=== PATIENT | male | born 1935 | race Caucasian/White ===

== ENCOUNTER 2016-11-30 11:47 | Inpatient (IN) | payer OTHER ==
[~2016-11-30] VITALS: Ht 170.2 cm; Wt 91.5 kg
[~2016-11-30 11:47] MED LIST: ALLO100T PO; CALC625T PO; CHOL100027 PO; CYAN500T PO; FLM4 PO; FURO20TA PO; INSDGI SC; LPT/40 PO; MULT-618 PO; NITR0.4S UT; PLV75 PO; PRLSR20 PO; PYRI100T4 PO; REPA2TAB13 PO; TPRSR50 PO
--- NOTE | 2016-11-30 12:45 | EMERGENCY ROOM VISIT NOTE ---
History Report prepared by Gilda: Yfn Whitten Under the Supervision of: Dr. Mike Melton D.O. First contact with patient: 12:28 Chief Complaint: BILATERAL LEG WEAKNESS Stated Complaint: DIFFICULTY WALKING, SORETHROAT, COUGH Nursing Triage Summary: Pt states they were going to [facility] for sorethroat, but when she went to get him to car pt couldn't walk. "whenever he gets really sick he can't walk" states this occured a couple years ago. Pt denies pain. Pt states Kishore as first and last name. Was able to give . History of Present Illness The patient is an 81 year old male who presents to the Emergency Room with complaints of acute generalized weakness this morning. The patient has been demonstrating a non-productive cough, sore throat, and subjective fever. The patient was going to [facility] this morning when he was having trouble ambulating to the car. The patient has not been eating well. The patient and his deny chest pain, nausea, vomiting, abdominal pain, urinary symptoms, or increased swelling of the legs. The patient has a coronary stent and cardiac defibrillator placed at [facility]. He is no longer on Plavix. He also has a history of diabetes and CHF, and is s/p appendectomy. The patient had his flu shot this past fall. Source of History: patient, family Onset: this morning Position: other (generalized) Quality: other (weakness) Timing: other (acute) Associated Symptoms: + cough, + fevers, + sorethroat, No abdominal pain, No chest pain, No nausea, No urinary symptoms, No vomiting Review of Systems See HPI for pertinent positives & negatives. A total of 10 systems reviewed and were otherwise negative. Past Medical & Surgical Medical Problems: (1) Anemia in chronic renal disease (2) Benign prostatic hyperplasia (3) CAD (coronary artery disease) (4) Calculus of kidney and ureter (5) Cardiomyopathy (6) Chronic ITP (idiopathic thrombocytopenic purpura) (7) CKD (chronic kidney disease), stage IV (8) Coronary artery disease (9) Diabetes mellitus type 2 (10) Diabetic renal disease (11) Diverticular disease of colon (12) Gastroesophageal reflux disease (13) Gout (14) Implantation of internal cardiac defibrillator (15) Malignant neoplasm of skin (16) MA (myocardial infarction) (17) Status post left heart catheterization (LHC) (18) Systolic heart failure Surgical Problems: (1) H/O cystoscopy (2) Hx of heart artery stent (3) S/P appendectomy (4) S/P ICD (internal cardiac defibrillator) procedure Family History Diabetes mellitus FHx: heart disease Social History Smoking Status: Never Smoker Alcohol Use: none Drug Use: none Marital Status: Occupation Status: retired Current/Historical Medications Scheduled Allopurinol (Zyloprim), 100 MG PO DAILY Aspirin (Aspirin Ec), 81 MG PO DAILY Atorvastatin (Lipitor), 40 MG PO QPM Calcium Polycarbophil (Fibercon), 1,250 MG PO DAILY Cholecalciferol (Vitamin D 1000 Unit), 1,000 INTER.UNIT PO DAILY Cyanocobalamin (Vitamin B-12), 500 MCG PO BID Furosemide (Lasix), 20 MG PO 3XWK Insulin Glargine (Lantus Solostar), 30 SC QAM Insulin Glargine (Lantus Solostar), 30 SC HS Metoprolol Succinate (Metoprolol Succinate ER), 50 MG PO QAM Multiple Vitamins W/ Minerals (Centrum Silver Ultra Mens), 1 TAB PO DAILY Nitroglycerin (Nitrostat), 0.4 MG UT UD Omeprazole (Prilosec), 20 MG PO DAILY Pyridoxine (Vitamin B6), 100 MG PO DAILY Repaglinide (Prandin), 4 MG PO TID Allergies Coded Allergies: Lisinopril (Verified Allergy, Mild, 11/30/16) Physical Exam Vital Signs Date Time Temp Pulse Resp B/P Pulse Ox O2 Delivery O2 Flow Rate FiO2 11/30/16 13:58 94 Room Air 11/30/16 13:56 37.1 96 18 136/74 94 Room Air 11/30/16 12:11 102 11/30/16 11:51 37.9 109 19 160/76 92 Room Air Physical Exam GENERAL: Patient is listless, slow to respond to questioning but follows commands when prompted. EYES: The conjunctivae are clear. The pupils are round and reactive. EARS, NOSE, MOUTH AND THROAT: The nose is without any evidence of any deformity. Mucous membranes are dry tongue is midline NECK: The neck is nontender and supple. RESPIRATORY: Sounds diminished at the right base, rales noted to the left base, tachypnea noted. CARDIOVASCULAR: Heart sounds are tachycardic but regular, no definite murmurs noted to auscultation. GASTROINTESTINAL: The abdomen is soft. Bowel sounds are present in all quadrants. Abdomen is nontender MUSCULOSKELETAL/EXTREMITIES: There is no evidence of gross deformity full range of motion is noted in the hips and shoulders SKIN: There is no obvious evidence of any rash. There are no petechiae, pallor or cyanosis noted. There is pedal edema bilaterally. NEUROLOGIC: Patient is oriented to person place and situation, strength is diminished but symmetric. Medical Decision & Procedures ER Provider Diagnostic Interpretation: X-ray results as stated below per interpretation by me and the radiologist. CHEST ONE VIEW PORTABLE HISTORY: Sepsis COMPARISON: Chest 04/22/2016. FINDINGS: Left-sided single lead pacemaker/defibrillator. The heart is stable in size. Old, healed right-sided rib fractures and old right clavicle fracture. No pleural effusions. No pneumothorax. No evidence for pulmonary edema. Hazy appearance the right lung base. Mild interstitial thickening is likely chronic. IMPRESSION: A new hazy opacity at the right lung base which may represent a developing pneumonia. Recommend follow-up to ensure resolution. Electronically signed by: Agusto Stone M.D. 11/30/2016 1:14 PM Dictated Date/Time: 11/30/2016 1:13 PM Laboratory Results 11/30/16 12:50 Red Blood Count 4.44, Mean Corpuscular Volume 90.1, Mean Corpuscular Hemoglobin 31.5, Mean Corpuscular Hemoglobin Concent 35.0, Mean Platelet Volume 11.9, Neutrophils (%) (Auto) 85.0, Lymphocytes (%) (Auto) 6.4, Monocytes (%) (Auto) 7.6, Eosinophils (%) (Auto) 0.3, Basophils (%) (Auto) 0.3, Neutrophils # (Auto) 12.05, Lymphocytes # (Auto) 0.91, Monocytes # (Auto) 1.08, Eosinophils # (Auto) 0.04, Basophils # (Auto) 0.04 11/30/16 12:50 Test 11/30/16 12:50 11/30/16 13:00 11/30/16 13:02 11/30/16 13:17 White Blood Count 14.17 K/uL (4.8-10.8) Red Blood Count 4.44 M/uL (4.7-6.1) Hemoglobin 14.0 g/dL (14.0-18.0) Hematocrit 40.0 % (42-52) Mean Corpuscular Volume 90.1 fL (80-100) Mean Corpuscular Hemoglobin 31.5 pg (25-34) Mean Corpuscular Hemoglobin Concent 35.0 g/dl (32-36) Platelet Count 92 K/uL (130-400) Mean Platelet Volume 11.9 fL (7.4-10.4) Neutrophils (%) (Auto) 85.0 % Lymphocytes (%) (Auto) 6.4 % Monocytes (%) (Auto) 7.6 % Eosinophils (%) (Auto) 0.3 % Basophils (%) (Auto) 0.3 % Neutrophils # (Auto) 12.05 K/uL (1.4-6.5) Lymphocytes # (Auto) 0.91 K/uL (1.2-3.4) Monocytes # (Auto) 1.08 K/uL (0.11-0.59) Eosinophils # (Auto) 0.04 K/uL (0-0.5) Basophils # (Auto) 0.04 K/uL (0-0.2) RDW Standard Deviation 47.5 fL (36.4-46.3) RDW Coefficient of Variation 14.5 % (11.5-14.5) Immature Granulocyte % (Auto) 0.4 % Immature Granulocyte # (Auto) 0.05 K/uL (0.00-0.02) Platelet Estimate DECREASED Erythrocyte Sedimentation Rate 41 mm/hr (0-14) Prothrombin Time 11.4 SECONDS (9.0-12.0) Prothromb Time International Ratio 1.1 (0.9-1.1) Activated Partial Thromboplast Time 28.6 SECONDS (21.0-31.0) Partial Thromboplastin Ratio 1.1 Anion Gap 11.0 mmol/L (3-11) Estimated GFR () 28.1 Estimated GFR (Non- 24.2 BUN/Creatinine Ratio 10.2 (10-20) Calcium Level 9.1 mg/dl (8.5-10.1) Phosphorus Level 1.6 mg/dl (2.5-4.9) Magnesium Level 1.8 mg/dl (1.8-2.4) Total Bilirubin 1.1 mg/dl (0.2-1) Aspartate Amino Transf (AST/SGOT) 28 U/L (15-37) Alanine Aminotransferase (ALT/SGPT) 34 U/L (12-78) Alkaline Phosphatase 73 U/L (45-117) C-Reactive Protein 18.70 mg/dl (0-0.29) Pro-B-Type Natriuretic Peptide 3141 pg/ml (0-1800) Total Protein 7.2 gm/dl (6.4-8.2) Albumin 3.2 gm/dl (3.4-5.0) Globulin 4.0 gm/dl (2.5-4.0) Albumin/Globulin Ratio 0.8 (0.9-2) Lipase 59 U/L (73-393) Procalcitonin 0.61 ng/mL (0-0.5) Venous Blood pH 7.41 (7.36-7.41) Venous Blood Partial Pressure CO2 42 mmHg (38.0-50.0) Venous Blood Partial Pressure O2 24 mmHg Venous Blood HCO3 26 mmol/L Venous Blood Oxygen Saturation < 60.0 % Venous Blood Base Excess 1.2 mmol/L Bedside Lactic Acid Venous 3.03 mmol/L (0.90-1.70) Influenza Type A (RT-PCR) Neg for Influ A (NEG) Influenza Type A Antigen Neg for Influ A (NEG) Influenza Type B Antigen Neg for Influ B (NEG) Influenza Type B (RT-PCR) Neg for Influ B (NEG) Laboratory results per my review. Medications Administered Medications (Trade) Dose Ordered Sig/Zully Route Start Time Stop Time Status Last Admin Dose Admin Levofloxacin 750 mg 750 mg NOW STAT IV 11/30/16 13:28 11/30/16 13:29 DC 11/30/16 13:37 750 MG Sodium Chloride (Nss 1000ml) 1,000 ml @ 999 mls/hr Q1H1M STAT IV 11/30/16 13:28 11/30/16 14:28 DC 11/30/16 13:28 999 MLS/HR ECG Indication: weakness Rate (beats per minute): 103 Rhythm: sinus tachycardia Findings: T-wave inversion, no acute ischemic change, no ectopy, other (PRWP) Comparison ECG Date: 23 April 2016 Change: no significant change ED Course 1231: The patient was evaluated in room B3b. A complete history and physical examination were performed. 1328: NSS 1000 ml @ 999 mls/hr, Levofloxacin 750 mg IV. 1356: Discussed the case with Sophia Mark [facility]-C, [facility] The patient will be evaluated. Medical Decision Prior records/ancillary studies reviewed and summarized above. Nursing notes reviewed. Additional history obtained from family. Differential diagnosis: Etiologies such as metabolic, infection, hypo/hyperglycemia, electrolyte abnormalities, cardiac sources, intracerebral event, toxicologic, neurologic, as well as others were entertained. The patient is an 81-year-old male who presented to the emergency department for 2 days of difficulty breathing. The patient's history and physical exam appeared to be consistent with pneumonia. Chest x-ray reveal signs of pulmonary infiltrate. The patient was treated with IV fluids and IV antibiotics. He doesn' t a history of pulmonary edema so he was only given an initial fluid bolus. I discussed patient's laboratory and radiographic studies with him. On subsequent reevaluation he was feeling somewhat better. He was placed on supplemental oxygen. [facility] have agreed to evaluate the patient in the emergency department for further management and disposition. Consults Time Called: 1350 Consulting Physician: Sophia Mark PA-C, [facility] Returned Call: [phone]: Discussed the case with Sophia Mark PA-C, [facility]. The patient will be evaluated. Impression Primary Impression: PNA (pneumonia) Additional Impressions: General weakness Elevated troponin JACKIE (acute kidney injury) Thrombocytopenia Critical Care I have personally spent greater than 45 minutes of critical care time in the direct management of this patient. This includes bedside care, interpretation of diagnostic studies, and testing, discussion with consultants, patient, and family members, and other required patient management activities. This 45 minutes is in excess of all separately billable procedures. Scribe Attestation The scribe's documentation has been prepared under my direction and personally reviewed by me in its entirety. I confirm that the note above accurately reflects all work, treatment, procedures, and medical decision making performed by me. Departure Information Dispostion Being Evaluated By Hospitalist Referrals Cruzito Liao M.D. (PCP) Patient Instructions My [facility] Problem Qualifiers
--- NOTE | 2016-11-30 13:16 | DIAGNOSTIC IMAGING REPORT ---
CHEST ONE VIEW PORTABLE HISTORY: Sepsis COMPARISON: Chest 04/22/2016. FINDINGS: Left-sided single lead pacemaker/defibrillator. The heart is stable in size. Old, healed right-sided rib fractures and old right clavicle fracture. No pleural effusions. No pneumothorax. No evidence for pulmonary edema. Hazy appearance the right lung base. Mild interstitial thickening is likely chronic. IMPRESSION: A new hazy opacity at the right lung base which may represent a developing pneumonia. Recommend follow-up to ensure resolution. Electronically signed by: Agusto Stone M.D. 11/30/2016 1:14 PM Dictated Date/Time: 11/30/2016 1:13 PM
[2016-11-30 13:21] LABS: MEAN CELL VOLUME 90.1 fL (80-100); MEAN CORPUSCULAR HEMOGLOBIN 31.5 pg (25-34); MEAN PLATELET VOLUME 11.9 fL (7.4-10.4); PLATELET COUNT 92 K/uL (130-400); RED BLOOD COUNT 4.44 M/uL (4.7-6.1); WHITE BLOOD COUNT 14.17 K/uL (4.8-10.8)
[2016-11-30 13:25] LABS: VEN BLD GAS O2 SATURATION < 60.0 %; VEN BLOOD GAS BASE EXCESS 1.2 mmol/L; VENOUS BLOOD GAS PCO2 42 mmHg (38.0-50.0); VENOUS BLOOD GAS PO2 24 mmHg
[2016-11-30] MEDS ORDERED: SODIUM CHLORIDE 0.9% 1000ML 1,000 ML IV STA (13:28)
[2016-11-30] MEDS ORDERED: LEVAQUIN 750MG / 150ML D5W IV STA (13:28)
[2016-11-30 13:30] LABS: INR 1.1 (0.9-1.1); PARTIAL THROMBOPLASTIN RATIO 1.1; PROTHROMBIN TIME (PATIENT) 11.4 SECONDS (9.0-12.0)
[2016-11-30 13:42] LABS: ALT/SGPT 34 U/L (12-78); AST/SGOT 28 U/L (15-37); BLOOD UREA NITROGEN 24 mg/dl (7-18); BUN/CREATININE RATIO 10.2 (10-20); CALCIUM 9.1 mg/dl (8.5-10.1); CARBON DIOXIDE 23 mmol/L (21-32); CHLORIDE 104 mmol/L (98-107); GLUCOSE 237 mg/dl (70-99); MAGNESIUM 1.8 mg/dl (1.8-2.4); POTASSIUM 3.8 mmol/L (3.5-5.1); SODIUM 138 mmol/L (136-145)
[2016-11-30 13:44] LABS: BASO % 0.3 %; BASO ABS # 0.04 K/uL (0-0.2); COMPLETE YES; EOS % 0.3 %; IG% 0.4 %; LYMPH % 6.4 %; LYMPH ABS # 0.91 K/uL (1.2-3.4); MONO % 7.6 %; PLT ESTIMATE DECREASED
[2016-11-30] MEDS ORDERED: INSDGIPEN SC ×2 (13:48)
[2016-11-30] MEDS ORDERED: ASPI81TA28 PO (13:53)
[2016-11-30 13:58] LABS: ALB/GLOB RATIO 0.8 (0.9-2); ALKALINE PHOSPHATASE 73 U/L (45-117); CKMB/CK RATIO 0.9 (0-3.0); PHOSPHORUS 1.6 mg/dl (2.5-4.9)
[2016-11-30] MEDS ORDERED: SODIUM PHOSPHATE 3 MMOL/1 ML INFUSION IV STA (14:30)
[2016-11-30] MEDS ORDERED: NITROGLYCERIN 0.4 MG SL PER TAB CHARGE SL PRN (14:30)
[2016-11-30] MEDS ORDERED: ONDANSETRON INJ 2 MG/ML 2 ML VIAL IV PRN (14:30)
[2016-11-30] MEDS ORDERED: ACETAMINOPHEN 325 MG TAB PO PRN (14:30)
[2016-11-30] MEDS ORDERED: DEXTROSE 50% 50 ML SYR IV PRN (14:45)
[2016-11-30] MEDS ORDERED: GLUCOSE 40% GEL 15 GM TUBE PO PRN (14:45)
[2016-11-30] MEDS ORDERED: GLUCOSE 10 TABS/TUBE PO PRN (14:45)
[2016-11-30] MEDS ORDERED: GLUCAGON FOR INJ 1 MG VIAL SQ PRN (14:45)
--- NOTE | 2016-11-30 15:05 | History and Physical ---
History & Physical Date & Time of Service: Nov 30, 2016 at 14:45 Chief Complaint: Difficulty Walking, Sorethroat, Cough Primary Care Physician: Cruzito Liao M.D. History of Present Illness Source: patient, family, clinic records, hospital records Patient seen and examined. 81 year old male with PMHx of Systolic CHF s/p ICD placement, CAD, IDDM, CKD stage 4, Chronic Idiopathic Thrombocytopenia presents to the ED complaining of sore throat x 1 day. Patient's family reports that he was feeling well until yesterday morning. The patient had been out of town and was staying at a hotel. He woke up that morning with a sore throat and a little congestion and they thought that was just from the hotel environment. Throughout the day he developed a nonproductive cough. This morning his was going to take him to urgent care for his symptoms but the patient was so generally weak and low energy that she had trouble getting him to the car so he went to the ED instead. He denies fevers, chills, chest pain, SOB, palpitations , nausea, vomiting, diarrhea, dysuria, calf pain and edema. Denies sick contact. Patient had flu shot this season. In the ED patient is mildly tachycardic, he has a low grade fever WBC count is 14K, POC lactate is 3, ESR and CRP are elevated. CXR shows possible pneumonia. Troponin is mildly elevated at 0.05. He received IVFs and Levaquin. He will be admitted for further workup and treatment. Past Medical/Surgical History Medical Problems: (1) Anemia in chronic renal disease Status: Chronic (2) Benign prostatic hyperplasia Status: Chronic (3) CAD (coronary artery disease) Status: Chronic (4) Calculus of kidney and ureter Status: Resolved (5) Cardiomyopathy Status: Chronic (6) Chronic ITP (idiopathic thrombocytopenic purpura) Status: Chronic (7) CKD (chronic kidney disease), stage IV Status: Chronic (8) Coronary artery disease Permanent Comment: s/p NE PCI LAD 99% stenosis PTCA + stent LVEF 35-40% 2007 Status: Chronic (9) Diabetes mellitus type 2 Status: Chronic (10) Diabetic renal disease Status: Chronic (11) Diverticular disease of colon Status: Chronic (12) Gastroesophageal reflux disease Status: Chronic (13) Gout Status: Chronic (14) Implantation of internal cardiac defibrillator Status: Chronic (15) Malignant neoplasm of skin Status: Chronic (16) NE (myocardial infarction) Status: Resolved (17) Status post left heart catheterization (LHC) Permanent Comment: stent Status: Chronic (18) Systolic heart failure Permanent Comment: ischemic cardiomyopathy LVEF 40-45% on echo 04/12/2016 Status: Chronic Surgical Problems: (1) H/O cystoscopy Status: Chronic (2) Hx of heart artery stent Permanent Comment: 08/16 stent LAD Status: Resolved (3) S/P appendectomy Status: Chronic (4) S/P ICD (internal cardiac defibrillator) procedure Permanent Comment: generator changed 02/10/2016 Status: Chronic Family History Diabetes mellitus BROTHER FHx: heart disease FATHER SISTER Social History Smoking Status: Never Smoker Alcohol Use: none Drug Use: none Marital Status: Housing status: lives with family Occupational Status: retired Immunizations History of Influenza Vaccine: Yes Influenza Vaccine Date: Jun 15, 2012 History of Tetanus Vaccine?: Yes History of Pneumococcal: Yes Pneumococcal Date: Jun 27, 2012 History of Hepatitis B Vaccine: Yes Multi-Drug Resistant Organisms History of MDRO: No Allergies Coded Allergies: Lisinopril (Verified Allergy, Mild, 11/30/16) Home Medications Scheduled Allopurinol (Zyloprim), 100 MG PO DAILY Aspirin (Aspirin Ec), 81 MG PO DAILY Atorvastatin (Lipitor), 40 MG PO QPM Calcium Polycarbophil (Fibercon), 1,250 MG PO DAILY Cholecalciferol (Vitamin D 1000 Unit), 1,000 INTER.UNIT PO DAILY Cyanocobalamin (Vitamin B-12), 500 MCG PO BID Furosemide (Lasix), 20 MG PO 3XWK Insulin Glargine (Lantus Solostar), 30 SC QAM Insulin Glargine (Lantus Solostar), 30 SC HS Metoprolol Succinate (Metoprolol Succinate ER), 50 MG PO QAM Multiple Vitamins W/ Minerals (Centrum Silver Ultra Mens), 1 TAB PO DAILY Nitroglycerin (Nitrostat), 0.4 MG UT UD Omeprazole (Prilosec), 20 MG PO DAILY Pyridoxine (Vitamin B6), 100 MG PO DAILY Repaglinide (Prandin), 4 MG PO TID Review of Systems See above for pertinent positives & negatives. A total of 10 systems reviewed and were otherwise negative. Physical Exam Vital Signs Date Time Temp Pulse Resp B/P Pulse Ox O2 Delivery O2 Flow Rate FiO2 11/30/16 13:58 94 Room Air 11/30/16 13:56 37.1 96 18 136/74 94 Room Air 11/30/16 12:11 102 11/30/16 11:51 37.9 109 19 160/76 92 Room Air General Appearance: + pertinent finding (Ill appearing WD/WN 81 year old male lying in bed in NAD with family at bedside ) Head: normocephalic, atraumatic Eyes: PERRL, EOMI, sclerae normal ENT: pharynx normal Neck: supple, no JVD Respiratory/Chest: chest non-tender, no respiratory distress, no accessory muscle use, + crackles (RLL ), + rhonchi (scattered ) Cardiovascular: regular rate, rhythm, no edema, no gallop, no JVD, no murmur, normal peripheral pulses Abdomen/GI: normal bowel sounds, non tender, soft Back: normal inspection, no muscle spasm Extremities/Musculoskelatal: no calf tenderness, normal capillary refill, no pedal edema Neurologic/Psych: alert, oriented x 3, + pertinent finding (decreased hearing, no focal deficits noted ) Skin: normal color, warm/dry, no rash Lymphatic: no adenopathy Diagnostics Laboratory Results Results Past 24 Hours Test 11/30/16 12:50 11/30/16 13:00 11/30/16 13:17 11/30/16 14:28 Range/Units White Blood Count 14.17 4.8-10.8 K/uL Red Blood Count 4.44 4.7-6.1 M/uL Hemoglobin 14.0 14.0-18.0 g/dL Hematocrit 40.0 42-52 % Mean Corpuscular Volume 90.1 80-100 fL Mean Corpuscular Hemoglobin 31.5 25-34 pg Mean Corpuscular Hemoglobin Concent 35.0 32-36 g/dl Platelet Count 92 130-400 K/uL Mean Platelet Volume 11.9 7.4-10.4 fL Neutrophils (%) (Auto) 85.0 % Lymphocytes (%) (Auto) 6.4 % Monocytes (%) (Auto) 7.6 % Eosinophils (%) (Auto) 0.3 % Basophils (%) (Auto) 0.3 % Neutrophils # (Auto) 12.05 1.4-6.5 K/uL Lymphocytes # (Auto) 0.91 1.2-3.4 K/uL Monocytes # (Auto) 1.08 0.11-0.59 K/uL Eosinophils # (Auto) 0.04 0-0.5 K/uL Basophils # (Auto) 0.04 0-0.2 K/uL RDW Standard Deviation 47.5 36.4-46.3 fL RDW Coefficient of Variation 14.5 11.5-14.5 % Immature Granulocyte % (Auto) 0.4 % Immature Granulocyte # (Auto) 0.05 0.00-0.02 K/uL Platelet Estimate DECREASED Erythrocyte Sedimentation Rate 41 0-14 mm/hr Prothrombin Time 11.4 9.0-12.0 SECONDS Prothromb Time International Ratio 1.1 0.9-1.1 Activated Partial Thromboplast Time 28.6 21.0-31.0 SECONDS Partial Thromboplastin Ratio 1.1 Sodium Level 138 136-145 mmol/L Potassium Level 3.8 3.5-5.1 mmol/L Chloride Level 104 98-107 mmol/L Carbon Dioxide Level 23 21-32 mmol/L Anion Gap 11.0 3-11 mmol/L Blood Urea Nitrogen 24 7-18 mg/dl Creatinine 2.40 0.60-1.40 mg/dl Estimated GFR () 28.1 Estimated GFR (Non- 24.2 BUN/Creatinine Ratio 10.2 10-20 Random Glucose 237 70-99 mg/dl Calcium Level 9.1 8.5-10.1 mg/dl Phosphorus Level 1.6 2.5-4.9 mg/dl Magnesium Level 1.8 1.8-2.4 mg/dl Total Bilirubin 1.1 0.2-1 mg/dl Aspartate Amino Transf (AST/SGOT) 28 15-37 U/L Alanine Aminotransferase (ALT/SGPT) 34 12-78 U/L Alkaline Phosphatase 73 45-117 U/L Total Creatine Kinase 156 39-308 U/L Creatine Kinase MB 1.4 0.5-3.6 ng/ml Creatine Kinase MB Ratio 0.9 0-3.0 Troponin I 0.051 0-0.045 ng/ml C-Reactive Protein 18.70 0-0.29 mg/dl Pro-B-Type Natriuretic Peptide 3141 0-1800 pg/ml Total Protein 7.2 6.4-8.2 gm/dl Albumin 3.2 3.4-5.0 gm/dl Globulin 4.0 2.5-4.0 gm/dl Albumin/Globulin Ratio 0.8 0.9-2 Lipase 59 73-393 U/L Venous Blood pH 7.41 7.36-7.41 Venous Blood Partial Pressure CO2 42 38.0-50.0 mmHg Venous Blood Partial Pressure O2 24 mmHg Venous Blood HCO3 26 mmol/L Venous Blood Oxygen Saturation < 60.0 % Venous Blood Base Excess 1.2 mmol/L Influenza Type A Antigen Neg for Influ A NEG Influenza Type B Antigen Neg for Influ B NEG Microbiology Results 11/30/16 Blood Culture, Received Pending 11/30/16 Blood Culture, Received Pending Diagnostic Radiology CXR Per radiologist read: IMPRESSION: A new hazy opacity at the right lung base which may represent a developing pneumonia. Recommend follow-up to ensure resolution. EKG 100 BPM, NSR LAD, QTc 428 Impression Assessment and Plan 81 year old male presents to the ED complaining of cough, sore throat, generalized weakness SEPSIS secondary to COMMUNITY ACQUIRED PNEUMONIA -Admit to tele -Presents with Fever, leukocytosis, elevated lactate, elevated inflammatory markers, JACKIE -CXR with likely right lower lobe pneumonia -CURB 65 score is 2 -POC lactate 3.03, formal serum lactate pending -IVFs at 100ml/hr - cautious IVF hydration secondary to systolic CHF -Blood cultures, sputum cultures pending -check MRSA swab -R/O Flu, PCR Flu pending -Empirically treat with Vancomycin, Zosyn, and Levaquin - pharmacy consulted for dosing -CBC, PRP, Mg daily -VSS monitor closely ELEVATED TROPONIN -h/o CAD s/p Stent -0.052 -Likely troponin leak in setting of sepsis, EKG stable, no chest pain -Serial Chapo, EKGs -monitor in tele -continue Aspirin, Statin, BB -nitro prn LOW PHOSPHORUS -replace -repeat in AM JACKIE ON CKD STAGE 4 -crea 2.4 baseline closer to 2 -Gentle IVF hydration -hold Lasix -follow PRP daily CHRONIC IDIOPATHIC THROMBOCYTOPENIA -92 today, stable -follow platelet count daily IDDM -with HYPERGLYCEMIA -.Check A1c -SSI coverage, basal Lantus -pharmacy consulted for glycemic control -consistent carb diet -BSG AC HS SYSTOLIC CHF -s/p ICD -last Echo with EF of 40-45% -appears slightly dry -hold diuretics -gentle IVF hydration GOUT -continue Allopurinol DVT PROPHYLAXIS: SCDs RE: thrombocytopenia CODE STATUS: FULL CODE per my discussion with the patient and his family DISPO:In my clinical judgment this beneficiary meets acute admission criteria, established by [facility], that includes being hospitalized through two midnights. Discharge planning Patient seen in collaboration with Dr. Jack Agree with above H and P. Briefly 81M presents with not feeling well and tired and found to have pneumonia. Patient was in [place] this weekend. He was fine on Wednesday but on Wednesday seems to be tired and sweaty. Today complained of sore throat and has dry cough. Tried to take him to urgent care but he was very weak and was decided to bring to ER.Having temp spike in Er. Blood pressure stable.Denies chest pain. No nausea or abdominal pain. p/e Ge not in distress Cvs s1 and s2 heard no murmurs Rs cta b/l mild bibasilar crackles Abd benign Heat And Frost Insulator non focal Ext no erythema. a/p Sepsis Right sided Pneumonia POC lactic acid 3 repeat lactic acid 2 Received 1lts of fluid i Er Started on Ns @100ml/hr and changed to 80ml/hr monitor for volume overload as patient has hx of chf follow cultures Started on triple iv abx taper down in 1-2 days ARF on fluids and abx f/u labs Chronic systolic chf ef 40-45% holding diuretics on fluids monitor for volume overload. VTE Prophylaxis VTE Risk Assessment Done? Y/N: Yes Risk Level: Moderate
[2016-11-30] MEDS ORDERED: PHARMACY GLYCEMIC MGMT CONSULT PRN (15:07)
[2016-11-30] MEDS ORDERED: LEVOFLOXACIN CONSULT ACTIVE PRN (15:15)
[2016-11-30] MEDS ORDERED: PIPERACILL/TAZOBAC CONSULT ACTIVE PRN (15:15)
[2016-11-30] MEDS ORDERED: VANCOMYCIN CONSULT ACTIVE PRN (15:15)
--- NOTE | 2016-11-30 15:35 | Pharmacy Progress Note ---
Glycemic Control Intl Consult Date of Service Nov 30, 2016. Scope Glycemic Pharmacist consulted by Sophia Mark PA-C on 11/30/16 for glycemic control and to write orders per [facility] inpatient glycemic control protocol Objective Weight (Kilograms): 103.000 Accuchecks BSG (last 24hrs): Test 11/30/16 12:50 Random Glucose 237 mg/dl (70-99) Laboratory Data (last 24hrs) Test 11/30/16 12:50 Anion Gap 11.0 mmol/L BUN/Creatinine Ratio 10.2 Blood Urea Nitrogen 24 mg/dl Creatinine 2.40 mg/dl Potassium Level 3.8 mmol/L Sodium Level 138 mmol/L White Blood Count 14.17 K/uL Red Blood Count 4.44 M/uL Hemoglobin 14.0 g/dL Hematocrit 40.0 % Mean Corpuscular Volume 90.1 fL Mean Corpuscular Hemoglobin 31.5 pg Mean Corpuscular Hemoglobin Concent 35.0 g/dl Platelet Count 92 K/uL Mean Platelet Volume 11.9 fL Neutrophils (%) (Auto) 85.0 % Lymphocytes (%) (Auto) 6.4 % Monocytes (%) (Auto) 7.6 % Eosinophils (%) (Auto) 0.3 % Basophils (%) (Auto) 0.3 % Neutrophils # (Auto) 12.05 K/uL Lymphocytes # (Auto) 0.91 K/uL Monocytes # (Auto) 1.08 K/uL Eosinophils # (Auto) 0.04 K/uL Basophils # (Auto) 0.04 K/uL Recent Pertinent Medications Outpatient Anti-diabetic Regimen: * Lantus 30 u SC BID * Prandin 4 mg PO TIDM * A1c = 8.4 % 04/2016 Risk Factors for Insulin Resistance: * Infection: Vancomycin/Levaquin/Zosyn IV * IVF: NS * Diet: T2DM Assessment & Plan ASSESSMENT: * 81 yo T2DM M admitted with sepsis secondary to pneumonia, initiated on broad spectrum IV antibiotics * BSG in the ED >200 mg/dL and pharmacy consulted to manage diabetes * Per , pt did receive full dose of Lantus 30 units F[employer] * My plan will be to initiate basal/bolus regimen based on total daily outpatient dose and a stress of 2 * Further adjustments to be made based on diet/stressors * ADA & AACE recommend a goal blood sugar range 140-180 mg/dl for the majority of critically ill & non-critically ill patients. However, more stringent targets may be selected in individual cases. Tighten goal range to 110-140 mg/ dL due to prior admission data. PLAN FOR INPATIENT GLYCEMIC CONTROL: * Holding outpatient oral diabetes medications * Basal insulin with LANTUS 20 units SQ BID * Correctional Insulin with NOVOLOG per scale ACHS or Q6hrs while NPO * Goal Range: Low 110 mg/dL - High 140 mg/dL * Correction Factor: 20 mg/dL/unit * Nutritional / Prandial insulin per carb ratio of 1 unit per 7 grams CHO consumed * A1c ordered with AM labs * Please note that the plan above was derived based on current level of insulin resistance and hospital stress. These recommendations are appropriate for inpatient admission only. Plan of care upon discharge will need to be reassessed to avoid potential outpatient hypo/hyperglycemia. Thank you.
[2016-11-30] MEDS ORDERED: PIPERACILLIN/TAZOBACTAM 4.5 GM/100ML D5W ONE (15:37)
[2016-11-30] MEDS ORDERED: VANCOMYCIN INJ 2,000 MG in SODIUM CHLORIDE 0.9% 500ML 500 ML IV SCH (16:00)
[2016-11-30] MEDS ORDERED: SODIUM PHOSPHATE INJ 21 MMOL in SODIUM CHLORIDE 0.9% 500ML 500 ML IV SCH (16:00)
[2016-11-30] MEDS: INSULIN ASPART 100 UNITS/ML 3 ML PEN SC SCH ×2 (16:00→23:09)
[2016-11-30 16:10] LABS: INFLUENZA A PCR Neg for Influ A (NEG); INFLUENZA B PCR Neg for Influ B (NEG)
[2016-11-30] MEDS: SODIUM CHLORIDE 0.9% 1000ML 1,000 ML IV SCH (16:28)
--- NOTE | 2016-11-30 16:30 | Pharmacy Progress Note ---
Pharmacy Antibiotic Consult Date of Service: Nov 30, 2016. Pharmacy Dosing Scope Pharmacy is consulted to initiate vancomycin, piperacillin/tazobactam, and levofloxacin IV dosing therapy, order appropriate labs and adjust drug dose/ frequency. Subjective The patient is a 81 year old male admitted on 11/30/16 with sepsis secondary to community acquired pneumonia. Objective Height (Feet): 5 Height (Inches): 7.00 Weight (Kilograms): 103.000 Lab Results (24hrs): Laboratory Tests Test 11/30/16 12:50 BUN/Creatinine Ratio 10.2 Blood Urea Nitrogen 24 mg/dl Creatinine 2.40 mg/dl White Blood Count 14.17 K/uL Red Blood Count 4.44 M/uL Hemoglobin 14.0 g/dL Hematocrit 40.0 % Mean Corpuscular Volume 90.1 fL Mean Corpuscular Hemoglobin 31.5 pg Mean Corpuscular Hemoglobin Concent 35.0 g/dl Platelet Count 92 K/uL Mean Platelet Volume 11.9 fL Neutrophils (%) (Auto) 85.0 % Lymphocytes (%) (Auto) 6.4 % Monocytes (%) (Auto) 7.6 % Eosinophils (%) (Auto) 0.3 % Basophils (%) (Auto) 0.3 % Neutrophils # (Auto) 12.05 K/uL Lymphocytes # (Auto) 0.91 K/uL Monocytes # (Auto) 1.08 K/uL Eosinophils # (Auto) 0.04 K/uL Basophils # (Auto) 0.04 K/uL Assessment & Plan Assessment: * dry cough and generally feeling unwell, admitted with sepsis 2/2 CAP * begin broad-spectrum ABX * Influenza negative * Lactate elevated, febrile on admission as well as leukocytosis with left shift - will be aggressive with ABX * CKD IV per H&P, SCr slightly elevated * review SCr tomorrow and adjust vancomycin as needed Plan: * Broad-spectrum ABX with vancomycin, piperacillin/tazobactam, and levofloxacin Vancomycin: * Loading dose: 2000 mg (~20mg/kg) IV X 1 dose * Maintenance dose: 1500 mg (~14.5mg/kg) IV q30 hours * Estimated kinetics: T1/2 ~24 hours, David: 0.028 hours-1, Vd: ~0.6L/kg 2/2 to body habitus? * Goal trough: 15-20mcg/mL for pulmonary source Piperacillin/tazobactam: * Loading dose of 4.5g IV x1 dose given in ED * Maintenance dose: 4.5 grams IV every 8 hours (infused over 4 hours per dose) * higher dose chose 2/2 to both sepsis as well as BMI >35kg/m2 Levofloxacin: * Target dose = 750mg IV/PO q24 hours for pulmonary infections * Dose adjust for CrCl 20-49mL/min to 750 mg IV/PO q48 hours Labs: * MRSA nasal swab and sputum are pending * may aide in de-escalation in vancomycin * May consider urine legionella antigen to help de-escalate fluoroquinolone in elderly patient. Pharmacy will continue to follow and will adjust dose/frequency as necessary. Thank you
[2016-11-30 18:40] VITALS: BP 127/75; PULSE 83; TEMP 37.8; O2SAT 95; BMI 35.6
[2016-11-30] MEDS: POT PHOSPHATE MONOBASIC W/ SOD TAB PO SCH ×2 (21:00→23:04)
[2016-11-30] MEDS: PIPERACILL/TAZOBAC IV 4.5 GM in DEXTROSE 5% 100ML 100 ML IV SCH (23:04)
[2016-11-30] MEDS: ATORVASTATIN 40 MG TAB PO SCH (23:04)
[2016-11-30] MEDS: CYANOCOBALAMIN 500 MCG TAB (VIT B-12) PO SCH (23:04)
[2016-11-30] MEDS: INSULIN GLARGINE SOLOSTAR 100 UNITS/ML 3 ML PEN SC SCH (23:09)
[2016-11-30 23:59] VITALS: BP 147/70; PULSE 109; TEMP 37.1; O2SAT 95
[2016-12-01 01:45] LABS: CKMB/CK RATIO 0.9 (0-3.0)
[2016-12-01 03:38] VITALS: BP 124/69; PULSE 74; TEMP 37; O2SAT 96
[2016-12-01] MEDS: PIPERACILL/TAZOBAC IV 4.5 GM in DEXTROSE 5% 100ML 100 ML IV SCH ×3 (05:59→21:15)
[2016-12-01] MEDS: SODIUM CHLORIDE 0.9% 1000ML 1,000 ML IV SCH ×2 (05:59→17:18)
[2016-12-01] MEDS: INSULIN ASPART 100 UNITS/ML 3 ML PEN SC SCH ×4 (07:00→21:00)
[2016-12-01 07:25] LABS: HEMATOCRIT 36.9 % (42-52); MEAN CELL VOLUME 92.5 fL (80-100); MEAN CORPUSCULAR HEMOGLOBIN 31.6 pg (25-34); MEAN CORPUSCULAR HGB CONC 34.1 g/dl (32-36); MEAN PLATELET VOLUME 12.1 fL (7.4-10.4); PLATELET COUNT 84 K/uL (130-400); RED BLOOD COUNT 3.99 M/uL (4.7-6.1); WHITE BLOOD COUNT 9.34 K/uL (4.8-10.8)
[2016-12-01 07:46] LABS: BUN/CREATININE RATIO 10.6 (10-20); CALCIUM 8.3 mg/dl (8.5-10.1); CREATININE 2.2 mg/dl (0.60-1.40); MAGNESIUM 1.7 mg/dl (1.8-2.4); POTASSIUM 3.5 mmol/L (3.5-5.1)
--- NOTE | 2016-12-01 07:53 | DIAGNOSTIC IMAGING REPORT ---
CHEST ONE VIEW PORTABLE CLINICAL HISTORY: Congestive failure COMPARISON STUDY: 11/30/2016 FINDINGS: The cardiac and mediastinal contours remain stable. There is a left subclavian pacer/defibrillator present. There are old right-sided rib fractures. There is no lobar consolidation. There is no overt failure. Bibasal opacities, are likely atelectatic.[ IMPRESSION: Bibasilar opacities, likely atelectatic. No evidence of lobar consolidation. No evidence of overt failure. Electronically signed by: Raheel Gauthier M.D. 12/01/2016 7:52 AM Dictated Date/Time: 12/01/2016 7:51 AM
[2016-12-01 07:58] LABS: CHOLESTEROL/HDL RATIO 4.1; PHOSPHORUS 2.7 mg/dl (2.5-4.9)
[2016-12-01] MEDS: CHOLECALCIFEROL 1000 INTER.UNIT TAB PO SCH (08:01)
[2016-12-01] MEDS: METOPROLOL SUCC 50MG EXT REL TAB PO SCH (08:01)
[2016-12-01] MEDS: PANTOprazole SOD 40 MG TAB PO SCH (08:01)
[2016-12-01] MEDS: ALLOPURINOL 100 MG TAB PO SCH (08:02)
[2016-12-01] MEDS: POT PHOSPHATE MONOBASIC W/ SOD TAB PO SCH ×4 (08:02→21:04)
[2016-12-01] MEDS: CALCIUM POLYCARBOPHIL 1 TAB PO SCH (08:02)
[2016-12-01] MEDS: ASPIRIN 81 MG ECTAB PO SCH (08:02)
[2016-12-01] MEDS: CEROVITE ADV FORMULA TAB PO SCH (08:03)
[2016-12-01] MEDS: PYRIDOXINE HCL 50 MG TAB PO SCH (08:03)
[2016-12-01] MEDS: CYANOCOBALAMIN 500 MCG TAB (VIT B-12) PO SCH ×2 (08:04→21:04)
[2016-12-01] MEDS: INSULIN GLARGINE SOLOSTAR 100 UNITS/ML 3 ML PEN SC SCH ×2 (08:06→21:06)
[2016-12-01 08:11] VITALS: BP 142/72; PULSE 79; TEMP 36.8; O2SAT 96
[2016-12-01 09:09] LABS: ESTIMATED AVERAGE GLUCOSE 189 mg/dl; HA1C FLAG Normal (Normal)
[2016-12-01 11:20] VITALS: BP 127/78; PULSE 74; TEMP 36.8; O2SAT 92
--- NOTE | 2016-12-01 13:06 | Progress Note ---
Internal Med Progress Note Date of Service: Dec 01, 2016. Provider Documentation: SUBJECTIVE: The patient was seen and examined Feels a little better today Still has cough and minimal SOB at rest OBJECTIVE: Vital Signs-as noted below Exam: General-NO distress at rest Eyes-normal ENT-normal Neck-supple Lungs-Decreased breath sound bilaterally Coarse crackles bilaterally Heart-Regular,no murmur Abdomen-Benign no masses,bowel sound present Extremities-Trace edema bilaterally Neuro-AAOx3 Lab data as noted below. ASSESSMENT & PLAN: SEPSIS COMMUNITY ACQUIRED PNEUMONIA -Presented with Fever, leukocytosis, elevated lactate, elevated inflammatory markers, JACKIE -CXR-Bibasilar opacities -atelectasis/infiltration -POC lactate 3.03.lab Lactate-2.0 -Blood cultures, sputum cultures pending -MRSA screen negative and Flu negative -Empirically treat with Vancomycin, Zosyn, and Levaquin - pharmacy consulted for dosing -clinically a little better -will deescalate Antibiotic ELEVATED TROPONIN -h/o CAD s/p Stent -Likely troponin leak in setting of sepsis, EKG stable, no chest pain -Serial Chapo are elevated to 0.26 , -no symptoms and EKG-no acute change -continue Aspirin, Statin, BB -will get ECHO LOW PHOSPHORUS -replace -repeat in AM -normalized JACKIE ON CKD STAGE 4 -crea 2.4 baseline closer to 2 -Gentle IVF hydration -Lasix on hold -Creatinine is improving CHRONIC IDIOPATHIC THROMBOCYTOPENIA -92 on Admission -follow platelet count daily ~80s IDDM -with HYPERGLYCEMIA -Hb A 1c-8.2 -SSI coverage, basal Lantus -pharmacy consulted for glycemic control -consistent carb diet -BSG AC HS SYSTOLIC CHF -s/p ICD -last Echo with EF of 40-45% -appears slightly dry -hold diuretics for now -gentle IVF hydration for ARF GOUT -continue Allopurinol DVT PROPHYLAXIS: SCDs RE: thrombocytopenia CODE STATUS: FULL CODE per my discussion with the patient and his family DISPO: Awaited Vital Signs: Date Time Temp Pulse Resp B/P Pulse Ox O2 Delivery O2 Flow Rate FiO2 12/01/16 11:20 36.8 74 18 127/78 92 12/01/16 08:11 36.8 79 18 142/72 96 12/01/16 08:00 Nasal Cannula 2.0 12/01/16 04:02 Nasal Cannula 2.0 12/01/16 03:38 37.0 74 19 124/69 96 Nasal Cannula 2.0 12/01/16 00:02 Nasal Cannula 2.0 11/30/16 23:59 37.1 109 24 147/70 95 Nasal Cannula 2.0 11/30/16 21:00 Nasal Cannula 2.0 11/30/16 20:33 37.8 83 20 127/75 95 11/30/16 18:40 37.8 83 20 127/75 95 Nasal Cannula 3.0 11/30/16 18:37 89 11/30/16 17:08 88 16 140/77 96 2.0 11/30/16 17:07 90 10 140/83 96 Nasal Cannula 2.0 11/30/16 16:08 91 11/30/16 13:58 94 Room Air 11/30/16 13:56 37.1 96 18 136/74 94 Room Air Lab Results: Results Past 24 Hours Test 11/30/16 13:00 11/30/16 13:02 11/30/16 13:17 11/30/16 15:22 Range/Units Venous Blood pH 7.41 7.36-7.41 Venous Blood Partial Pressure CO2 42 38.0-50.0 mmHg Venous Blood Partial Pressure O2 24 mmHg Venous Blood HCO3 26 mmol/L Venous Blood Oxygen Saturation < 60.0 % Venous Blood Base Excess 1.2 mmol/L Bedside Lactic Acid Venous 3.03 0.90-1.70 mmol/L Influenza Type A (RT-PCR) Neg for Influ A NEG Influenza Type A Antigen Neg for Influ A NEG Influenza Type B Antigen Neg for Influ B NEG Influenza Type B (RT-PCR) Neg for Influ B NEG Lactic Acid Level 2.0 0.4-2.0 mmol/L Test 11/30/16 19:38 11/30/16 21:10 12/01/16 01:00 12/01/16 06:43 Range/Units Total Creatine Kinase 242 39-308 U/L Creatine Kinase MB 1.5 2.2 0.5-3.6 ng/ml Creatine Kinase MB Ratio 0.9 0-3.0 Troponin I 0.250 0.261 0-0.045 ng/ml Bedside Glucose 150 70-99 mg/dl White Blood Count 9.34 4.8-10.8 K/uL Red Blood Count 3.99 4.7-6.1 M/uL Hemoglobin 12.6 14.0-18.0 g/dL Hematocrit 36.9 42-52 % Mean Corpuscular Volume 92.5 80-100 fL Mean Corpuscular Hemoglobin 31.6 25-34 pg Mean Corpuscular Hemoglobin Concent 34.1 32-36 g/dl RDW Standard Deviation 49.9 36.4-46.3 fL RDW Coefficient of Variation 14.8 11.5-14.5 % Platelet Count 84 130-400 K/uL Mean Platelet Volume 12.1 7.4-10.4 fL Sodium Level 142 136-145 mmol/L Potassium Level 3.5 3.5-5.1 mmol/L Chloride Level 110 98-107 mmol/L Carbon Dioxide Level 20 21-32 mmol/L Anion Gap 12.0 3-11 mmol/L Blood Urea Nitrogen 23 7-18 mg/dl Creatinine 2.20 0.60-1.40 mg/dl Est Creatinine Clear Calc Drug Dose 27.8 ml/min Estimated GFR () 31.2 Estimated GFR (Non- 26.9 BUN/Creatinine Ratio 10.6 07-30 Random Glucose 136 70-99 mg/dl Estimated Average Glucose 189 mg/dl Hemoglobin A1c 8.2 4.5-5.6 % Calcium Level 8.3 8.5-10.1 mg/dl Phosphorus Level 2.7 2.5-4.9 mg/dl Magnesium Level 1.7 1.8-2.4 mg/dl Triglycerides Level 223 0-150 mg/dl Cholesterol Level 140 0-200 mg/dl HDL Cholesterol 34 mg/dl LDL Cholesterol, Calculated 61 mg/dl VLDL Cholesterol, Calculated 45 mg/dl Cholesterol/HDL Ratio 4.1 Test 12/01/16 06:50 12/01/16 11:09 Range/Units Bedside Glucose 142 188 70-99 mg/dl Microbiology Results 11/30/16 Blood Culture, Received Pending 11/30/16 MRSA DNA Surveillance Screen - Final, Complete Specimen Negative for MRSA by DNA Probe 11/30/16 Gram Stain - Final, Resulted 11/30/16 Sputum Culture, Resulted Pending
--- NOTE | 2016-12-01 14:10 | Pharmacy Progress Note ---
Glycemic Control: Progress Nt Date of Service Dec 01, 2016. Scope Glycemic Pharmacist consulted by Ryder GARCIA on 11/30/16 for glycemic control and to write orders per [facility] inpatient glycemic control protocol. Objective Accuchecks BSG (last 24hrs): Test 11/30/16 21:10 12/01/16 06:43 12/01/16 06:50 12/01/16 11:09 Bedside Glucose 150 mg/dl (70-99) 142 mg/dl (70-99) 188 mg/dl (70-99) Random Glucose 136 mg/dl (70-99) Laboratory Data (last 24hrs) Test 12/01/16 06:43 Anion Gap 12.0 mmol/L BUN/Creatinine Ratio 10.6 Blood Urea Nitrogen 23 mg/dl Creatinine 2.20 mg/dl Hemoglobin A1c 8.2 % Potassium Level 3.5 mmol/L Sodium Level 142 mmol/L White Blood Count 9.34 K/uL HbA1c: Test 12/01/16 06:43 Hemoglobin A1c 8.2 % (4.5-5.6) H Recent Pertinent Medications Outpatient Anti-diabetic Regimen: * Lantus 30 units SQ BID * Prandin 4mg PO TID w/ meals * A1c = 8.2 % 12/01/16 The patient is currently receiving: * Basal insulin: Lantus 20 units every 12 hours * Correctional Insulin: Novolog Correction per scale ACHS Goal Range: Low 110 mg/dL - High 140 mg/dL Correction Factor: 20 mg/dL/unit * Prandial insulin: Per carb ratio of 1 unit per 7 grams CHO consumed * Oral Agents: None currently Risk Factors for Insulin Resistance: * Infection: receiving Vancomycin + Zosyn + Levofloxacin IV for sepsis/CAP * Diet: ordered T2DM / AHA diet Assessment & Plan ASSESSMENT: 11/30/16 * 81 yo T2DM M admitted with sepsis secondary to pneumonia, initiated on broad spectrum IV antibiotics * BSG in the ED >200 mg/dL and pharmacy consulted to manage diabetes * Per , pt did receive full dose of Lantus 30 units VENEER DRIER * My plan will be to initiate basal/bolus regimen based on total daily outpatient dose and a stress of 2 * Further adjustments to be made based on diet/stressors 12/01/16 * Glycemic control acceptable at this time with current orders; BSGs ranged 136- 188 over last 24 hrs * Fasting BSG 136-142 this AM with 50 units Lantus on board - ongoing order for 20 BID likely appropriate given weight and prior admission data * Post-prandial BSG rise less than 50mg/dL following breakfast, weight based CR appears to be a reasonable starting point PLAN FOR INPATIENT GLYCEMIC CONTROL: * Continuing Lantus 20 units SQ BID * Continuing correction factor of 20 mg/dl/unit * Continuing carb ratio of 1 unit per 7 grams CHO consumed * Continuing goal range of Low 110 mg/dL - High 140 mg/dL * Please note that the plan above was derived based on current level of insulin resistance and hospital stress. These recommendations are appropriate for inpatient admission only. Plan of care upon discharge will need to be reassessed to avoid potential outpatient hypo/hyperglycemia. Thank you.
[2016-12-01 14:29] VITALS: Ht 170.2 cm; Wt 91.5 kg
[2016-12-01 15:24] VITALS: BP 123/71; PULSE 74; TEMP 37; O2SAT 96
[2016-12-01] MEDS ORDERED: VANCOMYCIN INJ 1,500 MG in SODIUM CHLORIDE 0.9% 500ML 500 ML IV SCH (16:00)
[2016-12-01 19:48] VITALS: BP 123/73; PULSE 82; TEMP 37; O2SAT 97
[2016-12-01] MEDS: ATORVASTATIN 40 MG TAB PO SCH (21:04)
[2016-12-01 23:26] VITALS: BP 118/69; PULSE 78; TEMP 36.8; O2SAT 94
[2016-12-02 02:31] LABS: URINE APPEARANCE CLEAR (CLEAR); URINE BILIRUBIN NEG (NEG); URINE COLOR YELLOW; URINE EPITHELIAL CELL AUTO 20-30 /lpf (0-5); URINE NITRITE NEG (NEG); URINE SPECIFIC GRAVITY 1.015 (1.000-1.030); UROBILINOGEN NEG (NEG); ZZUR CULT IF INDIC CLEAN CATCH YES
[2016-12-02 02:34] LABS: MANUAL MICROSCOPIC REQUIRED? NO; REVIEW REQ? YES
[2016-12-02 03:38] VITALS: BP 126/75; PULSE 74; TEMP 36.8; O2SAT 95
[2016-12-02 04:00] VITALS: BP 152/90; PULSE 74; TEMP 36.5; O2SAT 99
[2016-12-02] MEDS: SODIUM CHLORIDE 0.9% 1000ML 1,000 ML IV SCH ×2 (04:55→16:42)
[2016-12-02] MEDS: PIPERACILL/TAZOBAC IV 4.5 GM in DEXTROSE 5% 100ML 100 ML IV SCH ×2 (04:55→12:27)
[2016-12-02 07:39] VITALS: BP 137/88; PULSE 74; TEMP 36.6; O2SAT 97
[2016-12-02] MEDS: POT PHOSPHATE MONOBASIC W/ SOD TAB PO SCH ×4 (07:41→20:16)
[2016-12-02] MEDS: CALCIUM POLYCARBOPHIL 1 TAB PO SCH (07:42)
[2016-12-02] MEDS: CHOLECALCIFEROL 1000 INTER.UNIT TAB PO SCH (07:43)
[2016-12-02] MEDS: PYRIDOXINE HCL 50 MG TAB PO SCH (07:43)
[2016-12-02] MEDS: PANTOprazole SOD 40 MG TAB PO SCH (07:44)
[2016-12-02] MEDS: CEROVITE ADV FORMULA TAB PO SCH (07:45)
[2016-12-02] MEDS: CYANOCOBALAMIN 500 MCG TAB (VIT B-12) PO SCH ×2 (07:45→20:16)
[2016-12-02] MEDS: METOPROLOL SUCC 50MG EXT REL TAB PO SCH (07:45)
[2016-12-02] MEDS: ALLOPURINOL 100 MG TAB PO SCH (07:46)
[2016-12-02] MEDS: ASPIRIN 81 MG ECTAB PO SCH (07:46)
[2016-12-02] MEDS: INSULIN GLARGINE SOLOSTAR 100 UNITS/ML 3 ML PEN SC SCH ×2 (07:51→21:11)
[2016-12-02] MEDS: INSULIN ASPART 100 UNITS/ML 3 ML PEN SC SCH ×4 (07:51→20:17)
--- NOTE | 2016-12-02 08:24 | Clinical Documentation Query ---
Dr. STEW[facility] : CLINICAL DOCUMENTATION QUERY Patient is an 81 year old male admitted with sepsis secondary to CAP. Has been empirically treated with Vancomycin, Zosyn, and Levaquin. Remains on Levaquin and Zosyn IV. As appropriate, please explicitly specify the possible type(s) of pneumonia you are treating based upon antibiotic choices. Thank you. In your clinical opinion is this patient being managed for: ( + ) (Possible/Suspected) Aspiration and/or gram-negative pneumonia ( ) Other explanation of clinical findings (Please Explain) ( ) Unable to determine (Please Define) ( ) Need to Discuss ( ) Not Agree The medical record reflects the following clinical findings, treatment, and risk factors. Clinical Indicators: As above Treatment: IV Levaquin, Zosyn, Speech evaluation, aspiration precautions Risk Factors: Age Please clarify and document your clinical opinion in the progress notes and discharge summary. Terms such as "probable", "suspected", "likely", "questionable", "possible", or "still to be ruled out" are acceptable. IF IN AGREEMENT, YOU MUST DOCUMENT ABOVE DIAGNOSTIC STATEMENT IN DAILY PROGRESS NOTES AND DISCHARGE SUMMARY. This document is not part of the patient's record. Thank You, Khanh Montero, RN [phone]
[2016-12-02 11:47] VITALS: BP 120/78; PULSE 80; TEMP 36.9; O2SAT 94
--- NOTE | 2016-12-02 12:23 | Progress Note ---
Internal Med Progress Note Date of Service: Dec 02, 2016. Provider Documentation: SUBJECTIVE: The patient was seen and examined Feels a lot better today Still has cough and minimal SOB at rest OBJECTIVE: Vital Signs-as noted below Exam: General-NO distress at rest Eyes-normal ENT-normal Neck-supple Lungs-Decreased breath sound bilaterally Coarse crackles bilaterally -improves a little Heart-Regular,no murmur Abdomen-Benign no masses,bowel sound present Extremities-Trace edema bilaterally Neuro-AAOx3 Lab data as noted below. ASSESSMENT & PLAN: SEPSIS secondary to COMMUNITY ACQUIRED PNEUMONIA (Possible/Suspected) Aspiration and/or gram-negative pneumonia -Presented with Fever, leukocytosis, elevated lactate, elevated inflammatory markers, JACKIE -CXR-Bibasilar opacities -atelectasis/infiltration -POC lactate 3.03.lab Lactate-2.0 -Blood cultures, sputum cultures pending -MRSA screen negative and Flu negative -Empirically treat with Vancomycin, Zosyn, and Levaquin - pharmacy consulted for dosing -clinically a little better -will deescalate Antibiotic to Zosyn and Levaquin -clinically lot better -increase ambulation ELEVATED TROPONIN -h/o CAD s/p Stent -Likely troponin leak in setting of sepsis, EKG stable, no chest pain -Serial Chapo are elevated to 0.26 , -no symptoms and EKG-no acute change -continue Aspirin, Statin, BB -will get ECHO LOW PHOSPHORUS -replace -repeat in AM -normalized JACKIE ON CKD STAGE 4 -crea 2.4 baseline closer to 2 -Gentle IVF hydration -Lasix on hold -Creatinine is improving -Recheck in AM CHRONIC IDIOPATHIC THROMBOCYTOPENIA -92 on Admission -follow platelet count daily ~80s IDDM -with HYPERGLYCEMIA -Hb A 1c-8.2 -SSI coverage, basal Lantus -pharmacy consulted for glycemic control -consistent carb diet -BSG AC HS SYSTOLIC CHF -s/p ICD -last Echo with EF of 40-45% -appears slightly dry -hold diuretics for now -gentle IVF hydration for ARF GOUT -continue Allopurinol DVT PROPHYLAXIS: SCDs RE: thrombocytopenia CODE STATUS: FULL CODE per my discussion with the patient and his family DISPO: Transfer to [place] Increase ambulation Likely home in AM Vital Signs: Date Time Temp Pulse Resp B/P Pulse Ox O2 Delivery O2 Flow Rate FiO2 12/02/16 12:00 Nasal Cannula 2.0 12/02/16 11:47 36.9 80 16 120/78 94 Nasal Cannula 2.0 12/02/16 08:00 Nasal Cannula 2.0 12/02/16 07:39 36.6 74 20 137/88 97 Nasal Cannula 2.0 12/02/16 04:02 Nasal Cannula 2.0 12/02/16 03:38 36.8 74 20 126/75 95 Nasal Cannula 2.0 12/02/16 00:02 Nasal Cannula 2.0 12/01/16 23:26 36.8 78 21 118/69 94 Nasal Cannula 2.0 12/01/16 20:04 Nasal Cannula 2.0 12/01/16 19:48 37.0 82 20 123/73 97 Nasal Cannula 2.0 12/01/16 16:00 Nasal Cannula 2.0 12/01/16 15:24 37.0 74 20 123/71 96 Nasal Cannula 2.0 Lab Results: Results Past 24 Hours Test 12/01/16 16:24 12/01/16 20:56 12/01/16 23:50 12/02/16 06:31 Range/Units Bedside Glucose 236 134 105 70-99 mg/dl Urine Color YELLOW Urine Appearance CLEAR CLEAR Urine pH 5.0 4.5-7.5 Urine Specific [place] 1.015 1.000-1.030 Urine Protein 3+ NEG Urine Glucose (UA) TRACE NEG Urine Ketones NEG NEG Urine Occult Blood 1+ NEG Urine Nitrite NEG NEG Urine Bilirubin NEG NEG Urine Urobilinogen NEG NEG Urine Leukocyte Esterase NEG NEG Urine WBC (Auto) 1-5 0-5 /hpf Urine RBC (Auto) 0-4 0-4 /hpf Urine Hyaline Casts (Auto) 1-5 0-5 /lpf Urine Epithelial Cells (Auto) 20-30 0-5 /lpf Urine Bacteria (Auto) NEG NEG Urine Yeast (Auto) NONE PRSENT Test 12/02/16 11:16 Range/Units Bedside Glucose 166 70-99 mg/dl Microbiology Results 12/01/16 Urine Culture, Received Pending
[2016-12-02] MEDS ORDERED: LEVOFLOXACIN / D5W 750 MG in PREMIXED IN D5W 150 ML IV SCH (14:00)
[2016-12-02] MEDS ORDERED: PERFLUTREN LIPID MICROSPHERE (DEFINITY) IV ONE (14:54)
--- NOTE | 2016-12-02 14:56 | Pharmacy Progress Note ---
Glycemic Control: Progress Nt Date of Service Dec 02, 2016. Scope Glycemic Pharmacist consulted for glycemic control and to write orders per [facility] inpatient glycemic control protocol. Objective Accuchecks BSG (last 24hrs): Test 12/01/16 16:24 12/01/16 20:56 12/02/16 06:31 12/02/16 11:16 Bedside Glucose 236 mg/dl (70-99) 134 mg/dl (70-99) 105 mg/dl (70-99) 166 mg/dl (70-99) HbA1c: Test 12/01/16 06:43 Hemoglobin A1c 8.2 % (4.5-5.6) H Recent Pertinent Medications The patient is currently receiving: * Basal insulin: Lantus 20 units every 12 hours * Correctional Insulin: Novolog Correction per scale ACHS Goal Range: Low 110 mg/dL - High 140 mg/dL Correction Factor: 20 mg/dL/unit * Prandial insulin: Per carb ratio of 1 unit per 7 grams CHO consumed Assessment & Plan ASSESSMENT: * Patient has received 60 units of insulin over the past 24hrs (40 units of basal + 20 units of prandial/correctional) * BSGs 142 [AM fasting], 188, 236, 134, 105 [AM fasting], 166 * AM fasting BSG trending downwards (142 --> 105) indicating too much basal insulin on board. Additionally, regimen is weighted towards basal insulin instead of 50%:50% basal:prandial. Will decrease basal insulin slightly to prevent hypo * Will also empirically decrease bolus insulin parameters since there may be too much basal insulin on board. * ADA & AACE recommend a goal blood sugar range 140-180 mg/dl for the majority of critically ill & non-critically ill patients. However, more stringent targets may be selected in individual cases. PLAN FOR INPATIENT GLYCEMIC CONTROL: * DECREASE Basal insulin with LANTUS 15 units SQ BID * Correctional Insulin with NOVOLOG per scale ACHS or Q6hrs while NPO * Goal Range: Low 120 mg/dL - High 160 mg/dL * Correction Factor: 25 mg/dL/unit * Nutritional / Prandial insulin per carb ratio of 1 unit per 8 grams CHO consumed * Please note that the plan above was derived based on current level of insulin resistance and hospital stress. These recommendations are appropriate for inpatient admission only. Plan of care upon discharge will need to be reassessed to avoid potential outpatient hypo/hyperglycemia. Thank you.
[2016-12-02 15:18] VITALS: BP 120/78; PULSE 80; TEMP 36.9; O2SAT 94
[2016-12-02] MEDS: ATORVASTATIN 40 MG TAB PO SCH (20:15)
[2016-12-02] MEDS: PIPERACILL/TAZOBAC IV 3.375 GM in DEXTROSE 5% 100ML IV SCH (20:16)
[2016-12-03 00:17] VITALS: BP 153/88; PULSE 88; TEMP 36.7; O2SAT 98
[2016-12-03] MEDS: SODIUM CHLORIDE 0.9% 1000ML 1,000 ML IV SCH ×2 (04:49→16:56)
[2016-12-03] MEDS: PIPERACILL/TAZOBAC IV 3.375 GM in DEXTROSE 5% 100ML IV SCH ×3 (04:49→20:56)
[2016-12-03 06:54] LABS: CREATININE 2.2 mg/dl (0.60-1.40)
[2016-12-03 07:27] VITALS: BP 135/76; PULSE 77; TEMP 36.7; O2SAT 96
[2016-12-03] MEDS: CYANOCOBALAMIN 500 MCG TAB (VIT B-12) PO SCH ×2 (08:36→19:26)
[2016-12-03] MEDS: ALLOPURINOL 100 MG TAB PO SCH (08:37)
[2016-12-03] MEDS: ASPIRIN 81 MG ECTAB PO SCH (08:37)
[2016-12-03] MEDS: POT PHOSPHATE MONOBASIC W/ SOD TAB PO SCH ×4 (08:37→19:26)
[2016-12-03] MEDS: METOPROLOL SUCC 50MG EXT REL TAB PO SCH (08:37)
[2016-12-03] MEDS: CALCIUM POLYCARBOPHIL 1 TAB PO SCH (08:37)
[2016-12-03] MEDS: CEROVITE ADV FORMULA TAB PO SCH (08:37)
[2016-12-03] MEDS: PANTOprazole SOD 40 MG TAB PO SCH (08:38)
[2016-12-03] MEDS: CHOLECALCIFEROL 1000 INTER.UNIT TAB PO SCH (08:38)
[2016-12-03] MEDS: PYRIDOXINE HCL 50 MG TAB PO SCH (08:38)
[2016-12-03] MEDS: INSULIN ASPART 100 UNITS/ML 3 ML PEN SC SCH ×4 (08:47→20:59)
[2016-12-03] MEDS: INSULIN GLARGINE SOLOSTAR 100 UNITS/ML 3 ML PEN SC SCH ×2 (08:48→21:06)
[2016-12-03 11:13] VITALS: PULSE 78; O2SAT 97
--- NOTE | 2016-12-03 11:19 | Pharmacy Progress Note ---
Glycemic: Assessment & Plan Date of Service Dec 03, 2016. Assessment & Plan ASSESSMENT: * The patient is currently receiving ~50 units of insulin per day. BSGs ranging 105 - 199 mg/dl over the past 24hrs. * Prandial vs basal insulin needs seem to be distributed well. No changes to current regimen warranted. CONTINUE INPATIENT GLYCEMIC REGIMEN: * Basal insulin with LANTUS 15 units SQ BID * Correctional Insulin with NOVOLOG per scale ACHS or Q6hrs while NPO * Goal Range: Low 120 mg/dL - High 160 mg/dL * Correction Factor: 25 mg/dL/unit * Nutritional / Prandial insulin per carb ratio of 1 unit per 8 grams CHO consumed BSGs continue to improve, no changes needed to inpatient regimen at this time. Pharmacy will continue to monitor patient daily and write orders per [facility] inpatient glycemic control protocol. Thanks. * Please note that the plan above was derived based on current level of insulin resistance and hospital stress. These recommendations are appropriate for inpatient admission only. Plan of care upon discharge will need to be reassessed to avoid potential outpatient hypo/hyperglycemia.
--- NOTE | 2016-12-03 11:45 | Progress Note ---
Internal Med Progress Note Date of Service: Dec 03, 2016. Provider Documentation: SUBJECTIVE: The patient was seen and examined Feels a lot better today Still has cough and minimal SOB at rest Much better today Wants to go home OBJECTIVE: Vital Signs-as noted below Exam: General-NO distress at rest Eyes-normal ENT-normal Neck-supple Lungs-Decreased breath sound bilaterally -improved Minimal cackles at the bases Heart-Regular,no murmur Abdomen-Benign no masses,bowel sound present Extremities-Trace edema bilaterally Neuro-AAOx3 Lab data as noted below. ASSESSMENT & PLAN: SEPSIS secondary to COMMUNITY ACQUIRED PNEUMONIA (Possible/Suspected) Aspiration and/or gram-negative pneumonia -Presented with Fever, leukocytosis, elevated lactate, elevated inflammatory markers, JACKIE -CXR-Bibasilar opacities -atelectasis/infiltration -POC lactate 3.03.lab Lactate-2.0 -Blood cultures, sputum cultures negative -MRSA screen negative and Flu negative -Empirically treat with Vancomycin, Zosyn, and Levaquin - pharmacy consulted for dosing -Vancomycin was stopped -Clinically much better -getting PT -likely home this afternoon -2 step before discharge ELEVATED TROPONIN -h/o CAD s/p Stent -Likely troponin leak in setting of sepsis, EKG stable, no chest pain -Serial Chapo are elevated to 0.26 , -no symptoms and EKG-no acute change -continue Aspirin, Statin, BB -will get ECHO-done but not reported yet LOW PHOSPHORUS -replace -repeat in AM -normalized JACKIE ON CKD STAGE 4 -crea 2.4 baseline closer to 2 -Gentle IVF hydration -Lasix on hold -Creatinine is improving CHRONIC IDIOPATHIC THROMBOCYTOPENIA -92 on Admission -follow platelet count daily ~80s IDDM -with HYPERGLYCEMIA -Hb A 1c-8.2 -SSI coverage, basal Lantus -pharmacy consulted for glycemic control -consistent carb diet -BSG AC HS SYSTOLIC CHF -s/p ICD -last Echo with EF of 40-45% -appears slightly dry -hold diuretics for now -gentle IVF hydration for ARF GOUT -continue Allopurinol DVT PROPHYLAXIS: SCDs RE: thrombocytopenia CODE STATUS: FULL CODE per my discussion with the patient and his family DISPO: Likely discharge today Vital Signs: Date Time Temp Pulse Resp B/P Pulse Ox O2 Delivery O2 Flow Rate FiO2 12/03/16 11:13 78 97 12/03/16 08:00 Nasal Cannula 2.0 12/03/16 07:27 36.7 77 20 135/76 96 Nasal Cannula 12/03/16 00:17 36.7 88 20 153/88 98 2.0 12/03/16 00:00 Nasal Cannula 2.0 12/02/16 16:00 Room Air 12/02/16 15:18 36.9 80 16 94 2.0 12/02/16 12:00 Nasal Cannula 2.0 12/02/16 11:47 36.9 80 16 120/78 94 Nasal Cannula 2.0 Lab Results: Results Past 24 Hours Test 12/02/16 16:39 12/02/16 19:58 12/03/16 05:34 12/03/16 07:46 Range/Units Bedside Glucose 153 199 134 70-99 mg/dl Creatinine 2.20 0.60-1.40 mg/dl Est Creatinine Clear Calc Drug Dose 27.9 ml/min Estimated GFR () 31.2 Estimated GFR (Non- 26.9 Test 12/03/16 11:18 Range/Units Bedside Glucose 136 70-99 mg/dl
[2016-12-03 12:43] LABS: HEMATOCRIT 39.6 % (42-52); MEAN CELL VOLUME 92.1 fL (80-100); MEAN CORPUSCULAR HEMOGLOBIN 31.9 pg (25-34); MEAN CORPUSCULAR HGB CONC 34.6 g/dl (32-36); MEAN PLATELET VOLUME 11.2 fL (7.4-10.4); PLATELET COUNT 122 K/uL (130-400); WHITE BLOOD COUNT 10.11 K/uL (4.8-10.8)
--- NOTE | 2016-12-03 13:06 | DIAGNOSTIC IMAGING REPORT ---
CHEST 2 VIEWS ROUTINE CLINICAL HISTORY: pneumonia COMPARISON STUDY: 12/01/2016 FINDINGS: Developing small bibasilar parenchymal infiltrates and/or small effusions. A component of cardiac decompensation is not excluded. Mid and upper lungs are considered clear. IMPRESSION: Developing bibasilar parenchymal infiltrates/effusions versus components of congestive failure Electronically signed by: Refugio Rodriguez M.D. 12/03/2016 1:04 PM Dictated Date/Time: 12/03/2016 12:51 PM
[2016-12-03 13:14] LABS: CREATININE 2.2 mg/dl (0.60-1.40)
[2016-12-03 13:15] LABS: CALCIUM 8.7 mg/dl (8.5-10.1); MAGNESIUM 1.8 mg/dl (1.8-2.4); PHOSPHORUS 3.1 mg/dl (2.5-4.9); POTASSIUM 3.7 mmol/L (3.5-5.1)
[2016-12-03 15:51] VITALS: BP 130/69; PULSE 70; TEMP 37; O2SAT 95
--- NOTE | 2016-12-03 18:06 | ECHOCARDIOGRAM REPORT ---
*NOTICE TO RECEIVING LIBERTARIAN AGENCY This information is strictly Confidential and protected under [place] law. [place] law prohibits you from making any further disclosure of this information unless further disclosure is expressly permitted by the written consent of the person to whom it pertains or is authorized by law. A general authorization for the release of medical or other information is not sufficient for this purpose. Hospital accepts no responsibility if the information is made available to any other person, INCLUDING THE PATIENT. Interpretation Summary * Name: KEISHA RODRIGUEZ Study Date: 12/02/2016 01:54 PM BP: 120/78 mmHg * Patient Location: C.2T\S\S239\S\2 HR: 80 * : 1935 (M/d/yyyy) Gender: Male Height: 67 in * Age: 81 yrs Ethnicity: [place] Weight: 201 lb * Ordering Physician: Conor Narayan * Performed By: Nelsy Contreras * * Reason For Study: CHEST PAIN * BSA: 2.0 m2 * -- Conclusions -- * There is a large sized apical, inferior, septal, and anteroseptal wall motion abnormality with hypokinesis to akinesis of the segments. * There is myocardial thinning of the anteroseptum at the mid and apical levels consist with scar. * Left ventricular systolic function is severely reduced. * The LV Ejection Fraction = 20-25%. * There is mild mitral regurgitation. * Diastolic dysfunction, Grade II (pseudonormalization pattern). * Compared to the images of the prior study dated 04/22/16, there is no significant interval change. Procedure Details * A complete two-dimensional transthoracic echocardiogram was performed (2D, M-mode, Doppler and color flow Doppler). * A contrast injection of Definity was performed to improve assessment of LV function. * Contrast was injected into an intravenous site in the right arm. * One vial of Definity ultrasound contrast was diluted in normal saline to a total volume of 10 ml. A total of '3' ml of solution was administered during imaging. * Expiration date 11/28. * Lot # [id number] of Definity utilized for procedure. * The attending nurse who injected the contrast agent was NONA CRUZ RN. Left Ventricle * The left ventricle is normal in size. * There is normal left ventricular wall thickness. * Left ventricular systolic function is severely reduced. * Ejection Fraction = 20-25%. * There is a large sized apical, inferior, septal, and anteroseptal wall motion abnormality with hypokinesis to akinesis of the segments. Right Ventricle * The right ventricle is normal in size and function. Atria * The left atrial size is normal. * Right atrial size is normal. * There is no evidence of atrial septal defect, but resolution does not allow assessment for a patent foramen ovale. Mitral Valve * The mitral valve is normal. * There is no mitral valve stenosis. * There is mild mitral regurgitation. Tricuspid Valve * The tricuspid valve is normal. * There is no tricuspid stenosis. * Significant tricuspid regurgitation is absent. Aortic Valve * The aortic valve is trileaflet. * Aortic valve sclerosis mild, without significant aortic valvular stenosis. * Aortic stenosis is absent. * There is no significant aortic regurgitation. Pulmonic Valve * The pulmonary valve is not well seen, but the Doppler examination is normal without significant regurgitation or stenosis. Great Vessels * The aortic root and proximal ascending aorta are normal sized. Pericardium/Pleural * There is no pericardial effusion. Right Ventricle * An intracardiac device lead is noted in the right ventricle. Great Vessels * Normal inferior vena cava diameter and respiratory variation suggests normal central venous pressure. * Normal inferior vena cava size and collapsability with sniff indicates a normal right atrial pressure of 3 mmHg Left Ventricular Diastolic Function * Diastolic dysfunction, Grade II (pseudonormalization pattern). MMode 2D Measurements and Calculations IVSd 0.82 cm IVSs 1.2 cm LVIDd 4.9 cm LVIDs 3.9 cm LVPWd 1.5 cm LVPWs 2.2 cm IVS/LVPW 0.55 FS 20.6 % EDV(Teich) 114.3 ml ESV(Teich) 66.4 ml EF(Teich) 41.9 % EDV(cubed) 119.7 ml ESV(cubed) 59.9 ml EF(cubed) 50.0 % % IVS thick 48.3 % % LVPW thick 45.6 % LV mass(C)d 217.6 grams LV mass(C)dI 107.4 grams/m\S\2 LV mass(C)s 275.7 grams LV mass(C)sI 136.1 grams/m\S\2 CO(Teich) 3.6 l/min CI(Teich) 1.8 l/min/m\S\2 SV(Teich) 48.0 ml SI(Teich) 23.7 ml/m\S\2 CO(cubed) 4.5 l/min CI(cubed) 2.2 l/min/m\S\2 SV(cubed) 59.9 ml SI(cubed) 29.5 ml/m\S\2 ACS 1.5 cm asc Aorta Diam 3.4 cm LVOT diam 2.1 cm LVOT area 3.3 cm\S\2 LVAd ap4 43.8 cm\S\2 LVLd ap4 9.9 cm EDV(MOD-sp4) 158.0 ml LVAs ap4 30.2 cm\S\2 LVLs ap4 8.0 cm ESV(MOD-sp4) 93.4 ml EF(MOD-sp4) 40.9 % LVAd ap2 33.1 cm\S\2 LVLd ap2 8.6 cm EDV(MOD-sp2) 105.0 ml LVAs ap2 24.8 cm\S\2 LVLs ap2 8.0 cm ESV(MOD-sp2) 62.9 ml EF(MOD-sp2) 40.1 % CO(MOD-sp4) 4.9 l/min CI(MOD-sp4) 2.4 l/min/m\S\2 SV(MOD-sp4) 64.6 ml SI(MOD-sp4) 31.9 ml/m\S\2 CO(MOD-sp2) 3.2 l/min CI(MOD-sp2) 1.6 l/min/m\S\2 SV(MOD-sp2) 42.1 ml SI(MOD-sp2) 20.8 ml/m\S\2 Doppler Measurements and Calculations MV E max rosalva 90.7 cm/sec MV A max rosalva 67.9 cm/sec MV E/A 1.3 MV dec time 0.22 sec Ao V2 max 87.5 cm/sec Ao max PG 3.1 mmHg Ao max PG (full) 0.09 mmHg EDITH(V,A) 3.3 cm\S\2 EDITH(V,D) 3.3 cm\S\2 LV V1 max PG 3.0 mmHg LV V1 mean PG 1.3 mmHg LV V1 max 86.2 cm/sec LV V1 mean 52.0 cm/sec LV V1 VTI 15.2 cm MR max rosalva 376.8 cm/sec MR max PG 56.8 mmHg SV(LVOT) 50.5 ml SI(LVOT) 24.9 ml/m\S\2 PA V2 max 75.2 cm/sec PA max PG 2.3 mmHg TR max rosalva 265.3 cm/sec
[2016-12-03] MEDS: ATORVASTATIN 40 MG TAB PO SCH (20:56)
[2016-12-03 23:41] VITALS: BP 130/81; PULSE 78; TEMP 36.8; O2SAT 95
[2016-12-04] MEDS: SODIUM CHLORIDE 0.9% 1000ML 1,000 ML IV SCH (05:42)
[2016-12-04] MEDS: PIPERACILL/TAZOBAC IV 3.375 GM in DEXTROSE 5% 100ML IV SCH (05:43)
[2016-12-04 07:00] LABS: CREATININE 2.1 mg/dl (0.60-1.40)
[2016-12-04 07:46] VITALS: BP 132/80; PULSE 77; TEMP 36.7; O2SAT 95
[2016-12-04] MEDS: PANTOprazole SOD 40 MG TAB PO SCH (08:36)
[2016-12-04] MEDS: CHOLECALCIFEROL 1000 INTER.UNIT TAB PO SCH (08:36)
[2016-12-04] MEDS: CEROVITE ADV FORMULA TAB PO SCH (08:37)
[2016-12-04] MEDS: CYANOCOBALAMIN 500 MCG TAB (VIT B-12) PO SCH ×2 (08:37→21:02)
[2016-12-04] MEDS: CALCIUM POLYCARBOPHIL 1 TAB PO SCH (08:37)
[2016-12-04] MEDS: ALLOPURINOL 100 MG TAB PO SCH (08:37)
[2016-12-04] MEDS: PYRIDOXINE HCL 50 MG TAB PO SCH (08:37)
[2016-12-04] MEDS: ASPIRIN 81 MG ECTAB PO SCH (08:37)
[2016-12-04] MEDS: METOPROLOL SUCC 50MG EXT REL TAB PO SCH (08:37)
[2016-12-04] MEDS: POT PHOSPHATE MONOBASIC W/ SOD TAB PO SCH ×4 (08:37→21:01)
[2016-12-04] MEDS ORDERED: FUROSEMIDE INJ 40 MG in SYRINGE 0 ML IV STA (08:42)
[2016-12-04] MEDS: INSULIN ASPART 100 UNITS/ML 3 ML PEN SC SCH ×4 (08:44→21:06)
--- NOTE | 2016-12-04 13:07 | Progress Note ---
Internal Med Progress Note Date of Service: Dec 04, 2016. Provider Documentation: SUBJECTIVE: The patient was seen and examined Feels a lot better today Much better today Ready to go home OBJECTIVE: Vital Signs-as noted below Exam: General-NO distress at rest Eyes-normal ENT-normal Neck-supple Lungs-Decreased breath sound bilaterally -improved Minimal cackles at the bases Heart-Regular,no murmur Abdomen-Benign no masses,bowel sound present Extremities-Trace edema bilaterally Neuro-AAOx3 Lab data as noted below. ASSESSMENT & PLAN: SEPSIS secondary to COMMUNITY ACQUIRED PNEUMONIA (Possible/Suspected) Aspiration and/or gram-negative pneumonia -Presented with Fever, leukocytosis, elevated lactate, elevated inflammatory markers, JACKIE -CXR-Bibasilar opacities -atelectasis/infiltration -POC lactate 3.03.lab Lactate-2.0 -Blood cultures, sputum cultures negative -MRSA screen negative and Flu negative -Empirically treat with Vancomycin, Zosyn, and Levaquin - pharmacy consulted for dosing -Vancomycin was stopped -Clinically much better -2 step before discharge ELEVATED TROPONIN -h/o CAD s/p Stent -Likely troponin leak in setting of sepsis, EKG stable, no chest pain -Serial Chapo are elevated to 0.26 , -no symptoms and EKG-no acute change -continue Aspirin, Statin, BB -ECHO- * There is a large sized apical, inferior, septal, and anteroseptal wall motion abnormality with hypokinesis to akinesis of the segments. * There is myocardial thinning of the anteroseptum at the mid and apical levels consist with scar. * Left ventricular systolic function is severely reduced. * The LV Ejection Fraction = 20-25%. * There is mild mitral regurgitation. * Diastolic dysfunction, Grade II (pseudonormalization pattern). * Compared to the images of the prior study dated 04/22/16, there is no significant interval change. Will need regular dose of Lasix as an OP LOW PHOSPHORUS -replace -repeat in AM -normalized JACKIE ON CKD STAGE 4 -crea 2.4 baseline closer to 2 -Gentle IVF hydration -Lasix on hold -Creatinine is improving CHRONIC IDIOPATHIC THROMBOCYTOPENIA -92 on Admission -follow platelet count daily ~80s IDDM -with HYPERGLYCEMIA -Hb A 1c-8.2 -SSI coverage, basal Lantus -pharmacy consulted for glycemic control -consistent carb diet -BSG AC HS SYSTOLIC CHF -s/p ICD -last Echo with EF of 40-45% -appears slightly dry -hold diuretics for now -gentle IVF hydration for ARF GOUT -continue Allopurinol DVT PROPHYLAXIS: SCDs RE: thrombocytopenia CODE STATUS: FULL CODE per my discussion with the patient and his family DISPO: Discharge today Vital Signs: Date Time Temp Pulse Resp B/P Pulse Ox O2 Delivery O2 Flow Rate FiO2 12/04/16 08:00 Nasal Cannula 2.0 12/04/16 07:46 36.7 77 20 132/80 95 2.0 12/03/16 23:41 36.8 78 20 130/81 95 Nasal Cannula 2.0 12/03/16 20:00 Nasal Cannula 2.5 12/03/16 16:40 Nasal Cannula 2.0 12/03/16 15:51 37.0 70 20 130/69 95 Nasal Cannula 2.0 Lab Results: Results Past 24 Hours Test 12/03/16 16:09 12/03/16 20:11 12/04/16 05:40 12/04/16 07:49 Range/Units Bedside Glucose 142 115 80 70-99 mg/dl Creatinine 2.10 0.60-1.40 mg/dl Est Creatinine Clear Calc Drug Dose 29.3 ml/min Estimated GFR () 33.0 Estimated GFR (Non- 28.5 Test 12/04/16 11:02 Range/Units Bedside Glucose 159 70-99 mg/dl
[2016-12-04] MEDS: LEVOFLOXACIN 750 MG TAB PO SCH (13:18)
--- NOTE | 2016-12-04 15:13 | DIAGNOSTIC IMAGING REPORT ---
CHEST 2 VIEWS ROUTINE CLINICAL HISTORY: Dr. Arias COMPARISON STUDY: 11/30/2016 FINDINGS: The chest has an emphysematous configuration. There is a left subclavian pacer/defibrillator present. There are progressive bibasal airspace opacities. The central vasculature appears unremarkable. Small bilateral pleural effusions are suspected.[ IMPRESSION: Small bilateral pleural effusions and progressive bibasal airspace opacities Electronically signed by: Raheel Gauthier M.D. 12/04/2016 3:11 PM Dictated Date/Time: 12/04/2016 3:11 PM
[2016-12-04] MEDS ORDERED: FUROSEMIDE INJ 40 MG in SYRINGE 0 ML IV ONE (15:30)
[2016-12-04 15:32] VITALS: BP 147/81; PULSE 81; TEMP 37.4; O2SAT 99
[2016-12-04 16:00] VITALS: O2SAT 99
[2016-12-04] MEDS ORDERED: LEVALBUTEROL 0.31MG/3 ML VIAL INH STA (18:22)
[2016-12-04 19:51] VITALS: PULSE 87; O2SAT 96
[2016-12-04] MEDS: LEVALBUTEROL 0.31MG/3 ML VIAL INH SCH (19:51)
[2016-12-04] MEDS: ATORVASTATIN 40 MG TAB PO SCH (21:02)
[2016-12-04] MEDS: INSULIN GLARGINE SOLOSTAR 100 UNITS/ML 3 ML PEN SC SCH (21:07)
[2016-12-04 23:53] VITALS: BP 139/69; PULSE 68; TEMP 36.6; O2SAT 94
[2016-12-05] VITALS (7 sets, daily range): BP systolic 129–148; BP diastolic 74–93; PULSE 71–86; TEMP 36.9; O2SAT 93–100
[2016-12-05] MEDS: LEVALBUTEROL 0.31MG/3 ML VIAL INH SCH ×4 (02:36→21:02)
[2016-12-05 06:36] LABS: CREATININE 2.2 mg/dl (0.60-1.40)
[2016-12-05] MEDS ORDERED: FUROSEMIDE INJ 40 MG in SYRINGE 0 ML IV ONE (08:30)
[2016-12-05] MEDS: PYRIDOXINE HCL 50 MG TAB PO SCH (08:37)
[2016-12-05] MEDS: POT PHOSPHATE MONOBASIC W/ SOD TAB PO SCH ×4 (08:37→21:12)
[2016-12-05] MEDS: CYANOCOBALAMIN 500 MCG TAB (VIT B-12) PO SCH ×2 (08:37→21:12)
[2016-12-05] MEDS: CALCIUM POLYCARBOPHIL 1 TAB PO SCH (08:37)
[2016-12-05] MEDS: CEROVITE ADV FORMULA TAB PO SCH (08:38)
[2016-12-05] MEDS: METOPROLOL SUCC 50MG EXT REL TAB PO SCH (08:38)
[2016-12-05] MEDS: ALLOPURINOL 100 MG TAB PO SCH (08:38)
[2016-12-05] MEDS: CHOLECALCIFEROL 1000 INTER.UNIT TAB PO SCH (08:38)
[2016-12-05] MEDS: PANTOprazole SOD 40 MG TAB PO SCH (08:38)
[2016-12-05] MEDS: ASPIRIN 81 MG ECTAB PO SCH (08:38)
[2016-12-05] MEDS: INSULIN ASPART 100 UNITS/ML 3 ML PEN SC SCH ×4 (08:47→21:00)
[2016-12-05] MEDS: INSULIN GLARGINE SOLOSTAR 100 UNITS/ML 3 ML PEN SC SCH ×2 (08:48→21:13)
--- NOTE | 2016-12-05 09:15 | DIAGNOSTIC IMAGING REPORT ---
CHEST 2 VIEWS ROUTINE CLINICAL HISTORY: Congestive failure COMPARISON STUDY: 12/04/2016 FINDINGS: There is underlying pulmonary emphysema. There is a left subclavian pacer/defibrillator present. There are small bilateral pleural effusions. There are basilar atelectatic changes. There is improving aeration left lung base.[ IMPRESSION: Emphysema. Small bilateral pleural effusions. Improving aeration of the lung bases. Electronically signed by: Raheel Gauthier M.D. 12/05/2016 9:14 AM Dictated Date/Time: 12/05/2016 9:13 AM
--- NOTE | 2016-12-05 13:17 | Progress Note ---
Internal Med Progress Note Date of Service: Dec 05, 2016. Provider Documentation: SUBJECTIVE: The patient was seen and examined Feels a lot better today Denies any SOB at rest OBJECTIVE: Vital Signs-as noted below Exam: General-No distress at rest Eyes-normal ENT-normal Neck-supple Lungs-Decreased breath sound bilaterally -improved Minimal cackles at the bases Heart-Regular,no murmur Abdomen-Benign no masses,bowel sound present Extremities-Trace edema bilaterally Neuro-AAOx3 Lab data as noted below. ASSESSMENT & PLAN: SEPSIS secondary to COMMUNITY ACQUIRED PNEUMONIA (Possible/Suspected) Aspiration and/or gram-negative pneumonia -Presented with Fever, leukocytosis, elevated lactate, elevated inflammatory markers, JACKIE -CXR-Bibasilar opacities -atelectasis/infiltration -POC lactate 3.03.lab Lactate-2.0 -Blood cultures, sputum cultures negative -MRSA screen negative and Flu negative -Empirically treat with Vancomycin, Zosyn, and Levaquin - pharmacy consulted for dosing -Vancomycin was stopped -Clinically much better -2 step done yesterday was positive -May need to do another tomorrow to see the change -Likely to go home tomorrow ELEVATED TROPONIN -h/o CAD s/p Stent -Likely troponin leak in setting of sepsis, EKG stable, no chest pain -Serial Chapo are elevated to 0.26 , -no symptoms and EKG-no acute change -continue Aspirin, Statin, BB -ECHO- * There is a large sized apical, inferior, septal, and anteroseptal wall motion abnormality with hypokinesis to akinesis of the segments. * There is myocardial thinning of the anteroseptum at the mid and apical levels consist with scar. * Left ventricular systolic function is severely reduced. * The LV Ejection Fraction = 20-25%. * There is mild mitral regurgitation. * Diastolic dysfunction, Grade II (pseudonormalization pattern). * Compared to the images of the prior study dated 04/22/16, there is no significant interval change. Will need regular dose of Lasix as an OP LOW PHOSPHORUS -replace -repeat in AM -normalized JACKIE ON CKD STAGE 4 -crea 2.4 baseline closer to 2 -Gentle IVF hydration -Lasix on hold -Creatinine is improving -2.2 today 12/05/16 CHRONIC IDIOPATHIC THROMBOCYTOPENIA -92 on Admission -follow platelet count daily ~80s IDDM -with HYPERGLYCEMIA -Hb A 1c-8.2 -SSI coverage, basal Lantus -pharmacy consulted for glycemic control -consistent carb diet -BSG AC HS SYSTOLIC CHF -s/p ICD -last Echo with EF of 40-45% -appears slightly dry -hold diuretics for now -gentle IVF hydration for ARF -getting Lasix for Mild Congestion GOUT -continue Allopurinol DVT PROPHYLAXIS: SCDs RE: thrombocytopenia CODE STATUS: FULL CODE per my discussion with the patient and his family DISPO: Discharge today/tomorrow Vital Signs: Date Time Temp Pulse Resp B/P Pulse Ox O2 Delivery O2 Flow Rate FiO2 12/05/16 08:08 36.9 86 20 148/93 93 3.0 12/05/16 07:50 81 18 94 Nasal Cannula 3.0 12/05/16 02:36 73 18 97 Nasal Cannula 3.0 12/05/16 00:00 Nasal Cannula 2.0 12/04/16 23:53 36.6 68 20 139/69 94 Room Air 12/04/16 19:51 87 18 96 Nasal Cannula 4.0 12/04/16 16:00 99 Nasal Cannula 2.0 12/04/16 15:32 37.4 81 24 147/81 99 Nasal Cannula 2.0 Lab Results: Results Past 24 Hours Test 12/04/16 16:21 12/04/16 20:24 12/05/16 05:20 12/05/16 08:02 Range/Units Bedside Glucose 191 183 139 70-99 mg/dl Creatinine 2.20 0.60-1.40 mg/dl Est Creatinine Clear Calc Drug Dose 27.9 ml/min Estimated GFR () 31.2 Estimated GFR (Non- 26.9 Test 12/05/16 11:39 Range/Units Bedside Glucose 245 70-99 mg/dl
--- NOTE | 2016-12-05 14:40 | Pharmacy Progress Note ---
Glycemic Control: Progress Nt Date of Service Dec 05, 2016. Scope Glycemic Pharmacist consulted by Sophia Mark PA-C on 11/30/16 for glycemic control and to write orders per [facility] inpatient glycemic control protocol. Objective Accuchecks BSG (last 24hrs): Test 12/04/16 16:21 12/04/16 20:24 12/05/16 08:02 12/05/16 11:39 Bedside Glucose 191 mg/dl (70-99) 183 mg/dl (70-99) 139 mg/dl (70-99) 245 mg/dl (70-99) Test 12/05/16 14:00 Laboratory Data (last 24hrs) Test 12/05/16 05:20 12/05/16 14:00 Creatinine 2.20 mg/dl HbA1c: Test 12/01/16 06:43 Hemoglobin A1c 8.2 % (4.5-5.6) H Recent Pertinent Medications The patient is currently receiving: * Basal insulin: Lantus 10 units every 12 hours * Correctional Insulin: Novolog Correction per scale ACHS Goal Range: Low 120 mg/dL - High 160 mg/dL Correction Factor: 25 mg/dL/unit * Prandial insulin: Per carb ratio of 1 unit per 8 grams CHO consumed Assessment & Plan ASSESSMENT: 12/05/16 * Patient has received a total of ~25 units of insulin in the past 24 hours * Insulin needs continue to decrease each day * Fasting BSG this AM 139 mg/dL * Basal insulin has been titrated down over the past 48 hours and currently Lantus 10 units BID seems to be appropriate * Lunch BSG slightly elevated today, re-tighten carb coverage and reassess in AM PLAN FOR INPATIENT GLYCEMIC CONTROL: * Holding outpatient oral diabetes medications * Continue Basal insulin with LANTUS 10 units SQ BID * Correctional Insulin with NOVOLOG per scale ACHS or Q6hrs while NPO * Goal Range: Low 120 mg/dL - High 160 mg/dL * Continue Correction Factor: 25 mg/dL/unit * Tighten Nutritional / Prandial insulin per carb ratio of 1 unit per 7 grams CHO consumed * Please note that the plan above was derived based on current level of insulin resistance and hospital stress. These recommendations are appropriate for inpatient admission only. Plan of care upon discharge will need to be reassessed to avoid potential outpatient hypo/hyperglycemia. Thank you.
[2016-12-05 15:06] LABS: BUN/CREATININE RATIO 9.7 (10-20); CALCIUM 8.4 mg/dl (8.5-10.1); CREATININE 2.3 mg/dl (0.60-1.40); MAGNESIUM 1.8 mg/dl (1.8-2.4); POTASSIUM 3.4 mmol/L (3.5-5.1)
[2016-12-05] MEDS: ATORVASTATIN 40 MG TAB PO SCH (21:12)
[2016-12-06] VITALS: BP 151/80; PULSE 71; TEMP 36.6; O2SAT 97
[2016-12-06 02:01] VITALS: PULSE 74; O2SAT 96
[2016-12-06] MEDS: LEVALBUTEROL 0.31MG/3 ML VIAL INH SCH ×3 (02:01→14:50)
[2016-12-06 07:19] LABS: CREATININE 2.2 mg/dl (0.60-1.40)
[2016-12-06 07:33] VITALS: PULSE 77; O2SAT 96
[2016-12-06] MEDS: PANTOprazole SOD 40 MG TAB PO SCH (07:52)
[2016-12-06] MEDS: ASPIRIN 81 MG ECTAB PO SCH (07:52)
[2016-12-06] MEDS: METOPROLOL SUCC 50MG EXT REL TAB PO SCH (07:52)
[2016-12-06] MEDS: ALLOPURINOL 100 MG TAB PO SCH (07:52)
[2016-12-06] MEDS: CYANOCOBALAMIN 500 MCG TAB (VIT B-12) PO SCH (07:52)
[2016-12-06 07:53] VITALS: BP 132/79; PULSE 75; TEMP 36.7; O2SAT 95
[2016-12-06] MEDS: PYRIDOXINE HCL 50 MG TAB PO SCH (07:53)
[2016-12-06] MEDS: CALCIUM POLYCARBOPHIL 1 TAB PO SCH (07:53)
[2016-12-06] MEDS: CHOLECALCIFEROL 1000 INTER.UNIT TAB PO SCH (07:53)
[2016-12-06] MEDS: CEROVITE ADV FORMULA TAB PO SCH (07:53)
[2016-12-06] MEDS: POT PHOSPHATE MONOBASIC W/ SOD TAB PO SCH ×2 (07:54→12:16)
[2016-12-06] MEDS: INSULIN GLARGINE SOLOSTAR 100 UNITS/ML 3 ML PEN SC SCH (08:27)
[2016-12-06] MEDS: INSULIN ASPART 100 UNITS/ML 3 ML PEN SC SCH ×2 (08:28→12:24)
--- NOTE | 2016-12-06 10:37 | Progress Note ---
Internal Med Progress Note Date of Service: Dec 06, 2016. Provider Documentation: SUBJECTIVE: The patient was seen and examined Wants to go home Denies any SOB at rest Ready to be discharged today OBJECTIVE: Vital Signs-as noted below Exam: General-Minimal distress at rest Eyes-normal ENT-normal Neck-supple Lungs-Decreased breath sound bilaterally Minimal cackles at the bases Heart-Regular,no murmur Abdomen-Benign no masses,bowel sound present Extremities-Trace edema bilaterally Neuro-AAOx3 Lab data as noted below. ASSESSMENT & PLAN: SEPSIS secondary to COMMUNITY ACQUIRED PNEUMONIA (Possible/Suspected) Aspiration and/or gram-negative pneumonia -Presented with Fever, leukocytosis, elevated lactate, elevated inflammatory markers, JACKIE -CXR-Bibasilar opacities -atelectasis/infiltration -POC lactate 3.03.lab Lactate-2.0 -Blood cultures, sputum cultures negative -MRSA screen negative and Flu negative -Empirically treat with Vancomycin, Zosyn, and Levaquin - pharmacy consulted for dosing -Vancomycin was stopped -Clinically much better -2 step done on 12/04/16 was positive -Wants to go home today on oral Levaquin to finish the course ELEVATED TROPONIN -h/o CAD s/p Stent -Likely troponin leak in setting of sepsis, EKG stable, no chest pain -Serial Chapo are elevated to 0.26 , -no symptoms and EKG-no acute change -continue Aspirin, Statin, BB -ECHO- * There is a large sized apical, inferior, septal, and anteroseptal wall motion abnormality with hypokinesis to akinesis of the segments. * There is myocardial thinning of the anteroseptum at the mid and apical levels consist with scar. * Left ventricular systolic function is severely reduced. * The LV Ejection Fraction = 20-25%. * There is mild mitral regurgitation. * Diastolic dysfunction, Grade II (pseudonormalization pattern). * Compared to the images of the prior study dated 04/22/16, there is no significant interval change. Will need regular dose of Lasix as an OP LOW PHOSPHORUS -will check today JACKIE ON CKD STAGE 4 -crea 2.4 baseline closer to 2 -Gentle IVF hydration -Lasix on hold -Creatinine is improving -2.2 today 12/05/16 CHRONIC IDIOPATHIC THROMBOCYTOPENIA -92 on Admission -follow platelet count daily ~80s IDDM -with HYPERGLYCEMIA -Hb A 1c-8.2 -SSI coverage, basal Lantus -pharmacy consulted for glycemic control -consistent carb diet -BSG AC HS SYSTOLIC CHF -s/p ICD -last Echo with EF of 40-45% -appears slightly dry -hold diuretics for now -received gentle IVF hydration for ARF -getting Lasix for Mild Congestion GOUT -continue Allopurinol DVT PROPHYLAXIS: SCDs RE: thrombocytopenia CODE STATUS: FULL CODE per my discussion with the patient and his family DISPO: Discharge today Vital Signs: Date Time Temp Pulse Resp B/P Pulse Ox O2 Delivery O2 Flow Rate FiO2 12/06/16 08:00 Nasal Cannula 2.0 12/06/16 07:53 36.7 75 18 132/79 95 Nasal Cannula 2.0 12/06/16 07:33 77 16 96 Nasal Cannula 3.0 12/06/16 02:01 74 16 96 Nasal Cannula 3.0 12/06/16 00:00 36.6 71 16 151/80 97 3.0 12/06/16 00:00 Nasal Cannula 2.0 12/05/16 19:45 71 18 96 Nasal Cannula 3.0 12/05/16 16:00 100 Nasal Cannula 3.0 12/05/16 14:31 36.9 74 16 129/74 100 12/05/16 14:18 73 18 96 Nasal Cannula 3.0 Lab Results: Results Past 24 Hours Test 12/05/16 11:39 12/05/16 14:22 12/05/16 16:29 12/05/16 20:25 Range/Units Bedside Glucose 245 176 128 70-99 mg/dl Sodium Level 138 136-145 mmol/L Potassium Level 3.4 3.5-5.1 mmol/L Chloride Level 100 98-107 mmol/L Carbon Dioxide Level 26 21-32 mmol/L Anion Gap 12.0 3-11 mmol/L Blood Urea Nitrogen 22 7-18 mg/dl Creatinine 2.30 0.60-1.40 mg/dl Est Creatinine Clear Calc Drug Dose 26.7 ml/min Estimated GFR () 29.5 Estimated GFR (Non- 25.5 BUN/Creatinine Ratio 9.7 10-20 Random Glucose 223 70-99 mg/dl Calcium Level 8.4 8.5-10.1 mg/dl Magnesium Level 1.8 1.8-2.4 mg/dl Test 12/06/16 05:23 12/06/16 07:49 Range/Units Creatinine 2.20 0.60-1.40 mg/dl Est Creatinine Clear Calc Drug Dose 27.9 ml/min Estimated GFR () 31.2 Estimated GFR (Non- 26.9 Bedside Glucose 144 70-99 mg/dl
[2016-12-06] MEDS ORDERED: ALBUTEROL HFA 8 GM INHALER INH PRN (10:45)
[2016-12-06 11:01] LABS: HEMATOCRIT 38.7 % (42-52); MEAN CELL VOLUME 91.9 fL (80-100); MEAN CORPUSCULAR HEMOGLOBIN 31.8 pg (25-34); MEAN CORPUSCULAR HGB CONC 34.6 g/dl (32-36); MEAN PLATELET VOLUME 11.1 fL (7.4-10.4); PLATELET COUNT 129 K/uL (130-400); RED BLOOD COUNT 4.21 M/uL (4.7-6.1); WHITE BLOOD COUNT 8.59 K/uL (4.8-10.8)
[2016-12-06 11:26] LABS: BUN/CREATININE RATIO 12.1 (10-20); CALCIUM 8.3 mg/dl (8.5-10.1); CREATININE 2.2 mg/dl (0.60-1.40); MAGNESIUM 1.7 mg/dl (1.8-2.4); PHOSPHORUS 3.6 mg/dl (2.5-4.9); POTASSIUM 3.4 mmol/L (3.5-5.1)
[2016-12-06] MEDS ORDERED: PRVHFAIN INH (11:50)
[2016-12-06] MEDS ORDERED: OXGN (11:50)
[2016-12-06] MEDS ORDERED: LVQ750 PO (11:50)
[2016-12-06] MEDS ORDERED: LCTX PO (11:50)
[2016-12-06] MEDS ORDERED: MCRK20 PO (11:50)
--- NOTE | 2016-12-06 11:53 | Discharge Instructions ---
Discharge Instructions Admission Reason for Admission: Elevated Troponin, Pna Discharge Discharge Diagnosis / Problem: Pneumonia,CHF,DM Discharge Goals Goal(s): Prevent Disease Progression Activity Recommendations Activity Limitations: resume your previous activity . Instructions / Follow-Up Instructions / Follow-Up Will call with appointments Current Hospital Diet Patient's current hospital diet: AHA Diet (Heart Healthy), Diabetes Type 2 Diet Discharge Diet Recommended Diet: AHA Diet (Heart Healthy), Diabetes Type 2 Diet Fluid Restriction: 1500 ml (6 cups) Pending Studies Studies pending at discharge: no Laboratory Results Hemoglobin A1c Test 12/01/16 06:43 Range/Units Estimated Average Glucose 189 mg/dl Hemoglobin A1c 8.2 H 4.5-5.6 % Lipid Panel Test 12/01/16 06:43 Range/Units Triglycerides Level 223 H 0-150 mg/dl Cholesterol Level 140 0-200 mg/dl HDL Cholesterol 34 mg/dl Cholesterol/HDL Ratio 4.1 LDL Cholesterol, Calculated 61 mg/dl Medical Emergencies . Who to Call and When: Medical Emergencies: If at any time you feel your situation is an emergency, please call 911 immediately. . Non-Emergent Contact Non-Emergency issues call your: Primary Care Provider . Past History Medical & Surgical History: (1) Diabetes mellitus type 2 (2) Gastroesophageal reflux disease (3) Gout (4) Systolic heart failure (5) Status post left heart catheterization (LHC) (6) CAD (coronary artery disease) (7) Cardiomyopathy (8) Diabetic renal disease (9) Implantation of internal cardiac defibrillator (10) Thrombocytopenia (11) Anemia in chronic renal disease (12) Hx of heart artery stent (13) S/P appendectomy (14) S/P ICD (internal cardiac defibrillator) procedure (15) H/O cystoscopy . "Provider Documentation" section prepared by Conor Narayan. VTE Core Measure Inpt VTE Proph given/why not?: SCD's (Low platelet)
[2016-12-06] MEDS ORDERED: POTASSIUM CHLORIDE 10 MEQ TABCR PO ONE (12:00)
[2016-12-06] MEDS: LEVOFLOXACIN 750 MG TAB PO SCH (12:17)
[2016-12-06 12:40] VITALS: BP 132/79; PULSE 75; TEMP 36.7; O2SAT 95
[2016-12-06] MEDS ORDERED: INSULIN GLARGINE SOLOSTAR 100 UNITS/ML 3 ML PEN SC SCH (21:00)
--- NOTE | 2016-12-07 13:58 | Discharge Summary ---
Discharge Summary Date of Service Dec 07, 2016. Discharge Summary Admission Date: Nov 30, 2016 at 14:28 Discharge Date: Dec 06, 2016 Discharge Disposition: Home Principal Diagnosis: Pneumonia,CHF,DM Secondary Diagnoses/Problems: Please See H&P Medication Reconciliation New Medications: Lactobacillus Acidophilus (Lactinex) Tab 2 TAB PO BID, #20 TAB Oxygen (Oxygen) Gas 2 LITERS NA UD, #1 2 liters/min at rest and 4 liters on ambulation Potassium Chloride (Klor-Con M20) 20 Meq Tabcr 20 MEQ PO DAILY, #30 Albuterol (Ventolin Hfa) 60 Puffs/5400 Mcg Aers 2 PUFFS INH Q6H PRN for Wheezing for 30 Days, #1 Levofloxacin (Levofloxacin) 750 Mg Tab 750 MG PO Q2D@1100 for 4 Days, #2 TAB Continued Medications: Allopurinol (Zyloprim) 100 Mg Tab 100 MG PO DAILY, TAB Aspirin (Aspirin Ec) 81 Mg Tab 81 MG PO DAILY Atorvastatin (Lipitor) 40 Mg Tab 40 MG PO QPM, TAB Takes around 5:00 PM. Calcium Polycarbophil (Fibercon) 625 Mg Tab 1250 MG PO DAILY, TAB Cholecalciferol (Vitamin D 1000 Unit) 1,000 Unit Cap 1000 INTER.UNIT PO DAILY, CAP Cyanocobalamin (Vitamin B-12) 500 Mcg Tab 500 MCG PO BID Furosemide (Lasix) 20 Mg Tab 20 MG PO DAILY, TAB TAKES 3-4X/WK "PRN" DIRECTED BY CARDIOLOGY Insulin Glargine (Lantus Solostar) 100 Unit/Ml Inj 30 SC QAM, PEN Insulin Glargine (Lantus Solostar) 100 Unit/Ml Inj 30 SC HS, PEN Metoprolol Succinate (Metoprolol Succinate ER) 50 Mg Tabcr 50 MG PO QAM, #30 1 Refill Multiple Vitamins W/ Minerals (Centrum Silver Ultra Mens) 1 Tab Tab 1 TAB PO DAILY Nitroglycerin (Nitrostat) 0.4 Mg Sub 0.4 MG UT UD, SUB ONE TAB UNDER TONGUE NEEDED FOR CHEST PAIN, MAXIMUM 3 DOSES. Omeprazole (Prilosec) 20 Mg Capcr 20 MG PO DAILY, CAP Pyridoxine (Vitamin B6) 100 Mg Tab 100 MG PO DAILY, TAB Repaglinide (Prandin) 2 Mg Tab 4 MG PO TID, TAB Admission Information HPI (per Admitting provider): Patient seen and examined. 81 year old male with PMHx of Systolic CHF s/p ICD placement, CAD, IDDM, CKD stage 4, Chronic Idiopathic Thrombocytopenia presents to the ED complaining of sore throat x 1 day. Patient's family reports that he was feeling well until yesterday morning. The patient had been out of town and was staying at a hotel. He woke up that morning with a sore throat and a little congestion and they thought that was just from the hotel environment. Throughout the day he developed a nonproductive cough. This morning his was going to take him to urgent care for his symptoms but the patient was so generally weak and low energy that she had trouble getting him to the car so he went to the ED instead. He denies fevers, chills, chest pain, SOB, palpitations , nausea, vomiting, diarrhea, dysuria, calf pain and edema. Denies sick contact. Patient had flu shot this season. In the ED patient is mildly tachycardic, he has a low grade fever WBC count is 14K, POC lactate is 3, ESR and CRP are elevated. CXR shows possible pneumonia. Troponin is mildly elevated at 0.05. He received IVFs and Levaquin. He will be admitted for further workup and treatment. Past Medical/Surgical History Medical Problems: (1) Anemia in chronic renal disease Status: Chronic (2) Benign prostatic hyperplasia Status: Chronic (3) CAD (coronary artery disease) Status: Chronic (4) Calculus of kidney and ureter Status: Resolved (5) Cardiomyopathy Status: Chronic (6) Chronic ITP (idiopathic thrombocytopenic purpura) Status: Chronic (7) CKD (chronic kidney disease), stage IV Status: Chronic (8) Coronary artery disease Permanent Comment: s/p WV PCI LAD 99% stenosis PTCA + stent LVEF 35-40% 2007 Status: Chronic (9) Diabetes mellitus type 2 Status: Chronic (10) Diabetic renal disease Status: Chronic (11) Diverticular disease of colon Status: Chronic (12) Gastroesophageal reflux disease Status: Chronic (13) Gout Status: Chronic (14) Implantation of internal cardiac defibrillator Status: Chronic (15) Malignant neoplasm of skin Status: Chronic (16) WV (myocardial infarction) Status: Resolved (17) Status post left heart catheterization (LHC) Permanent Comment: stent Status: Chronic (18) Systolic heart failure Permanent Comment: ischemic cardiomyopathy LVEF 40-45% on echo 04/12/2016 Status: Chronic Surgical Problems: (1) H/O cystoscopy Status: Chronic (2) Hx of heart artery stent Permanent Comment: 08/16 stent LAD Status: Resolved (3) S/P appendectomy Status: Chronic (4) S/P ICD (internal cardiac defibrillator) procedure Permanent Comment: generator changed 02/10/2016 Status: Chronic Family History Diabetes mellitus BROTHER FHx: heart disease FATHER SISTER Social History Smoking Status: Never Smoker Alcohol Use: none Drug Use: none Marital Status: Housing status: lives with family Occupational Status: retired Immunizations History of Influenza Vaccine: Yes Influenza Vaccine Date: Jun 15, 2012 History of Tetanus Vaccine?: Yes History of Pneumococcal: Yes Pneumococcal Date: Jun 27, 2012 History of Hepatitis B Vaccine: Yes Multi-Drug Resistant Organisms History of MDRO: No Allergies Coded Allergies: Lisinopril (Verified Allergy, Mild, 11/30/16) Home Medications Scheduled Allopurinol (Zyloprim), 100 MG PO DAILY Aspirin (Aspirin Ec), 81 MG PO DAILY Atorvastatin (Lipitor), 40 MG PO QPM Calcium Polycarbophil (Fibercon), 1,250 MG PO DAILY Cholecalciferol (Vitamin D 1000 Unit), 1,000 INTER.UNIT PO DAILY Cyanocobalamin (Vitamin B-12), 500 MCG PO BID Furosemide (Lasix), 20 MG PO 3XWK Insulin Glargine (Lantus Solostar), 30 SC QAM Insulin Glargine (Lantus Solostar), 30 SC HS Metoprolol Succinate (Metoprolol Succinate ER), 50 MG PO QAM Multiple Vitamins W/ Minerals (Centrum Silver Ultra Mens), 1 TAB PO DAILY Nitroglycerin (Nitrostat), 0.4 MG UT UD Omeprazole (Prilosec), 20 MG PO DAILY Pyridoxine (Vitamin B6), 100 MG PO DAILY Repaglinide (Prandin), 4 MG PO TID Review of Systems See above for pertinent positives & negatives. A total of 10 systems reviewed and were otherwise negative. Physical Exam Vital Signs Date Time Temp Pulse Resp B/P Pulse Ox O2 Delivery O2 Flow Rate FiO2 11/30/16 13:58 94 Room Air 11/30/16 13:56 37.1 96 18 136/74 94 Room Air 11/30/16 12:11 102 11/30/16 11:51 37.9 109 19 160/76 92 Room Air General Appearance: + pertinent finding (Ill appearing WD/WN 81 year old male lying in bed in NAD with family at bedside ) Head: normocephalic, atraumatic Eyes: PERRL, EOMI, sclerae normal ENT: pharynx normal Neck: supple, no JVD Respiratory/Chest: chest non-tender, no respiratory distress, no accessory muscle use, + crackles (RLL ), + rhonchi (scattered ) Cardiovascular: regular rate, rhythm, no edema, no gallop, no JVD, no murmur, normal peripheral pulses Abdomen/GI: normal bowel sounds, non tender, soft Back: normal inspection, no muscle spasm Extremities/Musculoskelatal: no calf tenderness, normal capillary refill, no pedal edema Neurologic/Psych: alert, oriented x 3, + pertinent finding (decreased hearing, no focal deficits noted ) Skin: normal color, warm/dry, no rash Lymphatic: no adenopathy Diagnostics Laboratory Results Results Past 24 Hours Test 11/30/16 12:50 11/30/16 13:00 11/30/16 13:17 11/30/16 14:28 Range/Units White Blood Count 14.17 4.8-10.8 K/uL Red Blood Count 4.44 4.7-6.1 M/uL Hemoglobin 14.0 14.0-18.0 g/dL Hematocrit 40.0 42-52 % Mean Corpuscular Volume 90.1 80-100 fL Mean Corpuscular Hemoglobin 31.5 25-34 pg Mean Corpuscular Hemoglobin Concent 35.0 32-36 g/dl Platelet Count 92 130-400 K/uL Mean Platelet Volume 11.9 7.4-10.4 fL Neutrophils (%) (Auto) 85.0 % Lymphocytes (%) (Auto) 6.4 % Monocytes (%) (Auto) 7.6 % Eosinophils (%) (Auto) 0.3 % Basophils (%) (Auto) 0.3 % Neutrophils # (Auto) 12.05 1.4-6.5 K/uL Lymphocytes # (Auto) 0.91 1.2-3.4 K/uL Monocytes # (Auto) 1.08 0.11-0.59 K/uL Eosinophils # (Auto) 0.04 0-0.5 K/uL Basophils # (Auto) 0.04 0-0.2 K/uL RDW Standard Deviation 47.5 36.4-46.3 fL RDW Coefficient of Variation 14.5 11.5-14.5 % Immature Granulocyte % (Auto) 0.4 % Immature Granulocyte # (Auto) 0.05 0.00-0.02 K/uL Platelet Estimate DECREASED Erythrocyte Sedimentation Rate 41 0-14 mm/hr Prothrombin Time 11.4 9.0-12.0 SECONDS Prothromb Time International Ratio 1.1 0.9-1.1 Activated Partial Thromboplast Time 28.6 21.0-31.0 SECONDS Partial Thromboplastin Ratio 1.1 Sodium Level 138 136-145 mmol/L Potassium Level 3.8 3.5-5.1 mmol/L Chloride Level 104 98-107 mmol/L Carbon Dioxide Level 23 21-32 mmol/L Anion Gap 11.0 3-11 mmol/L Blood Urea Nitrogen 24 7-18 mg/dl Creatinine 2.40 0.60-1.40 mg/dl Estimated GFR () 28.1 Estimated GFR (Non- 24.2 BUN/Creatinine Ratio 10.2 10-20 Random Glucose 237 70-99 mg/dl Calcium Level 9.1 8.5-10.1 mg/dl Phosphorus Level 1.6 2.5-4.9 mg/dl Magnesium Level 1.8 1.8-2.4 mg/dl Total Bilirubin 1.1 0.2-1 mg/dl Aspartate Amino Transf (AST/SGOT) 28 15-37 U/L Alanine Aminotransferase (ALT/SGPT) 34 12-78 U/L Alkaline Phosphatase 73 45-117 U/L Total Creatine Kinase 156 39-308 U/L Creatine Kinase MB 1.4 0.5-3.6 ng/ml Creatine Kinase MB Ratio 0.9 0-3.0 Troponin I 0.051 0-0.045 ng/ml C-Reactive Protein 18.70 0-0.29 mg/dl Pro-B-Type Natriuretic Peptide 3141 0-1800 pg/ml Total Protein 7.2 6.4-8.2 gm/dl Albumin 3.2 3.4-5.0 gm/dl Globulin 4.0 2.5-4.0 gm/dl Albumin/Globulin Ratio 0.8 0.9-2 Lipase 59 73-393 U/L Venous Blood pH 7.41 7.36-7.41 Venous Blood Partial Pressure CO2 42 38.0-50.0 mmHg Venous Blood Partial Pressure O2 24 mmHg Venous Blood HCO3 26 mmol/L Venous Blood Oxygen Saturation < 60.0 % Venous Blood Base Excess 1.2 mmol/L Influenza Type A Antigen Neg for Influ A NEG Influenza Type B Antigen Neg for Influ B NEG Microbiology Results 11/30/16 Blood Culture, Received Pending 11/30/16 Blood Culture, Received Pending Diagnostic Radiology CXR Per radiologist read: IMPRESSION: A new hazy opacity at the right lung base which may represent a developing pneumonia. Recommend follow-up to ensure resolution. EKG 100 BPM, NSR LAD, QTc 428 Impression Assessment and Plan 81 year old male presents to the ED complaining of cough, sore throat, generalized weakness SEPSIS secondary to COMMUNITY ACQUIRED PNEUMONIA -Admit to tele -Presents with Fever, leukocytosis, elevated lactate, elevated inflammatory markers, JACKIE -CXR with likely right lower lobe pneumonia -CURB 65 score is 2 -POC lactate 3.03, formal serum lactate pending -IVFs at 100ml/hr - cautious IVF hydration secondary to systolic CHF -Blood cultures, sputum cultures pending -check MRSA swab -R/O Flu, PCR Flu pending -Empirically treat with Vancomycin, Zosyn, and Levaquin - pharmacy consulted for dosing -CBC, PRP, Mg daily -VSS monitor closely ELEVATED TROPONIN -h/o CAD s/p Stent -0.052 -Likely troponin leak in setting of sepsis, EKG stable, no chest pain -Serial Chapo, EKGs -monitor in tele -continue Aspirin, Statin, BB -nitro prn LOW PHOSPHORUS -replace -repeat in AM JACKIE ON CKD STAGE 4 -crea 2.4 baseline closer to 2 -Gentle IVF hydration -hold Lasix -follow PRP daily CHRONIC IDIOPATHIC THROMBOCYTOPENIA -92 today, stable -follow platelet count daily IDDM -with HYPERGLYCEMIA -.Check A1c -SSI coverage, basal Lantus -pharmacy consulted for glycemic control -consistent carb diet -BSG AC HS SYSTOLIC CHF -s/p ICD -last Echo with EF of 40-45% -appears slightly dry -hold diuretics -gentle IVF hydration GOUT -continue Allopurinol DVT PROPHYLAXIS: SCDs RE: thrombocytopenia CODE STATUS: FULL CODE per my discussion with the patient and his family DISPO:In my clinical judgment this beneficiary meets acute admission criteria, established by [facility], that includes being hospitalized through two midnights. Discharge planning Patient seen in collaboration with Dr. Jack Agree with above H and P. Briefly 81M presents with not feeling well and tired and found to have pneumonia. Patient was in [place] this weekend. He was fine on Wednesday but on Wednesday seems to be tired and sweaty. Today complained of sore throat and has dry cough. Tried to take him to urgent care but he was very weak and was decided to bring to ER.Having temp spike in Er. Blood pressure stable.Denies chest pain. No nausea or abdominal pain. p/e Ge not in distress Cvs s1 and s2 heard no murmurs Rs cta b/l mild bibasilar crackles Abd benign [employer] non focal Ext no erythema. a/p Sepsis Right sided Pneumonia POC lactic acid 3 repeat lactic acid 2 Received 1lts of fluid i Er Started on Ns @100ml/hr and changed to 80ml/hr monitor for volume overload as patient has hx of chf follow cultures Started on triple iv abx taper down in 1-2 days ARF on fluids and abx f/u labs Chronic systolic chf ef 40-45% holding diuretics on fluids monitor for volume overload. VTE Prophylaxis VTE Risk Assessment Done? Y/N: Yes Risk Level: Moderate Physical Exam (per Admitting): General Appearance: + pertinent finding (Ill appearing WD/WN 81 year old male lying in bed in [facility] with family at bedside ) Head: normocephalic, atraumatic Eyes: PERRL, EOMI, sclerae normal ENT: pharynx normal Neck: supple, no JVD Respiratory/Chest: chest non-tender, no respiratory distress, no accessory muscle use, + crackles (RLL ), + rhonchi (scattered ) Cardiovascular: regular rate, rhythm, no edema, no gallop, no JVD, no murmur , normal peripheral pulses Abdomen/GI: normal bowel sounds, non tender, soft Back: normal inspection, no muscle spasm Extremities/Musculoskelatal: no calf tenderness, normal capillary refill, no pedal edema Neurologic/Psych: alert, oriented x 3, + pertinent finding (decreased hearing, no focal deficits noted ) Skin: normal color, warm/dry, no rash Lymphatic: no adenopathy Hospital Course SEPSIS secondary to COMMUNITY ACQUIRED PNEUMONIA (Possible/Suspected) Aspiration and/or gram-negative pneumonia -Presented with Fever, leukocytosis, elevated lactate, elevated inflammatory markers, JACKIE -CXR-Bibasilar opacities -atelectasis/infiltration -POC lactate 3.03.lab Lactate-2.0 -Blood cultures, sputum cultures negative -MRSA screen negative and Flu negative -Empirically treat with Vancomycin, Zosyn, and Levaquin - pharmacy consulted for dosing -Vancomycin was stopped -Clinically much better -2 step done on 12/04/16 was positive -Wants to go home today on oral Levaquin to finish the course ELEVATED TROPONIN -h/o CAD s/p Stent -Likely troponin leak in setting of sepsis, EKG stable, no chest pain -Serial Chapo are elevated to 0.26 , -no symptoms and EKG-no acute change -continue Aspirin, Statin, BB -ECHO- * There is a large sized apical, inferior, septal, and anteroseptal wall motion abnormality with hypokinesis to akinesis of the segments. * There is myocardial thinning of the anteroseptum at the mid and apical levels consist with scar. * Left ventricular systolic function is severely reduced. * The LV Ejection Fraction = 20-25%. * There is mild mitral regurgitation. * Diastolic dysfunction, Grade II (pseudonormalization pattern). * Compared to the images of the prior study dated 04/22/16, there is no significant interval change. Will need regular dose of Lasix as an OP LOW PHOSPHORUS -will check today JACKIE ON CKD STAGE 4 -crea 2.4 baseline closer to 2 -Gentle IVF hydration -Lasix on hold -Creatinine is improving -2.2 today 12/05/16 CHRONIC IDIOPATHIC THROMBOCYTOPENIA -92 on Admission -follow platelet count daily ~80s IDDM -with HYPERGLYCEMIA -Hb A 1c-8.2 -SSI coverage, basal Lantus -pharmacy consulted for glycemic control -consistent carb diet -BSG AC HS SYSTOLIC CHF -s/p ICD -last Echo with EF of 40-45% -appears slightly dry -hold diuretics for now -received gentle IVF hydration for ARF -getting Lasix for Mild Congestion GOUT -continue Allopurinol DVT PROPHYLAXIS: SCDs RE: thrombocytopenia CODE STATUS: FULL CODE per my discussion with the patient and his family DISPO: Discharge today Total time spent on discharge = 35 minutes This includes examination of the patient, discharge planning, medication reconciliation, and communication with other providers. Discharge Instructions Admission Reason for Admission: Elevated Troponin, Pna Discharge Discharge Diagnosis / Problem: Pneumonia,CHF,DM Discharge Goals Goal(s): Prevent Disease Progression Activity Recommendations Activity Limitations: resume your previous activity . Instructions / Follow-Up Instructions / Follow-Up Will call with appointments Current Hospital Diet Patient's current hospital diet: AHA Diet (Heart Healthy), Diabetes Type 2 Diet Discharge Diet Recommended Diet: AHA Diet (Heart Healthy), Diabetes Type 2 Diet Fluid Restriction: 1500 ml (6 cups) Pending Studies Studies pending at discharge: no Laboratory Results Hemoglobin A1c Test 12/01/16 06:43 Range/Units Estimated Average Glucose 189 mg/dl Hemoglobin A1c 8.2 H 4.5-5.6 % Lipid Panel Test 12/01/16 06:43 Range/Units Triglycerides Level 223 H 0-150 mg/dl Cholesterol Level 140 0-200 mg/dl HDL Cholesterol 34 mg/dl Cholesterol/HDL Ratio 4.1 LDL Cholesterol, Calculated 61 mg/dl Medical Emergencies . Who to Call and When: Medical Emergencies: If at any time you feel your situation is an emergency, please call 911 immediately. . Non-Emergent Contact Non-Emergency issues call your: Primary Care Provider . Past History Medical & Surgical History: (1) Diabetes mellitus type 2 (2) Gastroesophageal reflux disease (3) Gout (4) Systolic heart failure (5) Status post left heart catheterization (LHC) (6) CAD (coronary artery disease) (7) Cardiomyopathy (8) Diabetic renal disease (9) Implantation of internal cardiac defibrillator (10) Thrombocytopenia (11) Anemia in chronic renal disease (12) Hx of heart artery stent (13) S/P appendectomy (14) S/P ICD (internal cardiac defibrillator) procedure (15) H/O cystoscopy . "Provider Documentation" section prepared by Conor Narayan. VTE Core Measure Inpt VTE Proph given/why not?: SCD's (Low platelet) <Electronically signed by Conor Narayan M.D.> Additional Copies To Cruzito Liao M.D.
== END 2016-12-06 15:08 | disposition home health service (06) | DRG 871 ==
LOC: ENRESERVTM → ENRESERVDT → C.EDB 11:49 → C.EDINP 14:28 → C.2T 21:42 → C.4E 12-02 15:49
PROVIDERS: ADMIT Internal Medicine; ATTEND Internal Medicine
DX: A41.9 Sepsis, unspecified organism (principal); J18.9 Pneumonia, unspecified organism; D69.3 Immune thrombocytopenic purpura; N18.4 Chronic kidney disease, stage 4 (severe); I50.22 Chronic systolic (congestive) heart failure; N17.9 Acute kidney failure, unspecified; M62.81 Muscle weakness (generalized); N40.0 Benign prostatic hyperplasia without lower urinary tract symptoms; I25.10 Atherosclerotic heart disease of native coronary artery without angina pectoris; I25.5 Ischemic cardiomyopathy; I25.2 Old myocardial infarction; K21.9 Gastro-esophageal reflux disease without esophagitis; M10.9 Gout, unspecified; Z95.810 Presence of automatic (implantable) cardiac defibrillator

== ENCOUNTER 2019-04-12 22:48 | Inpatient (IN) ==
[2019-04-12] MEDS ORDERED: ALBUT/IPRATROP 3MG/0.5MG NEB 3 ML VIAL ONE (23:12)
[2019-04-12] MEDS ORDERED: ALBUT/IPRATROP 3MG/0.5MG NEB 3 ML VIAL INH STA (23:15)
[2019-04-12] MEDS ORDERED: methylPREDNISolone 125 MG/2 ML VIAL IV STA (23:19)
[2019-04-12] MEDS ORDERED: SODIUM BICARBONATE 8.4% INJ 50 MEQ/50 ML VIAL ONE (23:32)
[2019-04-12 23:39] LABS: INR 1.2 (0.9-1.1); Partial Thromboplastin Ratio 1.6; Partial Thromboplastin Time 43.9 Seconds (21.0-31.0); Prothrombin Time 11.9 Seconds (9.0-12.0)
[2019-04-13 00:06] LABS: HCO3 ABG 2 mmol/L (19-24); Oxygen Saturation ABG 98.4 % (90-95); PCO2 ABG 12 mmHg (35-46); PO2 ABG 192 mm/Hg (80-95)
[2019-04-13 00:07] LABS: Allen Test Pos (Pos)
[2019-04-13 00:12] LABS: pH ABG 6.94 (7.35-7.45)
[2019-04-13 00:15] LABS: Alanine Aminotransferase 59 U/L (12-78); Albumin Globulin Ratio 0.6 (0.9-2); Albumin Level 3.2 gm/dl (3.4-5.0); Alkaline Phosphatase 97 U/L (45-117); Aspartate Aminotransferase 34 U/L (15-37); BUN Creatinine Ratio 13.5 (10-20); Bilirubin,Total 0.3 mg/dl (0.2-1); Blood Urea Nitrogen 137 mg/dl (7-18); Calcium 8.1 mg/dl (8.5-10.1); Carbon Dioxide < 5 mmol/L (21-32); Chloride 114 mmol/L (98-107); Est GFR (African American) 4.8; Est GFR (Non-African American) 4.2; Globulin 5.1 gm/dl (2.5-4.0); Glucose 181 mg/dl (70-99); Potassium 5.4 mmol/L (3.5-5.1); Sodium 143 mmol/L (136-145); Total Protein 8.3 gm/dl (6.4-8.2)
[2019-04-13 00:23] LABS: Basophils # (auto) 0.04 K/uL (0-0.2); Basophils % (auto) 0.2 %; Echinocytes 1+; Eosinophils # (auto) 0.05 K/uL (0-0.5); Eosinophils % (auto) 0.2 %; Hematocrit (blood only) 29.5 % (42-52); Hemoglobin 9.9 g/dL (14.0-18.0); Immature Granulocytes # (auto) 0.99 K/uL (0.00-0.02); Immature Granulocytes % (auto) 4.8 %; Lymphocytes # (auto) 0.73 K/uL (1.2-3.4); Lymphocytes % (auto) 3.6 %; Mean Corpuscular Hgb Conc 33.6 g/dL (32-36); Mean Corpuscular Volume 89.9 fL (80-100); Mean Platelet Volume 11.3 fL (7.4-10.4); Monocytes % (auto) 0.5 %; Neutrophils # (auto) 18.65 K/uL (1.4-6.5); Neutrophils % (auto) 90.7 %; Platelet Count 137 K/uL (130-400); Platelet Estimate Decreased (Normal); RDW Coefficient of Variation 16.8 % (11.5-14.5); RDW Standard Deviation 54.8 fL (36.4-46.3); Red Blood Count 3.28 M/uL (4.7-6.1); White Blood Count 20.56 K/uL (4.8-10.8)
[2019-04-13] MEDS ORDERED: SODIUM BICARBONATE 8.4% INJ 50 MEQ/50 ML VIAL ONE ×2 (00:27→03:48)
[2019-04-13] MEDS ORDERED: SODIUM CHLORIDE 0.9% 500 ML IV ONE (00:37)
[2019-04-13] MEDS ORDERED: RAPID SEQUENCE INDUCTION BAG ONE (00:52)
[2019-04-13 00:59] LABS: Magnesium 1.8 mg/dl (1.8-2.4)
[2019-04-13] MEDS: SODIUM BICARBONATE 8.4% 150 MEQ in DEXTROSE 5% 1,000 ML IV SCH ×3 (01:25→15:44)
[2019-04-13 01:30] LABS: Appearance Urine Turbid (Clear); Bacteria Urine Automated Negative (Negative); Bilirubin Urine Negative (Negative); Blood Urine 3+ (Negative); Color Urine Yellow; Epithelial Cell Urine Auto >30 /lpf (0-5); Glucose Urine UA Trace (Negative); Ketones Urine Negative (Negative); Leukocyte Esterase Urine 2+ (Negative); Nitrite Urine Negative (Negative); Protein Urine 3+ (Negative); RBC Urine Automated >30 /hpf (0-4); Specific Gravity Urine 1.022 (1.000-1.030); Urobilinogen Urine Negative (Negative); WBC Urine Automated >30 /hpf (0-5)
[2019-04-13 02:06] LABS: Amphetamines+Metham, Urine Neg (Neg); Barbiturates, Urine Neg (Neg); Benzodiazepine, Urine Neg (Neg); Cocaine, Urine Neg (Neg); MDMA (Ecstacy), Urine Neg (Neg); Methadone, Urine Neg (Neg); Opiate, Urine Neg (Neg); Phencyclidine, Urine Neg (Neg)
[2019-04-13 02:59] LABS: Salicylate 2.9 mg/dl (2.8-20)
[2019-04-13 03:14] LABS: Calcium 7.8 mg/dl (8.5-10.1); Est GFR (Non-African American) 4.3; Potassium 5.2 mmol/L (3.5-5.1); T4 Free Thyroxine 0.58 ng/dl (0.8-1.6)
[2019-04-13] MEDS ORDERED: SODIUM BICARB 8.4% INJ 50 MEQ/50 ML SYR IV STA (03:47)
[2019-04-13 04:02] LABS: Cortisol Random 100.07 mcg/dl; T3 Total 0.2 ng/ml (0.60-1.81)
[2019-04-13] MEDS ORDERED: PIPERACILLIN/TAZOBACTAM 4.5 GM in DEXTROSE 5% 100 ML IV STA (04:03)
[2019-04-13] MEDS ORDERED: PIPERACILL/TAZOBAC CONSULT ACTIVE PRN (04:03)
--- NOTE | 2019-04-13 04:04 | History & Physical Report ---
Date of Service April 13, 2019 Assessment & Plan (1) Encephalopathy: Multifactorial : uremia, ARF on CRI, AGMA, likely prerenal Severe sepsis (SIRS plus lactic acid elevation plus kidney dysfunction plus encephalopathy) possible sources : Aspiration pneumonia, diverticulitis Hyperammonemia (? secondary to decreased urea clearance secondary to kidney dysfunction) chronic systolic heart failure secondary to ischemic cardiomyopathy (EF of 31%, TTE 2013) status post ICD, Patient clinically dry CAD status post stent hypertension, BP on the lower side interstitial lung disease as per records chronic anemia likely secondary to CKD DM 2 insulin requiring, well-controlled as of recent outpatient hemoglobin A1c of 6.4 last January 2019 Hypothyroidism, new diagnosis past tobacco abuse history ITP as per records ICU Vent management Continue bicarb drip for severe diabetic acidosis Cautious IV hydration given known systolic dysfunction Daily renal function, appropriate to hold home diuretics for now Cultures, IV Zosyn for aspiration pneumonia, diverticulitis Aspiration precautions Swallow eval once patient extubated Nephrology consult RE ARF on CKD Hold home antihypertensives for now given borderline BP Anemia work-up, transfuse PRBC if hemoglobin less than 8, hx CAD Lactulose 1 dose for hyperammonemia, follow ammonia levels Initiate Levothyroxine, recheck TSH next month Basal insulin, ISS BG goal 1 40-180 DVT prophylaxis. Heparin subcu GI prophylaxis. IV Famotidine dosed for renal function Conditional CODE STATUS as per : Okay with intubation, no CPR agreeable to dialysis if necessary. Total critical care time was 60 minutes. Patient's requesting updates from providers. Mrs. Kathe Marie, contact #[phone]. Case discussed with Dr. Mclaughlin, financial analyst accountant continuous improvement consultant. He agrees with bicarb drip initiated at the ER. History of Present Illness Chief Complaint: Abnormal blood work as per family Primary Care Provider: Cruzito Liao MD History obtained from patient family and records. Unable to obtain history from patient secondary to intubated state. Medical history significant for chronic systolic heart failure secondary to ischemic cardiomyopathy (EF of 31%, TTE 2013) status post ICD, CAD status post stent, hypertension, interstitial lung disease as per records, CRI (baseline creatinine 3 as of 12/2018), chronic anemia (baseline hemoglobin of 10 as of 12/2018), DM 2 insulin requiring, past tobacco abuse, BPH, history ITP as per records. Recent confinement April 2018 for right-sided ureteric stone sp spontaneous passage. Patient noted to have altered mental status the last few days as per . Unwitnessed mechanical fall after bending over last week as per records. Increase in usual junky cough, breathing a little more labored than usual. Coughing with meals/water intake is not careful as per . No chest pain as per patient . Respiratory distress noted by home nurse yesterday. Patient's preferred to have patient treated at home over ER evaluation as per outpatient note. NSS bolus, IM Solu-Medrol, IV Ceftriaxone given at home for possible respiratory infection. Outpatient chest x-ray, blood work ordered. Patient instructed to initiate doxycycline and prednisone course the following day. ER evaluation recommended with further worsening of symptoms as per note. Outpatient hemoglobin noted to be 9.1, creatinine noted 9.1. Patient family instructed to bring patient to the emergency room. At the ER, patient given Solu-Medrol, neb treatment. Subsequent intubation done for respiratory distress. Bicarbonate drip initiated at the ER for metabolic acidosis. 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 , [facility] at home patient since January 2019 Allergies Allergy/AdvReac Type Severity Reaction Status Date / Time lisinopril Allergy Mild Unknown Verified 04/13/19 01:31 Home Medications Home Medications Medication Instructions Recorded Confirmed Type acetaminophen 650 mg PO Q6H PRN 04/13/19 04/13/19 History albuterol sulfate 2 puff INHALATION Q6H PRN 04/13/19 04/13/19 History allopurinol 100 mg PO DAILY 04/13/19 04/13/19 History aspirin [Aspir-81] 81 mg PO DAILY 04/13/19 04/13/19 History atorvastatin 40 mg PO DAILY 04/13/19 04/13/19 History calcium polycarbophil [FiberCon] 1,250 mg PO QAM 04/13/19 04/13/19 History cholecalciferol (vitamin D3) 1,000 unit PO DAILY 04/13/19 04/13/19 History cyanocobalamin (vitamin B-12) 500 mcg PO BID 04/13/19 04/13/19 History [Vitamin B-12] furosemide 20 mg PO 3XWK 04/13/19 04/13/19 History insulin glargine [Lantus Solostar 20 unit SUBCUT QAM 04/13/19 04/13/19 History U-100 Insulin] metoprolol succinate 25 mg PO DAILY 04/13/19 04/13/19 History zqskchto-caf-ET-lycopen-lutein 1 tab PO DAILY 04/13/19 04/13/19 History [Centrum Silver Ultra Men's] nitroglycerin [Nitrostat] 0.4 mg SUBLINGUAL UD PRN MDD 3 04/13/19 04/13/19 History doses ondansetron HCl 4 mg PO Q8 PRN 04/13/19 04/13/19 History polyethylene glycol 3350 [Miralax] 17 g PO DAILY PRN 04/13/19 04/13/19 History pyridoxine (vitamin B6) [Vitamin 100 mg PO DAILY 04/13/19 04/13/19 History B-6] repaglinide 2 mg PO TIDM 04/13/19 04/13/19 History Past Med/Surg History Medical History Diabetes (Acute) CHF (congestive heart failure) (Chronic) Cholelithiasis Chronic ITP (idiopathic thrombocytopenia) Chronic kidney disease Heart attack Interstitial lung disease Surgical History Cardiac defibrillator in place (Chronic) Social History Preferred Language: [place] Negative Checker Required: No Beliefs That Will Affect Care: None Current Living Situation: Spouse Other Information That Helps Us Care for You: No Feels Safe at Home: Yes Safety Concerns: Feels Safe At This Time Smoking Status: Never smoker Do You Dip or Chew Tobacco: No Second Hand Exposure: No Tobacco Cessation Education Requested by Patient: No Hx Alcohol Use: No Hx Substance Use: No Review of Systems Review of Systems: Could not be reliably obtained Physical Exam Physical Exam: GENERAL: Intubated, no respiratory distress SKIN: Pallor , cool HEENT: Partial alopecia, pale palpebral conjunctivae, no ptosis, dry buccal mucosa NECK : Supple, no tenderness CHEST : Decreased breath sounds, no tenderness HEART : RRR, diminished S1-S2 ABDOMEN: Some distention, nontender EXTREMITIES : No LE swelling/tenderness, no other conspicuous deformities noted NEUROLOGIC : Some responsiveness to pain stimulus, no facial asymmetry, gait and stance not assessed Results & Data Vital Signs (Past 12 Hours) Vital Signs Temp Pulse Pulse Resp BP BP Pulse Ox 04/13/19 03:16 58 L 100 04/13/19 03:15 58 L 101/48 L 100 04/13/19 03:10 34 C L 04/13/19 03:01 58 L 100 04/13/19 03:00 58 L 108/50 L 100 04/13/19 02:50 58 L 118/51 L 100 04/13/19 02:46 18 04/13/19 02:45 58 L 100 04/13/19 02:43 100 04/13/19 02:15 93 H 141/67 H 100 04/13/19 02:10 94 H 151/74 H 100 04/13/19 02:06 94 H 100 04/13/19 02:05 94 H 151/75 H 100 04/13/19 02:01 94 H 100 04/13/19 02:00 95 H 152/83 H 100 04/13/19 01:56 94 H 100 04/13/19 01:55 95 H 154/75 H 100 04/13/19 01:51 95 H 100 04/13/19 01:50 96 H 154/77 H 100 04/13/19 01:46 95 H 100 04/13/19 01:45 96 H 154/78 H 100 04/13/19 01:41 95 H 100 04/13/19 01:40 96 H 154/77 H 100 04/13/19 01:36 95 H 100 04/13/19 01:35 96 H 153/77 H 100 04/13/19 01:33 95 H 152/75 H 04/13/19 01:30 95 H 04/13/19 01:25 95 H 100 04/13/19 01:20 95 H 100 04/13/19 01:15 94 H 100 04/13/19 01:10 100 04/13/19 01:06 96 H 18 100 04/13/19 01:05 96 H 17 100/54 L 100 04/13/19 01:00 201 H 25 H 100 04/13/19 00:57 100 04/13/19 00:45 103 H 17 100 04/13/19 00:40 86 28 H 99 04/13/19 00:37 89 27 H 111/52 L 100 04/13/19 00:35 87 28 H 100 04/13/19 00:31 94 H 30 H 125/62 100 04/13/19 00:30 95 H 28 H 96 04/13/19 00:25 87 27 H 100 04/13/19 00:20 90 27 H 100 04/13/19 00:15 88 26 H 100 04/13/19 00:10 90 27 H 100 04/13/19 00:05 88 27 H 100 04/13/19 00:02 88 27 H 119/66 100 04/13/19 00:00 90 28 H 90 04/12/19 23:55 82 26 H 98 04/12/19 23:51 91 H 40 H 110/65 100 04/12/19 23:50 98 H 28 H 99 04/12/19 23:45 86 25 H 100 04/12/19 23:42 98 H 25 H 110/65 100 04/12/19 23:40 99 H 22 100 04/12/19 23:35 87 27 H 100 04/12/19 23:31 87 25 H 127/78 100 04/12/19 23:30 89 26 H 100 04/12/19 23:25 87 26 H 100 04/12/19 23:20 87 26 H 100 04/12/19 23:15 90 26 H 100 04/12/19 23:10 88 26 H 98 04/12/19 23:05 91 H 27 H 100 04/12/19 23:03 91 H 25 H 100 04/12/19 23:00 90 25 H 140/86 100 04/12/19 22:54 34.4 C L 88 45 H 121/68 98 Laboratory Results Laboratory Results WBC 20.56 K/uL (4.8-10.8) H 04/12/19 23:11 RBC 3.28 M/uL (4.7-6.1) L 04/12/19 23:11 Hgb 9.9 g/dL (14.0-18.0) L 04/12/19 23:11 Hct 29.5 % (42-52) L 04/12/19 23:11 MCV 89.9 fL (80-100) 04/12/19 23:11 MCH 30.2 pg (25-34) 04/12/19 23:11 MCHC 33.6 g/dL (32-36) 04/12/19 23:11 RDW Std Deviation 54.8 fL (36.4-46.3) H 04/12/19 23:11 RDW Coeff of Julissa 16.8 % (11.5-14.5) H 04/12/19 23:11 Plt Count 137 K/uL (130-400) 04/12/19 23:11 MPV 11.3 fL (7.4-10.4) H 04/12/19 23:11 Immature Gran % (Auto) 4.8 % 04/12/19 23:11 Neut % (Auto) 90.7 % 04/12/19 23:11 Lymph % (Auto) 3.6 % 04/12/19 23:11 [place] % (Auto) 0.5 % 04/12/19 23:11 Eos % (Auto) 0.2 % 04/12/19 23:11 Baso % (Auto) 0.2 % 04/12/19 23:11 Immature Gran # (Auto) 0.99 K/uL (0.00-0.02) H 04/12/19 23:11 Neut # (Auto) 18.65 K/uL (1.4-6.5) H 04/12/19 23:11 Lymph # (Auto) 0.73 K/uL (1.2-3.4) L 04/12/19 23:11 [place] # (Auto) 0.10 K/uL (0.11-0.59) L 04/12/19 23:11 Eos # (Auto) 0.05 K/uL (0-0.5) 04/12/19 23:11 Baso # (Auto) 0.04 K/uL (0-0.2) 04/12/19 23:11 Platelet Estimate Decreased (Normal) L 04/12/19 23:11 Echinocytes 1+ 04/12/19 23:11 PT 11.9 Seconds (9.0-12.0) 04/12/19 23:11 INR 1.2 (0.9-1.1) H 04/12/19 23:11 APTT 43.9 Seconds (21.0-31.0) H 04/12/19 23:11 PTT Ratio 1.6 04/12/19 23:11 ABG pH 6.94 (7.35-7.45) L* 04/12/19 23:36 ABG pCO2 12 mmHg (35-46) L 04/12/19 23:36 ABG pO2 192 mm/Hg (80-95) H 04/12/19 23:36 ABG HCO3 2 mmol/L (19-24) L 04/12/19 23:36 ABG O2 Saturation 98.4 % (90-95) H 04/12/19 23:36 ABG Base Excess -28.0 mEq/L (-9-1.8) L 04/12/19 23:36 Landry Test Pos (Pos) 04/12/19 23:36 Barometric Pressure 731.6 mm/Hg 04/12/19 23:36 Oxygen Given RA 04/12/19 23:36 Sodium 144 mmol/L (136-145) 04/13/19 02:15 Potassium 5.2 mmol/L (3.5-5.1) H 04/13/19 02:15 Chloride 114 mmol/L (98-107) H 04/13/19 02:15 Carbon Dioxide 5 mmol/L (21-32) L* 04/13/19 02:15 Anion Gap 25.0 (3-11) H 04/13/19 02:15 BUN 138 mg/dl (7-18) H 04/13/19 02:15 Creatinine 9.88 mg/dl (0.6-1.4) H* 04/13/19 02:15 Est Cr Clr Drug Dosing 6.0 ml/min 04/13/19 02:15 Est GFR ( Amer) 5.0 04/13/19 02:15 Est GFR (Non-Af Amer) 4.3 04/13/19 02:15 BUN/Creatinine Ratio 14.0 (10-20) 04/13/19 02:15 Glucose 200 mg/dl (70-99) H 04/13/19 02:15 Lactate 5.7 mmol/L (0.4-2.0) H* 04/13/19 02:15 Calcium 7.8 mg/dl (8.5-10.1) L 04/13/19 02:15 Magnesium 1.8 mg/dl (1.8-2.4) 04/12/19 23:11 Total Bilirubin 0.3 mg/dl (0.2-1) 07/03/19 23:11 AST 34 U/L (15-37) 04/12/19 23:11 ALT 59 U/L (12-78) 04/12/19 23:11 Alkaline Phosphatase 97 U/L (45-117) 04/12/19 23:11 Ammonia 57.0 umol/L (11-32) H 04/13/19 02:15 Total Creatine Kinase 381 U/L (39-308) H 04/13/19 02:15 Total Protein 8.3 gm/dl (6.4-8.2) H 04/12/19 23:11 Albumin 3.2 gm/dl (3.4-5.0) L 04/12/19 23:11 Globulin 5.1 gm/dl (2.5-4.0) H 04/12/19 23:11 Albumin/Globulin Ratio 0.6 (0.9-2) L 04/12/19 23:11 Procalcitonin 0.50 ng/ml (0-0.5) 04/12/19 23:11 TSH 6.130 uIu/ml (0.300-4.500) H 04/12/19 23:11 Free T4 0.58 ng/dl (0.8-1.6) L 04/13/19 02:15 Total T3 0.20 ng/ml (0.60-1.81) L 04/13/19 02:15 Random Cortisol 100.07 mcg/dl 04/13/19 02:15 Urine Color Yellow 04/13/19 01:20 Urine Appearance Turbid (Clear) A 04/13/19 01:20 Urine pH 5.0 (4.5-7.5) 04/13/19 01:20 Ur Specific [place] 1.022 (1.000-1.030) 04/13/19 01:20 Urine Protein 3+ (Negative) H 04/13/19 01:20 Urine Glucose (UA) Trace (Negative) H 04/13/19 01:20 Urine Ketones Negative (Negative) 04/13/19 01:20 Urine Blood 3+ (Negative) H 04/13/19 01:20 Urine Nitrite Negative (Negative) 04/13/19 01:20 Urine Bilirubin Negative (Negative) 04/13/19 01:20 Urine Urobilinogen Negative (Negative) 04/13/19 01:20 Ur Leukocyte Esterase 2+ (Negative) H 04/13/19 01:20 Urine WBC (Auto) >30 /hpf (0-5) H 04/13/19 01:20 Urine RBC (Auto) >30 /hpf (0-4) H 04/13/19 01:20 U Hyaline Cast (Auto) 10-30 /lpf (0-5) H 04/13/19 01:20 U Epithel Cells (Auto) >30 /lpf (0-5) H 04/13/19 01:20 Urine Bacteria (Auto) Negative (Negative) 04/13/19 01:20 Ur Renal Epithelial Cell Not Reportable 04/13/19 01:20 Granular Casts 10-20 /lpf (0) H 04/13/19 01:20 Urine Yeast Not Reportable 04/13/19 01:20 Salicylates 2.9 mg/dl (2.8-20) 04/13/19 02:15 Urine Opiates Screen Neg (Neg) 04/13/19 01:20 Ur Methadone, Qual Neg (Neg) 04/13/19 01:20 Acetaminophen 7 ug/ml (10-30) L 04/13/19 02:15 Urine Barbiturates Neg (Neg) 04/13/19 01:20 Ur Phencyclidine (PCP) Neg (Neg) 04/13/19 01:20 U Amphetamin/Meth Scrn Neg (Neg) 04/13/19 01:20 MDMA (Ecstasy) Screen Neg (Neg) 04/13/19 01:20 U Benzodiazepines Scrn Neg (Neg) 04/13/19 01:20 Ur Cocaine Metabolite Neg (Neg) 04/13/19 01:20 U Marijuana (THC) Screen Neg (Neg) 04/13/19 01:20 Blood Type A Positive 04/13/19 02:15 Antibody Screen NEGATIVE 04/13/19 02:[address] head initial read: No acute intracranial hemorrhage, chronic small vessel ischemic changes, global cerebral volume loss CT chest initial read: ET and OG tubes noted. Severe coronary calcification. Pacemaker. Cardiomegaly. Bronchial wall thickening, mild bronchopneumonia not excluded, healed right clavicular/right rib fractures. CT abdomen pelvis initial read. Colonic diverticulosis. Possible mild diverticulitis. No abscess. Moderate compression fracture T12 vertebral body is new from prior, acuity indeterminant. Cholelithiasis without cholecystitis. Moderate nonspecific perinephric stranding bilaterally. No hydronephrosis. F oley catheter in collapsed urinary bladder. EKG as per my interpretation : Rate 90, NSR, LAD, LAFB, first-degree AV block, T wave inversion lateral leads, PRWP
[2019-04-13] MEDS ORDERED: PIPERACILLIN/TAZOBACTAM 4.5 GM/120 ML BAG IV STA (04:09)
[2019-04-13] MEDS ORDERED: GLUCOSE 10 TABS/TUBE PO PRN (04:43)
[2019-04-13] MEDS ORDERED: GLUCOSE 40% GEL 15 GM TUBE PO PRN (04:43)
[2019-04-13] MEDS ORDERED: CARBOHYDRATES FOR HYPOGLYCEMIA PO PRN (04:43)
[2019-04-13] MEDS ORDERED: PROMETHAZINE HCL 12.5 MG in SODIUM CHLORIDE 0.9% 50 ML IV PRN (04:43)
[2019-04-13] MEDS ORDERED: ALBUMIN 25% 50 ML IV ONE (04:43)
[2019-04-13] MEDS ORDERED: GLUCAGON FOR INJ 1 MG VIAL SQ PRN (04:43)
[2019-04-13] MEDS ORDERED: ICU PROTOCOL FOR HYPERGLYCEMIA PRN ×2 (04:43)
[2019-04-13] MEDS ORDERED: fentaNYL citrate 100 MCG/2 ML VIAL IV PRN (04:43)
[2019-04-13] MEDS ORDERED: DEXTROSE 50% 50 ML SYRINGE IV PRN (04:43)
[2019-04-13 04:54] LABS: Troponin I 0.576 ng/ml (0-0.045)
[2019-04-13] MEDS ORDERED: LACTULOSE SYRUP 30 GM/45 ML UDP OG ONE (05:00)
[2019-04-13] MEDS ORDERED: INSULIN ASPART 100 UNITS/ML 3 ML PEN SC SCH ×2 (05:00→12:00)
[2019-04-13] MEDS ORDERED: INSULIN GLARGINE SOLOSTAR 100 UNITS/ML 3 ML PEN SQ ONE (05:00)
--- NOTE | 2019-04-13 05:47 | Critical Care Consultation ---
Date of Consultation April 13, 2019 Assessment & Plan (1) Admitted to intensive care unit: Reason Critically Ill: 84-year-old male with severe metabolic acidosis in the setting of acute renal failure requiring emergent airway management secondary to increasing metabolic demand. NEURO - * CAM ICU: Unable to assess at this time. * Metabolic encephalopathy in the setting of acute renal failure. * CT of the head unremarkable. CARDIAC/VASCULAR - * History of coronary artery disease and reduced EF. * Bedside ultrasound reveals collapsible IVC with concern for hypovolemia. * Will continue with aggressive IV fluid resuscitation at this time. * Hold home antihypertensive medications. * Attempt to correct acidosis which may improve patient's pressures. * Monitor on telemetry. RESPIRATORY - * Acute respiratory failure in the setting of severe metabolic acidosis with attempted respiratory compensation. * Patient intubated in the emergency department. Agree with increasing respiratory rate for metabolic demands at this time. * Address settings as metabolic acidosis improves. * No history of lung disease. GI/NUTRITION - * N.p.o. currently. * Prophylaxis: Famotidine RENAL/LYTES - * Acute renal failure with severe metabolic acidosis: * Agree with CT of the abdomen pelvis for obstructive uropathy causes. * Initially treated with bicarb pushes in the emergency department. * Did add D5W with 3 A of bicarbonate at a rate of 150 mL's in the emergency department. We will continue. * Serial ABGs for evaluation of metabolic acidosis. * PRN bicarb pushes. * Will aggressively resuscitated with normal saline given patient's volume status per evaluation clinically the exam and with IVC monitoring. * Hospitalist did reach out to nephrology who does not recommend emergent hemodialysis at this time. * Patient is now becoming anuric with minimal improvement in serial labs. HD may be eminent at this time. - * Gutierrez in place - Strict I&Os. ENDO - * DM * BSGs per unit protocol. ISS --> gtt per unit policy. * No h/o thyroid dz. * concerns for hypothyroid state via labs. f/u w/ Free T4. HEME - * Anemia: * Worsen from baseline. * Trend as anticipated drop 2/2 hemodilution. * h/o ITP. * Monitor platelets. ID - * SIRS w/ ?? source. * Urine pending. * Agree with broad spectrum abx in the acutely ill patient. * Lactate >5. Do not anticipate this clearing soon 2/2 ARF. * ProCal not elevated. LINES/IV ACCESS - * PIVs x2 * Gutierrez * ET Tube * RIGHT Radial A-line DVT PROPHYLAXIS - * Heparin * SCDs CODE STATUS - * I had an extensive conversation with the patient's family at bedside. At this point, they are comfortable with proceeding with endotracheal intubation, but recognized the patient's current tenuous status. The did not wish to proceed with chest compressions or aggressive ACLS in the setting of cardiovascular collapse. Patient will be a conditional code with the caveat that he will un dergo intubation. I have personally spent 60 minutes of critical care time in the direct management of this patient. This is a life/limb threatening event. This includes time spent evaluating patient, direct bedside care, chart review, placing orders, interpretation of diagnostic studies, discussion with consultants, patient, and family members, as well as other required patient management activ ities. This time is exclusive of all separately billable procedures, and teaching time and separate from and in addition to any other critical care service time. Thank you for allowing us to participate in the care of this patient. Please refer to my attending physician's documentation for any further recommendations. (2) Acute renal failure: (3) Metabolic acidosis: (4) Respiratory failure: (5) Metabolic encephalopathy: (6) Hypovolemia: (7) SIRS (systemic inflammatory response syndrome): Supervising Physician Co-Signing Physician Notes discussed with PA. agree with above except as documented in my seperate note History of Present Illness Attending Physician: Dariana Mckinney MD I received a call from the emergency department in regard to this patient requesting that we evaluate the patient in the emergency department secondary to severe metabolic acidosis in the setting of acute renal failure with respiratory distress requiring eminent endotracheal intubation. Upon arrival, the patient is severely tachypneic. He has been maintaining his blood pressures well. Laboratory assessment was concerning for white count greater than 20,000. His blood gas represents a severe metabolic acidosis. Clinically, the patient is attempting to compensate with Kussmaul respirations. He was found to have a creatinine of greater than 10 with a baseline creatinine of 2. He is known to have chronic kidney disease. Potassium is 5.4. Anion gap 25. Serum carbon dioxide less than 5. Patient was pretreated with 3 A of bicarb. He was intubated emergently by ER attending physician. I did have conversation with family at bedside. Apparently, the patient has had decreased p.o. intake since Wednesday. Today, he was complaining of increasing work of breathing and shortness of breath. He was seen by his in-home care team and provided 1 L of fluids and an antibiotic for concerns for respiratory infection. His condition worsened prompting visit to the emergency department. In conversation with family, they are comfortable with emergent endotracheal intubation, but would not wish to proceed with further ACLS techniques, specifically chest compressions, cardioversion, or medications. Allergies Allergy/AdvReac Type Severity Reaction Status Date / Time lisinopril Allergy Mild Unknown Verified 04/13/19 01:31 Home Medications Home Medications Medication Instructions Recorded Confirmed Type acetaminophen 650 mg PO Q6H PRN 04/13/19 04/13/19 History albuterol sulfate 2 puff INHALATION Q6H PRN 04/13/19 04/13/19 History allopurinol 100 mg PO DAILY 04/13/19 04/13/19 History aspirin [Aspir-81] 81 mg PO DAILY 04/13/19 04/13/19 History atorvastatin 40 mg PO DAILY 04/13/19 04/13/19 History calcium polycarbophil [FiberCon] 1,250 mg PO QAM 04/13/19 04/13/19 History cholecalciferol (vitamin D3) 1,000 unit PO DAILY 04/13/19 04/13/19 History cyanocobalamin (vitamin B-12) 500 mcg PO BID 04/13/19 04/13/19 History [Vitamin B-12] furosemide 20 mg PO 3XWK 04/13/19 04/13/19 History insulin glargine [Lantus Solostar 20 unit SUBCUT QAM 04/13/19 04/13/19 History U-100 Insulin] metoprolol succinate 25 mg PO DAILY 04/13/19 04/13/19 History mnqotenw-cqx-FL-lycopen-lutein 1 tab PO DAILY 04/13/19 04/13/19 History [Centrum Silver Ultra Men's] nitroglycerin [Nitrostat] 0.4 mg SUBLINGUAL UD PRN MDD 3 04/13/19 04/13/19 History doses ondansetron HCl 4 mg PO Q8 PRN 04/13/19 04/13/19 History polyethylene glycol 3350 [Miralax] 17 g PO DAILY PRN 04/13/19 04/13/19 History pyridoxine (vitamin B6) [Vitamin 100 mg PO DAILY 04/13/19 04/13/19 History B-6] repaglinide 2 mg PO TIDM 04/13/19 04/13/19 History Patient History Medical History Diabetes (Acute) CHF (congestive heart failure) (Chronic) Cholelithiasis Chronic ITP (idiopathic thrombocytopenia) Chronic kidney disease Heart attack Interstitial lung disease Surgical History Cardiac defibrillator in place (Chronic) Social History Preferred Language: Serbian 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 GENERAL - 84-year-old male appearing his stated age who is in moderate respiratory distress. SKIN - Without rashes. HEAD - NC/AT. EYES - PERRL with EOMI bilaterally. EARS - No deformities of external structures noted on gross examination bilaterally. NOSE - Midline and without cyanosis. No epistaxis or purulent drainage noted. MOUTH/OROPHARYNX - Without perioral cyanosis. Buccal mucosa pink and dry. NECK - Neck with FROM. Supple to palpation. LUNGS -tachypneic with accessory muscle retractions appreciated. Normal vesicular breath sounds appreciated throughout. No wheezes, rales, rhonchi appreciated. CARDIAC - RRR with S1/S2. No murmur, rubs, or gallops appreciated. ABDOMEN - Abdominal contour flat without pulsations or visible masses. BS normoactive all four quadrants. No tenderness, palpable masses, hepatosplenomegaly, or ascites noted. EXTREMITIES - No clubbing or peripheral cyanosis. No pretibial edema present. +3/5 radial and dorsalis pedis pulses palpated throughout. NEUROLOGIC - Cranial nerves II through XII grossly intact. Unable to fully assess secondary to current state of extremis. Results & Data Vital Signs (Past 12 Hours) Vital Signs Temp Pulse Pulse Resp BP BP BP 04/13/19 05:15 34 C L 92 H 26 H 106/52 L 04/13/19 05:00 34 C L 79 26 H 102/47 L 136/69 04/13/19 04:51 92 H 04/13/19 04:46 92 H 26 H 04/13/19 04:15 94 H 100/47 L 04/13/19 04:07 100 H 26 H 04/13/19 04:01 96 H 04/13/19 04:00 88 122/55 L 04/13/19 03:46 89 04/13/19 03:45 89 110/55 L 04/13/19 03:32 88 04/13/19 03:30 89 118/49 L 04/13/19 03:16 58 L 04/13/19 03:15 58 L 101/48 L 04/13/19 03:10 34 C L 04/13/19 03:01 58 L 04/13/19 03:00 58 L 108/50 L 04/13/19 02:50 58 L 118/51 L 04/13/19 02:46 18 04/13/19 02:45 58 L 04/13/19 02:43 04/13/19 02:15 93 H 141/67 H 04/13/19 02:10 94 H 151/74 H 04/13/19 02:06 94 H 04/13/19 02:05 94 H 151/75 H 04/13/19 02:01 94 H 04/13/19 02:00 95 H 152/83 H 04/13/19 01:56 94 H 04/13/19 01:55 95 H 154/75 H 04/13/19 01:51 95 H 04/13/19 01:50 96 H 154/77 H 04/13/19 01:46 95 H 04/13/19 01:45 96 H 154/78 H 04/13/19 01:41 95 H 04/13/19 01:40 96 H 154/77 H 04/13/19 01:36 95 H 04/13/19 01:35 96 H 153/77 H 04/13/19 01:33 95 H 152/75 H 04/13/19 01:30 95 H 04/13/19 01:25 95 H 04/13/19 01:20 95 H 04/13/19 01:15 94 H 04/13/19 01:10 04/13/19 01:06 96 H 18 04/13/19 01:05 96 H 17 100/54 L 04/13/19 01:00 201 H 25 H 04/13/19 00:57 04/13/19 00:45 103 H 17 04/13/19 00:40 86 28 H 04/13/19 00:37 89 27 H 111/52 L 04/13/19 00:35 87 28 H 04/13/19 00:31 94 H 30 H 125/62 04/13/19 00:30 95 H 28 H 04/13/19 00:25 87 27 H 04/13/19 00:20 90 27 H 04/13/19 00:15 88 26 H 04/13/19 00:10 90 27 H 04/13/19 00:05 88 27 H 04/13/19 00:02 88 27 H 119/66 04/13/19 00:00 90 28 H 04/12/19 23:55 82 26 H 04/12/19 23:51 91 H 40 H 110/65 04/12/19 23:50 98 H 28 H 04/12/19 23:45 86 25 H 04/12/19 23:42 98 H 25 H 110/65 04/12/19 23:40 99 H 22 04/12/19 23:35 87 27 H 04/12/19 23:31 87 25 H 127/78 04/12/19 23:30 89 26 H 04/12/19 23:25 87 26 H 04/12/19 23:20 87 26 H 04/12/19 23:15 90 26 H 04/12/19 23:10 88 26 H 04/12/19 23:05 91 H 27 H 04/12/19 23:03 91 H 25 H 04/12/19 23:00 90 25 H 140/86 04/12/19 22:54 34.4 C L 88 45 H 121/68 Pulse Ox 04/13/19 05:15 100 04/13/19 05:00 100 04/13/19 04:51 04/13/19 04:46 100 04/13/19 04:15 100 04/13/19 04:07 100 04/13/19 04:01 100 04/13/19 04:00 100 04/13/19 03:46 100 04/13/19 03:45 100 04/13/19 03:32 100 04/13/19 03:30 100 04/13/19 03:16 100 04/13/19 03:15 100 04/13/19 03:10 04/13/19 03:01 100 04/13/19 03:00 100 04/13/19 02:50 100 04/13/19 02:46 04/13/19 02:45 100 04/13/19 02:43 100 04/13/19 02:15 100 04/13/19 02:10 100 04/13/19 02:06 100 04/13/19 02:05 100 04/13/19 02:01 100 04/13/19 02:00 100 04/13/19 01:56 100 04/13/19 01:55 100 04/13/19 01:51 100 04/13/19 01:50 100 04/13/19 01:46 100 04/13/19 01:45 100 04/13/19 01:41 100 04/13/19 01:40 100 04/13/19 01:36 100 04/13/19 01:35 100 04/13/19 01:33 04/13/19 01:30 04/13/19 01:25 100 04/13/19 01:20 100 04/13/19 01:15 100 04/13/19 01:10 100 04/13/19 01:06 100 04/13/19 01:05 100 04/13/19 01:00 100 04/13/19 00:57 100 04/13/19 00:45 100 04/13/19 00:40 99 04/13/19 00:37 100 04/13/19 00:35 100 04/13/19 00:31 100 04/13/19 00:30 96 04/13/19 00:25 100 04/13/19 00:20 100 04/13/19 00:15 100 04/13/19 00:10 100 04/13/19 00:05 100 04/13/19 00:02 100 04/13/19 00:00 90 04/12/19 23:55 98 04/12/19 23:51 100 04/12/19 23:50 99 04/12/19 23:45 100 04/12/19 23:42 100 04/12/19 23:40 100 04/12/19 23:35 100 04/12/19 23:31 100 04/12/19 23:30 100 04/12/19 23:25 100 04/12/19 23:20 100 04/12/19 23:15 100 04/12/19 23:10 98 04/12/19 23:05 100 04/12/19 23:03 100 04/12/19 23:00 100 04/12/19 22:54 98 PG Care Time/CCT Critical Care Time: Yes Total Critical Care Time: 60 (1) Acute renal failure Acute renal failure type: unspecified Qualified Code(s): N17.9 - Acute kidney failure, unspecified (2) Respiratory failure Chronicity: unspecified Respiratory failure complication: unspecified whether with hypoxia or hypercapnia Qualified Code(s): J96.90 - Respiratory failure, unspecified, unspecified whether with hypoxia or hypercapnia
[2019-04-13 05:58] LABS: Hematocrit (blood only) 26.4 % (42-52); Hemoglobin 8.9 g/dL (14.0-18.0); Mean Corpuscular Hgb Conc 33.7 g/dL (32-36); Mean Corpuscular Volume 91.7 fL (80-100); Mean Platelet Volume 11.1 fL (7.4-10.4); Platelet Count 135 K/uL (130-400); RDW Coefficient of Variation 16.7 % (11.5-14.5); RDW Standard Deviation 55.3 fL (36.4-46.3); Red Blood Count 2.88 M/uL (4.7-6.1); Reticulocyte % 2.1 % (0.5-2.0); Reticulocytes # 0.06 10^6/uL (0.02-0.10); White Blood Count 18.92 K/uL (4.8-10.8)
[2019-04-13] MEDS ORDERED: IPRATROPIUM BROMIDE HFA INHALER INH SCH (06:00)
[2019-04-13] MEDS: HEPARIN SOD 5,000 UNIT/0.5 ML VIAL SQ SCH ×3 (06:00→22:04)
[2019-04-13] MEDS ORDERED: LEVALBUTEROL TARTRATE 15 GM HFA.AER.AD INH SCH (06:00)
[2019-04-13] MEDS: MAGNESIUM SULFATE / D5W 1 GM/100 ML BAG IV ONE ×2 (06:01→06:28)
[2019-04-13 06:04] LABS: iSTAT Arterial Blood Gas HCO3 5 meg/L (19-24); iSTAT Arterial Blood Gas pCO2 22 mmHg (35-46); iSTAT Arterial Blood Gas pH 6.93 (7.35-7.45); iSTAT Carbon Dioxide < 5 mEq/l (24-31); iSTAT FiO2 30 %; iSTAT Site Art Line
[2019-04-13] MEDS ORDERED: Nursing to Pharmacy Communication ONE (06:29)
[2019-04-13 06:31] LABS: BUN Creatinine Ratio 14.4 (10-20); Calcium 7.3 mg/dl (8.5-10.1); Creatinine Clr Calc Pharmacy 6.1 ml/min; Est GFR (African American) 5.1; Est GFR (Non-African American) 4.4; Ferritin 569.5 ng/ml (8-388); Magnesium 1.8 mg/dl (1.8-2.4); Phosphorus 14.2 mg/dl (2.5-4.9); Potassium 4.5 mmol/L (3.5-5.1)
[2019-04-13 06:33] LABS: Basophils # (auto) 0.03 K/uL (0-0.2); Basophils % (auto) 0.2 %; Echinocytes 2+; Immature Granulocytes # (auto) 0.53 K/uL (0.00-0.02); Immature Granulocytes % (auto) 2.8 %; Lymphocytes % (auto) 2.6 %; Monocytes # (auto) 0.18 K/uL (0.11-0.59); Neutrophils # (auto) 17.68 K/uL (1.4-6.5); Neutrophils % (auto) 93.4 %; Polychromasia 1+
--- NOTE | 2019-04-13 06:36 | XRay Report ---
XR chest 1V portable HISTORY: 84 years-old Male post intubation acute respiratory failure COMPARISON: Chest radiograph 04/12/2019, chest CT 04/13/2019 TECHNIQUE: Portable supine AP view of the chest FINDINGS: Endotracheal tube overlies the midline, 6.5 cm superior to the jim. Enteric tube courses below the diaphragm outside the jfgrq-qj-rooy. Single lead left subclavian pacer/AICD. Cardiomediastinal and h ilar silhouettes are unchanged. No pneumothorax, large pleural effusion or overt pulmonary edema. Mil d interstitial coarsening with subsegmental bibasilar opacities. Healed remote fracture of the right clavicle. Degenerative changes are seen about the shoulders and spine. IMPRESSION: 1. Endotracheal tube terminates 6.5 cm superior to the jim. 2. Minimal subsegmental bibasilar opacities suggest atelectasis or pneumonitis. 3. No overt pulmonary edema or pleural effusion. The above report was generated using voice recognition software. It may contain grammatical, syntax o r spelling errors. Electronically signed by: Milton Beck M.D. 04/13/2019 6:34 AM
--- NOTE | 2019-04-13 06:37 | XRay Report ---
XR chest 1V portable HISTORY: 84 years-old Male shortness of breath acute shortness of breath with respiratory failure COMPARISON: Chest radiograph 04/13/2019, chest CT 04/13/2019, chest radiograph 12/05/2016 TECHNIQUE: Portable AP view of the chest FINDINGS: Cardiac silhouette is mildly enlarged, unchanged. Stable positioning of single lead left subclavian p acer/AICD. No pneumothorax, pleural effusion or overt pulmonary edema. Mild interstitial coarsening w ith subsegmental left greater than right bibasilar opacities. Healed remote fracture of the right cla vicle. IMPRESSION: 1. Mild cardiomegaly without overt pulmonary edema. 2. Mild subsegmental bibasilar opacities suggest atelectasis or pneumonitis. The above report was generated using voice recognition software. It may contain grammatical, syntax o r spelling errors. Electronically signed by: Milton Beck M.D. 04/13/2019 6:35 AM
--- NOTE | 2019-04-13 06:38 | Procedure Note ---
Procedure Note Date of Service April 13, 2019 Procedure: Arterial Line Placement Attending: Dr. Basilio APC: Mehdi Gardner PA-C Indication: Monitoring on Pressors Anesthesia: None Given the patient's current state of metabolic acidosis and need for frequent ABGs, I did have a discussion with the patient's family at bedside regarding ac cess, specifically arterial line for frequent blood draws and monitoring blood pressures closely. They are comfortable with proceeding with arterial cannulation. Verbal consent obtained in the setting of acute decompensation and in active extremis. A time-out was completed verifying correct patient, procedure, site, positioning, and implant(s) or special equipment if applicable. Allens test was performed to ensure adequate perfusion. Patients RIGHT wrist was prepped and draped in the usual sterile fashion. Ultrasound guidance was used to aid needle placement. A 20g Arrow arterial line was introduced into the RIGHT Radial artery. Catheter was threaded, and the needle was removed with appropriate blood return. Good waveform was observed. The patient tolerated the procedure well. Confirmation of placement with ultrasound. Blood Loss: Minimal Complications: None Procedural Ultrasound Guidance: Procedure Date: 04/13/2019 Indication: Frequent ABGs, Frequent Labs Attending: Dr. Basilio APC: Mehdi Gardner PA-C Artery Identified: YES Line confirmed in Artery with ultrasound: YES Complications: NONE Patient tolerated procedure: WELL Coding
[2019-04-13 06:44] LABS: Beta-Hydroxybutyrate 27.11 mg/dl (0.2-2.81)
--- NOTE | 2019-04-13 07:23 | CT Scan Report ---
CT head/brain wo con CLINICAL HISTORY: 84 years-old Male with ams. Acutely altered mental status with sepsis TECHNIQUE: Multiple axial CT images of the head were obtained without contrast. A dose lowering tech nique was utilized adhering to the principles of ALARA. COMPARISON: Head CT 04/24/2016 FINDINGS: No acute intracranial hemorrhage, midline shift, intracranial mass, hydrocephalus, territorial ischem ia or abnormal extra-axial collection. Limited exam secondary to positioning. Age-related involutiona l changes with ex vacuo tracheomegaly. Patchy white matter hypodensities suggest chronic microvascula r ischemic disease. Cerebral vascular calcifications are noted. The calvarium is intact. The paranasal sinuses, mastoid air cells, and middle ear cavities are clear . IMPRESSION: No acute intracranial abnormality. The above report was generated using voice recognition software. It may contain grammatical, syntax o r spelling errors. Electronically signed by: Milton Beck M.D. 04/13/2019 7:21 AM
--- NOTE | 2019-04-13 07:44 | Emergency Department Note ---
Entered by Rony Barnes acting as a scribe for Lakeisha Lindo DO History of Present Illness General Chief complaint: Referred by Doctor Stated complaint: DR SAID TO COME - ALL THEY KNOW Time Seen by Provider: 04/12/19 23:00 Source: patient History of Present Illness Provider complaint: SOB Onset (ago): day(s) 3 Location: chest Pain Consistency: + constant Relieved By: + none Exacerbated By: + none Associated symptoms: no chest pain The patient is an 84 y/o male who presents to the emergency department for evaluation of constant difficulty breathing beginning three days ago. The patients family stated that he has Fibersparisinger at home who did a check today and gave the patient antibiotics, saline, prescribed an inhaler and ran blood work. They note that at 10pm this evening they received a call that the patients kidney functions were off the charts and they were instructed to come to the emergency department. The notes that they patient has had heavy breathing since a pervious heart attack but on Wednesday the breathing became very labored. The family notes a history of CHF, diabetes and he has a defibrillator. The reports that the patients blood sugar has been averaging 105 since he was taken off insulin on March 31. They state that the patient is slightly more confused than normal currently but that his current confusion is normal for when he is sick. The states that the patient takes Furosemide daily. The patient denies chest pain. Home Medications Home Medications Medication Instructions Recorded Confirmed Type acetaminophen 650 mg PO Q6H PRN 04/13/19 04/13/19 History albuterol sulfate 2 puff INHALATION Q6H PRN 04/13/19 04/13/19 History allopurinol 100 mg PO DAILY 04/13/19 04/13/19 History aspirin [Aspir-81] 81 mg PO DAILY 04/13/19 04/13/19 History atorvastatin 40 mg PO DAILY 04/13/19 04/13/19 History calcium polycarbophil [FiberCon] 1,250 mg PO QAM 04/13/19 04/13/19 History cholecalciferol (vitamin D3) 1,000 unit PO DAILY 04/13/19 04/13/19 History cyanocobalamin (vitamin B-12) 500 mcg PO BID 04/13/19 04/13/19 History [Vitamin B-12] furosemide 20 mg PO 3XWK 04/13/19 04/13/19 History insulin glargine [Lantus Solostar 20 unit SUBCUT QAM 04/13/19 04/13/19 History U-100 Insulin] metoprolol succinate 25 mg PO DAILY 04/13/19 04/13/19 History oswmwjke-oih-DU-lycopen-lutein 1 tab PO DAILY 04/13/19 04/13/19 History [Centrum Silver Ultra Men's] nitroglycerin [Nitrostat] 0.4 mg SUBLINGUAL UD PRN MDD 3 04/13/19 04/13/19 History doses ondansetron HCl 4 mg PO Q8 PRN 04/13/19 04/13/19 History polyethylene glycol 3350 [Miralax] 17 g PO DAILY PRN 04/13/19 04/13/19 History pyridoxine (vitamin B6) [Vitamin 100 mg PO DAILY 04/13/19 04/13/19 History B-6] repaglinide 2 mg PO TIDM 04/13/19 04/13/19 History Allergies Allergy/AdvReac Type Severity Reaction Status Date / Time lisinopril Allergy Mild Unknown Verified 04/13/19 01:31 Past Med/Surg History Medical History Diabetes (Acute) CHF (congestive heart failure) (Chronic) Cholelithiasis Chronic ITP (idiopathic thrombocytopenia) Chronic kidney disease Heart attack Interstitial lung disease Surgical History Cardiac defibrillator in place (Chronic) Social History Preferred Language: Brazilian 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 and A total of 10 systems reviewed and were otherwise negative Physical Exam Vital Signs Vital Signs - 24 hr 04/12/19 22:54 04/12/19 23:00 04/12/19 23:03 Temperature 34.4 C L Temperature Source Axillary Sepsis Recent Fever Within 48 Hours Yes Sepsis New/Unexplained Change in Mental Status Yes Sepsis Action Taken by Nursing Physician Notified End-Tidal CO2 Pulse Rate 88 90 91 H Pulse Rate [Apical] Pulse Rate from SpO2 Sensor 87 91 H Pulse Rhythm [Apical] Pulse Strength [Apical] Respiratory Rate 45 H 25 H 25 H Respiratory Effort / Characteristics Labored Respiratory Depth Shallow Blood Pressure 121/68 140/86 Blood Pressure [Right Arm] Blood Pressure Mean 85 104 Blood Pressure Mean [Right Arm] Blood Pressure Position [Right Arm] Pulse Oximetry 98 100 100 Oxygen Delivery Method Room Air Oxygen Flow Rate Fraction of Inspired Oxygen 04/12/19 23:05 04/12/19 23:10 04/12/19 23:15 Temperature Temperature Source Sepsis Recent Fever Within 48 Hours Sepsis New/Unexplained Change in Mental Status Sepsis Action Taken by Nursing End-Tidal CO2 Pulse Rate 91 H 88 90 Pulse Rate [Apical] Pulse Rate from SpO2 Sensor 92 H 87 92 H Pulse Rhythm [Apical] Pulse Strength [Apical] Respiratory Rate 27 H 26 H 26 H Respiratory Effort / Characteristics Respiratory Depth Blood Pressure Blood Pressure [Right Arm] Blood Pressure Mean Blood Pressure Mean [Right Arm] Blood Pressure Position [Right Arm] Pulse Oximetry 100 98 100 Oxygen Delivery Method Oxygen Flow Rate Fraction of Inspired Oxygen 04/12/19 23:20 04/12/19 23:25 04/12/19 23:30 Temperature Temperature Source Sepsis Recent Fever Within 48 Hours Sepsis New/Unexplained Change in Mental Status Sepsis Action Taken by Nursing End-Tidal CO2 Pulse Rate 87 87 89 Pulse Rate [Apical] Pulse Rate from SpO2 Sensor 88 90 88 Pulse Rhythm [Apical] Pulse Strength [Apical] Respiratory Rate 26 H 26 H 26 H Respiratory Effort / Characteristics Respiratory Depth Blood Pressure Blood Pressure [Right Arm] Blood Pressure Mean Blood Pressure Mean [Right Arm] Blood Pressure Position [Right Arm] Pulse Oximetry 100 100 100 Oxygen Delivery Method Room Air Oxygen Flow Rate Fraction of Inspired Oxygen 04/12/19 23:31 04/12/19 23:35 04/12/19 23:40 Temperature Temperature Source Sepsis Recent Fever Within 48 Hours Sepsis New/Unexplained Change in Mental Status Sepsis Action Taken by Nursing End-Tidal CO2 Pulse Rate 87 87 99 H Pulse Rate [Apical] Pulse Rate from SpO2 Sensor 90 90 98 H Pulse Rhythm [Apical] Pulse Strength [Apical] Respiratory Rate 25 H 27 H 22 Respiratory Effort / Characteristics Respiratory Depth Blood Pressure 127/78 Blood Pressure [Right Arm] Blood Pressure Mean 94 Blood Pressure Mean [Right Arm] Blood Pressure Position [Right Arm] Pulse Oximetry 100 100 100 Oxygen Delivery Method Oxygen Flow Rate Fraction of Inspired Oxygen 04/12/19 23:42 04/12/19 23:45 04/12/19 23:50 Temperature Temperature Source Sepsis Recent Fever Within 48 Hours Sepsis New/Unexplained Change in Mental Status Sepsis Action Taken by Nursing End-Tidal CO2 Pulse Rate 98 H 86 98 H Pulse Rate [Apical] Pulse Rate from SpO2 Sensor 93 H 95 H 96 H Pulse Rhythm [Apical] Pulse Strength [Apical] Respiratory Rate 25 H 25 H 28 H Respiratory Effort / Characteristics Respiratory Depth Blood Pressure 110/65 Blood Pressure [Right Arm] Blood Pressure Mean 80 Blood Pressure Mean [Right Arm] Blood Pressure Position [Right Arm] Pulse Oximetry 100 100 99 Oxygen Delivery Method Oxygen Flow Rate Fraction of Inspired Oxygen 04/12/19 23:51 04/12/19 23:55 04/13/19 00:00 Temperature Temperature Source Sepsis Recent Fever Within 48 Hours Sepsis New/Unexplained Change in Mental Status Sepsis Action Taken by Nursing End-Tidal CO2 Pulse Rate 82 90 Pulse Rate [Apical] 91 H Pulse Rate from SpO2 Sensor 90 87 Pulse Rhythm [Apical] Irregular Pulse Strength [Apical] Normal Respiratory Rate 40 H 26 H 28 H Respiratory Effort / Characteristics Respiratory Depth Blood Pressure Blood Pressure [Right Arm] 110/65 Blood Pressure Mean Blood Pressure Mean [Right Arm] 80 Blood Pressure Position [Right Arm] Lying Pulse Oximetry 100 98 90 Oxygen Delivery Method Nasal Cannula Oxygen Flow Rate 2 Fraction of Inspired Oxygen 04/13/19 00:02 04/13/19 00:05 04/13/19 00:10 Temperature Temperature Source Sepsis Recent Fever Within 48 Hours Sepsis New/Unexplained Change in Mental Status Sepsis Action Taken by Nursing End-Tidal CO2 Pulse Rate 88 88 90 Pulse Rate [Apical] Pulse Rate from SpO2 Sensor 88 88 89 Pulse Rhythm [Apical] Pulse Strength [Apical] Respiratory Rate 27 H 27 H 27 H Respiratory Effort / Characteristics Respiratory Depth Blood Pressure 119/66 Blood Pressure [Right Arm] Blood Pressure Mean 83 Blood Pressure Mean [Right Arm] Blood Pressure Position [Right Arm] Pulse Oximetry 100 100 100 Oxygen Delivery Method Oxygen Flow Rate Fraction of Inspired Oxygen 04/13/19 00:15 04/13/19 00:20 04/13/19 00:25 Temperature Temperature Source Sepsis Recent Fever Within 48 Hours Sepsis New/Unexplained Change in Mental Status Sepsis Action Taken by Nursing End-Tidal CO2 Pulse Rate 88 90 87 Pulse Rate [Apical] Pulse Rate from SpO2 Sensor 90 89 90 Pulse Rhythm [Apical] Pulse Strength [Apical] Respiratory Rate 26 H 27 H 27 H Respiratory Effort / Characteristics Respiratory Depth Blood Pressure Blood Pressure [Right Arm] Blood Pressure Mean Blood Pressure Mean [Right Arm] Blood Pressure Position [Right Arm] Pulse Oximetry 100 100 100 Oxygen Delivery Method Oxygen Flow Rate Fraction of Inspired Oxygen 04/13/19 00:30 04/13/19 00:31 04/13/19 00:35 Temperature Temperature Source Sepsis Recent Fever Within 48 Hours Sepsis New/Unexplained Change in Mental Status Sepsis Action Taken by Nursing End-Tidal CO2 Pulse Rate 95 H 94 H 87 Pulse Rate [Apical] Pulse Rate from SpO2 Sensor 87 90 91 H Pulse Rhythm [Apical] Pulse Strength [Apical] Respiratory Rate 28 H 30 H 28 H Respiratory Effort / Characteristics Respiratory Depth Blood Pressure 125/62 Blood Pressure [Right Arm] Blood Pressure Mean 83 Blood Pressure Mean [Right Arm] Blood Pressure Position [Right Arm] Pulse Oximetry 96 100 100 Oxygen Delivery Method Oxygen Flow Rate Fraction of Inspired Oxygen 04/13/19 00:37 04/13/19 00:40 04/13/19 00:45 Temperature Temperature Source Sepsis Recent Fever Within 48 Hours Sepsis New/Unexplained Change in Mental Status Sepsis Action Taken by Nursing End-Tidal CO2 Pulse Rate 89 86 103 H Pulse Rate [Apical] Pulse Rate from SpO2 Sensor 89 88 103 H Pulse Rhythm [Apical] Pulse Strength [Apical] Respiratory Rate 27 H 28 H 17 Respiratory Effort / Characteristics Respiratory Depth Blood Pressure 111/52 L Blood Pressure [Right Arm] Blood Pressure Mean 71 Blood Pressure Mean [Right Arm] Blood Pressure Position [Right Arm] Pulse Oximetry 100 99 100 Oxygen Delivery Method Oxygen Flow Rate Fraction of Inspired Oxygen 04/13/19 00:57 04/13/19 01:00 04/13/19 01:05 Temperature Temperature Source Sepsis Recent Fever Within 48 Hours Sepsis New/Unexplained Change in Mental Status Sepsis Action Taken by Nursing End-Tidal CO2 14 Pulse Rate 201 H 96 H Pulse Rate [Apical] Pulse Rate from SpO2 Sensor 100 H 101 H 96 H Pulse Rhythm [Apical] Pulse Strength [Apical] Respiratory Rate 25 H 17 Respiratory Effort / Characteristics Respiratory Depth Blood Pressure 100/54 L Blood Pressure [Right Arm] Blood Pressure Mean 69 Blood Pressure Mean [Right Arm] Blood Pressure Position [Right Arm] Pulse Oximetry 100 100 100 Oxygen Delivery Method Oxygen Flow Rate Fraction of Inspired Oxygen 100 04/13/19 01:06 04/13/19 01:10 04/13/19 01:15 Temperature Temperature Source Sepsis Recent Fever Within 48 Hours Sepsis New/Unexplained Change in Mental Status Sepsis Action Taken by Nursing End-Tidal CO2 14 Pulse Rate 96 H 94 H Pulse Rate [Apical] Pulse Rate from SpO2 Sensor 95 H 93 H 94 H Pulse Rhythm [Apical] Pulse Strength [Apical] Respiratory Rate 18 Respiratory Effort / Characteristics Respiratory Depth Blood Pressure Blood Pressure [Right Arm] Blood Pressure Mean Blood Pressure Mean [Right Arm] Blood Pressure Position [Right Arm] Pulse Oximetry 100 100 100 Oxygen Delivery Method Oxygen Flow Rate Fraction of Inspired Oxygen 04/13/19 01:20 04/13/19 01:25 04/13/19 01:30 Temperature Temperature Source Sepsis Recent Fever Within 48 Hours Sepsis New/Unexplained Change in Mental Status Sepsis Action Taken by Nursing End-Tidal CO2 15 16 16 Pulse Rate 95 H 95 H 95 H Pulse Rate [Apical] Pulse Rate from SpO2 Sensor 95 H 96 H Pulse Rhythm [Apical] Pulse Strength [Apical] Respiratory Rate Respiratory Effort / Characteristics Respiratory Depth Blood Pressure Blood Pressure [Right Arm] Blood Pressure Mean Blood Pressure Mean [Right Arm] Blood Pressure Position [Right Arm] Pulse Oximetry 100 100 Oxygen Delivery Method Oxygen Flow Rate Fraction of Inspired Oxygen 04/13/19 01:33 04/13/19 01:35 04/13/19 01:36 Temperature Temperature Source Sepsis Recent Fever Within 48 Hours Sepsis New/Unexplained Change in Mental Status Sepsis Action Taken by Nursing End-Tidal CO2 17 16 17 Pulse Rate 95 H 96 H 95 H Pulse Rate [Apical] Pulse Rate from SpO2 Sensor 96 H 95 H Pulse Rhythm [Apical] Pulse Strength [Apical] Respiratory Rate Respiratory Effort / Characteristics Respiratory Depth Blood Pressure 152/75 H 153/77 H Blood Pressure [Right Arm] Blood Pressure Mean 100 102 Blood Pressure Mean [Right Arm] Blood Pressure Position [Right Arm] Pulse Oximetry 100 100 Oxygen Delivery Method Oxygen Flow Rate Fraction of Inspired Oxygen 04/13/19 01:40 04/13/19 01:41 04/13/19 01:45 Temperature Temperature Source Sepsis Recent Fever Within 48 Hours Sepsis New/Unexplained Change in Mental Status Sepsis Action Taken by Nursing End-Tidal CO2 17 17 18 Pulse Rate 96 H 95 H 96 H Pulse Rate [Apical] Pulse Rate from SpO2 Sensor 95 H 95 H 96 H Pulse Rhythm [Apical] Pulse Strength [Apical] Respiratory Rate Respiratory Effort / Characteristics Respiratory Depth Blood Pressure 154/77 H 154/78 H Blood Pressure [Right Arm] Blood Pressure Mean 102 103 Blood Pressure Mean [Right Arm] Blood Pressure Position [Right Arm] Pulse Oximetry 100 100 100 Oxygen Delivery Method Oxygen Flow Rate Fraction of Inspired Oxygen 04/13/19 01:46 04/13/19 01:50 04/13/19 01:51 Temperature Temperature Source Sepsis Recent Fever Within 48 Hours Sepsis New/Unexplained Change in Mental Status Sepsis Action Taken by Nursing End-Tidal CO2 17 18 18 Pulse Rate 95 H 96 H 95 H Pulse Rate [Apical] Pulse Rate from SpO2 Sensor 95 H 95 H 95 H Pulse Rhythm [Apical] Pulse Strength [Apical] Respiratory Rate Respiratory Effort / Characteristics Respiratory Depth Blood Pressure 154/77 H Blood Pressure [Right Arm] Blood Pressure Mean 102 Blood Pressure Mean [Right Arm] Blood Pressure Position [Right Arm] Pulse Oximetry 100 100 100 Oxygen Delivery Method Oxygen Flow Rate Fraction of Inspired Oxygen 04/13/19 01:55 04/13/19 01:56 04/13/19 02:00 Temperature Temperature Source Sepsis Recent Fever Within 48 Hours Sepsis New/Unexplained Change in Mental Status Sepsis Action Taken by Nursing End-Tidal CO2 18 18 18 Pulse Rate 95 H 94 H 95 H Pulse Rate [Apical] Pulse Rate from SpO2 Sensor 95 H 95 H 95 H Pulse Rhythm [Apical] Pulse Strength [Apical] Respiratory Rate Respiratory Effort / Characteristics Respiratory Depth Blood Pressure 154/75 H 152/83 H Blood Pressure [Right Arm] Blood Pressure Mean 101 106 Blood Pressure Mean [Right Arm] Blood Pressure Position [Right Arm] Pulse Oximetry 100 100 100 Oxygen Delivery Method Oxygen Flow Rate Fraction of Inspired Oxygen 04/13/19 02:01 04/13/19 02:05 04/13/19 02:06 Temperature Temperature Source Sepsis Recent Fever Within 48 Hours Sepsis New/Unexplained Change in Mental Status Sepsis Action Taken by Nursing End-Tidal CO2 18 18 18 Pulse Rate 94 H 94 H 94 H Pulse Rate [Apical] Pulse Rate from SpO2 Sensor 94 H 94 H 94 H Pulse Rhythm [Apical] Pulse Strength [Apical] Respiratory Rate Respiratory Effort / Characteristics Respiratory Depth Blood Pressure 151/75 H Blood Pressure [Right Arm] Blood Pressure Mean 100 Blood Pressure Mean [Right Arm] Blood Pressure Position [Right Arm] Pulse Oximetry 100 100 100 Oxygen Delivery Method Oxygen Flow Rate Fraction of Inspired Oxygen 04/13/19 02:10 04/13/19 02:15 04/13/19 02:43 Temperature Temperature Source Sepsis Recent Fever Within 48 Hours Sepsis New/Unexplained Change in Mental Status Sepsis Action Taken by Nursing End-Tidal CO2 18 Pulse Rate 94 H 93 H Pulse Rate [Apical] Pulse Rate from SpO2 Sensor 94 H 94 H 59 L Pulse Rhythm [Apical] Pulse Strength [Apical] Respiratory Rate Respiratory Effort / Characteristics Respiratory Depth Blood Pressure 151/74 H 141/67 H Blood Pressure [Right Arm] Blood Pressure Mean 99 91 Blood Pressure Mean [Right Arm] Blood Pressure Position [Right Arm] Pulse Oximetry 100 100 100 Oxygen Delivery Method Oxygen Flow Rate Fraction of Inspired Oxygen 04/13/19 02:45 04/13/19 02:46 04/13/19 02:50 Temperature Temperature Source Sepsis Recent Fever Within 48 Hours Sepsis New/Unexplained Change in Mental Status Sepsis Action Taken by Nursing End-Tidal CO2 20 19 Pulse Rate 58 L 58 L Pulse Rate [Apical] Pulse Rate from SpO2 Sensor 58 L 58 L Pulse Rhythm [Apical] Pulse Strength [Apical] Respiratory Rate 18 Respiratory Effort / Characteristics Respiratory Depth Blood Pressure 118/51 L Blood Pressure [Right Arm] Blood Pressure Mean 73 Blood Pressure Mean [Right Arm] Blood Pressure Position [Right Arm] Pulse Oximetry 100 100 Oxygen Delivery Method Oxygen Flow Rate Fraction of Inspired Oxygen 04/13/19 03:00 04/13/19 03:01 04/13/19 03:10 Temperature 34 C L Temperature Source Rectal Sepsis Recent Fever Within 48 Hours Sepsis New/Unexplained Change in Mental Status Sepsis Action Taken by Nursing End-Tidal CO2 19 19 Pulse Rate 58 L 58 L Pulse Rate [Apical] Pulse Rate from SpO2 Sensor 58 L 58 L Pulse Rhythm [Apical] Pulse Strength [Apical] Respiratory Rate Respiratory Effort / Characteristics Respiratory Depth Blood Pressure 108/50 L Blood Pressure [Right Arm] Blood Pressure Mean 69 Blood Pressure Mean [Right Arm] Blood Pressure Position [Right Arm] Pulse Oximetry 100 100 Oxygen Delivery Method Oxygen Flow Rate Fraction of Inspired Oxygen 04/13/19 03:15 04/13/19 03:16 04/13/19 03:30 Temperature Temperature Source Sepsis Recent Fever Within 48 Hours Sepsis New/Unexplained Change in Mental Status Sepsis Action Taken by Nursing End-Tidal CO2 19 19 20 Pulse Rate 58 L 58 L 89 Pulse Rate [Apical] Pulse Rate from SpO2 Sensor 58 L 58 L 89 Pulse Rhythm [Apical] Pulse Strength [Apical] Respiratory Rate Respiratory Effort / Characteristics Respiratory Depth Blood Pressure 101/48 L 118/49 L Blood Pressure [Right Arm] Blood Pressure Mean 65 72 Blood Pressure Mean [Right Arm] Blood Pressure Position [Right Arm] Pulse Oximetry 100 100 100 Oxygen Delivery Method Oxygen Flow Rate Fraction of Inspired Oxygen 04/13/19 03:32 04/13/19 03:45 04/13/19 03:46 Temperature Temperature Source Sepsis Recent Fever Within 48 Hours Sepsis New/Unexplained Change in Mental Status Sepsis Action Taken by Nursing End-Tidal CO2 21 20 20 Pulse Rate 88 89 89 Pulse Rate [Apical] Pulse Rate from SpO2 Sensor 89 89 89 Pulse Rhythm [Apical] Pulse Strength [Apical] Respiratory Rate Respiratory Effort / Characteristics Respiratory Depth Blood Pressure 110/55 L Blood Pressure [Right Arm] Blood Pressure Mean 73 Blood Pressure Mean [Right Arm] Blood Pressure Position [Right Arm] Pulse Oximetry 100 100 100 Oxygen Delivery Method Oxygen Flow Rate Fraction of Inspired Oxygen GENERAL: chronically ill appearing male who is tachypneic. HEENT: Head - normocephalic and atraumatic Pupils are equal, round, and reactive to light. Extraocular eye muscles are intact, and sclera are anicteric. Nose - moist nasal mucosa without discharge. Mouth -very dry buccal mucosa. Oropharynx is nonerythematous and there is no tonsillar exudate or edema noted. Neck: Supple; no JVD, nuchal rigidity, cervical lymphadenopathy. Heart: Regular rhythm, tachycardic rate. There is a normal S1 and S2 with no murmurs, clicks, or gallops appreciated. Lungs: Bilateral rales in the base of lungs. Slight inspiratory and exploratory wheezes. Abdomen: Soft, completely nontender, slightly distended, with good bowel sounds. There are no palpable pulsatile masses or hepatosplenomegaly. There is no guarding, rigidity, or rebound noted. Extremities: No evidence of cyanosis, clubbing, or edema. There are easily palpable peripheral pulses. Skin: warm with good turgor and no rashes. Pale and diaphoretic. Procedures Intubation Time out performed: Yes sedative: Etomidate Mg Given: 30 paralytic: Rocuronium Mg Given: 50 Laryngoscope: Yusef ET Tube Size: 7.5 ET Tube Uncuffed: No Tube Secured Depth (cm): 24 Tube Secured Location: lips Tube Placement Confirmation: visualized tube passing through cords, equal breath sounds bilaterally, no breath sounds over epigastrium and confirmation by capnometry Patient Tolerated Procedure: no complications Course 2300: Past medical records reviewed. The patient was evaluated in room B11B. A complete history and physical exam was performed. An IV lock was initiated and labs were drawn as above. A twelve-lead EKG was obtained as described above. The patient was observed on the groundwater monitoring technician and pulse oximeter. A stat portable chest x-ray was obtained. 2315 I obtained laboratory values from [facility]. I ordered Duoneb 3ml INH and Solumedrol 125 mg IV. 2332: I ordered sodium bicarbonate 8.4% 50 meq IV. 2352: I checked on the patient. Reviewed preliminary findings with the family. I discussed the patient's CODE STATUS with the family. They were in favor of endotracheal intubation if needed. I also explained that the patient will require emergent hemodialysis. They were in favor of this. 0019: I updated the patients family on his results. An ABG was obtained. A second large-bore IV lock was initiated and the patient was started on normal saline drip. 0027: I spoke with JuanR-Nurse practitioner in ICU, and they are paging Dr. Lynsey Pelayo Hospitalist. 0028: I ordered Sodium Bicarbonate 8.4% 100 meq IV 0028: I spoke with Dr. Menon and updated him on the patient. He will evaluate for further management in ICU. 0035: I reevaluated the patient. I felt that the patient's respiratory status was worsening and he would require emergent endotracheal intubation. The yenifer ent was moved to room A1. 0048: Intubation was performed see procedure note. 0052: Post intubation x-ray will be obtained. I updated the family. 0110: Post intubation x-ray was read and results relayed to the admitting ICU team. Consultations Consultation #1: I spoke with Juan R Nurse practitioner in ICU, and they are pag ing Dr. Lynsey Pelayo Hospitalist. Time: 00:27 Consultation #2: I spoke with Dr. Menon and updated him on the patient. He will evaluate for further management in ICU. Time: 00:28 Administered Medications Fentanyl Citrate (Fentanyl Citrate) 25 mcg IV Q1H PRN PRN Reason: Pain Stop: 04/27/19 04:42 Last Admin: 04/13/19 16:12 Dose: 25 mcg Documented by: [id number] Heparin Sodium (Porcine) (Heparin Sodium (Porcine)) 5,000 units SQ Q8 KEVIN Stop: 05/13/19 05:59 Last Admin: 04/13/19 22:04 Dose: 5,000 units Documented by: [id number] Cosigned by: [id number] Admin: 04/13/19 13:53 Dose: 5,000 units Documented by: [id number] Cosigned by: [id number] Admin: 04/13/19 06:00 Dose: 5,000 units Documented by: [id number] Cosigned by: [id number] Levothyroxine Sodium 12.5 mcg/ (Syringe) 0.625 mls @ 2 mls/min IV DAILY@0900 SC H Stop: 05/13/19 08:59 Last Admin: 04/13/19 08:43 Dose: 2 mls/min Documented by: [id number] Lorazepam (Ativan) 1 mg in 2 mls @ 2 mls/min IV Q1H PRN PRN Reason: Agitation/anxiety Stop: 05/13/19 04:42 Last Admin: 04/13/19 19:56 Dose: 2 mls/min Documented by: [id number] Famotidine 20 mg/ Syringe 5 mls @ 2.5 mls/min IV DAILY KEVIN Stop: 05/13/19 08:59 Last Admin: 04/13/19 08:44 Dose: 2.5 mls/min Documented by: [id number] Piperacillin Sod/Tazobactam (Sod 3.375 gm/ Dextrose) 115 mls @ 28.75 mls/hr IV Q12H KEVIN; Protocol Stop: 04/20/19 11:59 Last Infusion: 04/13/19 16:18 Dose: 0 mls/hr Documented by: [id number] Admin: 04/13/19 12:17 Dose: 28.8 mls/hr Documented by: [id number] Insulin Human Regular 250 (units/ Sodium Chloride) 250 mls @ 0 mls/hr IV .Q0M KEVIN; Protocol Stop: 05/13/19 08:29 Last Titration: 04/13/19 22:00 Dose: 0 units/hr, 0 mls/hr Documented by: [id number] Cosigned by: [id number] Titration: 04/13/19 21:00 Dose: 12.4 units/hr, 12.4 mls/hr Documented by: [id number] Cosigned by: [id number] Titration: 04/13/19 20:00 Dose: 12.4 units/hr, 12.4 mls/hr Documented by: [id number] Cosigned by: [id number] Titration: 04/13/19 19:25 Dose: 12.4 units/hr, 12.4 mls/hr Documented by: [id number] Cosigned by: [id number] Titration: 04/13/19 19:20 Dose: 12.4 units/hr, 12.4 mls/hr Documented by: [id number] Cosigned by: [id number] Titration: 04/13/19 18:08 Dose: 12.4 units/hr, 12.4 mls/hr Documented by: [id number] Cosigned by: [id number] Titration: 04/13/19 17:00 Dose: 10.3 units/hr, 10.3 mls/hr Documented by: [id number] Cosigned by: [id number] Titration: 04/13/19 16:00 Dose: 10.3 units/hr, 10.3 mls/hr Documented by: [id number] Cosigned by: [id number] Titration: 04/13/19 15:00 Dose: 10.3 units/hr, 10.3 mls/hr Documented by: [id number] Cosigned by: [id number] Titration: 04/13/19 13:45 Dose: 12.9 units/hr, 12.9 mls/hr Documented by: [id number] Cosigned by: [id number] Titration: 04/13/19 12:45 Dose: 9.2 units/hr, 9.2 mls/hr Documented by: [id number] Cosigned by: [id number] Titration: 04/13/19 11:45 Dose: 7.7 units/hr, 7.7 mls/hr Documented by: [id number] Cosigned by: [id number] Titration: 04/13/19 10:45 Dose: 5.5 units/hr, 5.5 mls/hr Documented by: [id number] Cosigned by: [id number] Titration: 04/13/19 09:45 Dose: 4.6 units/hr, 4.6 mls/hr Documented by: [id number] Cosigned by: [id number] Admin: 04/13/19 08:44 Dose: 3.3 units/hr, 3.3 mls/hr Documented by: [id number] Cosigned by: [id number] Norepinephrine Bitartrate 8 mg (/ Dextrose) 508 mls @ 0 mls/hr IV .Q0M KEVIN; Protocol Stop: 05/13/19 15:29 Last Titration: 04/13/19 17:50 Dose: 0 mcg/kg/min, 0 mls/hr Documented by: [id number] Titration: 04/13/19 17:34 Dose: 0.05 mcg/kg/min, 15.3 mls/hr Documented by: [id number] Titration: 04/13/19 16:30 Dose: 0.08 mcg/kg/min, 24.5 mls/hr Documented by: [id number] Admin: 04/13/19 15:44 Dose: 0.05 mcg/kg/min, 15.3 mls/hr Documented by: [id number] Cosigned by: [id number] Insulin Aspart (Novolog Flexpen) 0 units SC [facility]S [facility] Stop: 05/13/19 11:29 Last Admin: 04/13/19 21:08 Dose: Not Given Documented by: [id number] Cosigned by: [id number] Admin: 04/13/19 17:04 Dose: Not Given Documented by: [id number] Cosigned by: [id number] Admin: 04/13/19 11:07 Dose: Not Given Documented by: [id number] Cosigned by: [id number] Discontinued Medications Albuterol (Duoneb) Confirm Administered Dose 3 ml .ROUTE .STK-MED ONE Stop: 04/12/19 23:13 Last Admin: 04/12/19 23:15 Dose: 3 ml Documented by: [id number] Albuterol (Duoneb) 3 ml INH NOW STA Stop: 04/12/19 23:16 Last Admin: 04/12/19 23:49 Dose: Not Given Documented by: [id number] Heparin Sodium (Porcine) (Heparin Iv Bolus) 1,000 units IV ONE ONE Stop: 04/13/19 10:40 Last Admin: 04/13/19 14:15 Dose: Not Given Documented by: [id number] Sodium Chloride (Nss) 500 mls @ 250 mls/hr IV .Q2H ONE Stop: 04/13/19 02:36 Last Infusion: 04/13/19 03:01 Dose: 0 mls/hr Documented by: [id number] Admin: 04/13/19 01:19 Dose: 250 mls/hr Documented by: [id number] Sodium Bicarbonate 150 meq/ (Dextrose) 1,150 mls @ 150 mls/hr IV .Q7H40M [facility] Stop: 05/13/19 01:14 Last Infusion: 04/13/19 18:20 Dose: 0 mls/hr Documented by: [id number] Infusion: 04/13/19 17:08 Dose: 0 mls/hr Documented by: [id number] Admin: 04/13/19 15:44 Dose: 150 mls/hr Documented by: [id number] Infusion: 04/13/19 15:44 Dose: 150 mls/hr Documented by: [id number] Admin: 04/13/19 08:44 Dose: 150 mls/hr Documented by: [id number] Infusion: 04/13/19 08:44 Dose: 150 mls/hr Documented by: [id number] Admin: 04/13/19 01:25 Dose: 150 mls/hr Documented by: [id number] Piperacillin Sod/Tazobactam Sod (Zosyn) 4.5 gm in 120 mls @ 240 mls/hr IV ONE STA Stop: 04/13/19 04:38 Last Infusion: 04/13/19 04:44 Dose: 0 mls/hr Documented by: [id number] Admin: 04/13/19 04:14 Dose: 240 mls/hr Documented by: [id number] Albumin Human (Albumin 25%) 50 mls @ 50 mls/hr IV ONE ONE Stop: 04/13/19 05:42 Last Admin: 04/13/19 06:09 Dose: Not Given Documented by: [id number] Magnesium Sulfate/Dextrose (Magnesium Sulfate / D5w) 1 gm in 100 mls @ 100 mls/hr IV ONE ONE Stop: 04/13/19 05:47 Last Admin: 04/13/19 06:28 Dose: Not Given Documented by: [id number] Magnesium Sulfate/Dextrose (Magnesium Sulfate / D5w) 1 gm in 100 mls @ 100 mls/hr IV Q1H KEVIN Stop: 04/13/19 20:14 Last Infusion: 04/13/19 20:55 Dose: 0 mls/hr Documented by: [id number] Admin: 04/13/19 19:54 Dose: 100 mls/hr Documented by: [id number] Infusion: 04/13/19 19:40 Dose: 100 mls/hr Documented by: [id number] Admin: 04/13/19 18:40 Dose: 100 mls/hr Documented by: [id number] Insulin Aspart (Novolog Flexpen) 0 units SC Q6 KEVIN Stop: 05/13/19 04:59 Last Admin: 04/13/19 06:00 Dose: 5 units Documented by: [id number] Cosigned by: [id number] Insulin Glargine (Lantus Solostar Pen) 5 units SQ ONE ONE Stop: 04/13/19 05:01 Last Admin: 04/13/19 05:59 Dose: 5 units Documented by: [id number] Cosigned by: [id number] Insulin Human Regular (Novolin R Bolus From Bag) 3.5 units IV ONE ONE Stop: 04/13/19 08:46 Last Admin: 04/13/19 08:45 Dose: 3.5 units Documented by: [id number] Cosigned by: [id number] Lactulose (Chronulac) 30 gm OG ONE ONE Stop: 04/13/19 05:01 Last Admin: 04/13/19 05:59 Dose: 30 gm Documented by: [id number] Methylprednisolone (Solumedrol) 125 mg IV NOW STA Stop: 04/12/19 23:20 Last Admin: 04/12/19 23:37 Dose: 125 mg Documented by: [id number] Miscellaneous () Confirm Administered Dose 1 ea .ROUTE .STK-MED ONE Stop: 04/13/19 00:53 Last Admin: 04/13/19 01:19 Dose: 1 ea Documented by: [id number] Miscellaneous (Insulin Protocol Severe Stress) 1 ea N/A ONE ONE; Protocol Stop: 04/13/19 08:06 Last Admin: 04/13/19 09:48 Dose: Not Given Documented by: [id number] Gabbiecellaneous (Insulin Protocol Goal Range) 1 ea N/A ONE ONE Stop: 04/13/19 08:35 Last Admin: 04/13/19 09:48 Dose: Not Given Documented by: [id number] Potassium Chloride (Klor-Con Pwd) 40 meq PO NOW ONE Stop: 04/13/19 18:46 Last Admin: 04/13/19 19:54 Dose: 40 meq Documented by: [id number] Sodium Bicarbonate (Sodium Bicarbonate 8.4%) Confirm Administered Dose 50 meq .ROUTE .STK-MED ONE Stop: 04/12/19 23:33 Last Admin: 04/12/19 23:37 Dose: 50 meq Documented by: [id number] Sodium Bicarbonate (Sodium Bicarbonate 8.4%) Confirm Administered Dose 100 meq .ROUTE .STK-MED ONE Stop: 04/13/19 00:28 Last Admin: 04/13/19 01:19 Dose: 100 meq Documented by: [id number] Sodium Bicarbonate (Sodium Bicarbonate 8.4%) 100 meq IV NOW STA Stop: 04/13/19 03:48 Last Admin: 04/13/19 04:05 Dose: Not Given Documented by: [id number] Sodium Bicarbonate (Sodium Bicarbonate 8.4%) Confirm Administered Dose 100 meq .ROUTE .STK-MED ONE Stop: 04/13/19 03:49 Last Admin: 04/13/19 03:50 Dose: 100 meq Documented by: [id number] Medical Decision Making Differential Diagnosis Differential Diagnosis: CHF, acute renal failure, aspiration pneumonia, DKA, metabolic acidosis, Hyperkalemia, sepsis. Medical Records Attestation: I reviewed the patient's medical records. Home Medications Current Medication List: was personally reviewed by me Laboratory Data Attestation: I reviewed the patient's lab results. Result diagrams: 04/13/19 17:15 04/13/19 21:58 Lab Results 04/12/19 04/12/19 04/12/19 Range/Units 23:11 23:11 23:11 WBC 20.56 H (4.8-10.8) K/uL RBC 3.28 L (4.7-6.1) M/uL Hgb 9.9 L (14.0-18.0) g/dL Hct 29.5 L (42-52) % MCV 89.9 (80-100) fL MCH 30.2 (25-34) pg MCHC 33.6 (32-36) g/dL RDW Std Deviation 54.8 H (36.4-46.3) fL RDW Coeff of Julissa 16.8 H (11.5-14.5) % Plt Count 137 (130-400) K/uL MPV 11.3 H (7.4-10.4) fL Immature Gran % (Auto) 4.8 % Neut % (Auto) 90.7 % Lymph % (Auto) 3.6 % [place] % (Auto) 0.5 % Eos % (Auto) 0.2 % Baso % (Auto) 0.2 % Immature Gran # (Auto) 0.99 H (0.00-0.02) K/uL Neut # (Auto) 18.65 H (1.4-6.5) K/uL Lymph # (Auto) 0.73 L (1.2-3.4) K/uL [place] # (Auto) 0.10 L (0.11-0.59) K/uL Eos # (Auto) 0.05 (0-0.5) K/uL Baso # (Auto) 0.04 (0-0.2) K/uL Platelet Estimate Decreased L (Normal) Echinocytes 1+ PT 11.9 (9.0-12.0) Seconds INR 1.2 H (0.9-1.1) APTT 43.9 H (21.0-31.0) Seconds PTT Ratio 1.6 ABG pH (7.35-7.45) ABG pCO2 (35-46) mmHg ABG pO2 (80-95) mm/Hg ABG HCO3 (19-24) mmol/L ABG O2 Saturation (90-95) % ABG Base Excess (-9-1.8) mEq/L Landry Test (Pos) Barometric Pressure mm/Hg Oxygen Given Sodium 143 (136-145) mmol/L Potassium 5.4 H (3.5-5.1) mmol/L Chloride 114 H (98-107) mmol/L Carbon Dioxide < 5 L* (21-32) mmol/L Anion Gap 25.0 H (3-11) BUN 137 H (7-18) mg/dl Creatinine 10.10 H* (0.6-1.4) mg/dl Est Cr Clr Drug Dosing Not Reportable Est GFR ( Amer) 4.8 Est GFR (Non-Af Amer) 4.2 BUN/Creatinine Ratio 13.5 (10-20) Glucose 181 H (70-99) mg/dl Lactate (0.4-2.0) mmol/L Calcium 8.1 L (8.5-10.1) mg/dl Magnesium 1.8 (1.8-2.4) mg/dl Total Bilirubin 0.3 (0.2-1) mg/dl AST 34 (15-37) U/L ALT 59 (12-78) U/L Alkaline Phosphatase 97 (45-117) U/L Ammonia (11-32) umol/L Total Creatine Kinase (39-308) U/L Troponin I (0-0.045) ng/ml Total Protein 8.3 H (6.4-8.2) gm/dl Albumin 3.2 L (3.4-5.0) gm/dl Globulin 5.1 H (2.5-4.0) gm/dl Albumin/Globulin Ratio 0.6 L (0.9-2) Procalcitonin (0-0.5) ng/ml TSH 6.130 H (0.300-4.500) uIu/ml Free T4 (0.8-1.6) ng/dl Total T3 (0.60-1.81) ng/ml Random Cortisol mcg/dl Urine Color Urine Appearance (Clear) Urine pH (4.5-7.5) Ur Specific [place] (1.000-1.030) Urine Protein (Negative) Urine Glucose (UA) (Negative) Urine Ketones (Negative) Urine Blood (Negative) Urine Nitrite (Negative) Urine Bilirubin (Negative) Urine Urobilinogen (Negative) Ur Leukocyte Esterase (Negative) Urine WBC (Auto) (0-5) /hpf Urine RBC (Auto) (0-4) /hpf U Hyaline Cast (Auto) (0-5) /lpf U Epithel Cells (Auto) (0-5) /lpf Urine Bacteria (Auto) (Negative) Ur Renal Epithelial Cell Granular Casts (0) /lpf Urine Yeast Salicylates (2.8-20) mg/dl Urine Opiates Screen (Neg) Ur Methadone, Qual (Neg) Acetaminophen (10-30) ug/ml Urine Barbiturates (Neg) Ur Phencyclidine (PCP) (Neg) U Amphetamin/Meth Scrn (Neg) MDMA (Ecstasy) Screen (Neg) U Benzodiazepines Scrn (Neg) Ur Cocaine Metabolite (Neg) U Marijuana (THC) Screen (Neg) Blood Type Antibody Screen 04/12/19 04/12/19 04/13/19 Range/Units 23:11 23:36 01:20 WBC (4.8-10.8) K/uL RBC (4.7-6.1) M/uL Hgb (14.0-18.0) g/dL Hct (42-52) % MCV (80-100) fL MCH (25-34) pg MCHC (32-36) g/dL RDW Std Deviation (36.4-46.3) fL RDW Coeff of Julissa (11.5-14.5) % Plt Count (130-400) K/uL MPV (7.4-10.4) fL Immature Gran % (Auto) % Neut % (Auto) % Lymph % (Auto) % [place] % (Auto) % Eos % (Auto) % Baso % (Auto) % Immature Gran # (Auto) (0.00-0.02) K/uL Neut # (Auto) (1.4-6.5) K/uL Lymph # (Auto) (1.2-3.4) K/uL [place] # (Auto) (0.11-0.59) K/uL Eos # (Auto) (0-0.5) K/uL Baso # (Auto) (0-0.2) K/uL Platelet Estimate (Normal) Echinocytes PT (9.0-12.0) Seconds INR (0.9-1.1) APTT (21.0-31.0) Seconds PTT Ratio ABG pH 6.94 L* (7.35-7.45) ABG pCO2 12 L (35-46) mmHg ABG pO2 192 H (80-95) mm/Hg ABG HCO3 2 L (19-24) mmol/L ABG O2 Saturation 98.4 H (90-95) % ABG Base Excess -28.0 L (-9-1.8) mEq/L Landry Test Pos (Pos) Barometric Pressure 731.6 mm/Hg Oxygen Given RA Sodium (136-145) mmol/L Potassium (3.5-5.1) mmol/L Chloride (98-107) mmol/L Carbon Dioxide (21-32) mmol/L Anion Gap (3-11) BUN (7-18) mg/dl Creatinine (0.6-1.4) mg/dl Est Cr Clr Drug Dosing Est GFR ( Amer) Est GFR (Non-Af Amer) BUN/Creatinine Ratio (10-20) Glucose (70-99) mg/dl Lactate (0.4-2.0) mmol/L Calcium (8.5-10.1) mg/dl Magnesium (1.8-2.4) mg/dl Total Bilirubin (0.2-1) mg/dl AST (15-37) U/L ALT (12-78) U/L Alkaline Phosphatase (45-117) U/L Ammonia (11-32) umol/L Total Creatine Kinase (39-308) U/L Troponin I (0-0.045) ng/ml Total Protein (6.4-8.2) gm/dl Albumin (3.4-5.0) gm/dl Globulin (2.5-4.0) gm/dl Albumin/Globulin Ratio (0.9-2) Procalcitonin 0.50 (0-0.5) ng/ml TSH (0.300-4.500) uIu/ml Free T4 (0.8-1.6) ng/dl Total T3 (0.60-1.81) ng/ml Random Cortisol mcg/dl Urine Color Yellow Urine Appearance Turbid A (Clear) Urine pH 5.0 (4.5-7.5) Ur Specific [place] 1.022 (1.000-1.030) Urine Protein 3+ H (Negative) Urine Glucose (UA) Trace H (Negative) Urine Ketones Negative (Negative) Urine Blood 3+ H (Negative) Urine Nitrite Negative (Negative) Urine Bilirubin Negative (Negative) Urine Urobilinogen Negative (Negative) Ur Leukocyte Esterase 2+ H (Negative) Urine WBC (Auto) >30 H (0-5) /hpf Urine RBC (Auto) >30 H (0-4) /hpf U Hyaline Cast (Auto) 10-30 H (0-5) /lpf U Epithel Cells (Auto) >30 H (0-5) /lpf Urine Bacteria (Auto) Negative (Negative) Ur Renal Epithelial Cell Not Reportable Granular Casts 10-20 H (0) /lpf Urine Yeast Not Reportable Salicylates (2.8-20) mg/dl Urine Opiates Screen (Neg) Ur Methadone, Qual (Neg) Acetaminophen (10-30) ug/ml Urine Barbiturates (Neg) Ur Phencyclidine (PCP) (Neg) U Amphetamin/Meth Scrn (Neg) MDMA (Ecstasy) Screen (Neg) U Benzodiazepines Scrn (Neg) Ur Cocaine Metabolite (Neg) U Marijuana (THC) Screen (Neg) Blood Type Antibody Screen 04/13/19 04/13/19 04/13/19 Range/Units 01:20 02:15 02:15 WBC (4.8-10.8) K/uL RBC (4.7-6.1) M/uL Hgb (14.0-18.0) g/dL Hct (42-52) % MCV (80-100) fL MCH (25-34) pg MCHC (32-36) g/dL RDW Std Deviation (36.4-46.3) fL RDW Coeff of Julissa (11.5-14.5) % Plt Count (130-400) K/uL MPV (7.4-10.4) fL Immature Gran % (Auto) % Neut % (Auto) % Lymph % (Auto) % [place] % (Auto) % Eos % (Auto) % Baso % (Auto) % Immature Gran # (Auto) (0.00-0.02) K/uL Neut # (Auto) (1.4-6.5) K/uL Lymph # (Auto) (1.2-3.4) K/uL [place] # (Auto) (0.11-0.59) K/uL Eos # (Auto) (0-0.5) K/uL Baso # (Auto) (0-0.2) K/uL Platelet Estimate (Normal) Echinocytes PT (9.0-12.0) Seconds INR (0.9-1.1) APTT (21.0-31.0) Seconds PTT Ratio ABG pH (7.35-7.45) ABG pCO2 (35-46) mmHg ABG pO2 (80-95) mm/Hg ABG HCO3 (19-24) mmol/L ABG O2 Saturation (90-95) % ABG Base Excess (-9-1.8) mEq/L Landry Test (Pos) Barometric Pressure mm/Hg Oxygen Given Sodium (136-145) mmol/L Potassium (3.5-5.1) mmol/L Chloride (98-107) mmol/L Carbon Dioxide (21-32) mmol/L Anion Gap (3-11) BUN (7-18) mg/dl Creatinine (0.6-1.4) mg/dl Est Cr Clr Drug Dosing Est GFR ( Amer) Est GFR (Non-Af Amer) BUN/Creatinine Ratio (10-20) Glucose (70-99) mg/dl Lactate 5.7 H* (0.4-2.0) mmol/L Calcium (8.5-10.1) mg/dl Magnesium (1.8-2.4) mg/dl Total Bilirubin (0.2-1) mg/dl AST (15-37) U/L ALT (12-78) U/L Alkaline Phosphatase (45-117) U/L Ammonia (11-32) umol/L Total Creatine Kinase (39-308) U/L Troponin I (0-0.045) ng/ml Total Protein (6.4-8.2) gm/dl Albumin (3.4-5.0) gm/dl Globulin (2.5-4.0) gm/dl Albumin/Globulin Ratio (0.9-2) Procalcitonin (0-0.5) ng/ml TSH (0.300-4.500) uIu/ml Free T4 (0.8-1.6) ng/dl Total T3 (0.60-1.81) ng/ml Random Cortisol mcg/dl Urine Color Urine Appearance (Clear) Urine pH (4.5-7.5) Ur Specific [place] (1.000-1.030) Urine Protein (Negative) Urine Glucose (UA) (Negative) Urine Ketones (Negative) Urine Blood (Negative) Urine Nitrite (Negative) Urine Bilirubin (Negative) Urine Urobilinogen (Negative) Ur Leukocyte Esterase (Negative) Urine WBC (Auto) (0-5) /hpf Urine RBC (Auto) (0-4) /hpf U Hyaline Cast (Auto) (0-5) /lpf U Epithel Cells (Auto) (0-5) /lpf Urine Bacteria (Auto) (Negative) Ur Renal Epithelial Cell Granular Casts (0) /lpf Urine Yeast Salicylates (2.8-20) mg/dl Urine Opiates Screen Neg (Neg) Ur Methadone, Qual Neg (Neg) Acetaminophen (10-30) ug/ml Urine Barbiturates Neg (Neg) Ur Phencyclidine (PCP) Neg (Neg) U Amphetamin/Meth Scrn Neg (Neg) MDMA (Ecstasy) Screen Neg (Neg) U Benzodiazepines Scrn Neg (Neg) Ur Cocaine Metabolite Neg (Neg) U Marijuana (THC) Screen Neg (Neg) Blood Type A Positive Antibody Screen NEGATIVE 04/13/19 04/13/19 04/13/19 Range/Units 02:15 02:15 02:15 WBC (4.8-10.8) K/uL RBC (4.7-6.1) M/uL Hgb (14.0-18.0) g/dL Hct (42-52) % MCV (80-100) fL MCH (25-34) pg MCHC (32-36) g/dL RDW Std Deviation (36.4-46.3) fL RDW Coeff of Julissa (11.5-14.5) % Plt Count (130-400) K/uL MPV (7.4-10.4) fL Immature Gran % (Auto) % Neut % (Auto) % Lymph % (Auto) % [place] % (Auto) % Eos % (Auto) % Baso % (Auto) % Immature Gran # (Auto) (0.00-0.02) K/uL Neut # (Auto) (1.4-6.5) K/uL Lymph # (Auto) (1.2-3.4) K/uL [place] # (Auto) (0.11-0.59) K/uL Eos # (Auto) (0-0.5) K/uL Baso # (Auto) (0-0.2) K/uL Platelet Estimate (Normal) Echinocytes PT (9.0-12.0) Seconds INR (0.9-1.1) APTT (21.0-31.0) Seconds PTT Ratio ABG pH (7.35-7.45) ABG pCO2 (35-46) mmHg ABG pO2 (80-95) mm/Hg ABG HCO3 (19-24) mmol/L ABG O2 Saturation (90-95) % ABG Base Excess (-9-1.8) mEq/L Landry Test (Pos) Barometric Pressure mm/Hg Oxygen Given Sodium (136-145) mmol/L Potassium (3.5-5.1) mmol/L Chloride (98-107) mmol/L Carbon Dioxide (21-32) mmol/L Anion Gap (3-11) BUN (7-18) mg/dl Creatinine (0.6-1.4) mg/dl Est Cr Clr Drug Dosing Est GFR ( Amer) Est GFR (Non-Af Amer) BUN/Creatinine Ratio (10-20) Glucose (70-99) mg/dl Lactate (0.4-2.0) mmol/L Calcium (8.5-10.1) mg/dl Magnesium (1.8-2.4) mg/dl Total Bilirubin (0.2-1) mg/dl AST (15-37) U/L ALT (12-78) U/L Alkaline Phosphatase (45-117) U/L Ammonia 57.0 H (11-32) umol/L Total Creatine Kinase (39-308) U/L Troponin I (0-0.045) ng/ml Total Protein (6.4-8.2) gm/dl Albumin (3.4-5.0) gm/dl Globulin (2.5-4.0) gm/dl Albumin/Globulin Ratio (0.9-2) Procalcitonin (0-0.5) ng/ml TSH (0.300-4.500) uIu/ml Free T4 (0.8-1.6) ng/dl Total T3 0.20 L (0.60-1.81) ng/ml Random Cortisol 100.07 mcg/dl Urine Color Urine Appearance (Clear) Urine pH (4.5-7.5) Ur Specific [place] (1.000-1.030) Urine Protein (Negative) Urine Glucose (UA) (Negative) Urine Ketones (Negative) Urine Blood (Negative) Urine Nitrite (Negative) Urine Bilirubin (Negative) Urine Urobilinogen (Negative) Ur Leukocyte Esterase (Negative) Urine WBC (Auto) (0-5) /hpf Urine RBC (Auto) (0-4) /hpf U Hyaline Cast (Auto) (0-5) /lpf U Epithel Cells (Auto) (0-5) /lpf Urine Bacteria (Auto) (Negative) Ur Renal Epithelial Cell Granular Casts (0) /lpf Urine Yeast Salicylates 2.9 (2.8-20) mg/dl Urine Opiates Screen (Neg) Ur Methadone, Qual (Neg) Acetaminophen 7 L (10-30) ug/ml Urine Barbiturates (Neg) Ur Phencyclidine (PCP) (Neg) U Amphetamin/Meth Scrn (Neg) MDMA (Ecstasy) Screen (Neg) U Benzodiazepines Scrn (Neg) Ur Cocaine Metabolite (Neg) U Marijuana (THC) Screen (Neg) Blood Type Antibody Screen 04/13/19 Range/Units 02:15 WBC (4.8-10.8) K/uL RBC (4.7-6.1) M/uL Hgb (14.0-18.0) g/dL Hct (42-52) % MCV (80-100) fL MCH (25-34) pg MCHC (32-36) g/dL RDW Std Deviation (36.4-46.3) fL RDW Coeff of Julissa (11.5-14.5) % Plt Count (130-400) K/uL MPV (7.4-10.4) fL Immature Gran % (Auto) % Neut % (Auto) % Lymph % (Auto) % [place] % (Auto) % Eos % (Auto) % Baso % (Auto) % Immature Gran # (Auto) (0.00-0.02) K/uL Neut # (Auto) (1.4-6.5) K/uL Lymph # (Auto) (1.2-3.4) K/uL [place] # (Auto) (0.11-0.59) K/uL Eos # (Auto) (0-0.5) K/uL Baso # (Auto) (0-0.2) K/uL Platelet Estimate (Normal) Echinocytes PT (9.0-12.0) Seconds INR (0.9-1.1) APTT (21.0-31.0) Seconds PTT Ratio ABG pH (7.35-7.45) ABG pCO2 (35-46) mmHg ABG pO2 (80-95) mm/Hg ABG HCO3 (19-24) mmol/L ABG O2 Saturation (90-95) % ABG Base Excess (-9-1.8) mEq/L Landry Test (Pos) Barometric Pressure mm/Hg Oxygen Given Sodium 144 (136-145) mmol/L Potassium 5.2 H (3.5-5.1) mmol/L Chloride 114 H (98-107) mmol/L Carbon Dioxide 5 L* (21-32) mmol/L Anion Gap 25.0 H (3-11) BUN 138 H (7-18) mg/dl Creatinine 9.88 H* (0.6-1.4) mg/dl Est Cr Clr Drug Dosing 6.0 Est GFR ( Amer) 5.0 Est GFR (Non-Af Amer) 4.3 BUN/Creatinine Ratio 14.0 (10-20) Glucose 200 H (70-99) mg/dl Lactate (0.4-2.0) mmol/L Calcium 7.8 L (8.5-10.1) mg/dl Magnesium (1.8-2.4) mg/dl Total Bilirubin (0.2-1) mg/dl AST (15-37) U/L ALT (12-78) U/L Alkaline Phosphatase (45-117) U/L Ammonia (11-32) umol/L Total Creatine Kinase 381 H (39-308) U/L Troponin I 0.576 H* (0-0.045) ng/ml Total Protein (6.4-8.2) gm/dl Albumin (3.4-5.0) gm/dl Globulin (2.5-4.0) gm/dl Albumin/Globulin Ratio (0.9-2) Procalcitonin (0-0.5) ng/ml TSH (0.300-4.500) uIu/ml Free T4 0.58 L (0.8-1.6) ng/dl Total T3 (0.60-1.81) ng/ml Random Cortisol mcg/dl Urine Color Urine Appearance (Clear) Urine pH (4.5-7.5) Ur Specific [place] (1.000-1.030) Urine Protein (Negative) Urine Glucose (UA) (Negative) Urine Ketones (Negative) Urine Blood (Negative) Urine Nitrite (Negative) Urine Bilirubin (Negative) Urine Urobilinogen (Negative) Ur Leukocyte Esterase (Negative) Urine WBC (Auto) (0-5) /hpf Urine RBC (Auto) (0-4) /hpf U Hyaline Cast (Auto) (0-5) /lpf U Epithel Cells (Auto) (0-5) /lpf Urine Bacteria (Auto) (Negative) Ur Renal Epithelial Cell Granular Casts (0) /lpf Urine Yeast Salicylates (2.8-20) mg/dl Urine Opiates Screen (Neg) Ur Methadone, Qual (Neg) Acetaminophen (10-30) ug/ml Urine Barbiturates (Neg) Ur Phencyclidine (PCP) (Neg) U Amphetamin/Meth Scrn (Neg) MDMA (Ecstasy) Screen (Neg) U Benzodiazepines Scrn (Neg) Ur Cocaine Metabolite (Neg) U Marijuana (THC) Screen (Neg) Blood Type Antibody Screen Imaging Data Attestation: I personally reviewed and interpreted this imaging study as follows: My Impression: Chest x-ray showed no obvious pulmonary infiltrate and no pulmonary vascular congestion. Post intubation x-ray showed endotracheal tube is 3 cm above the jim. ECG Data Attestation: I personally reviewed and interpreted this ECG as follows: Indication: SOB/dyspnea Rate (beats per minute): 91 Rhythm: sinus rhythm Findings: + 1st degree AV block; no acute ischemic change and no ectopy Blood Pressure Blood Pressure Findings: Elevated blood pressure Blood Pressure Disposition: further management by hospitalist ROCIO Donovan The patient is an 84 y/o male who presents to the emergency department for e valuation of constant difficulty breathing beginning three days ago. The patient was evaluated earlier tonight at home by staff from [facility]. At that time, they prescribed an inhaler and gave the patient a dose of IV antibiotics along with a liter of normal saline solution laboratory results came back tonight revealing the patient had a creatinine greater than 9. The family was contacted and instructed to bring the patient to the emergency department. Upon presentation to the ER, the patient was extremely tachypneic in mild to moderate respiratory distress and confused. I reviewed the patient's laboratory values obtained earlier at home and the patient had severe metabolic acidosis with a significant anion gap. The patient had evidence of acute renal failure. The patient began to receive IV bicarbonate and IV saline solution. A second IV was established. I discussed the critical nature of the patient's situation with the family and explained that he would require endotracheal intubation and emergent hemodialysis. The patient was intubated so that his respiratory status could be controlled. I discussed the case with the ICU team as well as the [facility] Hospitalist. They agreed to contact nephrology. They will evaluate for further management. The patient is hemodynamically stable here in the emergency department. Impression & Plan Acute renal failure, Metabolic acidosis, Respiratory failure Critical Care Time Critical Care Time: Yes Total Critical Care Time: 90 I have personally spent 90 minutes of critical care time in the direct management of this patient. This includes bedside care, interpretation of diagno stic studies, and testing, discussion with consultants, patient, and family members, and other required patient management activities. This 90 minutes is in excess of all separately billable procedures. Discharge Plan Visit Data *Final* Discharge Date/Time: 04/13/19 04:10 Chief Complaint: Referred by Doctor Stated Complaint: DR SAID TO COME - ALL THEY KNOW ED Provider: Lakeisha Lindo Discharge Problem: Acute renal failure, Metabolic acidosis, Respiratory failure Patient Disposition: Admitted As Inpatient Discharge Instructions Interventions: ED Discharge Assessment Last Done: 04/13/19 04:10 Discharge Problem: Acute renal failure Qualifiers: Acute renal failure type: unspecified Qualified Code(s): N17.9 - Acute kidney failure, unspecified Respiratory failure Qualifiers: Chronicity: unspecified Respiratory failure complication: unspecified whether with hypoxia or hypercapnia Qualified Code(s): J96.90 - Respiratory failure, unspecified, unspecified whether with hypoxia or hypercapnia The scribe's documentation has been prepared under my direction and personally reviewed by me in its entirety. I confirm that the note above accurately reflects all work, treatment, procedures, and medical decision making performed by me.
--- NOTE | 2019-04-13 08:04 | Critical Care Progress Note ---
Date of Service April 13, 2019 Assessment & Plan (1) Acute renal failure: Neuro- altered mental status due to metabolic encephalopathy due to renal failure, severe acidosis CV- HD stable Pulmonary- acute respiratory failure due to severe acidosis. continue vent support high MV for help with acidosis. recheck ABG ID- possible sepsis with evidence of end organ dysfunction. possible urinary source. follow cultures. continue piperacillin-tazobactam Renal- acute on chronic renal failure unclear cause. ?prerenal vs ATN. t/c workup for GN. will likely need dialysis today for his acidosis that is not improving with bicarb. continue bicarb containing fluids GI- NPO for now. start tube feeds when acidosis improved. famotidine proph Heme- leukocytosis, anemia Endocrine- blood sugars high start insulin drip. levothyroxine for hypothyroidism Dispo- continue ICU care for hemodynamic and ventilatory support DNR I have personally spent 60 minutes of critical care time in the direct management of this patient. This is a life/limb threatening event. This includes time spent evaluating patient, direct bedside care, chart review, placing orders, interpretation of diagnostic studies, discussion with consultants, patient, and/or family members regarding treatment decisions, as well as other required patient management activities. This time is exclusive of all separately billable procedures, and teaching time and separate from and in addition to any other critical care service time. (2) Metabolic acidosis: (3) Metabolic encephalopathy: (4) SIRS (systemic inflammatory response syndrome): (5) Acute respiratory failure: Subjective remains on vent continues to have acidosis opens eyes to voice otherwise no response without sedation Physical Exam Physical Exam: Constitutional: Comfortable NAD on vent HEENT: normocephalic atraumatic. MMM. no cervical lymphadenopathy CV: RRR nl s1,s2 no murmurs rubs or gallops Lungs: clear to auscultation bilaterally. no accessory muscle use Abd: soft nontender nondistended. normal bowel sounds Ext: no edema. no cyanosis, no clubbing Skin: warm dry Neuro: opens eyes to voice. does not follow other commands does not move any ext to pain Psych: unresponsive Results & Data Vital Signs (Past 12 Hours) Vital Signs Temp Pulse Pulse Resp BP BP BP 04/13/19 06:03 26 H 04/13/19 06:00 34.3 C L 93 H 27 H 100/53 L 04/13/19 05:15 34 C L 92 H 26 H 106/52 L 04/13/19 05:00 34 C L 79 26 H 102/47 L 04/13/19 04:51 92 H 04/13/19 04:46 92 H 26 H 04/13/19 04:15 94 H 100/47 L 04/13/19 04:07 100 H 26 H 04/13/19 04:01 96 H 04/13/19 04:00 88 122/55 L 04/13/19 03:46 89 04/13/19 03:45 89 110/55 L 04/13/19 03:32 88 04/13/19 03:30 89 118/49 L 04/13/19 03:16 58 L 04/13/19 03:15 58 L 101/48 L 04/13/19 03:10 34 C L 04/13/19 03:01 58 L 04/13/19 03:00 58 L 108/50 L 04/13/19 02:50 58 L 118/51 L 04/13/19 02:46 18 04/13/19 02:45 58 L 04/13/19 02:43 04/13/19 02:15 93 H 141/67 H 04/13/19 02:10 94 H 151/74 H 04/13/19 02:06 94 H 04/13/19 02:05 94 H 151/75 H 04/13/19 02:01 94 H 04/13/19 02:00 95 H 152/83 H 04/13/19 01:56 94 H 04/13/19 01:55 95 H 154/75 H 04/13/19 01:51 95 H 04/13/19 01:50 96 H 154/77 H 04/13/19 01:46 95 H 04/13/19 01:45 96 H 154/78 H 04/13/19 01:41 95 H 04/13/19 01:40 96 H 154/77 H 04/13/19 01:36 95 H 04/13/19 01:35 96 H 153/77 H 04/13/19 01:33 95 H 152/75 H 04/13/19 01:30 95 H 04/13/19 01:25 95 H 04/13/19 01:20 95 H 04/13/19 01:15 94 H 04/13/19 01:10 04/13/19 01:06 96 H 18 04/13/19 01:05 96 H 17 100/54 L 04/13/19 01:00 201 H 25 H 04/13/19 00:57 04/13/19 00:45 103 H 17 04/13/19 00:40 86 28 H 04/13/19 00:37 89 27 H 111/52 L 04/13/19 00:35 87 28 H 04/13/19 00:31 94 H 30 H 125/62 04/13/19 00:30 95 H 28 H 04/13/19 00:25 87 27 H 04/13/19 00:20 90 27 H 04/13/19 00:15 88 26 H 04/13/19 00:10 90 27 H 04/13/19 00:05 88 27 H 04/13/19 00:02 88 27 H 119/66 04/13/19 00:00 90 28 H 04/12/19 23:55 82 26 H 04/12/19 23:51 91 H 40 H 110/65 04/12/19 23:50 98 H 28 H 04/12/19 23:45 86 25 H 04/12/19 23:42 98 H 25 H 110/65 04/12/19 23:40 99 H 22 04/12/19 23:35 87 27 H 04/12/19 23:31 87 25 H 127/78 04/12/19 23:30 89 26 H 04/12/19 23:25 87 26 H 04/12/19 23:20 87 26 H 04/12/19 23:15 90 26 H 04/12/19 23:10 88 26 H 04/12/19 23:05 91 H 27 H 04/12/19 23:03 91 H 25 H 04/12/19 23:00 90 25 H 140/86 04/12/19 22:54 34.4 C L 88 45 H 121/68 BP Pulse Ox 04/13/19 06:03 04/13/19 06:00 127/56 L 100 04/13/19 05:15 100 04/13/19 05:00 136/69 100 04/13/19 04:51 04/13/19 04:46 100 04/13/19 04:15 100 04/13/19 04:07 100 04/13/19 04:01 100 04/13/19 04:00 100 04/13/19 03:46 100 04/13/19 03:45 100 04/13/19 03:32 100 04/13/19 03:30 100 04/13/19 03:16 100 04/13/19 03:15 100 04/13/19 03:10 04/13/19 03:01 100 04/13/19 03:00 100 04/13/19 02:50 100 04/13/19 02:46 04/13/19 02:45 100 04/13/19 02:43 100 04/13/19 02:15 100 04/13/19 02:10 100 04/13/19 02:06 100 04/13/19 02:05 100 04/13/19 02:01 100 04/13/19 02:00 100 04/13/19 01:56 100 04/13/19 01:55 100 04/13/19 01:51 100 04/13/19 01:50 100 04/13/19 01:46 100 04/13/19 01:45 100 04/13/19 01:41 100 04/13/19 01:40 100 04/13/19 01:36 100 04/13/19 01:35 100 04/13/19 01:33 04/13/19 01:30 04/13/19 01:25 100 04/13/19 01:20 100 04/13/19 01:15 100 04/13/19 01:10 100 04/13/19 01:06 100 04/13/19 01:05 100 04/13/19 01:00 100 04/13/19 00:57 100 04/13/19 00:45 100 04/13/19 00:40 99 04/13/19 00:37 100 04/13/19 00:35 100 04/13/19 00:31 100 04/13/19 00:30 96 04/13/19 00:25 100 04/13/19 00:20 100 04/13/19 00:15 100 04/13/19 00:10 100 04/13/19 00:05 100 04/13/19 00:02 100 04/13/19 00:00 90 04/12/19 23:55 98 04/12/19 23:51 100 04/12/19 23:50 99 04/12/19 23:45 100 04/12/19 23:42 100 04/12/19 23:40 100 04/12/19 23:35 100 04/12/19 23:31 100 04/12/19 23:30 100 04/12/19 23:25 100 04/12/19 23:20 100 04/12/19 23:15 100 04/12/19 23:10 98 04/12/19 23:05 100 04/12/19 23:03 100 04/12/19 23:00 100 04/12/19 22:54 98 Laboratory Results Laboratory Results - last 24 hr 04/12/19 04/12/19 04/12/19 23:11 23:11 23:11 WBC 20.56 H RBC 3.28 L Hgb 9.9 L Hct 29.5 L MCV 89.9 MCH 30.2 MCHC 33.6 RDW Std Deviation 54.8 H RDW Coeff of Julissa 16.8 H Plt Count 137 MPV 11.3 H Immature Gran % (Auto) 4.8 Neut % (Auto) 90.7 Lymph % (Auto) 3.6 Foster % (Auto) 0.5 Eos % (Auto) 0.2 Baso % (Auto) 0.2 Reticulocyte % (Auto) Immature Gran # (Auto) 0.99 H Neut # (Auto) 18.65 H Lymph # (Auto) 0.73 L Foster # (Auto) 0.10 L Eos # (Auto) 0.05 Baso # (Auto) 0.04 Reticulocyte # Platelet Estimate Decreased L Polychromasia Echinocytes 1+ PT 11.9 INR 1.2 H APTT 43.9 H PTT Ratio 1.6 Sample Site POC pH POC pCO2 POC pO2 POC HCO3 POC Total CO2 POC Base Excess ABG pH ABG pCO2 ABG pO2 ABG HCO3 POC ABG O2 Sat ABG O2 Saturation ABG Base Excess Landry Test Barometric Pressure Oxygen Given O2 Delivery Device POC O2 Rate Minute Ventilation POC FiO2 Tidal Volume PEEP Sodium 143 Potassium 5.4 H Chloride 114 H Carbon Dioxide < 5 L* Anion Gap 25.0 H BUN 137 H Creatinine 10.10 H* Est Cr Clr Drug Dosing Not Reportable Est GFR ( Amer) 4.8 Est GFR (Non-Af Amer) 4.2 BUN/Creatinine Ratio 13.5 Glucose 181 H POC Glucose Estimat Average Glucose Hemoglobin A1c Lactate Calcium 8.1 L Phosphorus Magnesium 1.8 Iron TIBC Transferrin Ferritin Total Bilirubin 0.3 AST 34 ALT 59 Alkaline Phosphatase 97 Ammonia Total Creatine Kinase Troponin I Total Protein 8.3 H Albumin 3.2 L Globulin 5.1 H Albumin/Globulin Ratio 0.6 L Vitamin B12 Folate Beta-Hydroxybutyric Acd Procalcitonin TSH 6.130 H Free T4 Total T3 Random Cortisol Urine Color Urine Appearance Urine pH Ur Specific Cando Urine Protein Urine Glucose (UA) Urine Ketones Urine Blood Urine Nitrite Urine Bilirubin Urine Urobilinogen Ur Leukocyte Esterase Urine WBC (Auto) Urine RBC (Auto) U Hyaline Cast (Auto) U Epithel Cells (Auto) Urine Bacteria (Auto) Ur Renal Epithelial Cell Granular Casts Urine Yeast Nasal Screen MRSA (PCR) Salicylates Urine Opiates Screen Ur Methadone, Qual Acetaminophen Urine Barbiturates Ur Phencyclidine (PCP) U Amphetamin/Meth Scrn MDMA (Ecstasy) Screen U Benzodiazepines Scrn Ur Cocaine Metabolite U Marijuana (THC) Screen Blood Type Antibody Screen 04/12/19 04/12/19 04/12/19 23:11 23:11 23:36 WBC RBC Hgb Hct MCV MCH MCHC RDW Std Deviation RDW Coeff of Julissa Plt Count MPV Immature Gran % (Auto) Neut % (Auto) Lymph % (Auto) Foster % (Auto) Eos % (Auto) Baso % (Auto) Reticulocyte % (Auto) Immature Gran # (Auto) Neut # (Auto) Lymph # (Auto) Foster # (Auto) Eos # (Auto) Baso # (Auto) Reticulocyte # Platelet Estimate Polychromasia Echinocytes PT INR APTT PTT Ratio Sample Site POC pH POC pCO2 POC pO2 POC HCO3 POC Total CO2 POC Base Excess ABG pH 6.94 L* ABG pCO2 12 L ABG pO2 192 H ABG HCO3 2 L POC ABG O2 Sat ABG O2 Saturation 98.4 H ABG Base Excess -28.0 L Landry Test Pos Barometric Pressure 731.6 Oxygen Given RA O2 Delivery Device POC O2 Rate Minute Ventilation POC FiO2 Tidal Volume PEEP Sodium Potassium Chloride Carbon Dioxide Anion Gap BUN Creatinine Est Cr Clr Drug Dosing Est GFR ( Amer) Est GFR (Non-Af Amer) BUN/Creatinine Ratio Glucose POC Glucose Estimat Average Glucose Pending Hemoglobin A1c Pending Lactate Calcium Phosphorus Magnesium Iron TIBC Transferrin Ferritin Total Bilirubin AST ALT Alkaline Phosphatase Ammonia Total Creatine Kinase Troponin I Total Protein Albumin Globulin Albumin/Globulin Ratio Vitamin B12 Folate Beta-Hydroxybutyric Acd Procalcitonin 0.50 TSH Free T4 Total T3 Random Cortisol Urine Color Urine Appearance Urine pH Ur Specific Cando Urine Protein Urine Glucose (UA) Urine Ketones Urine Blood Urine Nitrite Urine Bilirubin Urine Urobilinogen Ur Leukocyte Esterase Urine WBC (Auto) Urine RBC (Auto) U Hyaline Cast (Auto) U Epithel Cells (Auto) Urine Bacteria (Auto) Ur Renal Epithelial Cell Granular Casts Urine Yeast Nasal Screen MRSA (PCR) Salicylates Urine Opiates Screen Ur Methadone, Qual Acetaminophen Urine Barbiturates Ur Phencyclidine (PCP) U Amphetamin/Meth Scrn MDMA (Ecstasy) Screen U Benzodiazepines Scrn Ur Cocaine Metabolite U Marijuana (THC) Screen Blood Type Antibody Screen 04/13/19 04/13/19 04/13/19 01:20 01:20 02:15 WBC RBC Hgb Hct MCV MCH MCHC RDW Std Deviation RDW Coeff of Julissa Plt Count MPV Immature Gran % (Auto) Neut % (Auto) Lymph % (Auto) Foster % (Auto) Eos % (Auto) Baso % (Auto) Reticulocyte % (Auto) Immature Gran # (Auto) Neut # (Auto) Lymph # (Auto) Foster # (Auto) Eos # (Auto) Baso # (Auto) Reticulocyte # Platelet Estimate Polychromasia Echinocytes PT INR APTT PTT Ratio Sample Site POC pH POC pCO2 POC pO2 POC HCO3 POC Total CO2 POC Base Excess ABG pH ABG pCO2 ABG pO2 ABG HCO3 POC ABG O2 Sat ABG O2 Saturation ABG Base Excess Landry Test Barometric Pressure Oxygen Given O2 Delivery Device POC O2 Rate Minute Ventilation POC FiO2 Tidal Volume PEEP Sodium Potassium Chloride Carbon Dioxide Anion Gap BUN Creatinine Est Cr Clr Drug Dosing Est GFR ( Amer) Est GFR (Non-Af Amer) BUN/Creatinine Ratio Glucose POC Glucose Estimat Average Glucose Hemoglobin A1c Lactate 5.7 H* Calcium Phosphorus Magnesium Iron TIBC Transferrin Ferritin Total Bilirubin AST ALT Alkaline Phosphatase Ammonia Total Creatine Kinase Troponin I Total Protein Albumin Globulin Albumin/Globulin Ratio Vitamin B12 Folate Beta-Hydroxybutyric Acd Procalcitonin TSH Free T4 Total T3 Random Cortisol Urine Color Yellow Urine Appearance Turbid A Urine pH 5.0 Ur Specific Cando 1.022 Urine Protein 3+ H Urine Glucose (UA) Trace H Urine Ketones Negative Urine Blood 3+ H Urine Nitrite Negative Urine Bilirubin Negative Urine Urobilinogen Negative Ur Leukocyte Esterase 2+ H Urine WBC (Auto) >30 H Urine RBC (Auto) >30 H U Hyaline Cast (Auto) 10-30 H U Epithel Cells (Auto) >30 H Urine Bacteria (Auto) Negative Ur Renal Epithelial Cell Not Reportable Granular Casts 10-20 H Urine Yeast Not Reportable Nasal Screen MRSA (PCR) Salicylates Urine Opiates Screen Neg Ur Methadone, Qual Neg Acetaminophen Urine Barbiturates Neg Ur Phencyclidine (PCP) Neg U Amphetamin/Meth Scrn Neg MDMA (Ecstasy) Screen Neg U Benzodiazepines Scrn Neg Ur Cocaine Metabolite Neg U Marijuana (THC) Screen Neg Blood Type Antibody Screen 04/13/19 04/13/19 04/13/19 02:15 02:15 02:15 WBC RBC Hgb Hct MCV MCH MCHC RDW Std Deviation RDW Coeff of Julissa Plt Count MPV Immature Gran % (Auto) Neut % (Auto) Lymph % (Auto) Foster % (Auto) Eos % (Auto) Baso % (Auto) Reticulocyte % (Auto) Immature Gran # (Auto) Neut # (Auto) Lymph # (Auto) Foster # (Auto) Eos # (Auto) Baso # (Auto) Reticulocyte # Platelet Estimate Polychromasia Echinocytes PT INR APTT PTT Ratio Sample Site POC pH POC pCO2 POC pO2 POC HCO3 POC Total CO2 POC Base Excess ABG pH ABG pCO2 ABG pO2 ABG HCO3 POC ABG O2 Sat ABG O2 Saturation ABG Base Excess Landry Test Barometric Pressure Oxygen Given O2 Delivery Device POC O2 Rate Minute Ventilation POC FiO2 Tidal Volume PEEP Sodium Potassium Chloride Carbon Dioxide Anion Gap BUN Creatinine Est Cr Clr Drug Dosing Est GFR ( Amer) Est GFR (Non-Af Amer) BUN/Creatinine Ratio Glucose POC Glucose Estimat Average Glucose Hemoglobin A1c Lactate Calcium Phosphorus Magnesium Iron TIBC Transferrin Ferritin Total Bilirubin AST ALT Alkaline Phosphatase Ammonia 57.0 H Total Creatine Kinase Troponin I Total Protein Albumin Globulin Albumin/Globulin Ratio Vitamin B12 Folate Beta-Hydroxybutyric Acd Procalcitonin TSH Free T4 Total T3 Random Cortisol Urine Color Urine Appearance Urine pH Ur Specific Cando Urine Protein Urine Glucose (UA) Urine Ketones Urine Blood Urine Nitrite Urine Bilirubin Urine Urobilinogen Ur Leukocyte Esterase Urine WBC (Auto) Urine RBC (Auto) U Hyaline Cast (Auto) U Epithel Cells (Auto) Urine Bacteria (Auto) Ur Renal Epithelial Cell Granular Casts Urine Yeast Nasal Screen MRSA (PCR) Salicylates 2.9 Urine Opiates Screen Ur Methadone, Qual Acetaminophen 7 L Urine Barbiturates Ur Phencyclidine (PCP) U Amphetamin/Meth Scrn MDMA (Ecstasy) Screen U Benzodiazepines Scrn Ur Cocaine Metabolite U Marijuana (THC) Screen Blood Type A Positive Antibody Screen NEGATIVE 04/13/19 04/13/19 04/13/19 02:15 02:15 05:30 WBC RBC Hgb Hct MCV MCH MCHC RDW Std Deviation RDW Coeff of Julissa Plt Count MPV Immature Gran % (Auto) Neut % (Auto) Lymph % (Auto) Foster % (Auto) Eos % (Auto) Baso % (Auto) Reticulocyte % (Auto) Immature Gran # (Auto) Neut # (Auto) Lymph # (Auto) Foster # (Auto) Eos # (Auto) Baso # (Auto) Reticulocyte # Platelet Estimate Polychromasia Echinocytes PT INR APTT PTT Ratio Sample Site POC pH POC pCO2 POC pO2 POC HCO3 POC Total CO2 POC Base Excess ABG pH ABG pCO2 ABG pO2 ABG HCO3 POC ABG O2 Sat ABG O2 Saturation ABG Base Excess Landry Test Barometric Pressure Oxygen Given O2 Delivery Device POC O2 Rate Minute Ventilation POC FiO2 Tidal Volume PEEP Sodium 144 Potassium 5.2 H Chloride 114 H Carbon Dioxide 5 L* Anion Gap 25.0 H BUN 138 H Creatinine 9.88 H* Est Cr Clr Drug Dosing 6.0 Est GFR ( Amer) 5.0 Est GFR (Non-Af Amer) 4.3 BUN/Creatinine Ratio 14.0 Glucose 200 H POC Glucose Estimat Average Glucose Hemoglobin A1c Lactate Calcium 7.8 L Phosphorus Magnesium Iron TIBC Transferrin Ferritin Total Bilirubin AST ALT Alkaline Phosphatase Ammonia Total Creatine Kinase 381 H Troponin I 0.576 H* Total Protein Albumin Globulin Albumin/Globulin Ratio Vitamin B12 Folate Beta-Hydroxybutyric Acd Procalcitonin TSH Free T4 0.58 L Total T3 0.20 L Random Cortisol 100.07 Urine Color Urine Appearance Urine pH Ur Specific Cando Urine Protein Urine Glucose (UA) Urine Ketones Urine Blood Urine Nitrite Urine Bilirubin Urine Urobilinogen Ur Leukocyte Esterase Urine WBC (Auto) Urine RBC (Auto) U Hyaline Cast (Auto) U Epithel Cells (Auto) Urine Bacteria (Auto) Ur Renal Epithelial Cell Granular Casts Urine Yeast Nasal Screen MRSA (PCR) Negative Salicylates Urine Opiates Screen Ur Methadone, Qual Acetaminophen Urine Barbiturates Ur Phencyclidine (PCP) U Amphetamin/Meth Scrn MDMA (Ecstasy) Screen U Benzodiazepines Scrn Ur Cocaine Metabolite U Marijuana (THC) Screen Blood Type Antibody Screen 04/13/19 04/13/19 04/13/19 05:42 05:42 05:42 WBC 18.92 H RBC 2.88 L Hgb 8.9 L Hct 26.4 L MCV 91.7 MCH 30.9 MCHC 33.7 RDW Std Deviation 55.3 H RDW Coeff of Julissa 16.7 H Plt Count 135 MPV 11.1 H Immature Gran % (Auto) 2.8 Neut % (Auto) 93.4 Lymph % (Auto) 2.6 Foster % (Auto) 1.0 Eos % (Auto) 0.0 Baso % (Auto) 0.2 Reticulocyte % (Auto) 2.1 H Immature Gran # (Auto) 0.53 H Neut # (Auto) 17.68 H Lymph # (Auto) 0.50 L Foster # (Auto) 0.18 Eos # (Auto) 0.00 Baso # (Auto) 0.03 Reticulocyte # 0.06 Platelet Estimate Polychromasia 1+ Echinocytes 2+ PT INR APTT PTT Ratio Sample Site POC pH POC pCO2 POC pO2 POC HCO3 POC Total CO2 POC Base Excess ABG pH ABG pCO2 ABG pO2 ABG HCO3 POC ABG O2 Sat ABG O2 Saturation ABG Base Excess Landry Test Barometric Pressure Oxygen Given O2 Delivery Device POC O2 Rate Minute Ventilation POC FiO2 Tidal Volume PEEP Sodium 146 H Potassium 4.5 Chloride 112 H Carbon Dioxide 5 L* Anion Gap 29.0 H BUN 139 H Creatinine 9.66 H* Est Cr Clr Drug Dosing 6.1 Est GFR ( Amer) 5.1 Est GFR (Non-Af Amer) 4.4 BUN/Creatinine Ratio 14.4 Glucose 304 H* POC Glucose Estimat Average Glucose Hemoglobin A1c Lactate Calcium 7.3 L Phosphorus 14.2 H Magnesium 1.8 Iron 137 TIBC 78 L Transferrin 108 L Ferritin 569.5 H Total Bilirubin AST ALT Alkaline Phosphatase Ammonia 100.0 H Total Creatine Kinase Troponin I Total Protein Albumin Globulin Albumin/Globulin Ratio Vitamin B12 Folate Beta-Hydroxybutyric Acd 27.11 H Procalcitonin TSH Free T4 Total T3 Random Cortisol Urine Color Urine Appearance Urine pH Ur Specific Cando Urine Protein Urine Glucose (UA) Urine Ketones Urine Blood Urine Nitrite Urine Bilirubin Urine Urobilinogen Ur Leukocyte Esterase Urine WBC (Auto) Urine RBC (Auto) U Hyaline Cast (Auto) U Epithel Cells (Auto) Urine Bacteria (Auto) Ur Renal Epithelial Cell Granular Casts Urine Yeast Nasal Screen MRSA (PCR) Salicylates Urine Opiates Screen Ur Methadone, Qual Acetaminophen Urine Barbiturates Ur Phencyclidine (PCP) U Amphetamin/Meth Scrn MDMA (Ecstasy) Screen U Benzodiazepines Scrn Ur Cocaine Metabolite U Marijuana (THC) Screen Blood Type Antibody Screen 04/13/19 04/13/19 04/13/19 05:42 05:42 05:48 WBC RBC Hgb Hct MCV MCH MCHC RDW Std Deviation RDW Coeff of Julissa Plt Count MPV Immature Gran % (Auto) Neut % (Auto) Lymph % (Auto) Foster % (Auto) Eos % (Auto) Baso % (Auto) Reticulocyte % (Auto) Immature Gran # (Auto) Neut # (Auto) Lymph # (Auto) Foster # (Auto) Eos # (Auto) Baso # (Auto) Reticulocyte # Platelet Estimate Polychromasia Echinocytes PT INR APTT PTT Ratio Sample Site Art Line POC pH 6.93 L* POC pCO2 22 L POC pO2 195 H POC HCO3 5 L POC Total CO2 < 5 L* POC Base Excess -28.0 L ABG pH ABG pCO2 ABG pO2 ABG HCO3 POC ABG O2 Sat 99.0 H ABG O2 Saturation ABG Base Excess Landry Test NA Barometric Pressure Oxygen Given O2 Delivery Device Ventilator POC O2 Rate 26 Minute Ventilation 15.4 POC FiO2 30 Tidal Volume 600 PEEP 5 Sodium Potassium Chloride Carbon Dioxide Anion Gap BUN Creatinine Est Cr Clr Drug Dosing Est GFR ( Amer) Est GFR (Non-Af Amer) BUN/Creatinine Ratio Glucose POC Glucose Estimat Average Glucose Hemoglobin A1c Lactate 8.5 H* Calcium Phosphorus Magnesium Iron TIBC Transferrin Ferritin Total Bilirubin AST ALT Alkaline Phosphatase Ammonia Total Creatine Kinase Troponin I Total Protein Albumin Globulin Albumin/Globulin Ratio Vitamin B12 Pending Folate Pending Beta-Hydroxybutyric Acd Procalcitonin TSH Free T4 Total T3 Random Cortisol Urine Color Urine Appearance Urine pH Ur Specific Cando Urine Protein Urine Glucose (UA) Urine Ketones Urine Blood Urine Nitrite Urine Bilirubin Urine Urobilinogen Ur Leukocyte Esterase Urine WBC (Auto) Urine RBC (Auto) U Hyaline Cast (Auto) U Epithel Cells (Auto) Urine Bacteria (Auto) Ur Renal Epithelial Cell Granular Casts Urine Yeast Nasal Screen MRSA (PCR) Salicylates Urine Opiates Screen Ur Methadone, Qual Acetaminophen Urine Barbiturates Ur Phencyclidine (PCP) U Amphetamin/Meth Scrn MDMA (Ecstasy) Screen U Benzodiazepines Scrn Ur Cocaine Metabolite U Marijuana (THC) Screen Blood Type Antibody Screen 04/13/19 05:55 WBC RBC Hgb Hct MCV MCH MCHC RDW Std Deviation RDW Coeff of Julissa Plt Count MPV Immature Gran % (Auto) Neut % (Auto) Lymph % (Auto) Foster % (Auto) Eos % (Auto) Baso % (Auto) Reticulocyte % (Auto) Immature Gran # (Auto) Neut # (Auto) Lymph # (Auto) Foster # (Auto) Eos # (Auto) Baso # (Auto) Reticulocyte # Platelet Estimate Polychromasia Echinocytes PT INR APTT PTT Ratio Sample Site POC pH POC pCO2 POC pO2 POC HCO3 POC Total CO2 POC Base Excess ABG pH ABG pCO2 ABG pO2 ABG HCO3 POC ABG O2 Sat ABG O2 Saturation ABG Base Excess Landry Test Barometric Pressure Oxygen Given O2 Delivery Device POC O2 Rate Minute Ventilation POC FiO2 Tidal Volume PEEP Sodium Potassium Chloride Carbon Dioxide Anion Gap BUN Creatinine Est Cr Clr Drug Dosing Est GFR ( Amer) Est GFR (Non-Af Amer) BUN/Creatinine Ratio Glucose POC Glucose 281 H Estimat Average Glucose Hemoglobin A1c Lactate Calcium Phosphorus Magnesium Iron TIBC Transferrin Ferritin Total Bilirubin AST ALT Alkaline Phosphatase Ammonia Total Creatine Kinase Troponin I Total Protein Albumin Globulin Albumin/Globulin Ratio Vitamin B12 Folate Beta-Hydroxybutyric Acd Procalcitonin TSH Free T4 Total T3 Random Cortisol Urine Color Urine Appearance Urine pH Ur Specific Cando Urine Protein Urine Glucose (UA) Urine Ketones Urine Blood Urine Nitrite Urine Bilirubin Urine Urobilinogen Ur Leukocyte Esterase Urine WBC (Auto) Urine RBC (Auto) U Hyaline Cast (Auto) U Epithel Cells (Auto) Urine Bacteria (Auto) Ur Renal Epithelial Cell Granular Casts Urine Yeast Nasal Screen MRSA (PCR) Salicylates Urine Opiates Screen Ur Methadone, Qual Acetaminophen Urine Barbiturates Ur Phencyclidine (PCP) U Amphetamin/Meth Scrn MDMA (Ecstasy) Screen U Benzodiazepines Scrn Ur Cocaine Metabolite U Marijuana (THC) Screen Blood Type Antibody Screen PG Care Time/CCT Critical Care Time: Yes Total Critical Care Time: 60 (1) Acute renal failure Acute renal failure type: unspecified Qualified Code(s): N17.9 - Acute kidney failure, unspecified
[2019-04-13 08:05] LABS: Folate (Folic Acid) > 24.00 ng/ml (>5.38); Vitamin B12 > 2000 pg/ml (211-911)
[2019-04-13] MEDS ORDERED: SEVERE STRESS LEVEL ONE (08:05)
[2019-04-13] MEDS ORDERED: INSULIN REGULAR 250 UNITS in SODIUM CHLORIDE 0.9% 247.5 ML IV SCH (08:30)
[2019-04-13] MEDS ORDERED: INSULIN PROTOCOL GOAL RANGE ONE (08:34)
[2019-04-13] MEDS ORDERED: PHARMACY GLYCEMIC MGMT CONSULT PRN (08:38)
[2019-04-13] MEDS: LEVOTHYROXINE SODIUM 12.5 MCG in SYRINGE 0 ML IV SCH (08:43)
[2019-04-13] MEDS: FAMOTIDINE 20 MG in SYRINGE 3 ML IV SCH (08:44)
[2019-04-13] MEDS ORDERED: NovoLIN-R BOLUS FROM BAG IV ONE (08:45)
[2019-04-13] MEDS ORDERED: FAMOTIDINE 20MG/5ML IV PUSH IV SCH (09:00)
--- NOTE | 2019-04-13 09:17 | Pharmacy Report ---
Glycemic Control Consultation - Date of Service April 13, 2019 - Scope Scope: Glycemic Pharmacist consulted by Dr Basilio and per ICU glycemic control protocol on 04/13/19 for glycemic control and to write orders per [facility] inpatient glycemic control protocol - Objective Weight: 87.8 kg Accuchecks BSG (last 24hrs): 04/12/19 04/13/19 04/13/19 23:11 02:15 05:42 Glucose 181 H 200 H 304 H* POC Glucose 04/13/19 04/13/19 04/13/19 05:55 08:02 08:03 Glucose POC Glucose 281 H 352 H* 370 H* Laboratory Data (last 24hrs): 04/12/19 04/13/19 04/13/19 23:11 02:15 05:42 Potassium 5.4 H 5.2 H 4.5 Carbon Dioxide < 5 L* 5 L* 5 L* Anion Gap 25.0 H 25.0 H 29.0 H Creatinine 10.10 H* 9.88 H* 9.66 H* Est Cr Clr Drug Dosing Not Reportable 6.0 6.1 Beta-Hydroxybutyric Acd 27.11 H - Recent Pertinent Medications Outpatient Anti-diabetic Regimen: * Repaglinide 2mg PO TID with meals Risk Factors for Insulin Resistance: * Steroids: Solu-medrol 125mg IV x1 * Infection: Sepsis, Zosyn * Pressors: Sedated (medications administered in ER). No current sedation infusion at this time. Patient unresponsive, moves extremities slightly to pain. * IVF: Sodium Bicarb 150meq/ 1 liter D5 * Diet: NPO * Mechanical Ventilation: YES - Assessment & Plan Assessment & Plan: ASSESSMENT: * 84-year-old male with severe metabolic acidosis in the setting of acute renal failure requiring emergent airway management secondary to increasing metabolic demand. Severe sepsis, possible UTI source. * Pt received IV Solu-medrol x1 dose late last night, BSGs in 200-300s - starting insulin drip per ICU hyperglycemia protocol. PLAN FOR INPATIENT GLYCEMIC CONTROL: * Starting IV insulin infusion per severe stress protocol * Goal Range 110 - 180 mg/dl * In the critical care setting, continuous IV insulin infusion has been shown to be the best method for achieving glycemic targets. * Holding outpatient oral diabetes medications * Please note that the plan above was derived based on current level of insulin resistance and hospital stress. These recommendations are appropriate for inpatient admission only. Plan of care upon discharge will need to be reassessed to avoid potential outpatient hypo/hyperglycemia. Thank you.
[2019-04-13 10:08] LABS: iSTAT Arterial Blood Gas HCO3 6 meg/L (19-24); iSTAT Arterial Blood Gas pCO2 21 mmHg (35-46); iSTAT Arterial Blood Gas pH 7.04 (7.35-7.45); iSTAT Carbon Dioxide 6 mEq/l (24-31); iSTAT FiO2 30 %; iSTAT Site Art Line
[2019-04-13] MEDS ORDERED: SODIUM CHLORIDE 0.9% 1000ML 1,000 ML IV PRN (10:39)
[2019-04-13] MEDS ORDERED: HEPARIN SOD (PORCINE) 1000 UNIT/ML 10 ML VIAL IV ONE (10:39)
--- NOTE | 2019-04-13 10:39 | Nephrology Consultation ---
Date of Consultation April 13, 2019 Assessment & Plan (1) Acute renal failure: Patient with acute renal failure likely due to ischemic ATN. 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 He is completely anuric now. CT abdomen does not show obstructive uropathy on my review but official report is pending. He has history of kidney stones in the past. He also has low EF. Will start emergent dialysis for acute renal failure and severe metabolic acidosis. We will dialyze him today for 2-1/2 hours, blood flow 250, dialysate flow 500 and target UF of 1 L. We will also dialyze him tomorrow to optimize electrolytes and volume status. Kathe has given consent to dialysis by telephone. (2) Acute respiratory failure: Multifactorial etiology including volume overload and possibly pneumonia. He is receiving broad-spectrum antibiotics per ICU team. He is on mechanical ventilation with assist control, PEEP of 5 and FiO2 of 30%. We will attempt ultrafiltration with dialysis. (3) Metabolic acidosis: Due to acute renal failure and high lactate. He is receiving isotonic bicarbonate infusion. We will can stop the bicarb drip once ready to start dialysis. (4) SIRS (systemic inflammatory response syndrome): Work-up for sepsis is ongoing. Follow-up on blood cultures. Continue broad-spectrum antibiotics renally dosed for GFR less than 15 mL/min. History of Present Illness Reason for Consultation: Acute renal failure Requesting Physician: Lynsey Mckeon MD Attending Physician: Dariana Mckinney MD History of Present Illness This is 84-year-old male who was admitted 04/13/2019 with acute respiratory failure quickly intubated in the emergency room and now in ICU. I have been asked to evaluate him for acute renal failure. He has past medical history significant for chronic systolic heart failure secondary to ischemic cardiomyopathy (EF of 31%, TTE 2013) status post ICD, CAD status post stent, hypertension, interstitial lung disease as per records, CRI (baseline creatinine 3 as of 12/2018), chronic anemia (baseline hemoglobin of 10 as of 12/2018), DM 2 insulin requiring, past tobacco abuse, history ITP as per records. Recent confinement April 2018 for right-sided ureteric stone sp spontaneous passage. Patient is unable to provide history due to intubation. History was obtained by reviewing medical records and speaking with the Kathe. reports increasing shortness of breath over several days. He was noted to have altered mental status which prompted emergency room visit. His creatinine on admission was 10 and this morning still 9.6. He also had a lactate of 8.5, white cell count of 18. He is completely anuric with the urine output of 25 mL since admission. He is now on mechanical ventilation with the assist control PEEP of 5 and FiO2 of 30%. His blood pressure is on the lower side but has not required pressors. Allergies Allergy/AdvReac Type Severity Reaction Status Date / Time lisinopril Allergy Mild Unknown Verified 04/13/19 01:31 Home Medications Home Medications Medication Instructions Recorded Confirmed Type acetaminophen 650 mg PO Q6H PRN 04/13/19 04/13/19 History albuterol sulfate 2 puff INHALATION Q6H PRN 04/13/19 04/13/19 History allopurinol 100 mg PO DAILY 04/13/19 04/13/19 History aspirin [Aspir-81] 81 mg PO DAILY 04/13/19 04/13/19 History atorvastatin 40 mg PO DAILY 04/13/19 04/13/19 History calcium polycarbophil [FiberCon] 1,250 mg PO QAM 04/13/19 04/13/19 History cholecalciferol (vitamin D3) 1,000 unit PO DAILY 04/13/19 04/13/19 History cyanocobalamin (vitamin B-12) 500 mcg PO BID 04/13/19 04/13/19 History [Vitamin B-12] furosemide 20 mg PO 3XWK 04/13/19 04/13/19 History insulin glargine [Lantus Solostar 20 unit SUBCUT QAM 04/13/19 04/13/19 History U-100 Insulin] metoprolol succinate 25 mg PO DAILY 04/13/19 04/13/19 History fnaqyqkg-qkr-WX-lycopen-lutein 1 tab PO DAILY 04/13/19 04/13/19 History [Centrum Silver Ultra Men's] nitroglycerin [Nitrostat] 0.4 mg SUBLINGUAL UD PRN MDD 3 04/13/19 04/13/19 History doses ondansetron HCl 4 mg PO Q8 PRN 04/13/19 04/13/19 History polyethylene glycol 3350 [Miralax] 17 g PO DAILY PRN 04/13/19 04/13/19 History pyridoxine (vitamin B6) [Vitamin 100 mg PO DAILY 04/13/19 04/13/19 History B-6] repaglinide 2 mg PO TIDM 04/13/19 04/13/19 History Patient History Medical History Diabetes (Acute) CHF (congestive heart failure) (Chronic) Cholelithiasis Chronic ITP (idiopathic thrombocytopenia) Chronic kidney disease Heart attack Interstitial lung disease Surgical History Cardiac defibrillator in place (Chronic) Social History Preferred Language: Tunisian Track Watchman Required: No Beliefs That Will Affect Care: None Current Living Situation: Spouse Other Information That Helps Us Care for You: No Feels Safe at Home: Yes Safety Concerns: Feels Safe At This Time Smoking Status: Never smoker Do You Dip or Chew Tobacco: No Second Hand Exposure: No Tobacco Cessation Education Requested by Patient: No Hx Alcohol Use: No Hx Substance Use: No Review of Systems Review of Systems: Unobtainable due to endotracheal tube Physical Exam Physical Exam: General exam: Intubated, opens eyes to pain appears comfor table, no acute distress HEENT: Pupils are equal and reactive to light Neck: No JVD, neck is supple trachea is midline Respiratory system: Crackles bilaterally. Gastrointestinal: Abdomen is soft, non distended, non tender, bowel sounds are present CVS: Regular rate and rhythm. No murmurs, rubs or gallops Musculoskeletal: No joint or muscle tenderness Extremities: Non tender, no edema, peripheral pulses are present Neuro: Intubated, no tremors Skin: No rashes Results & Data Vital Signs (Past 12 Hours) Vital Signs Temp Pulse Pulse Resp BP BP BP 04/13/19 10:00 101 H 04/13/19 09:30 105 H 04/13/19 09:00 102 H 104/51 L 04/13/19 08:30 98 H 04/13/19 08:25 26 H 04/13/19 08:00 97 H 105/51 L 04/13/19 07:30 96 H 04/13/19 07:00 94 H 111/54 L 04/13/19 06:03 26 H 04/13/19 06:00 34.3 C L 93 H 27 H 100/53 L 04/13/19 05:15 34 C L 92 H 26 H 106/52 L 04/13/19 05:00 34 C L 79 26 H 102/47 L 04/13/19 04:51 92 H 04/13/19 04:46 92 H 26 H 04/13/19 04:15 94 H 100/47 L 04/13/19 04:07 100 H 26 H 04/13/19 04:01 96 H 04/13/19 04:00 88 122/55 L 04/13/19 03:46 89 04/13/19 03:45 89 110/55 L 04/13/19 03:32 88 04/13/19 03:30 89 118/49 L 04/13/19 03:16 58 L 04/13/19 03:15 58 L 101/48 L 04/13/19 03:10 34 C L 04/13/19 03:01 58 L 04/13/19 03:00 58 L 108/50 L 04/13/19 02:50 58 L 118/51 L 04/13/19 02:46 18 04/13/19 02:45 58 L 04/13/19 02:43 04/13/19 02:15 93 H 141/67 H 04/13/19 02:10 94 H 151/74 H 04/13/19 02:06 94 H 04/13/19 02:05 94 H 151/75 H 04/13/19 02:01 94 H 04/13/19 02:00 95 H 152/83 H 04/13/19 01:56 94 H 04/13/19 01:55 95 H 154/75 H 04/13/19 01:51 95 H 04/13/19 01:50 96 H 154/77 H 04/13/19 01:46 95 H 04/13/19 01:45 96 H 154/78 H 04/13/19 01:41 95 H 04/13/19 01:40 96 H 154/77 H 04/13/19 01:36 95 H 04/13/19 01:35 96 H 153/77 H 04/13/19 01:33 95 H 152/75 H 04/13/19 01:30 95 H 04/13/19 01:25 95 H 04/13/19 01:20 95 H 04/13/19 01:15 94 H 04/13/19 01:10 04/13/19 01:06 96 H 18 04/13/19 01:05 96 H 17 100/54 L 04/13/19 01:00 201 H 25 H 04/13/19 00:57 04/13/19 00:45 103 H 17 04/13/19 00:40 86 28 H 04/13/19 00:37 89 27 H 111/52 L 04/13/19 00:35 87 28 H 04/13/19 00:31 94 H 30 H 125/62 04/13/19 00:30 95 H 28 H 04/13/19 00:25 87 27 H 04/13/19 00:20 90 27 H 04/13/19 00:15 88 26 H 04/13/19 00:10 90 27 H 04/13/19 00:05 88 27 H 04/13/19 00:02 88 27 H 119/66 04/13/19 00:00 90 28 H 04/12/19 23:55 82 26 H 04/12/19 23:51 91 H 40 H 110/65 04/12/19 23:50 98 H 28 H 04/12/19 23:45 86 25 H 04/12/19 23:42 98 H 25 H 110/65 04/12/19 23:40 99 H 22 04/12/19 23:35 87 27 H 04/12/19 23:31 87 25 H 127/78 04/12/19 23:30 89 26 H 04/12/19 23:25 87 26 H 04/12/19 23:20 87 26 H 04/12/19 23:15 90 26 H 04/12/19 23:10 88 26 H 04/12/19 23:05 91 H 27 H 04/12/19 23:03 91 H 25 H 04/12/19 23:00 90 25 H 140/86 04/12/19 22:54 34.4 C L 88 45 H 121/68 BP Pulse Ox 04/13/19 10:00 100 04/13/19 09:30 96 04/13/19 09:00 96 04/13/19 08:30 95 04/13/19 08:25 100 04/13/19 08:00 97 04/13/19 07:30 97 04/13/19 07:00 100 04/13/19 06:03 04/13/19 06:00 127/56 L 100 04/13/19 05:15 100 04/13/19 05:00 136/69 100 04/13/19 04:51 04/13/19 04:46 100 04/13/19 04:15 100 04/13/19 04:07 100 04/13/19 04:01 100 04/13/19 04:00 100 04/13/19 03:46 100 04/13/19 03:45 100 04/13/19 03:32 100 04/13/19 03:30 100 04/13/19 03:16 100 04/13/19 03:15 100 04/13/19 03:10 04/13/19 03:01 100 04/13/19 03:00 100 04/13/19 02:50 100 04/13/19 02:46 04/13/19 02:45 100 04/13/19 02:43 100 04/13/19 02:15 100 04/13/19 02:10 100 04/13/19 02:06 100 04/13/19 02:05 100 04/13/19 02:01 100 04/13/19 02:00 100 04/13/19 01:56 100 04/13/19 01:55 100 04/13/19 01:51 100 04/13/19 01:50 100 04/13/19 01:46 100 04/13/19 01:45 100 04/13/19 01:41 100 04/13/19 01:40 100 04/13/19 01:36 100 04/13/19 01:35 100 04/13/19 01:33 04/13/19 01:30 04/13/19 01:25 100 04/13/19 01:20 100 04/13/19 01:15 100 04/13/19 01:10 100 04/13/19 01:06 100 04/13/19 01:05 100 04/13/19 01:00 100 04/13/19 00:57 100 04/13/19 00:45 100 04/13/19 00:40 99 04/13/19 00:37 100 04/13/19 00:35 100 04/13/19 00:31 100 04/13/19 00:30 96 04/13/19 00:25 100 04/13/19 00:20 100 04/13/19 00:15 100 04/13/19 00:10 100 04/13/19 00:05 100 04/13/19 00:02 100 04/13/19 00:00 90 04/12/19 23:55 98 04/12/19 23:51 100 04/12/19 23:50 99 04/12/19 23:45 100 04/12/19 23:42 100 04/12/19 23:40 04/12/19 23:35 100 04/12/19 23:31 100 04/12/19 23:30 100 04/12/19 23:25 100 04/12/19 23:20 100 04/12/19 23:15 100 04/12/19 23:10 98 04/12/19 23:05 04/12/19 23:03 04/12/19 23:00 100 04/12/19 22:54 98 Laboratory Results Laboratory Results - last 24 hr 04/12/19 04/12/19 04/12/19 23:11 23:11 23:11 WBC 20.56 H RBC 3.28 L Hgb 9.9 L Hct 29.5 L MCV 89.9 MCH 30.2 MCHC 33.6 RDW Std Deviation 54.8 H RDW Coeff of Julissa 16.8 H Plt Count 137 MPV 11.3 H Immature Gran % (Auto) 4.8 Neut % (Auto) 90.7 Lymph % (Auto) 3.6 Knox % (Auto) 0.5 Eos % (Auto) 0.2 Baso % (Auto) 0.2 Reticulocyte % (Auto) Immature Gran # (Auto) 0.99 H Neut # (Auto) 18.65 H Lymph # (Auto) 0.73 L Knox # (Auto) 0.10 L Eos # (Auto) 0.05 Baso # (Auto) 0.04 Reticulocyte # Platelet Estimate Decreased L Polychromasia Echinocytes 1+ PT 11.9 INR 1.2 H APTT 43.9 H PTT Ratio 1.6 Sample Site POC pH POC pCO2 POC pO2 POC HCO3 POC Total CO2 POC Base Excess ABG pH ABG pCO2 ABG pO2 ABG HCO3 POC ABG O2 Sat ABG O2 Saturation ABG Base Excess Landry Test Barometric Pressure Oxygen Given O2 Delivery Device POC O2 Rate Minute Ventilation POC FiO2 Tidal Volume PEEP Sodium 143 Potassium 5.4 H Chloride 114 H Carbon Dioxide < 5 L* Anion Gap 25.0 H BUN 137 H Creatinine 10.10 H* Est Cr Clr Drug Dosing Not Reportable Est GFR ( Amer) 4.8 Est GFR (Non-Af Amer) 4.2 BUN/Creatinine Ratio 13.5 Glucose 181 H POC Glucose Estimat Average Glucose Hemoglobin A1c Lactate Calcium 8.1 L Phosphorus Magnesium 1.8 Iron TIBC Transferrin Ferritin Total Bilirubin 0.3 AST 34 ALT 59 Alkaline Phosphatase 97 Ammonia Total Creatine Kinase Troponin I Total Protein 8.3 H Albumin 3.2 L Globulin 5.1 H Albumin/Globulin Ratio 0.6 L Vitamin B12 Folate Beta-Hydroxybutyric Acd Procalcitonin TSH 6.130 H Free T4 Total T3 Random Cortisol Urine Color Urine Appearance Urine pH Ur Specific Daphne Urine Protein Urine Glucose (UA) Urine Ketones Urine Blood Urine Nitrite Urine Bilirubin Urine Urobilinogen Ur Leukocyte Esterase Urine WBC (Auto) Urine RBC (Auto) U Hyaline Cast (Auto) U Epithel Cells (Auto) Urine Bacteria (Auto) Ur Renal Epithelial Cell Granular Casts Urine Yeast Nasal Screen MRSA (PCR) Salicylates Urine Opiates Screen Ur Methadone, Qual Acetaminophen Urine Barbiturates Ur Phencyclidine (PCP) U Amphetamin/Meth Scrn MDMA (Ecstasy) Screen U Benzodiazepines Scrn Ur Cocaine Metabolite U Marijuana (THC) Screen Hep Bs Antigen Hep Bs Antibody Hep Bs Antibody, Quant Hep B Core IgM Ab Blood Type Antibody Screen 04/12/19 04/12/19 04/12/19 23:11 23:11 23:36 WBC RBC Hgb Hct MCV MCH MCHC RDW Std Deviation RDW Coeff of Julissa Plt Count MPV Immature Gran % (Auto) Neut % (Auto) Lymph % (Auto) Knox % (Auto) Eos % (Auto) Baso % (Auto) Reticulocyte % (Auto) Immature Gran # (Auto) Neut # (Auto) Lymph # (Auto) Knox # (Auto) Eos # (Auto) Baso # (Auto) Reticulocyte # Platelet Estimate Polychromasia Echinocytes PT INR APTT PTT Ratio Sample Site POC pH POC pCO2 POC pO2 POC HCO3 POC Total CO2 POC Base Excess ABG pH 6.94 L* ABG pCO2 12 L ABG pO2 192 H ABG HCO3 2 L POC ABG O2 Sat ABG O2 Saturation 98.4 H ABG Base Excess -28.0 L Landry Test Pos Barometric Pressure 731.6 Oxygen Given RA O2 Delivery Device POC O2 Rate Minute Ventilation POC FiO2 Tidal Volume PEEP Sodium Potassium Chloride Carbon Dioxide Anion Gap BUN Creatinine Est Cr Clr Drug Dosing Est GFR ( Amer) Est GFR (Non-Af Amer) BUN/Creatinine Ratio Glucose POC Glucose Estimat Average Glucose Pending Hemoglobin A1c Pending Lactate Calcium Phosphorus Magnesium Iron TIBC Transferrin Ferritin Total Bilirubin AST ALT Alkaline Phosphatase Ammonia Total Creatine Kinase Troponin I Total Protein Albumin Globulin Albumin/Globulin Ratio Vitamin B12 Folate Beta-Hydroxybutyric Acd Procalcitonin 0.50 TSH Free T4 Total T3 Random Cortisol Urine Color Urine Appearance Urine pH Ur Specific Daphne Urine Protein Urine Glucose (UA) Urine Ketones Urine Blood Urine Nitrite Urine Bilirubin Urine Urobilinogen Ur Leukocyte Esterase Urine WBC (Auto) Urine RBC (Auto) U Hyaline Cast (Auto) U Epithel Cells (Auto) Urine Bacteria (Auto) Ur Renal Epithelial Cell Granular Casts Urine Yeast Nasal Screen MRSA (PCR) Salicylates Urine Opiates Screen Ur Methadone, Qual Acetaminophen Urine Barbiturates Ur Phencyclidine (PCP) U Amphetamin/Meth Scrn MDMA (Ecstasy) Screen U Benzodiazepines Scrn Ur Cocaine Metabolite U Marijuana (THC) Screen Hep Bs Antigen Hep Bs Antibody Hep Bs Antibody, Quant Hep B Core IgM Ab Blood Type Antibody Screen 04/13/19 04/13/19 04/13/19 01:20 01:20 02:15 WBC RBC Hgb Hct MCV MCH MCHC RDW Std Deviation RDW Coeff of Julissa Plt Count MPV Immature Gran % (Auto) Neut % (Auto) Lymph % (Auto) Knox % (Auto) Eos % (Auto) Baso % (Auto) Reticulocyte % (Auto) Immature Gran # (Auto) Neut # (Auto) Lymph # (Auto) Knox # (Auto) Eos # (Auto) Baso # (Auto) Reticulocyte # Platelet Estimate Polychromasia Echinocytes PT INR APTT PTT Ratio Sample Site POC pH POC pCO2 POC pO2 POC HCO3 POC Total CO2 POC Base Excess ABG pH ABG pCO2 ABG pO2 ABG HCO3 POC ABG O2 Sat ABG O2 Saturation ABG Base Excess Landry Test Barometric Pressure Oxygen Given O2 Delivery Device POC O2 Rate Minute Ventilation POC FiO2 Tidal Volume PEEP Sodium Potassium Chloride Carbon Dioxide Anion Gap BUN Creatinine Est Cr Clr Drug Dosing Est GFR ( Amer) Est GFR (Non-Af Amer) BUN/Creatinine Ratio Glucose POC Glucose Estimat Average Glucose Hemoglobin A1c Lactate 5.7 H* Calcium Phosphorus Magnesium Iron TIBC Transferrin Ferritin Total Bilirubin AST ALT Alkaline Phosphatase Ammonia Total Creatine Kinase Troponin I Total Protein Albumin Globulin Albumin/Globulin Ratio Vitamin B12 Folate Beta-Hydroxybutyric Acd Procalcitonin TSH Free T4 Total T3 Random Cortisol Urine Color Yellow Urine Appearance Turbid A Urine pH 5.0 Ur Specific Daphne 1.022 Urine Protein 3+ H Urine Glucose (UA) Trace H Urine Ketones Negative Urine Blood 3+ H Urine Nitrite Negative Urine Bilirubin Negative Urine Urobilinogen Negative Ur Leukocyte Esterase 2+ H Urine WBC (Auto) >30 H Urine RBC (Auto) >30 H U Hyaline Cast (Auto) 10-30 H U Epithel Cells (Auto) >30 H Urine Bacteria (Auto) Negative Ur Renal Epithelial Cell Not Reportable Granular Casts 10-20 H Urine Yeast Not Reportable Nasal Screen MRSA (PCR) Salicylates Urine Opiates Screen Neg Ur Methadone, Qual Neg Acetaminophen Urine Barbiturates Neg Ur Phencyclidine (PCP) Neg U Amphetamin/Meth Scrn Neg MDMA (Ecstasy) Screen Neg U Benzodiazepines Scrn Neg Ur Cocaine Metabolite Neg U Marijuana (THC) Screen Neg Hep Bs Antigen Hep Bs Antibody Hep Bs Antibody, Quant Hep B Core IgM Ab Blood Type Antibody Screen 04/13/19 04/13/19 04/13/19 02:15 02:15 02:15 WBC RBC Hgb Hct MCV MCH MCHC RDW Std Deviation RDW Coeff of Julissa Plt Count MPV Immature Gran % (Auto) Neut % (Auto) Lymph % (Auto) Knox % (Auto) Eos % (Auto) Baso % (Auto) Reticulocyte % (Auto) Immature Gran # (Auto) Neut # (Auto) Lymph # (Auto) Knox # (Auto) Eos # (Auto) Baso # (Auto) Reticulocyte # Platelet Estimate Polychromasia Echinocytes PT INR APTT PTT Ratio Sample Site POC pH POC pCO2 POC pO2 POC HCO3 POC Total CO2 POC Base Excess ABG pH ABG pCO2 ABG pO2 ABG HCO3 POC ABG O2 Sat ABG O2 Saturation ABG Base Excess Landry Test Barometric Pressure Oxygen Given O2 Delivery Device POC O2 Rate Minute Ventilation POC FiO2 Tidal Volume PEEP Sodium Potassium Chloride Carbon Dioxide Anion Gap BUN Creatinine Est Cr Clr Drug Dosing Est GFR ( Amer) Est GFR (Non-Af Amer) BUN/Creatinine Ratio Glucose POC Glucose Estimat Average Glucose Hemoglobin A1c Lactate Calcium Phosphorus Magnesium Iron TIBC Transferrin Ferritin Total Bilirubin AST ALT Alkaline Phosphatase Ammonia 57.0 H Total Creatine Kinase Troponin I Total Protein Albumin Globulin Albumin/Globulin Ratio Vitamin B12 Folate Beta-Hydroxybutyric Acd Procalcitonin TSH Free T4 Total T3 Random Cortisol Urine Color Urine Appearance Urine pH Ur Specific Daphne Urine Protein Urine Glucose (UA) Urine Ketones Urine Blood Urine Nitrite Urine Bilirubin Urine Urobilinogen Ur Leukocyte Esterase Urine WBC (Auto) Urine RBC (Auto) U Hyaline Cast (Auto) U Epithel Cells (Auto) Urine Bacteria (Auto) Ur Renal Epithelial Cell Granular Casts Urine Yeast Nasal Screen MRSA (PCR) Salicylates 2.9 Urine Opiates Screen Ur Methadone, Qual Acetaminophen 7 L Urine Barbiturates Ur Phencyclidine (PCP) U Amphetamin/Meth Scrn MDMA (Ecstasy) Screen U Benzodiazepines Scrn Ur Cocaine Metabolite U Marijuana (THC) Screen Hep Bs Antigen Hep Bs Antibody Hep Bs Antibody, Quant Hep B Core IgM Ab Blood Type A Positive Antibody Screen NEGATIVE 04/13/19 04/13/19 04/13/19 02:15 02:15 05:30 WBC RBC Hgb Hct MCV MCH MCHC RDW Std Deviation RDW Coeff of Julissa Plt Count MPV Immature Gran % (Auto) Neut % (Auto) Lymph % (Auto) Knox % (Auto) Eos % (Auto) Baso % (Auto) Reticulocyte % (Auto) Immature Gran # (Auto) Neut # (Auto) Lymph # (Auto) Knox # (Auto) Eos # (Auto) Baso # (Auto) Reticulocyte # Platelet Estimate Polychromasia Echinocytes PT INR APTT PTT Ratio Sample Site POC pH POC pCO2 POC pO2 POC HCO3 POC Total CO2 POC Base Excess ABG pH ABG pCO2 ABG pO2 ABG HCO3 POC ABG O2 Sat ABG O2 Saturation ABG Base Excess Landry Test Barometric Pressure Oxygen Given O2 Delivery Device POC O2 Rate Minute Ventilation POC FiO2 Tidal Volume PEEP Sodium 144 Potassium 5.2 H Chloride 114 H Carbon Dioxide 5 L* Anion Gap 25.0 H BUN 138 H Creatinine 9.88 H* Est Cr Clr Drug Dosing 6.0 Est GFR ( Amer) 5.0 Est GFR (Non-Af Amer) 4.3 BUN/Creatinine Ratio 14.0 Glucose 200 H POC Glucose Estimat Average Glucose Hemoglobin A1c Lactate Calcium 7.8 L Phosphorus Magnesium Iron TIBC Transferrin Ferritin Total Bilirubin AST ALT Alkaline Phosphatase Ammonia Total Creatine Kinase 381 H Troponin I 0.576 H* Total Protein Albumin Globulin Albumin/Globulin Ratio Vitamin B12 Folate Beta-Hydroxybutyric Acd Procalcitonin TSH Free T4 0.58 L Total T3 0.20 L Random Cortisol 100.07 Urine Color Urine Appearance Urine pH Ur Specific Daphne Urine Protein Urine Glucose (UA) Urine Ketones Urine Blood Urine Nitrite Urine Bilirubin Urine Urobilinogen Ur Leukocyte Esterase Urine WBC (Auto) Urine RBC (Auto) U Hyaline Cast (Auto) U Epithel Cells (Auto) Urine Bacteria (Auto) Ur Renal Epithelial Cell Granular Casts Urine Yeast Nasal Screen MRSA (PCR) Negative Salicylates Urine Opiates Screen Ur Methadone, Qual Acetaminophen Urine Barbiturates Ur Phencyclidine (PCP) U Amphetamin/Meth Scrn MDMA (Ecstasy) Screen U Benzodiazepines Scrn Ur Cocaine Metabolite U Marijuana (THC) Screen Hep Bs Antigen Hep Bs Antibody Hep Bs Antibody, Quant Hep B Core IgM Ab Blood Type Antibody Screen 04/13/19 04/13/19 04/13/19 05:42 05:42 05:42 WBC 18.92 H RBC 2.88 L Hgb 8.9 L Hct 26.4 L MCV 91.7 MCH 30.9 MCHC 33.7 RDW Std Deviation 55.3 H RDW Coeff of Julissa 16.7 H Plt Count 135 MPV 11.1 H Immature Gran % (Auto) 2.8 Neut % (Auto) 93.4 Lymph % (Auto) 2.6 Knox % (Auto) 1.0 Eos % (Auto) 0.0 Baso % (Auto) 0.2 Reticulocyte % (Auto) 2.1 H Immature Gran # (Auto) 0.53 H Neut # (Auto) 17.68 H Lymph # (Auto) 0.50 L Knox # (Auto) 0.18 Eos # (Auto) 0.00 Baso # (Auto) 0.03 Reticulocyte # 0.06 Platelet Estimate Polychromasia 1+ Echinocytes 2+ PT INR APTT PTT Ratio Sample Site POC pH POC pCO2 POC pO2 POC HCO3 POC Total CO2 POC Base Excess ABG pH ABG pCO2 ABG pO2 ABG HCO3 POC ABG O2 Sat ABG O2 Saturation ABG Base Excess Landry Test Barometric Pressure Oxygen Given O2 Delivery Device POC O2 Rate Minute Ventilation POC FiO2 Tidal Volume PEEP Sodium 146 H Potassium 4.5 Chloride 112 H Carbon Dioxide 5 L* Anion Gap 29.0 H BUN 139 H Creatinine 9.66 H* Est Cr Clr Drug Dosing 6.1 Est GFR ( Amer) 5.1 Est GFR (Non-Af Amer) 4.4 BUN/Creatinine Ratio 14.4 Glucose 304 H* POC Glucose Estimat Average Glucose Hemoglobin A1c Lactate Calcium 7.3 L Phosphorus 14.2 H Magnesium 1.8 Iron 137 TIBC 78 L Transferrin 108 L Ferritin 569.5 H Total Bilirubin AST ALT Alkaline Phosphatase Ammonia 100.0 H Total Creatine Kinase Troponin I Total Protein Albumin Globulin Albumin/Globulin Ratio Vitamin B12 Folate Beta-Hydroxybutyric Acd 27.11 H Procalcitonin TSH Free T4 Total T3 Random Cortisol Urine Color Urine Appearance Urine pH Ur Specific Daphne Urine Protein Urine Glucose (UA) Urine Ketones Urine Blood Urine Nitrite Urine Bilirubin Urine Urobilinogen Ur Leukocyte Esterase Urine WBC (Auto) Urine RBC (Auto) U Hyaline Cast (Auto) U Epithel Cells (Auto) Urine Bacteria (Auto) Ur Renal Epithelial Cell Granular Casts Urine Yeast Nasal Screen MRSA (PCR) Salicylates Urine Opiates Screen Ur Methadone, Qual Acetaminophen Urine Barbiturates Ur Phencyclidine (PCP) U Amphetamin/Meth Scrn MDMA (Ecstasy) Screen U Benzodiazepines Scrn Ur Cocaine Metabolite U Marijuana (THC) Screen Hep Bs Antigen Hep Bs Antibody Hep Bs Antibody, Quant Hep B Core IgM Ab Blood Type Antibody Screen 04/13/19 04/13/19 04/13/19 05:42 05:42 05:48 WBC RBC Hgb Hct MCV MCH MCHC RDW Std Deviation RDW Coeff of Julissa Plt Count MPV Immature Gran % (Auto) Neut % (Auto) Lymph % (Auto) Knox % (Auto) Eos % (Auto) Baso % (Auto) Reticulocyte % (Auto) Immature Gran # (Auto) Neut # (Auto) Lymph # (Auto) Knox # (Auto) Eos # (Auto) Baso # (Auto) Reticulocyte # Platelet Estimate Polychromasia Echinocytes PT INR APTT PTT Ratio Sample Site Art Line POC pH 6.93 L* POC pCO2 22 L POC pO2 195 H POC HCO3 5 L POC Total CO2 < 5 L* POC Base Excess -28.0 L ABG pH ABG pCO2 ABG pO2 ABG HCO3 POC ABG O2 Sat 99.0 H ABG O2 Saturation ABG Base Excess Landry Test NA Barometric Pressure Oxygen Given O2 Delivery Device Ventilator POC O2 Rate 26 Minute Ventilation 15.4 POC FiO2 30 Tidal Volume 600 PEEP 5 Sodium Potassium Chloride Carbon Dioxide Anion Gap BUN Creatinine Est Cr Clr Drug Dosing Est GFR ( Amer) Est GFR (Non-Af Amer) BUN/Creatinine Ratio Glucose POC Glucose Estimat Average Glucose Hemoglobin A1c Lactate 8.5 H* Calcium Phosphorus Magnesium Iron TIBC Transferrin Ferritin Total Bilirubin AST ALT Alkaline Phosphatase Ammonia Total Creatine Kinase Troponin I Total Protein Albumin Globulin Albumin/Globulin Ratio Vitamin B12 > 2000 H Folate > 24.00 Beta-Hydroxybutyric Acd Procalcitonin TSH Free T4 Total T3 Random Cortisol Urine Color Urine Appearance Urine pH Ur Specific Daphne Urine Protein Urine Glucose (UA) Urine Ketones Urine Blood Urine Nitrite Urine Bilirubin Urine Urobilinogen Ur Leukocyte Esterase Urine WBC (Auto) Urine RBC (Auto) U Hyaline Cast (Auto) U Epithel Cells (Auto) Urine Bacteria (Auto) Ur Renal Epithelial Cell Granular Casts Urine Yeast Nasal Screen MRSA (PCR) Salicylates Urine Opiates Screen Ur Methadone, Qual Acetaminophen Urine Barbiturates Ur Phencyclidine (PCP) U Amphetamin/Meth Scrn MDMA (Ecstasy) Screen U Benzodiazepines Scrn Ur Cocaine Metabolite U Marijuana (THC) Screen Hep Bs Antigen Hep Bs Antibody Hep Bs Antibody, Quant Hep B Core IgM Ab Blood Type Antibody Screen 04/13/19 04/13/19 04/13/19 05:55 08:02 08:03 WBC RBC Hgb Hct MCV MCH MCHC RDW Std Deviation RDW Coeff of Julissa Plt Count MPV Immature Gran % (Auto) Neut % (Auto) Lymph % (Auto) Knox % (Auto) Eos % (Auto) Baso % (Auto) Reticulocyte % (Auto) Immature Gran # (Auto) Neut # (Auto) Lymph # (Auto) Knox # (Auto) Eos # (Auto) Baso # (Auto) Reticulocyte # Platelet Estimate Polychromasia Echinocytes PT INR APTT PTT Ratio Sample Site POC pH POC pCO2 POC pO2 POC HCO3 POC Total CO2 POC Base Excess ABG pH ABG pCO2 ABG pO2 ABG HCO3 POC ABG O2 Sat ABG O2 Saturation ABG Base Excess Landry Test Barometric Pressure Oxygen Given O2 Delivery Device POC O2 Rate Minute Ventilation POC FiO2 Tidal Volume PEEP Sodium Potassium Chloride Carbon Dioxide Anion Gap BUN Creatinine Est Cr Clr Drug Dosing Est GFR ( Amer) Est GFR (Non-Af Amer) BUN/Creatinine Ratio Glucose POC Glucose 281 H 352 H* 370 H* Estimat Average Glucose Hemoglobin A1c Lactate Calcium Phosphorus Magnesium Iron TIBC Transferrin Ferritin Total Bilirubin AST ALT Alkaline Phosphatase Ammonia Total Creatine Kinase Troponin I Total Protein Albumin Globulin Albumin/Globulin Ratio Vitamin B12 Folate Beta-Hydroxybutyric Acd Procalcitonin TSH Free T4 Total T3 Random Cortisol Urine Color Urine Appearance Urine pH Ur Specific Daphne Urine Protein Urine Glucose (UA) Urine Ketones Urine Blood Urine Nitrite Urine Bilirubin Urine Urobilinogen Ur Leukocyte Esterase Urine WBC (Auto) Urine RBC (Auto) U Hyaline Cast (Auto) U Epithel Cells (Auto) Urine Bacteria (Auto) Ur Renal Epithelial Cell Granular Casts Urine Yeast Nasal Screen MRSA (PCR) Salicylates Urine Opiates Screen Ur Methadone, Qual Acetaminophen Urine Barbiturates Ur Phencyclidine (PCP) U Amphetamin/Meth Scrn MDMA (Ecstasy) Screen U Benzodiazepines Scrn Ur Cocaine Metabolite U Marijuana (THC) Screen Hep Bs Antigen Hep Bs Antibody Hep Bs Antibody, Quant Hep B Core IgM Ab Blood Type Antibody Screen 04/13/19 04/13/19 04/13/19 09:50 09:52 09:55 WBC RBC Hgb Hct MCV MCH MCHC RDW Std Deviation RDW Coeff of Julissa Plt Count MPV Immature Gran % (Auto) Neut % (Auto) Lymph % (Auto) Knox % (Auto) Eos % (Auto) Baso % (Auto) Reticulocyte % (Auto) Immature Gran # (Auto) Neut # (Auto) Lymph # (Auto) Knox # (Auto) Eos # (Auto) Baso # (Auto) Reticulocyte # Platelet Estimate Polychromasia Echinocytes PT INR APTT PTT Ratio Sample Site Art Line POC pH 7.04 L* POC pCO2 21 L POC pO2 179 H POC HCO3 6 L POC Total CO2 6 L* POC Base Excess -25.0 L ABG pH ABG pCO2 ABG pO2 ABG HCO3 POC ABG O2 Sat 99.0 H ABG O2 Saturation ABG Base Excess Landry Test NA Barometric Pressure Oxygen Given O2 Delivery Device Ventilator POC O2 Rate 26 Minute Ventilation 17 POC FiO2 30 Tidal Volume 550 PEEP 5 Sodium Pending Potassium Pending Chloride Pending Carbon Dioxide Pending Anion Gap Pending BUN Pending Creatinine Pending Est Cr Clr Drug Dosing Pending Est GFR ( Amer) Pending Est GFR (Non-Af Amer) Pending BUN/Creatinine Ratio Pending Glucose Pending POC Glucose 409 H* Estimat Average Glucose Hemoglobin A1c Lactate Calcium Pending Phosphorus Pending Magnesium Pending Iron TIBC Transferrin Ferritin Total Bilirubin AST ALT Alkaline Phosphatase Ammonia Total Creatine Kinase Troponin I Total Protein Albumin Globulin Albumin/Globulin Ratio Vitamin B12 Folate Beta-Hydroxybutyric Acd Procalcitonin TSH Free T4 Total T3 Random Cortisol Urine Color Urine Appearance Urine pH Ur Specific Daphne Urine Protein Urine Glucose (UA) Urine Ketones Urine Blood Urine Nitrite Urine Bilirubin Urine Urobilinogen Ur Leukocyte Esterase Urine WBC (Auto) Urine RBC (Auto) U Hyaline Cast (Auto) U Epithel Cells (Auto) Urine Bacteria (Auto) Ur Renal Epithelial Cell Granular Casts Urine Yeast Nasal Screen MRSA (PCR) Salicylates Urine Opiates Screen Ur Methadone, Qual Acetaminophen Urine Barbiturates Ur Phencyclidine (PCP) U Amphetamin/Meth Scrn MDMA (Ecstasy) Screen U Benzodiazepines Scrn Ur Cocaine Metabolite U Marijuana (THC) Screen Hep Bs Antigen Hep Bs Antibody Hep Bs Antibody, Quant Hep B Core IgM Ab Blood Type Antibody Screen 04/13/19 04/13/19 04/13/19 09:55 09:55 09:55 WBC RBC Hgb Hct MCV MCH MCHC RDW Std Deviation RDW Coeff of Julissa Plt Count MPV Immature Gran % (Auto) Neut % (Auto) Lymph % (Auto) Knox % (Auto) Eos % (Auto) Baso % (Auto) Reticulocyte % (Auto) Immature Gran # (Auto) Neut # (Auto) Lymph # (Auto) Knox # (Auto) Eos # (Auto) Baso # (Auto) Reticulocyte # Platelet Estimate Polychromasia Echinocytes PT INR APTT PTT Ratio Sample Site POC pH POC pCO2 POC pO2 POC HCO3 POC Total CO2 POC Base Excess ABG pH ABG pCO2 ABG pO2 ABG HCO3 POC ABG O2 Sat ABG O2 Saturation ABG Base Excess Landry Test Barometric Pressure Oxygen Given O2 Delivery Device POC O2 Rate Minute Ventilation POC FiO2 Tidal Volume PEEP Sodium Potassium Chloride Carbon Dioxide Anion Gap BUN Creatinine Est Cr Clr Drug Dosing Est GFR ( Amer) Est GFR (Non-Af Amer) BUN/Creatinine Ratio Glucose POC Glucose Estimat Average Glucose Hemoglobin A1c Lactate Calcium Phosphorus Magnesium Iron TIBC Transferrin Ferritin Total Bilirubin AST ALT Alkaline Phosphatase Ammonia Total Creatine Kinase Troponin I Pending Total Protein Albumin Globulin Albumin/Globulin Ratio Vitamin B12 Folate Beta-Hydroxybutyric Acd Procalcitonin TSH Free T4 Total T3 Random Cortisol Urine Color Urine Appearance Urine pH Ur Specific Daphne Urine Protein Urine Glucose (UA) Urine Ketones Urine Blood Urine Nitrite Urine Bilirubin Urine Urobilinogen Ur Leukocyte Esterase Urine WBC (Auto) Urine RBC (Auto) U Hyaline Cast (Auto) U Epithel Cells (Auto) Urine Bacteria (Auto) Ur Renal Epithelial Cell Granular Casts Urine Yeast Nasal Screen MRSA (PCR) Salicylates Urine Opiates Screen Ur Methadone, Qual Acetaminophen Urine Barbiturates Ur Phencyclidine (PCP) U Amphetamin/Meth Scrn MDMA (Ecstasy) Screen U Benzodiazepines Scrn Ur Cocaine Metabolite U Marijuana (THC) Screen Hep Bs Antigen Pending Hep Bs Antibody Pending Hep Bs Antibody, Quant Pending Hep B Core IgM Ab Pending Blood Type Antibody Screen (1) Acute renal failure Acute renal failure type: unspecified Qualified Code(s): N17.9 - Acute kidney failure, unspecified
[2019-04-13 10:44] LABS: Hepatitis B Surface Antibody Non-Immune
[2019-04-13] MEDS ORDERED: ETOMIDATE 2 MG/ML 20 ML VIAL IV ONE (10:54)
[2019-04-13] MEDS ORDERED: ROCURONIUM BROMIDE 10 MG/ML 5 ML VIAL IV ONE (10:54)
[2019-04-13 10:55] LABS: Hepatitis B Surface Antigen Neg (Neg)
[2019-04-13] MEDS: INSULIN ASPART 100 UNITS/ML 3 ML PEN SC SCH ×3 (11:07→21:08)
--- NOTE | 2019-04-13 11:12 | Procedure Note ---
Procedure Note Date of Service April 13, 2019 Note after informed consent using full sterile precautions - cap, mask, gown and gloves. full drape site anesthetized with 1% lidocaine using ultrasound guidance the R IJ identified and using seldinger technique 13 cm triple lumen dialysis catheter was placed good flow in all ports sutured in place and tegaderm placed placement confirmed on CXR Coding CPT Codes Tubes, Drains, and Vasc Access - Tubes, Drains, and Vasc Access: Insertion Of Non-tunneled Catheter Age 4 Yrs> ([id number]) Tubes, Drains, and Vasc Access - Tubes, Drains, and Vasc Access: Ultrasound Guidance For Vascular ([id number])
--- NOTE | 2019-04-13 11:17 | XRay Report ---
XR chest 1V portable HISTORY: 84 years-old Male hemodialysis cathter placement status post placement of a right internal jugular hemodialysis catheter COMPARISON: Chest radiograph and CT chest 04/13/2019 TECHNIQUE: Portable AP view of the chest FINDINGS: Endotracheal tube overlies the midline, 6.5 cm superior to the jim. Enteric tube courses below the diaphragm outside the [id number]. Right internal jugular central venous catheter has been placed with distal tip terminating in the expected location of the proximal SVC. No postprocedural pneumotho rax identified. Left subclavian pacer/AICD is unchanged. Minimal subsegmental bibasilar opacities per sist, better seen on comparison chest CT. Remote fracture of the right clavicle. Degenerative changes of the shoulders and spine. IMPRESSION: 1. Status post placement of a dual lumen right internal jugular hemodialysis catheter, distal tip ter minating in the expected location of the proximal SVC. No postprocedural pneumothorax identified. 2. Persistent subsegmental bibasilar opacities, better seen on comparison chest CT. 3. Satisfactory positioning of endotracheal and enteric tubes. The above report was generated using voice recognition software. It may contain grammatical, syntax o r spelling errors. Electronically signed by: Milton Beck M.D. 04/13/2019 11:16 AM
[2019-04-13 11:20] LABS: BUN Creatinine Ratio 14.3 (10-20); Calcium 7.2 mg/dl (8.5-10.1); Est GFR (African American) 4.9; Est GFR (Non-African American) 4.3; Magnesium 1.7 mg/dl (1.8-2.4); Potassium 4.4 mmol/L (3.5-5.1)
[2019-04-13 11:23] LABS: Phosphorus 13.9 mg/dl (2.5-4.9)
[2019-04-13 11:31] LABS: Beta-Hydroxybutyrate 25.46 mg/dl (0.2-2.81)
--- NOTE | 2019-04-13 11:44 | CT Scan Report ---
CT chest wo con, CT abd pelvis wo con CT DOSE: 2727.07 mGy.cm CLINICAL HISTORY: 84 years-old Male with sepsis w/ ?? source. Acute sepsis. TECHNIQUE: Multiaxial CT images of the chest, abdomen and pelvis were performed without contrast. A dose lowering technique was utilized adhering to the principles of ALARA. COMPARISON: Chest radiograph of same day, CT abdomen and pelvis 04/24/2018 FINDINGS: CT CHEST: No dominant thyroid nodule. Evaluation for adenopathy is limited without the use of IV contrast. Prom inent nonspecific paratracheal and subcarinal lymph nodes are present. Cardiomegaly. Extensive swartz ry arterial calcifications. Left subclavian pacer is noted. No thoracic aortic aneurysm. Endotracheal tube is noted, distal tip terminating above the jim. Enteric tube is noted with distal tip termin ating about the proximal to mid gastric body. Trace left pleural effusion. No pneumothorax. Mild subpleural bleb formation about the lung apices. B ibasilar bronchial wall thickening with mucous plugging and scattered nodular opacities with intralob ular septal thickening. Additional scattered micronodules are seen within the upper lobes measuring u p to 3 mm. Tree-in-bud nodules are also present within the lung bases. These findings appear similar to comparison study from 04/24/2018. Thin-walled cyst of the lingula is unchanged. There is no overt p ulmonary edema. No lobar airspace consolidation compatible with atypical pneumonia. Soft tissues are unremarkable with mild generalized body wall edema. Degenerative changes of the shoulders and spine. Remote fracture about the right clavicle. CT ABDOMEN/PELVIS: There is no pneumatosis or pneumoperitoneum. Evaluation of the solid abdominal organs is limited with out the use of IV contrast. Indeterminate 6 mm hypodense lesion of the hepatic dome, unchanged and li luba benign. Spleen, and pancreas are unremarkable. Mild thickening of the adrenal glands suggests hy perplasia. Cholelithiasis without CT evidence of acute cholecystitis or biliary ductal dilation. Nons pecific bilateral perinephric stranding. Oval cyst of the superior pole right kidney, 12 mm. Slightly increased density about the collecting system of the inferior pole right kidney is noted with possib le 3 mm calculus. No ureteral calculi or obstructive uropathy. Wall thickening of the urinary bladder which is decompressed with Gutierrez catheter. Prostamegaly. Small fat filled bilateral inguinal hernias . Extensive calcification without aneurysm of the aorta. No adenopathy. Enteric tube terminates in the proximal mid gastric lumen. Moderate gaseous distention of the stomach . There is no small bowel obstruction. Mild to moderate volume of formed stool is noted about the rec jostin. Colonic diverticulosis. There is mild fascial thickening noted about the mid descending colon wi th trace pericolonic fluid and minimal stranding adjacent to a diverticulum. Appendix not definitivel y seen. Tiny fat filled periumbilical hernia. Mild generalized body wall edema. Remote lower right-si ded rib fractures. Multilevel facet arthrosis. 30% anterior endplate compression deformity without re tropulsion at T12 with sclerosis is new from 04/24/2018. IMPRESSION: 1. Limited studies without the use of contrast. 2. Bibasilar bronchial wall thickening with mucous plugging is noted in addition to bilateral reticul ar nodular opacities and tree-in-bud nodules suggestive of a nonspecific infectious or inflammatory p neumonitis/bronchiolitis. 3. Equivocal acute cholecystitis about the mid descending colon. Correlate clinically. 4. No bowel obstruction. 5. Suggested mild constipation. 6. Cholelithiasis without CT evidence of acute cholecystitis. 7. 30% anterior plate compression deformity at T12 without retropulsion is age-indeterminate however new from 04/24/2018. Correlate clinically. 8. Additional findings as above. Electronically signed by: Milton Beck M.D. 04/13/2019 11:42 AM
[2019-04-13] MEDS: PIPERACILLIN/TAZOBACTAM 3.375 GM in DEXTROSE 5% 100 ML IV SCH ×2 (12:17→23:10)
[2019-04-13] MEDS ORDERED: NOREPINEPHRINE BIT INJ 8 MG in DEXTROSE 5% 500 ML IV SCH (15:30)
[2019-04-13 17:29] LABS: iSTAT Arterial Blood Gas HCO3 20 meg/L (19-24); iSTAT Arterial Blood Gas pCO2 26 mmHg (35-46); iSTAT Arterial Blood Gas pH 7.51 (7.35-7.45); iSTAT Carbon Dioxide 21 mEq/l (24-31); iSTAT FiO2 30 %; iSTAT Site Art Line
--- NOTE | 2019-04-13 17:39 | Hospitalist Progress Note ---
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 creatinine on admission above 9 Anuric since admission Nephrology on board recommended urgent HD to correct the acidosis Continue monitor BMP (3) SIRS (systemic inflammatory response syndrome): Present on admission with elevated HR, RR, lactic acid and WBC Blood cx and urine cx pending Continue IV zosyn (4) Metabolic acidosis: ABG on admission with pH 6.9 PCO2 12 and HCO3 5 Repeat ABG after HD showed pH 7.5 PCO2 26 and HCO3 20 Adjustment RR setting on the vent Continue monitor (5) Hypovolemia: On Pressor with levophed BP stable (6) Metabolic encephalopathy: Due to severe acidosis and acute respiratory failure CT head showed no acute intracranial abnormality Continue monitor (7) Elevated lactic acid level: Mostly related to severe metabolic acidosis in the setting of acute respiratory failure Follow up blood cx and urine cx Continue IV zosyn for now (8) Elevated troponin: Demand ischemia due to elevated creatinine and acidosis Denies any chest pain EKG showed no acute ischemic changes Continue monitor DVT px on heparin subq Disposition Continue monitor in the ICU Subjective Pt was seen and examined Lying in bed on vent support Open his eyes when called his name Pt just finished emergent HD Physical Exam Physical Exam: General- respiratory distress Head- atraumatic Eyes- PERRL, EOMI, ENT- Intubated Neck- supple, no JVD Lungs- On Mechanical Ventilation Heart- +tachycardia, no murmur Abdomen- normal bowel sounds, soft, nontender Extremities- no calf tenderness Neuro- intubated, eyes open, move extremities Skin- warm & dry Results & Data Vital Signs (Past 12 Hours) Vital Signs Temp Pulse Pulse Resp BP BP BP 04/13/19 16:30 108 H 96/43 L 04/13/19 16:15 108 H 76/45 L 04/13/19 16:00 108 H 128/52 L 04/13/19 15:45 112 H 94/41 L 04/13/19 15:30 107 H 81/40 L 04/13/19 15:15 110 H 94/44 L 04/13/19 15:00 115 H 80/40 L 04/13/19 14:45 109 H 95/45 L 04/13/19 14:30 103 H 121/52 L 04/13/19 14:18 90 139/57 L 04/13/19 14:07 36.9 C 95 H 04/13/19 14:01 91 H 104/66 04/13/19 14:00 91 H 104/66 04/13/19 13:00 89 117/66 04/13/19 12:00 89 109/60 04/13/19 11:38 88 32 H 04/13/19 11:00 104 H 122/61 04/13/19 10:55 94 H 107/63 04/13/19 10:50 94 H 101/54 L 04/13/19 10:45 93 H 104/52 L 04/13/19 10:40 98 H 105/54 L 04/13/19 10:35 88 110/50 L 04/13/19 10:31 104 H 109/55 L 04/13/19 10:30 104 H 04/13/19 10:15 92 H 04/13/19 10:06 93 H 93/46 L 04/13/19 10:00 101 H 04/13/19 09:30 105 H 04/13/19 09:00 102 H 104/51 L 04/13/19 08:30 98 H 04/13/19 08:25 26 H 04/13/19 08:00 97 H 105/51 L 04/13/19 07:30 96 H 04/13/19 07:00 94 H 111/54 L 04/13/19 06:03 26 H 04/13/19 06:00 34.3 C L 93 H 27 H 100/53 L 127/56 L Pulse Ox 04/13/19 16:30 04/13/19 16:15 04/13/19 16:00 04/13/19 15:45 04/13/19 15:30 04/13/19 15:15 04/13/19 15:00 04/13/19 14:45 04/13/19 14:30 04/13/19 14:18 04/13/19 14:07 04/13/19 14:01 99 04/13/19 14:00 100 04/13/19 13:00 100 04/13/19 12:00 100 04/13/19 11:38 100 04/13/19 11:00 100 04/13/19 10:55 100 04/13/19 10:50 100 04/13/19 10:45 91 04/13/19 10:40 93 04/13/19 10:35 89 L 04/13/19 10:31 92 04/13/19 10:30 92 04/13/19 10:15 100 04/13/19 10:06 100 04/13/19 10:00 100 04/13/19 09:30 96 04/13/19 09:00 96 04/13/19 08:30 95 04/13/19 08:25 100 04/13/19 08:00 97 04/13/19 07:30 97 04/13/19 07:00 100 04/13/19 06:03 04/13/19 06:00 100 (1) Acute renal failure Acute renal failure type: unspecified Qualified Code(s): N17.9 - Acute kidney failure, unspecified
[2019-04-13 18:02] LABS: BUN Creatinine Ratio 14.7 (10-20); Calcium 7.2 mg/dl (8.5-10.1); Creatinine Clr Calc Pharmacy 10.2 ml/min; Est GFR (African American) 9.5; Est GFR (Non-African American) 8.2; Magnesium 1.5 mg/dl (1.8-2.4)
[2019-04-13 18:11] LABS: Hematocrit (blood only) 22.5 % (42-52); Hemoglobin 8.1 g/dL (14.0-18.0); Mean Corpuscular Volume 84.9 fL (80-100); Mean Platelet Volume 10.6 fL (7.4-10.4); Platelet Count 134 K/uL (130-400); Red Blood Count 2.65 M/uL (4.7-6.1); White Blood Count 24.24 K/uL (4.8-10.8)
[2019-04-13 18:13] LABS: Basophils # (auto) 0.01 K/uL (0-0.2); Immature Granulocytes # (auto) 0.23 K/uL (0.00-0.02); Immature Granulocytes % (auto) 0.9 %; Lymphocytes # (auto) 0.82 K/uL (1.2-3.4); Lymphocytes % (auto) 3.4 %; Monocytes # (auto) 2.13 K/uL (0.11-0.59); Monocytes % (auto) 8.8 %; Neutrophils # (auto) 21.05 K/uL (1.4-6.5); Neutrophils % (auto) 86.9 %
[2019-04-13 18:16] LABS: Phosphorus 5.6 mg/dl (2.5-4.9); Potassium 2.8 mmol/L (3.5-5.1)
[2019-04-13] MEDS ORDERED: POTASSIUM CHLORIDE 20 MEQ TABCR PO ONE (18:21)
[2019-04-13] MEDS: MAGNESIUM SULFATE / D5W 1 GM/100 ML BAG IV SCH ×2 (18:40→19:54)
[2019-04-13] MEDS ORDERED: POTASSIUM CHLORIDE PWD 20 MEQ PACK PO ONE (18:45)
[2019-04-13] MEDS: LORazepam 1 MG/2 ML VIAL IV PRN (19:56)
[2019-04-13 22:32] LABS: BUN Creatinine Ratio 14.3 (10-20); Est GFR (African American) 8.1; Magnesium 1.9 mg/dl (1.8-2.4); Phosphorus 6.2 mg/dl (2.5-4.9); Potassium 3.1 mmol/L (3.5-5.1)
[2019-04-13] MEDS ORDERED: POTASSIUM CHLORIDE 20 MEQ/15 ML UDC PO STA (22:54)
[2019-04-14] MEDS: LORazepam 1 MG/2 ML VIAL IV PRN (01:04)
[2019-04-14 02:35] LABS: BUN Creatinine Ratio 13.8 (10-20); Calcium 6.8 mg/dl (8.5-10.1); Est GFR (African American) 8.1; Magnesium 1.8 mg/dl (1.8-2.4)
[2019-04-14 02:56] LABS: Potassium 3.8 mmol/L (3.5-5.1)
[2019-04-14] MEDS: HEPARIN SOD 5,000 UNIT/0.5 ML VIAL SQ SCH ×3 (05:59→21:33)
[2019-04-14 07:05] LABS: BUN Creatinine Ratio 13.6 (10-20); Calcium 6.8 mg/dl (8.5-10.1); Creatinine Clr Calc Pharmacy 8.6 ml/min; Est GFR (African American) 7.6; Est GFR (Non-African American) 6.6; Magnesium 1.7 mg/dl (1.8-2.4); Potassium 3.5 mmol/L (3.5-5.1)
[2019-04-14 07:15] LABS: Estimated Average Glucose 140 mg/dl; Hemoglobin A1C 6.5 % (4.5-5.6)
[2019-04-14] MEDS: INSULIN ASPART 100 UNITS/ML 3 ML PEN SC SCH ×4 (07:56→21:15)
[2019-04-14] MEDS: LEVOTHYROXINE SODIUM 12.5 MCG in SYRINGE 0 ML IV SCH (08:31)
[2019-04-14] MEDS: FAMOTIDINE 20 MG in SYRINGE 3 ML IV SCH (08:31)
[2019-04-14] MEDS ORDERED: SODIUM CHLORIDE 0.9% 1000ML 1,000 ML IV PRN (08:56)
[2019-04-14] MEDS ORDERED: HEPARIN SOD (PORCINE) 1000 UNIT/ML 10 ML VIAL IV SCH (08:56)
[2019-04-14 08:58] LABS: iSTAT Arterial Blood Gas pCO2 29 mmHg (35-46); iSTAT Arterial Blood Gas pH 6.86 (7.35-7.45); iSTAT Carbon Dioxide 6 mEq/l (24-31)
[2019-04-14 08:59] LABS: iSTAT Arterial Blood Gas HCO3 5 meg/L (19-24); iSTAT Sample Type Arterial
[2019-04-14] MEDS ORDERED: INSULIN GLARGINE SOLOSTAR 100 UNITS/ML 3 ML PEN SQ SCH (09:00)
[2019-04-14] MEDS ORDERED: LORazepam 0.5 MG/1 ML VIAL IV PRN (09:16)
--- NOTE | 2019-04-14 09:17 | Critical Care Progress Note ---
Date of Service April 14, 2019 Assessment & Plan (1) Acute renal failure: Neuro- altered mental status due to metabolic encephalopathy due to renal failure, severe acidosis. will try to minimize sedation if able CV- HD stable now needed vasopressors during dialysis and briefly overnight Pulmonary- acute respiratory failure due to severe acidosis. continue vent support SBT when more awake ID- possible sepsis with evidence of end organ dysfunction. possible urinary source. follow cultures. continue piperacillin-tazobactam Renal- acute on chronic renal failure unclear cause. ?prerenal vs ATN. t/c workup for GN. dialysis again today GI- start tube feeds after dialysis. famotidine proph Heme- leukocytosis, anemia Endocrine- blood sugars controlled now off insulin drip. levothyroxine for hypothyroidism Dispo- continue ICU care for hemodynamic and ventilatory support DNR I have personally spent 60 minutes of critical care time in the direct management of this patient. This is a life/limb threatening event. This includes time spent evaluating patient, direct bedside care, chart review, placing orders, interpretation of diagnostic studies, discussion with consultants, patient, and/or family members regarding treatment decisions, as well as other required patient management activities. This time is exclusive of all separately billable procedures, and teaching time and separate from and in addition to any other critical care service time. (2) Metabolic acidosis: (3) Respiratory failure: (4) Metabolic encephalopathy: (5) Hypovolemia: (6) SIRS (systemic inflammatory response syndrome): Subjective tolerated dialysis yesteday. need lorazepam last night for biting tube Physical Exam Physical Exam: Constitutional: Comfortable NAD on vent HEENT: normocephalic atraumatic. MMM. CV: RRR nl s1,s2 no murmurs rubs or gallops Lungs: clear to auscultation bilaterally. no accessory muscle use Abd: soft nontender nondistended. normal bowel sounds Ext: no edema. no cyanosis, no clubbing Skin: warm dry Neuro: opens eyes to voice. does not follow other commands. moving all ext spont Psych: unresponsive Results & Data Vital Signs (Past 12 Hours) Vital Signs Temp Pulse Pulse Resp BP BP Pulse Ox 04/14/19 07:30 89 22 100 04/14/19 06:00 89 22 110/61 155/59 H 100 04/14/19 05:30 89 121/69 152/54 H 04/14/19 05:12 90 22 100 04/14/19 05:00 86 22 126/69 148/60 H 100 04/14/19 04:00 37.2 C 87 22 116/62 138/50 L 100 04/14/19 03:00 89 22 89/45 L 109/42 L 100 04/14/19 02:20 84 22 119/62 151/54 H 100 04/14/19 02:18 86 22 100 04/14/19 02:00 84 22 109/60 147/55 H 100 04/14/19 01:35 72/41 L 04/14/19 01:00 88 22 98/53 L 123/46 L 99 04/14/19 00:00 90 22 94/45 L 122/48 L 100 04/13/19 23:42 92 H 04/13/19 23:00 37.2 C 90 22 95/53 L 103/41 L 100 04/13/19 22:24 92 H 22 100 04/13/19 22:00 97 H 22 106/53 L 117/43 L 100 Laboratory Results Laboratory Results - last 24 hr 04/12/19 04/13/19 04/13/19 23:11 03:32 09:50 WBC RBC Hgb Hct MCV MCH MCHC RDW Std Deviation RDW Coeff of Julissa Plt Count MPV Immature Gran % (Auto) Neut % (Auto) Lymph % (Auto) [place] % (Auto) Eos % (Auto) Baso % (Auto) Immature Gran # (Auto) Neut # (Auto) Lymph # (Auto) [place] # (Auto) Eos # (Auto) Baso # (Auto) Specimen Type Arterial Sample Site POC pH 6.86 L* POC pCO2 29 L POC pO2 296 H POC HCO3 5 L POC Total CO2 6 L* POC Base Excess -28.0 L POC ABG O2 Sat Landry Test O2 Delivery Device POC O2 Rate Minute Ventilation POC FiO2 Tidal Volume PEEP Sodium Potassium Chloride Carbon Dioxide Anion Gap BUN Creatinine Est Cr Clr Drug Dosing Est GFR ( Amer) Est GFR (Non-Af Amer) BUN/Creatinine Ratio Glucose POC Glucose 409 H* POC Glucose (other) Estimat Average Glucose 140 Hemoglobin A1c 6.5 H Calcium Phosphorus Magnesium Troponin I Beta-Hydroxybutyric Acd Hep Bs Antigen Hep Bs Antibody Hep Bs Antibody, Quant Hep B Core IgM Ab 04/13/19 04/13/19 04/13/19 09:52 09:55 09:55 WBC RBC Hgb Hct MCV MCH MCHC RDW Std Deviation RDW Coeff of Julissa Plt Count MPV Immature Gran % (Auto) Neut % (Auto) Lymph % (Auto) [place] % (Auto) Eos % (Auto) Baso % (Auto) Immature Gran # (Auto) Neut # (Auto) Lymph # (Auto) [place] # (Auto) Eos # (Auto) Baso # (Auto) Specimen Type Sample Site Art Line POC pH 7.04 L* POC pCO2 21 L POC pO2 179 H POC HCO3 6 L POC Total CO2 6 L* POC Base Excess -25.0 L POC ABG O2 Sat 99.0 H Landry Test NA O2 Delivery Device Ventilator POC O2 Rate 26 Minute Ventilation 17 POC FiO2 30 Tidal Volume 550 PEEP 5 Sodium 145 Potassium 4.4 Chloride 109 H Carbon Dioxide 6 L* Anion Gap 30.0 H BUN 142 H Creatinine 9.91 H* Est Cr Clr Drug Dosing 6.0 Est GFR ( Amer) 4.9 Est GFR (Non-Af Amer) 4.3 BUN/Creatinine Ratio 14.3 Glucose 403 H* POC Glucose POC Glucose (other) Estimat Average Glucose Hemoglobin A1c Calcium 7.2 L Phosphorus 13.9 H Magnesium 1.7 L Troponin I 1.880 H* Beta-Hydroxybutyric Acd 25.46 H Hep Bs Antigen Hep Bs Antibody Hep Bs Antibody, Quant Hep B Core IgM Ab 04/13/19 04/13/19 04/13/19 09:55 09:55 10:45 WBC RBC Hgb Hct MCV MCH MCHC RDW Std Deviation RDW Coeff of Julissa Plt Count MPV Immature Gran % (Auto) Neut % (Auto) Lymph % (Auto) [place] % (Auto) Eos % (Auto) Baso % (Auto) Immature Gran # (Auto) Neut # (Auto) Lymph # (Auto) [place] # (Auto) Eos # (Auto) Baso # (Auto) Specimen Type Sample Site POC pH POC pCO2 POC pO2 POC HCO3 POC Total CO2 POC Base Excess POC ABG O2 Sat Landry Test O2 Delivery Device POC O2 Rate Minute Ventilation POC FiO2 Tidal Volume PEEP Sodium Potassium Chloride Carbon Dioxide Anion Gap BUN Creatinine Est Cr Clr Drug Dosing Est GFR ( Amer) Est GFR (Non-Af Amer) BUN/Creatinine Ratio Glucose POC Glucose 394 H* POC Glucose (other) Estimat Average Glucose Hemoglobin A1c Calcium Phosphorus Magnesium Troponin I Beta-Hydroxybutyric Acd Hep Bs Antigen Neg Hep Bs Antibody Non-Immune Hep Bs Antibody, Quant < 3.10 L Hep B Core IgM Ab Pending 04/13/19 04/13/19 04/13/19 11:59 12:05 12:48 WBC RBC Hgb Hct MCV MCH MCHC RDW Std Deviation RDW Coeff of Julissa Plt Count MPV Immature Gran % (Auto) Neut % (Auto) Lymph % (Auto) [place] % (Auto) Eos % (Auto) Baso % (Auto) Immature Gran # (Auto) Neut # (Auto) Lymph # (Auto) [place] # (Auto) Eos # (Auto) Baso # (Auto) Specimen Type Sample Site POC pH POC pCO2 POC pO2 POC HCO3 POC Total CO2 POC Base Excess POC ABG O2 Sat Landry Test O2 Delivery Device POC O2 Rate Minute Ventilation POC FiO2 Tidal Volume PEEP Sodium Potassium Chloride Carbon Dioxide Anion Gap BUN Creatinine Est Cr Clr Drug Dosing Est GFR ( Amer) Est GFR (Non-Af Amer) BUN/Creatinine Ratio Glucose POC Glucose 403 H* 388 H* POC Glucose (other) Estimat Average Glucose Hemoglobin A1c Calcium Phosphorus Magnesium Troponin I 4.720 H* Beta-Hydroxybutyric Acd Hep Bs Antigen Hep Bs Antibody Hep Bs Antibody, Quant Hep B Core IgM Ab 04/13/19 04/13/19 04/13/19 13:49 15:00 16:01 WBC RBC Hgb Hct MCV MCH MCHC RDW Std Deviation RDW Coeff of Julissa Plt Count MPV Immature Gran % (Auto) Neut % (Auto) Lymph % (Auto) [place] % (Auto) Eos % (Auto) Baso % (Auto) Immature Gran # (Auto) Neut # (Auto) Lymph # (Auto) [place] # (Auto) Eos # (Auto) Baso # (Auto) Specimen Type Sample Site POC pH POC pCO2 POC pO2 POC HCO3 POC Total CO2 POC Base Excess POC ABG O2 Sat Landry Test O2 Delivery Device POC O2 Rate Minute Ventilation POC FiO2 Tidal Volume PEEP Sodium Potassium Chloride Carbon Dioxide Anion Gap BUN Creatinine Est Cr Clr Drug Dosing Est GFR ( Amer) Est GFR (Non-Af Amer) BUN/Creatinine Ratio Glucose POC Glucose 389 H* 268 H POC Glucose (other) 246 H Estimat Average Glucose Hemoglobin A1c Calcium Phosphorus Magnesium Troponin I Beta-Hydroxybutyric Acd Hep Bs Antigen Hep Bs Antibody Hep Bs Antibody, Quant Hep B Core IgM Ab 04/13/19 04/13/19 04/13/19 17:01 17:14 17:15 WBC RBC Hgb Hct MCV MCH MCHC RDW Std Deviation RDW Coeff of Julissa Plt Count MPV Immature Gran % (Auto) Neut % (Auto) Lymph % (Auto) [place] % (Auto) Eos % (Auto) Baso % (Auto) Immature Gran # (Auto) Neut # (Auto) Lymph # (Auto) [place] # (Auto) Eos # (Auto) Baso # (Auto) Specimen Type Sample Site Art Line POC pH 7.51 H* POC pCO2 26 L POC pO2 154 H POC HCO3 20 POC Total CO2 21 L POC Base Excess -3.0 POC ABG O2 Sat 100.0 H Landry Test NA O2 Delivery Device Ventilator POC O2 Rate 30 Minute Ventilation 17.5 POC FiO2 30 Tidal Volume 550 PEEP 5 Sodium 143 Potassium 2.8 L D Chloride 105 Carbon Dioxide 21 Anion Gap 17.0 H BUN 85 H Creatinine 5.80 H* D Est Cr Clr Drug Dosing 10.2 Est GFR ( Amer) 9.5 Est GFR (Non-Af Amer) 8.2 BUN/Creatinine Ratio 14.7 Glucose 219 H POC Glucose POC Glucose (other) 207 H Estimat Average Glucose Hemoglobin A1c Calcium 7.2 L Phosphorus 5.6 H D Magnesium 1.5 L Troponin I Beta-Hydroxybutyric Acd Hep Bs Antigen Hep Bs Antibody Hep Bs Antibody, Quant Hep B Core IgM Ab 04/13/19 04/13/19 04/13/19 17:15 18:04 19:23 WBC 24.24 H RBC 2.65 L Hgb 8.1 L Hct 22.5 L MCV 84.9 D MCH 30.6 MCHC 36.0 RDW Std Deviation 50.0 H RDW Coeff of Julissa 16.0 H Plt Count 134 MPV 10.6 H Immature Gran % (Auto) 0.9 Neut % (Auto) 86.9 Lymph % (Auto) 3.4 [place] % (Auto) 8.8 Eos % (Auto) 0.0 Baso % (Auto) 0.0 Immature Gran # (Auto) 0.23 H Neut # (Auto) 21.05 H Lymph # (Auto) 0.82 L [place] # (Auto) 2.13 H Eos # (Auto) 0.00 Baso # (Auto) 0.01 Specimen Type Sample Site POC pH POC pCO2 POC pO2 POC HCO3 POC Total CO2 POC Base Excess POC ABG O2 Sat Landry Test O2 Delivery Device POC O2 Rate Minute Ventilation POC FiO2 Tidal Volume PEEP Sodium Potassium Chloride Carbon Dioxide Anion Gap BUN Creatinine Est Cr Clr Drug Dosing Est GFR ( Amer) Est GFR (Non-Af Amer) BUN/Creatinine Ratio Glucose POC Glucose 214 H 184 H POC Glucose (other) Estimat Average Glucose Hemoglobin A1c Calcium Phosphorus Magnesium Troponin I Beta-Hydroxybutyric Acd Hep Bs Antigen Hep Bs Antibody Hep Bs Antibody, Quant Hep B Core IgM Ab 04/13/19 04/13/19 04/13/19 20:08 21:07 21:58 WBC RBC Hgb Hct MCV MCH MCHC RDW Std Deviation RDW Coeff of Julissa Plt Count MPV Immature Gran % (Auto) Neut % (Auto) Lymph % (Auto) [place] % (Auto) Eos % (Auto) Baso % (Auto) Immature Gran # (Auto) Neut # (Auto) Lymph # (Auto) [place] # (Auto) Eos # (Auto) Baso # (Auto) Specimen Type Sample Site POC pH POC pCO2 POC pO2 POC HCO3 POC Total CO2 POC Base Excess POC ABG O2 Sat Landry Test O2 Delivery Device POC O2 Rate Minute Ventilation POC FiO2 Tidal Volume PEEP Sodium 143 Potassium 3.1 L Chloride 107 Carbon Dioxide 20 L Anion Gap 16.0 H BUN 94 H Creatinine 6.59 H* D Est Cr Clr Drug Dosing 9.0 Est GFR ( Amer) 8.1 Est GFR (Non-Af Amer) 7.0 BUN/Creatinine Ratio 14.3 Glucose 102 H POC Glucose 182 H 157 H POC Glucose (other) Estimat Average Glucose Hemoglobin A1c Calcium 7.0 L Phosphorus 6.2 H Magnesium 1.9 Troponin I Beta-Hydroxybutyric Acd Hep Bs Antigen Hep Bs Antibody Hep Bs Antibody, Quant Hep B Core IgM Ab 04/13/19 04/13/19 04/13/19 22:01 23:01 23:16 WBC RBC Hgb Hct MCV MCH MCHC RDW Std Deviation RDW Coeff of Julissa Plt Count MPV Immature Gran % (Auto) Neut % (Auto) Lymph % (Auto) [place] % (Auto) Eos % (Auto) Baso % (Auto) Immature Gran # (Auto) Neut # (Auto) Lymph # (Auto) [place] # (Auto) Eos # (Auto) Baso # (Auto) Specimen Type Sample Site POC pH POC pCO2 POC pO2 POC HCO3 POC Total CO2 POC Base Excess POC ABG O2 Sat Landry Test O2 Delivery Device POC O2 Rate Minute Ventilation POC FiO2 Tidal Volume PEEP Sodium Potassium Chloride Carbon Dioxide Anion Gap BUN Creatinine Est Cr Clr Drug Dosing Est GFR ( Amer) Est GFR (Non-Af Amer) BUN/Creatinine Ratio Glucose POC Glucose 112 H 89 94 POC Glucose (other) Estimat Average Glucose Hemoglobin A1c Calcium Phosphorus Magnesium Troponin I Beta-Hydroxybutyric Acd Hep Bs Antigen Hep Bs Antibody Hep Bs Antibody, Quant Hep B Core IgM Ab 04/13/19 04/13/19 04/14/19 23:30 23:46 00:00 WBC RBC Hgb Hct MCV MCH MCHC RDW Std Deviation RDW Coeff of Julissa Plt Count MPV Immature Gran % (Auto) Neut % (Auto) Lymph % (Auto) [place] % (Auto) Eos % (Auto) Baso % (Auto) Immature Gran # (Auto) Neut # (Auto) Lymph # (Auto) [place] # (Auto) Eos # (Auto) Baso # (Auto) Specimen Type Sample Site POC pH POC pCO2 POC pO2 POC HCO3 POC Total CO2 POC Base Excess POC ABG O2 Sat Landry Test O2 Delivery Device POC O2 Rate Minute Ventilation POC FiO2 Tidal Volume PEEP Sodium Potassium Chloride Carbon Dioxide Anion Gap BUN Creatinine Est Cr Clr Drug Dosing Est GFR ( Amer) Est GFR (Non-Af Amer) BUN/Creatinine Ratio Glucose POC Glucose 90 89 87 POC Glucose (other) Estimat Average Glucose Hemoglobin A1c Calcium Phosphorus Magnesium Troponin I Beta-Hydroxybutyric Acd Hep Bs Antigen Hep Bs Antibody Hep Bs Antibody, Quant Hep B Core IgM Ab 04/14/19 04/14/19 04/14/19 00:16 00:35 00:46 WBC RBC Hgb Hct MCV MCH MCHC RDW Std Deviation RDW Coeff of Julissa Plt Count MPV Immature Gran % (Auto) Neut % (Auto) Lymph % (Auto) [place] % (Auto) Eos % (Auto) Baso % (Auto) Immature Gran # (Auto) Neut # (Auto) Lymph # (Auto) [place] # (Auto) Eos # (Auto) Baso # (Auto) Specimen Type Sample Site POC pH POC pCO2 POC pO2 POC HCO3 POC Total CO2 POC Base Excess POC ABG O2 Sat Landry Test O2 Delivery Device POC O2 Rate Minute Ventilation POC FiO2 Tidal Volume PEEP Sodium Potassium Chloride Carbon Dioxide Anion Gap BUN Creatinine Est Cr Clr Drug Dosing Est GFR ( Amer) Est GFR (Non-Af Amer) BUN/Creatinine Ratio Glucose POC Glucose 92 90 98 POC Glucose (other) Estimat Average Glucose Hemoglobin A1c Calcium Phosphorus Magnesium Troponin I Beta-Hydroxybutyric Acd Hep Bs Antigen Hep Bs Antibody Hep Bs Antibody, Quant Hep B Core IgM Ab 04/14/19 04/14/19 04/14/19 01:02 01:52 02:00 WBC RBC Hgb Hct MCV MCH MCHC RDW Std Deviation RDW Coeff of Julissa Plt Count MPV Immature Gran % (Auto) Neut % (Auto) Lymph % (Auto) [place] % (Auto) Eos % (Auto) Baso % (Auto) Immature Gran # (Auto) Neut # (Auto) Lymph # (Auto) [place] # (Auto) Eos # (Auto) Baso # (Auto) Specimen Type Sample Site POC pH POC pCO2 POC pO2 POC HCO3 POC Total CO2 POC Base Excess POC ABG O2 Sat Landry Test O2 Delivery Device POC O2 Rate Minute Ventilation POC FiO2 Tidal Volume PEEP Sodium 142 Potassium 3.8 D Chloride 108 H Carbon Dioxide 21 Anion Gap 13.0 H BUN 91 H Creatinine 6.59 H* Est Cr Clr Drug Dosing 9.0 Est GFR ( Amer) 8.1 Est GFR (Non-Af Amer) 7.0 BUN/Creatinine Ratio 13.8 Glucose 106 H POC Glucose 107 H POC Glucose (other) 110 H Estimat Average Glucose Hemoglobin A1c Calcium 6.8 L Phosphorus Magnesium 1.8 Troponin I Beta-Hydroxybutyric Acd Hep Bs Antigen Hep Bs Antibody Hep Bs Antibody, Quant Hep B Core IgM Ab 04/14/19 04/14/19 04/14/19 04:16 05:05 06:01 WBC RBC Hgb Hct MCV MCH MCHC RDW Std Deviation RDW Coeff of Julissa Plt Count MPV Immature Gran % (Auto) Neut % (Auto) Lymph % (Auto) [place] % (Auto) Eos % (Auto) Baso % (Auto) Immature Gran # (Auto) Neut # (Auto) Lymph # (Auto) [place] # (Auto) Eos # (Auto) Baso # (Auto) Specimen Type Sample Site POC pH POC pCO2 POC pO2 POC HCO3 POC Total CO2 POC Base Excess POC ABG O2 Sat Landry Test O2 Delivery Device POC O2 Rate Minute Ventilation POC FiO2 Tidal Volume PEEP Sodium 141 Potassium 3.5 Chloride 108 H Carbon Dioxide 18 L Anion Gap 15.0 H BUN 94 H Creatinine 6.93 H* D Est Cr Clr Drug Dosing 8.6 Est GFR ( Amer) 7.6 Est GFR (Non-Af Amer) 6.6 BUN/Creatinine Ratio 13.6 Glucose 122 H POC Glucose POC Glucose (other) 124 H 125 H Estimat Average Glucose Hemoglobin A1c Calcium 6.8 L Phosphorus Magnesium 1.7 L Troponin I Beta-Hydroxybutyric Acd Hep Bs Antigen Hep Bs Antibody Hep Bs Antibody, Quant Hep B Core IgM Ab 04/14/19 04/14/19 06:38 07:42 WBC RBC Hgb Hct MCV MCH MCHC RDW Std Deviation RDW Coeff of Julissa Plt Count MPV Immature Gran % (Auto) Neut % (Auto) Lymph % (Auto) [place] % (Auto) Eos % (Auto) Baso % (Auto) Immature Gran # (Auto) Neut # (Auto) Lymph # (Auto) [place] # (Auto) Eos # (Auto) Baso # (Auto) Specimen Type Sample Site POC pH POC pCO2 POC pO2 POC HCO3 POC Total CO2 POC Base Excess POC ABG O2 Sat Landry Test O2 Delivery Device POC O2 Rate Minute Ventilation POC FiO2 Tidal Volume PEEP Sodium Potassium Chloride Carbon Dioxide Anion Gap BUN Creatinine Est Cr Clr Drug Dosing Est GFR ( Amer) Est GFR (Non-Af Amer) BUN/Creatinine Ratio Glucose POC Glucose POC Glucose (other) 126 H 125 H Estimat Average Glucose Hemoglobin A1c Calcium Phosphorus Magnesium Troponin I Beta-Hydroxybutyric Acd Hep Bs Antigen Hep Bs Antibody Hep Bs Antibody, Quant Hep B Core IgM Ab PG Care Time/CCT Critical Care Time: Yes Total Critical Care Time: 60 (1) Acute renal failure Acute renal failure type: unspecified Qualified Code(s): N17.9 - Acute kidney failure, unspecified (2) Respiratory failure Chronicity: unspecified Respiratory failure complication: unspecified whether with hypoxia or hypercapnia Qualified Code(s): J96.90 - Respiratory failure, unspecified, unspecified whether with hypoxia or hypercapnia
[2019-04-14] MEDS ORDERED: NOVASOURCE RENAL 2.0 CAL 1000ML BAG OG SCH (09:30)
[2019-04-14] MEDS: HEPARIN SOD (PORCINE) 1000 UNIT/ML 10 ML VIAL IV SCH ×3 (10:30→11:34)
--- NOTE | 2019-04-14 10:50 | Pharmacy Report ---
Pharmacy Glycemic Short Note 2 - Date of Service April 14, 2019 - Glycemic Short BSG Results (Last 24 hours): 04/13/19 04/13/19 04/13/19 09:55 10:45 11:59 Glucose 403 H* POC Glucose 394 H* 403 H* POC Glucose (other) 04/13/19 04/13/19 04/13/19 12:48 13:49 15:00 Glucose POC Glucose 388 H* 389 H* 268 H POC Glucose (other) 04/13/19 04/13/19 04/13/19 16:01 17:01 17:15 Glucose 219 H POC Glucose POC Glucose (other) 246 H 207 H 04/13/19 04/13/19 04/13/19 18:04 19:23 20:08 Glucose POC Glucose 214 H 184 H 182 H POC Glucose (other) 04/13/19 04/13/19 04/13/19 21:07 21:58 22:01 Glucose 102 H POC Glucose 157 H 112 H POC Glucose (other) 04/13/19 04/13/19 04/13/19 23:01 23:16 23:30 Glucose POC Glucose 89 94 90 POC Glucose (other) 04/13/19 04/14/19 04/14/19 23:46 00:00 00:16 Glucose POC Glucose 89 87 92 POC Glucose (other) 04/14/19 04/14/19 04/14/19 00:35 00:46 01:02 Glucose POC Glucose 90 98 107 H POC Glucose (other) 04/14/19 04/14/19 04/14/19 01:52 02:00 04:16 Glucose 106 H POC Glucose POC Glucose (other) 110 H 124 H 04/14/19 04/14/19 04/14/19 05:05 06:01 06:38 Glucose 122 H POC Glucose POC Glucose (other) 125 H 126 H 04/14/19 04/14/19 07:42 10:06 Glucose POC Glucose 123 H POC Glucose (other) 125 H OUTPATIENT ANTIDIABETIC REGIMEN: * Repaglinide 2mg TID w/ meals * Lantus 20 units SQ daily * A1c = 6.5% 04/12/19 ASSESSMENT: * Type 2 diabetic admitted for JACKIE severe metabolic acidosis, encephalopathy and possible sepsis * Patient did require HD to correct acidosis yesterday * Insulin drip was initiated for hyperglycemia, however the drip was titrated off last evening following HD and remains off this AM. BSGs have remained in the 120's despite no insulin administration * Patient remains intubated this AM however may be extubated following HD today and there are plans to initiate continuous tube feeds as well. * Will change BSG frequency to Q 2 hrs as tube feeds likely to begin this afternoon and at that time insulin therapy will likely be required to maintain glycemic targets. Will restart the IV insulin at 1.5 units/hr when BSG > 150. * Could consider transitioning to SQ basal/bolus regimen when insulin needs better known and when feedings near goal and pt off vent. Insulin needs may now be much different in the setting of JACKIE vs outpt requirements PLAN FOR INPATIENT GLYCEMIC CONTROL: * Hold outpatient oral diabetes medications * Basal insulin * None at this time, rather use insulin drip for basal and prandial needs * Restart IV insulin drip when BSG > 150, restart at 1.5 units/hr and adjust per rate adjustment calculator PLAN FOR DISCHARGE: * to be determined
[2019-04-14] MEDS: PIPERACILLIN/TAZOBACTAM 3.375 GM in DEXTROSE 5% 100 ML IV SCH (12:07)
[2019-04-14 13:34] LABS: iSTAT Arterial Blood Gas HCO3 23 meg/L (19-24); iSTAT Arterial Blood Gas pCO2 27 mmHg (35-46); iSTAT Arterial Blood Gas pH 7.54 (7.35-7.45); iSTAT Carbon Dioxide 24 mEq/l (24-31); iSTAT FiO2 25 %; iSTAT Site L Radial
[2019-04-14] MEDS: fentaNYL citrate 100 MCG/2 ML VIAL IV PRN ×2 (16:02→18:47)
--- NOTE | 2019-04-14 18:18 | Hospitalist Progress Note ---
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 creatinine on admission above 9, dropped to 6 today Anuric since admission Nephrology on board recommended urgent HD to correct the acidosis HD done yesterday and tomday Continue monitor BMP (3) SIRS (systemic inflammatory response syndrome): UTI Present on admission with elevated HR, RR, lactic acid and WBC Blood cx no growth so far Urine cx positive for gram negative bacilli Continue IV zosyn (4) Metabolic acidosis: ABG on admission with pH 6.9 PCO2 12 and HCO3 5 Repeat ABG after HD showed pH 7.5 PCO2 26 and HCO3 20 Adjustment RR setting on the vent Continue monitor (5) Hypovolemia: Off Levophed BP stable (6) Metabolic encephalopathy: Due to severe acidosis and acute respiratory failure CT head showed no acute intracranial abnormality Continue monitor (7) Elevated lactic acid level: Mostly related to severe metabolic acidosis in the setting of acute respiratory failure Follow up blood cx urine cx positive for gram negative bacilli Continue IV zosyn for now (8) Elevated troponin: Demand ischemia due to elevated creatinine and acidosis Denies any chest pain EKG showed no acute ischemic changes Continue monitor DVT px on heparin subq Disposition Continue monitor in the ICU Subjective Pt was seen and examined Lying in bed on vent support with family at bedside Physical Exam Physical Exam: General- respiratory distress Head- atraumatic Eyes- PERRL, EOMI, ENT- Intubated Neck- supple, no JVD Lungs- On Mechanical Ventilation Heart- +tachycardia, no murmur Abdomen- normal bowel sounds, soft, nontender Extremities- no calf tenderness Neuro- intubated, move extremities Skin- warm & dry Results & Data Vital Signs (Past 12 Hours) Vital Signs Temp Pulse Pulse Resp BP BP Pulse Ox 04/14/19 17:35 91 H 22 100 04/14/19 17:00 93 H 117/62 100 04/14/19 16:00 95 H 116/64 98 04/14/19 15:30 96 H 132/66 100 04/14/19 15:00 97 H 126/67 100 04/14/19 14:30 96 H 127/70 100 04/14/19 14:15 96 H 22 100 04/14/19 14:00 93 H 125/70 100 04/14/19 13:00 36.8 C 97 H 96 H 122/76 132/52 L 100 04/14/19 12:17 95 H 98/46 L 04/14/19 12:00 101 H 112/64 100 04/14/19 11:45 93 H 138/58 L 04/14/19 11:30 100 H 100/48 L 04/14/19 11:15 101 H 115/55 L 04/14/19 11:05 99 H 22 100 04/14/19 11:00 115 H 79/51 L 100 04/14/19 10:45 94 H 115/52 L 04/14/19 10:30 98 H 117/58 L 04/14/19 10:15 96 H 126/55 L 04/14/19 10:00 98 H 114/65 100 04/14/19 09:49 94 H 136/86 04/14/19 09:39 94 H 129/59 L 04/14/19 09:30 90 103/57 L 100 04/14/19 09:28 92 H 117/68 100 04/14/19 09:27 37 C 93 H 04/14/19 09:00 93 H 117/68 100 04/14/19 08:30 94 H 107/62 100 04/14/19 08:00 94 H 115/65 99 04/14/19 07:30 86 22 116/64 100 04/14/19 07:00 89 103/57 L 100 (1) Acute renal failure Acute renal failure type: unspecified Qualified Code(s): N17.9 - Acute kidney failure, unspecified
[2019-04-14] MEDS ORDERED: PROPOFOL 1,000 MG/100 ML VIAL IV STA (18:57)
--- NOTE | 2019-04-14 21:37 | Nephrology Progress Note ---
Date of Service April 14, 2019 Assessment & Plan (1) Acute renal failure: Patient with acute renal failure likely due to ischemic ATN. 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 He is completely anuric now. CT abdomen does not show obstructive uropathy on my review but official report is pending. He has history of kidney stones in the past. He also has low EF. started emergent dialysis for acute renal failure and severe metabolic acidosis on 04/13. He tolerated HD well today for a net loss of 1 litre. (2) Acute respiratory failure: Multifactorial etiology including volume overload and possibly pneumonia. He is receiving broad-spectrum antibiotics per ICU team. He is on mechanical ventilation with assist control, PEEP of 5 and FiO2 of 25%. We will continue ultrafiltration with dialysis. (3) Metabolic acidosis: Due to acute renal failure and high lactate. Improving with HD (4) SIRS (systemic inflammatory response syndrome): Work-up for sepsis is ongoing. Follow-up on blood cultures. Continue broad-spectrum antibiotics renally dosed for GFR less than 25 mL/min. Subjective Patient seen and examined while on dialysis in the morning. he tolerated HD well without needing pressors. He is awake but unable to talk due to intubation Review of Systems Review of Systems: Unobtainable due to endotracheal tube Physical Exam Physical Exam: General exam: Intubated, Appears comfortable, no acute distress HEENT: Pupils are equal and reactive to light Neck: No JVD, neck is supple trachea is midline Respiratory system: Clear breath sounds bilaterally. Gastrointestinal: Abdomen is soft, non distended, non tender, bowel sounds are present CVS: Regular rate and rhythm. No murmurs, rubs or gallops Musculoskeletal: No joint or muscle tenderness Extremities: Non tender, no edema, peripheral pulses are present Neuro: awake, no tremors, no focal neurological deficits Skin: No rashes Results & Data Vital Signs (Past 12 Hours) Vital Signs Temp Pulse Pulse Resp BP BP Pulse Ox 04/14/19 20:22 14 04/14/19 18:00 92 H 124/74 100 04/14/19 17:35 91 H 22 100 04/14/19 17:00 93 H 117/62 100 04/14/19 16:00 95 H 116/64 98 04/14/19 15:30 96 H 132/66 100 04/14/19 15:00 97 H 126/67 100 04/14/19 14:30 96 H 127/70 100 04/14/19 14:15 96 H 22 100 04/14/19 14:00 93 H 125/70 100 04/14/19 13:00 36.8 C 97 H 96 H 122/76 132/52 L 100 04/14/19 12:17 95 H 98/46 L 04/14/19 12:00 101 H 112/64 100 04/14/19 11:45 93 H 138/58 L 04/14/19 11:30 100 H 100/48 L 04/14/19 11:15 101 H 115/55 L 04/14/19 11:05 99 H 22 100 04/14/19 11:00 115 H 79/51 L 100 04/14/19 10:45 94 H 115/52 L 04/14/19 10:30 98 H 117/58 L 04/14/19 10:15 96 H 126/55 L 04/14/19 10:00 98 H 114/65 100 04/14/19 09:49 94 H 136/86 04/14/19 09:39 94 H 129/59 L Laboratory Results Laboratory Results - last 24 hr 04/12/19 04/13/19 04/13/19 23:11 03:32 21:58 Specimen Type Arterial Sample Site POC pH 6.86 L* POC pCO2 29 L POC pO2 296 H POC HCO3 5 L POC Total CO2 6 L* POC Base Excess -28.0 L POC ABG O2 Sat Landry Test O2 Delivery Device POC O2 Rate Minute Ventilation POC FiO2 Tidal Volume PEEP Sodium 143 Potassium 3.1 L Chloride 107 Carbon Dioxide 20 L Anion Gap 16.0 H BUN 94 H Creatinine 6.59 H* D Est Cr Clr Drug Dosing 9.0 Est GFR ( Amer) 8.1 Est GFR (Non-Af Amer) 7.0 BUN/Creatinine Ratio 14.3 Glucose 102 H POC Glucose POC Glucose (other) Estimat Average Glucose 140 Hemoglobin A1c 6.5 H Calcium 7.0 L Phosphorus 6.2 H Magnesium 1.9 04/13/19 04/13/19 04/13/19 22:01 23:01 23:16 Specimen Type Sample Site POC pH POC pCO2 POC pO2 POC HCO3 POC Total CO2 POC Base Excess POC ABG O2 Sat Landry Test O2 Delivery Device POC O2 Rate Minute Ventilation POC FiO2 Tidal Volume PEEP Sodium Potassium Chloride Carbon Dioxide Anion Gap BUN Creatinine Est Cr Clr Drug Dosing Est GFR ( Amer) Est GFR (Non-Af Amer) BUN/Creatinine Ratio Glucose POC Glucose 112 H 89 94 POC Glucose (other) Estimat Average Glucose Hemoglobin A1c Calcium Phosphorus Magnesium 04/13/19 04/13/19 04/14/19 23:30 23:46 00:00 Specimen Type Sample Site POC pH POC pCO2 POC pO2 POC HCO3 POC Total CO2 POC Base Excess POC ABG O2 Sat Landry Test O2 Delivery Device POC O2 Rate Minute Ventilation POC FiO2 Tidal Volume PEEP Sodium Potassium Chloride Carbon Dioxide Anion Gap BUN Creatinine Est Cr Clr Drug Dosing Est GFR ( Amer) Est GFR (Non-Af Amer) BUN/Creatinine Ratio Glucose POC Glucose 90 89 87 POC Glucose (other) Estimat Average Glucose Hemoglobin A1c Calcium Phosphorus Magnesium 04/14/19 04/14/19 04/14/19 00:16 00:35 00:46 Specimen Type Sample Site POC pH POC pCO2 POC pO2 POC HCO3 POC Total CO2 POC Base Excess POC ABG O2 Sat Landry Test O2 Delivery Device POC O2 Rate Minute Ventilation POC FiO2 Tidal Volume PEEP Sodium Potassium Chloride Carbon Dioxide Anion Gap BUN Creatinine Est Cr Clr Drug Dosing Est GFR ( Amer) Est GFR (Non-Af Amer) BUN/Creatinine Ratio Glucose POC Glucose 92 90 98 POC Glucose (other) Estimat Average Glucose Hemoglobin A1c Calcium Phosphorus Magnesium 04/14/19 04/14/19 04/14/19 01:02 01:52 02:00 Specimen Type Sample Site POC pH POC pCO2 POC pO2 POC HCO3 POC Total CO2 POC Base Excess POC ABG O2 Sat Landry Test O2 Delivery Device POC O2 Rate Minute Ventilation POC FiO2 Tidal Volume PEEP Sodium 142 Potassium 3.8 D Chloride 108 H Carbon Dioxide 21 Anion Gap 13.0 H BUN 91 H Creatinine 6.59 H* Est Cr Clr Drug Dosing 9.0 Est GFR ( Amer) 8.1 Est GFR (Non-Af Amer) 7.0 BUN/Creatinine Ratio 13.8 Glucose 106 H POC Glucose 107 H POC Glucose (other) 110 H Estimat Average Glucose Hemoglobin A1c Calcium 6.8 L Phosphorus Magnesium 1.8 04/14/19 04/14/19 04/14/19 04:16 05:05 06:01 Specimen Type Sample Site POC pH POC pCO2 POC pO2 POC HCO3 POC Total CO2 POC Base Excess POC ABG O2 Sat Landry Test O2 Delivery Device POC O2 Rate Minute Ventilation POC FiO2 Tidal Volume PEEP Sodium 141 Potassium 3.5 Chloride 108 H Carbon Dioxide 18 L Anion Gap 15.0 H BUN 94 H Creatinine 6.93 H* D Est Cr Clr Drug Dosing 8.6 Est GFR ( Amer) 7.6 Est GFR (Non-Af Amer) 6.6 BUN/Creatinine Ratio 13.6 Glucose 122 H POC Glucose POC Glucose (other) 124 H 125 H Estimat Average Glucose Hemoglobin A1c Calcium 6.8 L Phosphorus Magnesium 1.7 L 04/14/19 04/14/19 04/14/19 06:38 07:42 10:06 Specimen Type Sample Site POC pH POC pCO2 POC pO2 POC HCO3 POC Total CO2 POC Base Excess POC ABG O2 Sat Landry Test O2 Delivery Device POC O2 Rate Minute Ventilation POC FiO2 Tidal Volume PEEP Sodium Potassium Chloride Carbon Dioxide Anion Gap BUN Creatinine Est Cr Clr Drug Dosing Est GFR ( Amer) Est GFR (Non-Af Amer) BUN/Creatinine Ratio Glucose POC Glucose 123 H POC Glucose (other) 126 H 125 H Estimat Average Glucose Hemoglobin A1c Calcium Phosphorus Magnesium 04/14/19 04/14/19 04/14/19 12:13 13:18 14:29 Specimen Type Sample Site L Radial POC pH 7.54 H* POC pCO2 27 L POC pO2 134 H POC HCO3 23 POC Total CO2 24 POC Base Excess 0.0 POC ABG O2 Sat 99.0 H Landry Test NA O2 Delivery Device Ventilator POC O2 Rate 22 Minute Ventilation 1.2 POC FiO2 25 Tidal Volume 550 PEEP 5 Sodium Potassium Chloride Carbon Dioxide Anion Gap BUN Creatinine Est Cr Clr Drug Dosing Est GFR ( Amer) Est GFR (Non-Af Amer) BUN/Creatinine Ratio Glucose POC Glucose 103 H 123 H POC Glucose (other) Estimat Average Glucose Hemoglobin A1c Calcium Phosphorus Magnesium 04/14/19 04/14/19 04/14/19 16:06 19:06 20:38 Specimen Type Sample Site POC pH POC pCO2 POC pO2 POC HCO3 POC Total CO2 POC Base Excess POC ABG O2 Sat Landry Test O2 Delivery Device POC O2 Rate Minute Ventilation POC FiO2 Tidal Volume PEEP Sodium Potassium Chloride Carbon Dioxide Anion Gap BUN Creatinine Est Cr Clr Drug Dosing Est GFR ( Amer) Est GFR (Non-Af Amer) BUN/Creatinine Ratio Glucose POC Glucose 139 H 135 H 134 H POC Glucose (other) Estimat Average Glucose Hemoglobin A1c Calcium Phosphorus Magnesium (1) Acute renal failure Acute renal failure type: unspecified Qualified Code(s): N17.9 - Acute kidney failure, unspecified
[2019-04-14] MEDS ORDERED: PROPOFOL 1,000 MG/100 ML VIAL IV PRN (22:52)
[2019-04-14] MEDS: PROPOFOL 1,000 MG/100 ML VIAL IV SCH (22:54)
[2019-04-15] MEDS: PIPERACILLIN/TAZOBACTAM 3.375 GM in DEXTROSE 5% 100 ML IV SCH ×2 (02:45→14:19)
[2019-04-15] MEDS: PROPOFOL 1,000 MG/100 ML VIAL IV SCH (04:59)
[2019-04-15] MEDS: HEPARIN SOD 5,000 UNIT/0.5 ML VIAL SQ SCH ×3 (06:28→15:49)
[2019-04-15] MEDS ORDERED: SURGICEL FIBRILLAR HEMOSTAT 1 X 2IN TOP ONE (08:22)
--- NOTE | 2019-04-15 08:27 | Critical Care Progress Note ---
Date of Service April 15, 2019 Assessment & Plan (1) Acute renal failure: Neuro- altered mental status due to metabolic encephalopathy due to renal failure, severe acidosis. more awake last night. sedation vacation CV- HD stable now off vasopressors Pulmonary- acute respiratory failure due to severe acidosis. continue vent support. on minimal settings SBT today. doing well so far ID- sepsis with evidence of end organ dysfunction. due to pseudomonas UTI. continue piperacillin-tazobactam Renal- acute on chronic renal failure unclear cause. ?prerenal vs ATN. dialysis per renal GI- start tube feeds if cannot extubate famotidine proph Heme- leukocytosis -improved, anemia. hgb decreasing no signs bleeding Endocrine- blood sugars controlled. levothyroxine for hypothyroidism Dispo- continue ICU care for hemodynamic and ventilatory support DNR I have personally spent 50 minutes of critical care time in the direct management of this patient. This is a life/limb threatening event. This includes time spent evaluating patient, direct bedside care, chart review, pl acing orders, interpretation of diagnostic studies, discussion with consultants, patient, and/or family members regarding treatment decisions, as well as other required patient management activities. This time is exclusive of all separately billable procedures, and teaching time and separate from and in addition to any other critical care service time. (2) Metabolic acidosis: (3) Respiratory failure: (4) Metabolic encephalopathy: (5) Hypovolemia: (6) SIRS (systemic inflammatory response syndrome): Subjective agitated last evening requiring propofol Physical Exam Physical Exam: Constitutional: Comfortable NAD on vent HEENT: normocephalic atraumatic. MMM. CV: RRR nl s1,s2 no murmurs rubs or gallops Lungs: clear to auscultation bilaterally. no accessory muscle use Abd: soft nontender nondistended. normal bowel sounds Ext: no edema. no cyanosis, no clubbing Skin: warm dry Neuro: sedated moving all ext spont Psych: sedated Results & Data Vital Signs (Past 12 Hours) Vital Signs Pulse Resp BP Pulse Ox 04/15/19 07:30 88 14 98 04/15/19 05:20 87 20 99 04/15/19 05:00 89 109/61 98 04/15/19 04:30 108 H 111/59 L 99 04/15/19 04:00 86 112/60 99 04/15/19 03:30 88 108/65 99 04/15/19 03:00 87 103/61 98 04/15/19 02:30 88 105/58 L 98 04/15/19 02:10 88 15 99 04/15/19 02:00 86 106/59 L 99 04/15/19 01:30 90 108/59 L 99 04/15/19 01:00 93 H 106/58 L 98 04/15/19 00:30 98 H 110/65 100 04/15/19 00:00 90 111/60 98 04/14/19 23:30 108 H 102/64 98 04/14/19 23:09 95 H 24 100 04/14/19 23:01 105 H 92/41 L 90 04/14/19 22:30 91 H 110/60 100 04/14/19 22:00 90 119/65 100 04/14/19 21:30 90 106/62 99 04/14/19 21:00 90 104/59 L 97 04/14/19 20:30 89 117/69 99 PG Care Time/CCT Critical Care Time: Yes Total Critical Care Time: 45 (1) Acute renal failure Acute renal failure type: unspecified Qualified Code(s): N17.9 - Acute kidney failure, unspecified (2) Respiratory failure Chronicity: unspecified Respiratory failure complication: unspecified whether with hypoxia or hypercapnia Qualified Code(s): J96.90 - Respiratory failure, un specified, unspecified whether with hypoxia or hypercapnia
[2019-04-15 08:33] LABS: Hematocrit (blood only) 20.5 % (42-52); Mean Corpuscular Hgb Conc 34.1 g/dL (32-36); Mean Corpuscular Volume 89.1 fL (80-100); Mean Platelet Volume 10.9 fL (7.4-10.4); Platelet Count 96 K/uL (130-400); RDW Coefficient of Variation 16.3 % (11.5-14.5); RDW Standard Deviation 52.6 fL (36.4-46.3); White Blood Count 14.16 K/uL (4.8-10.8)
[2019-04-15 08:34] LABS: Eosinophils # (auto) 0.05 K/uL (0-0.5); Eosinophils % (auto) 0.4 %; Immature Granulocytes # (auto) 0.06 K/uL (0.00-0.02); Immature Granulocytes % (auto) 0.4 %; Lymphocytes # (auto) 1.15 K/uL (1.2-3.4); Lymphocytes % (auto) 8.1 %; Monocytes % (auto) 6.4 %; Neutrophils % (auto) 84.7 %; Ovalocytes 1+; Platelet Estimate Decreased (Normal)
[2019-04-15 08:36] LABS: Magnesium 1.9 mg/dl (1.8-2.4); Phosphorus 6.3 mg/dl (2.5-4.9)
[2019-04-15] MEDS ORDERED: SODIUM CHLORIDE 0.9% 1000ML 1,000 ML IV PRN (08:51)
[2019-04-15] MEDS ORDERED: HEPARIN SOD (PORCINE) 1000 UNIT/ML 10 ML VIAL IV SCH (09:00)
[2019-04-15] MEDS ORDERED: EPOETIN ALFA 10,000 UNITS/ML VIAL IV SCH (09:00)
[2019-04-15 09:02] LABS: BUN Creatinine Ratio 11.4 (10-20); Calcium 6.9 mg/dl (8.5-10.1); Creatinine Clr Calc Pharmacy 11.1 ml/min; Est GFR (African American) 10.5; Est GFR (Non-African American) 9.1; Potassium 3.4 mmol/L (3.5-5.1)
[2019-04-15] MEDS: INSULIN ASPART 100 UNITS/ML 3 ML PEN SC SCH ×4 (09:44→23:15)
[2019-04-15] MEDS: FAMOTIDINE 20 MG in SYRINGE 3 ML IV SCH (09:57)
[2019-04-15] MEDS: LEVOTHYROXINE SODIUM 12.5 MCG in SYRINGE 0 ML IV SCH (09:58)
--- NOTE | 2019-04-15 10:10 | Nephrology Progress Note ---
Date of Service April 15, 2019 Assessment & Plan (1) Acute renal failure: Patient with acute renal failure likely due to ischemic ATN. 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 He is completely anuric now. CT abdomen does not show obstructive uropathy. He also has low EF. started emergent dialysis for acute renal failure and severe metabolic acidosis on 04/13. He tolerated HD well yesterday for a net loss of 1 litre. will dialyse him today for 3.5hrs on a 4k bath target UF 1 litre (2) Acute respiratory failure: Multifactorial etiology including volume overload and possibly pneumonia. He is receiving broad-spectrum antibiotics per ICU team. Extubated this morning. Will optimize volume status with HD (3) Metabolic acidosis: Due to acute renal failure and high lactate. Improving with HD (4) SIRS (systemic inflammatory response syndrome): Work-up for sepsis is ongoing. Follow-up on blood cultures. Continue broad-spectrum antibiotics renally dosed for GFR less than 25 mL/min. Subjective Patient with JACKIE on HD. He was extubated this morning. he is awake but unable to give history due to throat pain. Still anuric. Labs better. I initially saw patient in morning rounds. I later returned to examine patient while on HD. Patient seen and examined while on dialysis. Daughter Cheryle at the bedside Review of Systems Review of Systems: Unable to obtain due to throat pain and unable to answer questions Physical Exam Physical Exam: General exam: Appears comfortable, no acute distress HEENT: Pupils are equal and reactive to light Neck: No JVD, neck is supple trachea is midline Respiratory system: Clear breath sounds bilaterally. Gastrointestinal: Abdomen is soft, non distended, non tender, bowel sounds are present CVS: Regular rate and rhythm. No murmurs, rubs or gallops Musculoskeletal: No joint or muscle tenderness Extremities: Non tender, no edema, peripheral pulses are present Neuro: Oriented, no tremors, no focal neurological deficits Skin: No rashes Access: right Ij cvc with a local hematoma Results & Data Vital Signs (Past 12 Hours) Vital Signs Pulse Resp BP Pulse Ox 04/15/19 09:00 98 H 126/68 97 04/15/19 08:00 93 H 112/66 99 04/15/19 07:40 90 20 98 04/15/19 07:30 88 14 98 04/15/19 07:00 85 101/58 L 98 04/15/19 05:20 87 20 99 04/15/19 05:00 89 109/61 98 04/15/19 04:30 108 H 111/59 L 99 04/15/19 04:00 86 112/60 99 04/15/19 03:30 88 108/65 99 04/15/19 03:00 87 103/61 98 04/15/19 02:30 88 105/58 L 98 04/15/19 02:10 88 15 99 04/15/19 02:00 86 106/59 L 99 04/15/19 01:30 90 108/59 L 99 04/15/19 01:00 93 H 106/58 L 98 04/15/19 00:30 98 H 110/65 100 04/15/19 00:00 90 111/60 98 04/14/19 23:30 108 H 102/64 98 04/14/19 23:09 95 H 24 100 04/14/19 23:01 105 H 92/41 L 90 04/14/19 22:30 91 H 110/60 100 Laboratory Results Laboratory Results - last 24 hr 04/13/19 04/14/19 04/14/19 09:55 10:06 12:13 WBC RBC Hgb Hct MCV MCH MCHC RDW Std Deviation RDW Coeff of Julissa Plt Count MPV Immature Gran % (Auto) Neut % (Auto) Lymph % (Auto) [place] % (Auto) Eos % (Auto) Baso % (Auto) Immature Gran # (Auto) Neut # (Auto) Lymph # (Auto) [place] # (Auto) Eos # (Auto) Baso # (Auto) Platelet Estimate Ovalocytes Sample Site POC pH POC pCO2 POC pO2 POC HCO3 POC Total CO2 POC Base Excess POC ABG O2 Sat Landry Test O2 Delivery Device POC O2 Rate Minute Ventilation POC FiO2 Tidal Volume PEEP Sodium Potassium Chloride Carbon Dioxide Anion Gap BUN Creatinine Est Cr Clr Drug Dosing Est GFR ( Amer) Est GFR (Non-Af Amer) BUN/Creatinine Ratio Glucose POC Glucose 123 H 103 H Calcium Phosphorus Magnesium Hep B Core IgM Ab NON-REACTIVE 04/14/19 04/14/19 04/14/19 13:18 14:29 16:06 WBC RBC Hgb Hct MCV MCH MCHC RDW Std Deviation RDW Coeff of Julissa Plt Count MPV Immature Gran % (Auto) Neut % (Auto) Lymph % (Auto) [place] % (Auto) Eos % (Auto) Baso % (Auto) Immature Gran # (Auto) Neut # (Auto) Lymph # (Auto) [place] # (Auto) Eos # (Auto) Baso # (Auto) Platelet Estimate Ovalocytes Sample Site L Radial POC pH 7.54 H* POC pCO2 27 L POC pO2 134 H POC HCO3 23 POC Total CO2 24 POC Base Excess 0.0 POC ABG O2 Sat 99.0 H Landry Test NA O2 Delivery Device Ventilator POC O2 Rate 22 Minute Ventilation 1.2 POC FiO2 25 Tidal Volume 550 PEEP 5 Sodium Potassium Chloride Carbon Dioxide Anion Gap BUN Creatinine Est Cr Clr Drug Dosing Est GFR ( Amer) Est GFR (Non-Af Amer) BUN/Creatinine Ratio Glucose POC Glucose 123 H 139 H Calcium Phosphorus Magnesium Hep B Core IgM Ab 04/14/19 04/14/19 04/14/19 19:06 20:38 22:30 WBC RBC Hgb Hct MCV MCH MCHC RDW Std Deviation RDW Coeff of Julissa Plt Count MPV Immature Gran % (Auto) Neut % (Auto) Lymph % (Auto) [place] % (Auto) Eos % (Auto) Baso % (Auto) Immature Gran # (Auto) Neut # (Auto) Lymph # (Auto) [place] # (Auto) Eos # (Auto) Baso # (Auto) Platelet Estimate Ovalocytes Sample Site POC pH POC pCO2 POC pO2 POC HCO3 POC Total CO2 POC Base Excess POC ABG O2 Sat Landry Test O2 Delivery Device POC O2 Rate Minute Ventilation POC FiO2 Tidal Volume PEEP Sodium Potassium Chloride Carbon Dioxide Anion Gap BUN Creatinine Est Cr Clr Drug Dosing Est GFR ( Amer) Est GFR (Non-Af Amer) BUN/Creatinine Ratio Glucose POC Glucose 135 H 134 H 136 H Calcium Phosphorus Magnesium Hep B Core IgM Ab 04/15/19 04/15/19 04/15/19 00:48 02:50 04:46 WBC RBC Hgb Hct MCV MCH MCHC RDW Std Deviation RDW Coeff of Julissa Plt Count MPV Immature Gran % (Auto) Neut % (Auto) Lymph % (Auto) [place] % (Auto) Eos % (Auto) Baso % (Auto) Immature Gran # (Auto) Neut # (Auto) Lymph # (Auto) [place] # (Auto) Eos # (Auto) Baso # (Auto) Platelet Estimate Ovalocytes Sample Site POC pH POC pCO2 POC pO2 POC HCO3 POC Total CO2 POC Base Excess POC ABG O2 Sat Landry Test O2 Delivery Device POC O2 Rate Minute Ventilation POC FiO2 Tidal Volume PEEP Sodium Potassium Chloride Carbon Dioxide Anion Gap BUN Creatinine Est Cr Clr Drug Dosing Est GFR ( Amer) Est GFR (Non-Af Amer) BUN/Creatinine Ratio Glucose POC Glucose 125 H 120 H 118 H Calcium Phosphorus Magnesium Hep B Core IgM Ab 04/15/19 04/15/19 04/15/19 06:18 07:55 07:55 WBC 14.16 H RBC 2.30 L Hgb 7.0 L Hct 20.5 L* MCV 89.1 MCH 30.4 MCHC 34.1 RDW Std Deviation 52.6 H RDW Coeff of Julissa 16.3 H Plt Count 96 L MPV 10.9 H Immature Gran % (Auto) 0.4 Neut % (Auto) 84.7 Lymph % (Auto) 8.1 [place] % (Auto) 6.4 Eos % (Auto) 0.4 Baso % (Auto) 0.0 Immature Gran # (Auto) 0.06 H Neut # (Auto) 12.00 H Lymph # (Auto) 1.15 L [place] # (Auto) 0.90 H Eos # (Auto) 0.05 Baso # (Auto) 0.00 Platelet Estimate Decreased L Ovalocytes 1+ Sample Site POC pH POC pCO2 POC pO2 POC HCO3 POC Total CO2 POC Base Excess POC ABG O2 Sat Landry Test O2 Delivery Device POC O2 Rate Minute Ventilation POC FiO2 Tidal Volume PEEP Sodium 140 Potassium 3.4 L Chloride 103 Carbon Dioxide 24 Anion Gap 13.0 H BUN 60 H Creatinine 5.32 H* D Est Cr Clr Drug Dosing 11.1 Est GFR ( Amer) 10.5 Est GFR (Non-Af Amer) 9.1 BUN/Creatinine Ratio 11.4 Glucose 108 H POC Glucose 111 H Calcium 6.9 L Phosphorus Magnesium Hep B Core IgM Ab 04/15/19 04/15/19 07:55 07:55 WBC RBC Hgb Hct MCV MCH MCHC RDW Std Deviation RDW Coeff of Julissa Plt Count MPV Immature Gran % (Auto) Neut % (Auto) Lymph % (Auto) [place] % (Auto) Eos % (Auto) Baso % (Auto) Immature Gran # (Auto) Neut # (Auto) Lymph # (Auto) [place] # (Auto) Eos # (Auto) Baso # (Auto) Platelet Estimate Ovalocytes Sample Site POC pH POC pCO2 POC pO2 POC HCO3 POC Total CO2 POC Base Excess POC ABG O2 Sat Landry Test O2 Delivery Device POC O2 Rate Minute Ventilation POC FiO2 Tidal Volume PEEP Sodium Potassium Chloride Carbon Dioxide Anion Gap BUN Creatinine Est Cr Clr Drug Dosing Est GFR ( Amer) Est GFR (Non-Af Amer) BUN/Creatinine Ratio Glucose POC Glucose Calcium Phosphorus 6.3 H Cancelled Magnesium 1.9 Hep B Core IgM Ab (1) Acute renal failure Acute renal failure type: unspecified Qualified Code(s): N17.9 - Acute kidney failure, unspecified
--- NOTE | 2019-04-15 10:39 | Hospitalist Progress Note ---
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 Anuric since admission Nephrology on board recommended urgent HD to correct the acidosis Has had more dialysis yesterday and going to have second session today (3) SIRS (systemic inflammatory response syndrome): UTI Urine culture grew Pseudomonas and sensitive to current antibiotic Blood cx no growth so far Continue IV zosyn (4) Metabolic acidosis: ABG on admission with pH 6.9 PCO2 12 and HCO3 5 Repeat ABG after HD showed pH 7.5 PCO2 26 and HCO3 20 Adjustment RR setting on the vent Continue monitor (5) Hypovolemia: Off Levophed BP stable (6) Metabolic encephalopathy: Due to severe acidosis and acute respiratory failure CT head showed no acute intracranial abnormality Continue monitor (7) Elevated lactic acid level: Mostly related to severe metabolic acidosis in the setting of acute respiratory failure Follow up blood cx urine cx positive for gram negative bacilli-Pseudomonas and sensitive to current antibiotic Continue IV zosyn for now (8) Elevated troponin: Demand ischemia due to elevated creatinine and acidosis Denies any chest pain EKG showed no acute ischemic changes Continue monitor DVT px on heparin subq Disposition Continue monitor in the ICU Subjective 04/15 The patient was seen and examined in ICU in presence of the daughter He is still intubated but seems to be restless Denies any other significant symptoms Review of Systems Review of Systems: Remains intubated with distress due to the endotracheal tube Respiratory: + dyspnea Physical Exam 2 Physical Exam: Intubated with moderate distress at rest Constitutional: + acute distress (Secondary to shortness of breath) Eyes: PERRL, conjunctivae normal, anicteric sclerae ENMT: external ear and nose normal, oropharynx normal Neck: trachea midline, no thyromegaly Respiratory: + respiratory distress Auscultation: + diminished lung sounds Cardiovascular: Rate/Rhythm: regular rate and regular rhythm Gastrointestinal (Abdomen): Inspection/Auscultation: abdomen normal to inspection and normal bowel sounds Percussion/Palpation: abdomen soft Musculoskeletal: No acute arthritis in any joint Neurologic: Remains intubated Lymphatic: no cervical or axillary lymphadenopathy Results & Data Vital Signs (Past 12 Hours) Vital Signs Pulse Resp BP Pulse Ox 04/15/19 09:00 98 H 126/68 97 04/15/19 08:00 93 H 112/66 99 04/15/19 07:40 90 20 98 04/15/19 07:30 88 14 98 04/15/19 07:00 85 101/58 L 98 04/15/19 05:20 87 20 99 04/15/19 05:00 89 109/61 98 04/15/19 04:30 108 H 111/59 L 99 04/15/19 04:00 86 112/60 99 04/15/19 03:30 88 108/65 99 04/15/19 03:00 87 103/61 98 04/15/19 02:30 88 105/58 L 98 04/15/19 02:10 88 15 99 04/15/19 02:00 86 106/59 L 99 04/15/19 01:30 90 108/59 L 99 04/15/19 01:00 93 H 106/58 L 98 04/15/19 00:30 98 H 110/65 100 04/15/19 00:00 90 111/60 98 04/14/19 23:30 108 H 102/64 98 04/14/19 23:09 95 H 24 100 04/14/19 23:01 105 H 92/41 L 90 Laboratory Results Short CBC 04/15/19 Range/Units 07:55 WBC 14.16 H (4.8-10.8) K/uL Hgb 7.0 L (14.0-18.0) g/dL Hct 20.5 L* (42-52) % Plt Count 96 L (130-400) K/uL BMP 04/15/19 07:55 Sodium 140 Potassium 3.4 L Chloride 103 Carbon Dioxide 24 BUN 60 H Creatinine 5.32 H* D Glucose 108 H Calcium 6.9 L Medications Administered Current Inpatient Medications Dextrose (Dextrose 50%) 25 - 50 ml IV UD PRN; Protocol PRN Reason: Hypoglycemia Protocol Stop: 05/13/19 04:42 Enteral Nutritional Formula (Novasource Renal 2.0 Mykel) 1,000 ml OG UD KEVIN; Protocol Stop: 05/14/19 09:29 Last Admin: 04/14/19 15:25 Dose: 1,000 ml Documented by: Epoetin Heron (Procrit) 10,000 units IV TODAY@0900 [facility] Stop: 04/15/19 23:59 Fentanyl Citrate (Fentanyl Citrate) 25 mcg IV Q1H PRN PRN Reason: Pain Stop: 04/27/19 04:42 Last Admin: 04/13/19 16:12 Dose: 25 mcg Documented by: Fentanyl Citrate (Fentanyl Citrate) 50 mcg IV Q2H PRN PRN Reason: discomfort on vent Stop: 04/28/19 09:14 Last Admin: 04/14/19 18:47 Dose: 50 mcg Documented by: Glucagon (Glucagen) 1 mg SQ UD PRN; Protocol PRN Reason: Hypoglycemia Protocol Stop: 05/13/19 04:42 Glucose (Dex4 Glucose) 4 - 8 tabs PO UD PRN; Protocol PRN Reason: Hypoglycemia Protocol Stop: 05/13/19 04:42 Glucose (Glucose 40%) 15 - 30 gm PO UD PRN; Protocol PRN Reason: Hypoglycemia Protocol Stop: 05/13/19 04:42 Heparin Sodium (Porcine) (Heparin Sodium (Porcine)) 5,000 units SQ Q8 KEVIN Stop: 05/13/19 05:59 Last Admin: 04/15/19 06:28 Dose: 5,000 units Documented by: Heparin Sodium (Porcine) (Heparin Iv Bolus) 1,000 units IV TODAY@0900 [facility] Stop: 04/15/19 23:59 Heparin Sodium (Porcine) (Heparin Iv Bolus) 400 units IV TODAY@0900,1000,1100 [facility] Stop: 04/15/19 23:59 Levothyroxine Sodium 12.5 mcg/ (Syringe) 0.625 mls @ 2 mls/min IV DAILY@0900 [facility] Stop: 05/13/19 08:59 Last Admin: 04/15/19 09:58 Dose: 2 mls/min Documented by: Acetaminophen (Ofirmev) 65 mls @ 200 mls/hr IV Q6H PRN PRN Reason: Fever Stop: 05/13/19 04:42 Promethazine HCl 12.5 mg/ (Sodium Chloride) 50.5 mls @ 202 mls/hr IV Q6H PRN PRN Reason: Nausea And Vomiting Stop: 05/13/19 04:42 Famotidine 20 mg/ Syringe 5 mls @ 2.5 mls/min IV DAILY KEVIN Stop: 05/13/19 08:59 Last Admin: 04/15/19 09:57 Dose: 2.5 mls/min Documented by: Piperacillin Sod/Tazobactam (Sod 3.375 gm/ Dextrose) 115 mls @ 28.75 mls/hr IV Q12H KEVIN; Protocol Stop: 04/20/19 11:59 Last Infusion: 04/15/19 07:34 Dose: Infused Documented by: Norepinephrine Bitartrate 8 mg (/ Dextrose) 508 mls @ 0 mls/hr IV .Q0M KEVIN; Protocol Stop: 05/13/19 15:29 Last Titration: 04/14/19 07:54 Dose: 0 mcg/kg/min, 0 mls/hr Documented by: Lorazepam (Ativan) 0.5 mg in 1 mls @ 2 mls/min IV Q1H PRN PRN Reason: Agitation/anxiety Stop: 05/13/19 04:42 Propofol (Diprivan) 1,000 mg in 100 mls @ 7.803 mls/hr IV .[id number] KEVIN; Protocol Stop: 04/17/19 18:56 Last Admin: 04/15/19 04:59 Dose: 15 mcg/kg/min, 7.8 mls/hr Documented by: Sodium Chloride (Nss 1000ml) 1,000 mls @ 0 mls/hr IV .Q0M PRN PRN Reason: For Hemodialysis Use ONLY Stop: 04/15/19 14:50 Insulin Aspart (Novolog Flexpen) 0 units SC Q4 KEVIN Stop: 05/15/19 11:59 Miscellaneous (Carbohydrates For Hypoglycemia) 15 - 30 gm PO UD PRN PRN Reason: Hypoglycemia Treatment Stop: 05/13/19 04:42 Miscellaneous Information (Consult) 1 ea N/A UD PRN PRN Reason: Consult Stop: 05/13/19 04:02 Miscellaneous Information (Consult Glycemic Management Pharmacy) 1 ea N/A UD PRN PRN Reason: Consult Stop: 05/13/19 08:37 (1) Acute renal failure Acute renal failure type: unspecified Qualified Code(s): N17.9 - Acute kidney failure, unspecified
--- NOTE | 2019-04-15 10:53 | Pharmacy Report ---
Glycemic Control Progress Note - Date of Service April 15, 2019 - Scope Glycemic Pharmacist consulted for glycemic control to write orders per [facility] inpatient glycemic control protocol. - Objective Accuchecks BSG(last 24 hours):: 04/14/19 04/14/19 04/14/19 12:13 14:29 16:06 Glucose POC Glucose 103 H 123 H 139 H 04/14/19 04/14/19 04/14/19 19:06 20:38 22:30 Glucose POC Glucose 135 H 134 H 136 H 04/15/19 04/15/19 04/15/19 00:48 02:50 04:46 Glucose POC Glucose 125 H 120 H 118 H 04/15/19 04/15/19 06:18 07:55 Glucose 108 H POC Glucose 111 H HbA1c:: Hemoglobin A1c 6.5 % (4.5-5.6) H 04/12/19 23:11 - Recent Pertinent Medications The patient is currently receiving: * Basal insulin: Lantus -- units every -- hours * Correctional Insulin: Novolog Correction per scale ACHS Goal Range: Low 110 mg/dL - High 180 mg/dL Correction Factor: -- mg/dL/unit * Prandial insulin: Per carb ratio of 1 unit per -- grams CHO consumed - Outpatient Anti-Diabetic Meds repaglinide 2 mg TIDM Lantus 20 units daily - Assessment & Plan ASSESSMENT: * See progress note from 04/13/19 for more background info, in short: * Pt receiving SQ basal bolus insulin regimen for hyperglycemia secondary to baseline DM (outpatient regimen on hold),stress/infection (on Zosyn). Patient was just extubated this morning. He is receiving urgent dialysis this morning again. Tube feeds were never started - he may eat later today if encephalopathy resolves * Patient is currently receiving an average of 0 units of insulin per day * 0 units of basal insulin * 0 units of prandial/correctional insulin * BSGs ranging 107 - 139 mg/dl over the past 24hrs * Changes needed to insulin regimen: * AM Fasting BSG = 111 mg/dl. This is in goal range for patient based on inpatient targets and co-morbidities. Will hold off on starting basal insulin at this time. Patient has significant changes going on including new start dialysis and encephalopathy. The safest route in ICU patients is an insulin infusion. Since patient has been okay yesterday, extend out accuchecks to q4 hours today. Pending insulin infusion for blood sugar over 180 mg/dL x 1. * Post-prandial BSGs are in range. Since patient extubated - start Novolog ACHS weight-based stress of 2 parameters * Total daily dose = ? units. More to be seen once patient eats. * Additional notes / comments: PLAN FOR INPATIENT GLYCEMIC CONTROL: * Starting IV insulin infusion per moderate stress protocol when blood sugar over 180 mg/dL * Goal Range 110 - 180 mg/dl * In the critical care setting, continuous IV insulin infusion has been shown to be the best method for achieving glycemic targets. * Oral Agents * Continue to hold outpatient oral diabetes medications. * Basal insulin * Lantus --- units SQ BID - to be started once patient stabilizes and has good oral intake. * Bolus insulin * NovoLog per scale ACHS or Q6hrs while NPO * Goal Range: Low 120 mg/dL - High 160 mg/dL * Correction Factor: 25 mg/dL/unit * Nutritional / Prandial insulin per carb ratio of 1 unit per 9 grams CHO consumed * Please note that the plan above was derived based on current level of insulin resistance and hospital stress. These recommendations are appropriate for inpatient admission only. Plan of care upon discharge will need to be reassessed to avoid potential outpatient hypo/hyperglycemia. Thank you.
[2019-04-15] MEDS: HEPARIN SOD (PORCINE) 1000 UNIT/ML 10 ML VIAL IV SCH (12:56)
[2019-04-15 16:14] LABS: Basophils # (auto) 0.01 K/uL (0-0.2); Basophils % (auto) 0.1 %; Eosinophils # (auto) 0.02 K/uL (0-0.5); Eosinophils % (auto) 0.1 %; Hematocrit (blood only) 22.7 % (42-52); Hemoglobin 7.8 g/dL (14.0-18.0); Immature Granulocytes # (auto) 0.08 K/uL (0.00-0.02); Immature Granulocytes % (auto) 0.4 %; Lymphocytes # (auto) 1.17 K/uL (1.2-3.4); Mean Corpuscular Hgb Conc 34.4 g/dL (32-36); Mean Corpuscular Volume 89.4 fL (80-100); Monocytes # (auto) 1.23 K/uL (0.11-0.59); Monocytes % (auto) 6.3 %; Neutrophils # (auto) 17.09 K/uL (1.4-6.5); Neutrophils % (auto) 87.1 %; Platelet Count 115 K/uL (130-400); RDW Coefficient of Variation 16.1 % (11.5-14.5); RDW Standard Deviation 51.5 fL (36.4-46.3); Red Blood Count 2.54 M/uL (4.7-6.1)
[2019-04-15 16:38] LABS: Ovalocytes 1+
[2019-04-15 16:41] LABS: Albumin Level 2.4 gm/dl (3.4-5.0); Bilirubin Direct 0.2 mg/dl (0-0.2); Bilirubin,Total 0.5 mg/dl (0.2-1); Calcium 7.4 mg/dl (8.5-10.1); Creatinine Clr Calc Pharmacy 19.2 ml/min; Est GFR (African American) 20.3; Est GFR (Non-African American) 17.5; Magnesium 1.9 mg/dl (1.8-2.4); Potassium 3.8 mmol/L (3.5-5.1); Total Protein 6.3 gm/dl (6.4-8.2)
[2019-04-15] MEDS ORDERED: SODIUM CHLORIDE 0.9% 250 ML IV PRN (18:15)
[2019-04-15 18:25] LABS: Fibrinogen 587 mg/dl (184-400); INR 1.2 (0.9-1.1); Prothrombin Time 11.7 Seconds (9.0-12.0)
[2019-04-15 18:27] LABS: Partial Thromboplastin Ratio > 5.1
[2019-04-15 18:31] LABS: Partial Thromboplastin Time > 139.0 Seconds (21.0-31.0)
[2019-04-16] MEDS: INSULIN ASPART 100 UNITS/ML 3 ML PEN SC SCH ×6 (00:57→21:10)
[2019-04-16] MEDS: PIPERACILLIN/TAZOBACTAM 3.375 GM in DEXTROSE 5% 100 ML IV SCH ×2 (01:46→14:36)
[2019-04-16 04:35] LABS: BUN Creatinine Ratio 8.6 (10-20); Calcium 7.1 mg/dl (8.5-10.1); Creatinine Clr Calc Pharmacy 14.5 ml/min; Est GFR (African American) 14.4; Est GFR (Non-African American) 12.4; Potassium 3.7 mmol/L (3.5-5.1)
[2019-04-16 04:36] LABS: Phosphorus 5.1 mg/dl (2.5-4.9)
[2019-04-16 04:38] LABS: Hematocrit (blood only) 20.1 % (42-52); Hemoglobin 6.8 g/dL (14.0-18.0); Mean Corpuscular Hgb Conc 33.8 g/dL (32-36); Mean Corpuscular Volume 91.4 fL (80-100); Mean Platelet Volume 10.8 fL (7.4-10.4); Platelet Count 107 K/uL (130-400); RDW Coefficient of Variation 16.1 % (11.5-14.5); RDW Standard Deviation 53.6 fL (36.4-46.3); White Blood Count 15.72 K/uL (4.8-10.8)
[2019-04-16 04:39] LABS: Basophils # (auto) 0.01 K/uL (0-0.2); Basophils % (auto) 0.1 %; Immature Granulocytes # (auto) 0.05 K/uL (0.00-0.02); Immature Granulocytes % (auto) 0.3 %; Lymphocytes # (auto) 1.03 K/uL (1.2-3.4); Lymphocytes % (auto) 6.6 %; Monocytes # (auto) 0.75 K/uL (0.11-0.59); Monocytes % (auto) 4.8 %; Neutrophils # (auto) 13.88 K/uL (1.4-6.5); Neutrophils % (auto) 88.2 %; RBC Morphology Unremarkable
[2019-04-16] MEDS ORDERED: SODIUM CHLORIDE 0.9% 250 ML IV PRN ×2 (04:52→07:13)
[2019-04-16 07:44] LABS: INR 1.1 (0.9-1.1); Partial Thromboplastin Ratio 1.4; Partial Thromboplastin Time 37.2 Seconds (21.0-31.0); Prothrombin Time 11.2 Seconds (9.0-12.0)
--- NOTE | 2019-04-16 07:44 | Critical Care Progress Note ---
Date of Service April 16, 2019 Assessment & Plan (1) Acute renal failure: Neuro- altered mental status due to metabolic encephalopathy due to renal failure, severe acidosis. improving CV- HD stable now off vasopressors Pulmonary- acute respiratory failure due to severe acidosis. extubated yesterday doing well so far on NC except for a lot of secretions which he is handling ID- sepsis with evidence of end organ dysfunction. due to pseudomonas UTI. continue piperacillin-tazobactam Renal- acute on chronic renal failure unclear cause. ?prerenal vs ATN. dialysis per renal GI- swallow eval Heme- leukocytosis -improved, anemia. hgb decreasing no signs bleeding. isolated increased PTT with bleeding from IV sites and pink tinged sputum. got FFP last evening. now PTT down to 37.2. transfuse to keep hgb >7. hold heparin Endocrine- blood sugars controlled. levothyroxine for hypothyroidism Dispo- continue ICU care for ventilatory support DNR I have personally spent 30 minutes of critical care time in the direct management of this patient. This is a life/limb threatening event. This includes time spent evaluating patient, direct bedside care, chart review, placing orders, interpretation of diagnostic studies, discussion with consultants, patient, and/or family members regarding treatment decisions, as well as other required patient management activities. This time is exclusive of all separately billable procedures, and teaching time and separate from and in addition to any other critical care service time. (2) Metabolic acidosis: (3) Respiratory failure: (4) Metabolic encephalopathy: (5) Hypovolemia: (6) SIRS (systemic inflammatory response syndrome): Subjective extubated yesteday doing well on NC. has a lot of secretions but is coughing them up. bleeding from IV sites and central line site with elevated PTT. got FFP last night Physical Exam Physical Exam: Constitutional: Comfortable NAD HEENT: normocephalic atraumatic. MMM. blood at site of RIJ dialysis catheter CV: RRR nl s1,s2 no murmurs rubs or gallops Lungs: clear to auscultation bilaterally. no accessory muscle use Abd: soft nontender nondistended. normal bowel sounds Ext: no edema. no cyanosis, no clubbing Skin: warm dry Neuro: awake but confused moving all ext Psych: Results & Data Vital Signs (Past 12 Hours) Vital Signs Temp Pulse Resp BP Pulse Ox 04/16/19 07:35 37.0 C 98 H 25 H 122/74 96 04/16/19 06:00 95 H 24 138/67 96 04/16/19 05:00 100 H 31 H 97 04/16/19 04:00 37.5 C 100 H 28 H 122/62 93 04/16/19 03:00 104 H 28 H 124/69 94 04/16/19 02:00 107 H 31 H 117/72 93 04/16/19 01:00 106 H 30 H 131/81 92 04/16/19 00:00 37.4 C 114 H 33 H 146/83 H 93 04/15/19 23:00 37.8 C H 108 H 32 H 127/75 95 04/15/19 22:00 120 H 32 H 121/82 95 04/15/19 21:50 117 H 30 H 129/74 95 04/15/19 21:40 117 H 30 H 127/82 96 04/15/19 21:30 108 H 31 H 124/87 96 04/15/19 21:20 109 H 30 H 125/70 95 04/15/19 21:10 114 H 27 H 116/77 97 04/15/19 21:00 37.4 C 114 H 28 H 123/82 95 04/15/19 20:50 116 H 31 H 116/70 95 04/15/19 20:40 121 H 37 H 139/82 93 04/15/19 20:30 116 H 31 H 122/83 95 04/15/19 20:21 37.1 C 120 H 32 H 128/87 96 04/15/19 20:10 37.3 C 111 H 32 H 141/80 H 90 04/15/19 20:00 37.1 C 117 H 29 H 126/88 94 04/15/19 19:56 108 H 25 H 136/80 95 04/15/19 19:53 36.9 C 112 H 25 H 130/82 94 04/15/19 19:50 105 H 27 H 130/82 94 04/15/19 19:44 37 C 108 H 28 H 136/80 93 04/15/19 19:40 36.9 C 117 H 29 H 135/82 95 Laboratory Results Laboratory Results - last 24 hr 04/13/19 04/15/19 04/15/19 02:15 07:55 07:55 WBC 14.16 H RBC 2.30 L Hgb 7.0 L Hct 20.5 L* MCV 89.1 MCH 30.4 MCHC 34.1 RDW Std Deviation 52.6 H RDW Coeff of Julissa 16.3 H Plt Count 96 L MPV 10.9 H Immature Gran % (Auto) 0.4 Neut % (Auto) 84.7 Lymph % (Auto) 8.1 Sibley % (Auto) 6.4 Eos % (Auto) 0.4 Baso % (Auto) 0.0 Immature Gran # (Auto) 0.06 H Neut # (Auto) 12.00 H Lymph # (Auto) 1.15 L Sibley # (Auto) 0.90 H Eos # (Auto) 0.05 Baso # (Auto) 0.00 Platelet Estimate Decreased L RBC Morphology Ovalocytes 1+ PT INR APTT PTT Ratio Fibrinogen Sodium 140 Potassium 3.4 L Chloride 103 Carbon Dioxide 24 Anion Gap 13.0 H BUN 60 H Creatinine 5.32 H* D Est Cr Clr Drug Dosing 11.1 Est GFR ( Amer) 10.5 Est GFR (Non-Af Amer) 9.1 BUN/Creatinine Ratio 11.4 Glucose 108 H POC Glucose Calcium 6.9 L Phosphorus Magnesium Total Bilirubin Direct Bilirubin AST ALT Alkaline Phosphatase Total Protein Albumin Blood Type A Positive Blood Type Recheck Antibody Screen NEGATIVE Crossmatch 04/15/19 04/15/19 04/15/19 07:55 07:55 12:05 WBC RBC Hgb Hct MCV MCH MCHC RDW Std Deviation RDW Coeff of Julissa Plt Count MPV Immature Gran % (Auto) Neut % (Auto) Lymph % (Auto) Sibley % (Auto) Eos % (Auto) Baso % (Auto) Immature Gran # (Auto) Neut # (Auto) Lymph # (Auto) Sibley # (Auto) Eos # (Auto) Baso # (Auto) Platelet Estimate RBC Morphology Ovalocytes PT INR APTT PTT Ratio Fibrinogen Sodium Potassium Chloride Carbon Dioxide Anion Gap BUN Creatinine Est Cr Clr Drug Dosing Est GFR ( Amer) Est GFR (Non-Af Amer) BUN/Creatinine Ratio Glucose POC Glucose 100 H Calcium Phosphorus 6.3 H Cancelled Magnesium 1.9 Total Bilirubin Direct Bilirubin AST ALT Alkaline Phosphatase Total Protein Albumin Blood Type Blood Type Recheck Antibody Screen Crossmatch 07/06/19 07/06/19 07/06/19 15:44 16:03 16:03 WBC 19.60 H RBC 2.54 L Hgb 7.8 L Hct 22.7 L MCV 89.4 MCH 30.7 MCHC 34.4 RDW Std Deviation 51.5 H RDW Coeff of Julissa 16.1 H Plt Count 115 L MPV 11.0 H Immature Gran % (Auto) 0.4 Neut % (Auto) 87.1 Lymph % (Auto) 6.0 Sibley % (Auto) 6.3 Eos % (Auto) 0.1 Baso % (Auto) 0.1 Immature Gran # (Auto) 0.08 H Neut # (Auto) 17.09 H Lymph # (Auto) 1.17 L Sibley # (Auto) 1.23 H Eos # (Auto) 0.02 Baso # (Auto) 0.01 Platelet Estimate RBC Morphology Ovalocytes 1+ PT Cancelled INR Cancelled APTT Cancelled PTT Ratio Cancelled Fibrinogen Cancelled Sodium Potassium Chloride Carbon Dioxide Anion Gap BUN Creatinine Est Cr Clr Drug Dosing Est GFR ( Amer) Est GFR (Non-Af Amer) BUN/Creatinine Ratio Glucose POC Glucose 105 H Calcium Phosphorus Magnesium Total Bilirubin Direct Bilirubin AST ALT Alkaline Phosphatase Total Protein Albumin Blood Type Blood Type Recheck Antibody Screen Crossmatch 04/15/19 04/15/19 04/15/19 16:03 16:03 17:47 WBC RBC Hgb Hct MCV MCH MCHC RDW Std Deviation RDW Coeff of Julissa Plt Count MPV Immature Gran % (Auto) Neut % (Auto) Lymph % (Auto) Sibley % (Auto) Eos % (Auto) Baso % (Auto) Immature Gran # (Auto) Neut # (Auto) Lymph # (Auto) Sibley # (Auto) Eos # (Auto) Baso # (Auto) Platelet Estimate RBC Morphology Ovalocytes PT 11.7 INR 1.2 H APTT > 139.0 H* PTT Ratio > 5.1 Fibrinogen 587 H Sodium 139 Potassium 3.8 Chloride 104 Carbon Dioxide 23 Anion Gap 12.0 H BUN 28 H D Creatinine 3.08 H D Est Cr Clr Drug Dosing 19.2 Est GFR ( Amer) 20.3 Est GFR (Non-Af Amer) 17.5 BUN/Creatinine Ratio 9.0 L Glucose 109 H POC Glucose Calcium 7.4 L Phosphorus Magnesium 1.9 Total Bilirubin 0.5 Direct Bilirubin 0.2 AST 32 ALT 40 Alkaline Phosphatase 72 Total Protein 6.3 L Albumin 2.4 L Blood Type Blood Type Recheck A Positive Antibody Screen Crossmatch 04/15/19 04/15/19 04/15/19 18:26 18:26 20:21 WBC RBC Hgb Hct MCV MCH MCHC RDW Std Deviation RDW Coeff of Julissa Plt Count MPV Immature Gran % (Auto) Neut % (Auto) Lymph % (Auto) Sibley % (Auto) Eos % (Auto) Baso % (Auto) Immature Gran # (Auto) Neut # (Auto) Lymph # (Auto) Sibley # (Auto) Eos # (Auto) Baso # (Auto) Platelet Estimate RBC Morphology Ovalocytes PT INR APTT PTT Ratio Fibrinogen Sodium Potassium Chloride Carbon Dioxide Anion Gap BUN Creatinine Est Cr Clr Drug Dosing Est GFR ( Amer) Est GFR (Non-Af Amer) BUN/Creatinine Ratio Glucose POC Glucose 112 H Calcium Phosphorus Magnesium Total Bilirubin Direct Bilirubin AST ALT Alkaline Phosphatase Total Protein Albumin Blood Type Cancelled A Positive Blood Type Recheck Antibody Screen Cancelled NEGATIVE Crossmatch See Detail 04/16/19 04/16/19 04/16/19 00:24 04:01 04:01 WBC 15.72 H RBC 2.20 L Hgb 6.8 L* Hct 20.1 L* MCV 91.4 MCH 30.9 MCHC 33.8 RDW Std Deviation 53.6 H RDW Coeff of Julissa 16.1 H Plt Count 107 L MPV 10.8 H Immature Gran % (Auto) 0.3 Neut % (Auto) 88.2 Lymph % (Auto) 6.6 Sibley % (Auto) 4.8 Eos % (Auto) 0.0 Baso % (Auto) 0.1 Immature Gran # (Auto) 0.05 H Neut # (Auto) 13.88 H Lymph # (Auto) 1.03 L Sibley # (Auto) 0.75 H Eos # (Auto) 0.00 Baso # (Auto) 0.01 Platelet Estimate RBC Morphology Unremarkable Ovalocytes PT INR APTT PTT Ratio Fibrinogen Sodium 139 Potassium 3.7 Chloride 103 Carbon Dioxide 24 Anion Gap 12.0 H BUN 35 H Creatinine 4.10 H D Est Cr Clr Drug Dosing 14.5 Est GFR ( Amer) 14.4 Est GFR (Non-Af Amer) 12.4 BUN/Creatinine Ratio 8.6 L Glucose 112 H POC Glucose 105 H Calcium 7.1 L Phosphorus 5.1 H Magnesium 2.0 Total Bilirubin Direct Bilirubin AST ALT Alkaline Phosphatase Total Protein Albumin Blood Type Blood Type Recheck Antibody Screen Crossmatch 04/16/19 04:02 WBC RBC Hgb Hct MCV MCH MCHC RDW Std Deviation RDW Coeff of Julissa Plt Count MPV Immature Gran % (Auto) Neut % (Auto) Lymph % (Auto) Sibley % (Auto) Eos % (Auto) Baso % (Auto) Immature Gran # (Auto) Neut # (Auto) Lymph # (Auto) Sibley # (Auto) Eos # (Auto) Baso # (Auto) Platelet Estimate RBC Morphology Ovalocytes PT Pending INR Pending APTT Pending PTT Ratio Pending Fibrinogen Sodium Potassium Chloride Carbon Dioxide Anion Gap BUN Creatinine Est Cr Clr Drug Dosing Est GFR ( Amer) Est GFR (Non-Af Amer) BUN/Creatinine Ratio Glucose POC Glucose Calcium Phosphorus Magnesium Total Bilirubin Direct Bilirubin AST ALT Alkaline Phosphatase Total Protein Albumin Blood Type Blood Type Recheck Antibody Screen Crossmatch (1) Acute renal failure Acute renal failure type: unspecified Qualified Code(s): N17.9 - Acute kidney failure, unspecified (2) Respiratory failure Chronicity: unspecified Respiratory failure complication: unspecified whether with hypoxia or hypercapnia Qualified Code(s): J96.90 - Respiratory failure, unspecified, unspecified whether with hypoxia or hypercapnia
--- NOTE | 2019-04-16 08:45 | XRay Report ---
XR chest 1V portable HISTORY: 84 years-old Male productive cough acute cough COMPARISON: Chest radiograph 04/13/[address] 04/13/2019 TECHNIQUE: Portable AP view of the chest FINDINGS: Status post extubation with removal of enteric tube. Stable positioning of dual lumen right IJ hemodi alysis catheter. Unchanged left subclavian pacer/AICD. Cardiac silhouette is enlarged. Interval devel opment of pulmonary vascular congestion with interstitial coarsening. Suggested trace pleural effusio ns with subsegmental bibasilar opacities. Calcification of the thoracic aortic arch. Degenerative anupam nges of the shoulders and spine. IMPRESSION: 1. Cardiomegaly with interval development of pulmonary vascular congestion and interstitial coarsenin g suggestive of pulmonary edema. 2. Trace pleural effusions with bibasilar opacities suggestive of atelectasis or pneumonitis. 3. Interval extubation with removal of enteric tube. The above report was generated using voice recognition software. It may contain grammatical, syntax o r spelling errors. Electronically signed by: Milton Beck M.D. 04/16/2019 8:44 AM
[2019-04-16] MEDS: FAMOTIDINE 20 MG in SYRINGE 3 ML IV SCH (08:50)
[2019-04-16] MEDS: LEVOTHYROXINE SODIUM 12.5 MCG in SYRINGE 0 ML IV SCH (08:50)
--- NOTE | 2019-04-16 10:48 | Nephrology Progress Note ---
Date of Service April 16, 2019 Assessment & Plan (1) Acute renal failure: Patient with acute renal failure likely due to ischemic ATN. 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 He is completely anuric now. CT abdomen does not show obstructive uropathy. He also has low EF. started emergent dialysis for acute renal failure and severe metabolic acidosis on 04/13. He tolerated HD well yesterday for a net loss of 1 litre. Electrolytes are stable. Chest x-ray today showing pulmonary vascular congestion. He also has significant amount of secretions. Oxygenation is stable. We will hold off on dialysis today. Monitor closely if signs of respiratory decompensation, or for isolated ultrafiltration to optimize volume status (2) Acute respiratory failure: Multifactorial etiology including volume overload and possibly pneumonia. He is receiving broad-spectrum antibiotics per ICU team. Low threshold for ultrafiltration if worsening respiratory status. I discussed the plan with the ICU attending (3) Metabolic acidosis: Due to acute renal failure and high lactate. Improving with HD (4) SIRS (systemic inflammatory response syndrome): Sepsis due to Pseudomonas UTI. Blood pressure currently stable. Continue broad-spectrum antibiotics renally dosed for GFR less than 25 mL/min. Subjective Patient seen in follow-up for acute kidney injury on CKD. He remains anuric. He denies shortness of breath. He was extubated yesterday but has a lot of secretions today. Chest x-ray reported as pulmonary vascular congestion. He is using oxygen by nasal cannula. He had dialysis yesterday. Review of Systems Review of Systems: All systems reviewed & are unremarkable except as noted in HPI & below Physical Exam Physical Exam: General exam: Appears comfortable, no acute distress HEENT: Pupils are equal and reactive to light Neck: No JVD, neck is supple trachea is midline Respiratory system: Crackles bilaterally. Gastrointestinal: Abdomen is soft, non distended, non tender, bowel sounds are present CVS: Regular rate and rhythm. No murmurs, rubs or gallops Musculoskeletal: No joint or muscle tenderness Extremities: Non tender, no edema, peripheral pulses are present Neuro: Oriented, no tremors, no focal neurological deficits Skin: No rashes Results & Data Vital Signs (Past 12 Hours) Vital Signs Temp Pulse Resp BP Pulse Ox 04/16/19 08:10 37.3 C 99 H 24 115/71 96 04/16/19 08:00 98 H 04/16/19 07:55 37.3 C 99 H 28 H 90/51 L 95 04/16/19 07:35 37.0 C 98 H 25 H 122/74 96 04/16/19 07:00 37.0 C 97 H 26 H 124/63 96 04/16/19 06:00 95 H 24 138/67 96 04/16/19 05:00 100 H 31 H 97 04/16/19 04:00 37.5 C 100 H 28 H 122/62 93 04/16/19 03:00 104 H 28 H 124/69 94 04/16/19 02:00 107 H 31 H 117/72 93 04/16/19 01:00 106 H 30 H 131/81 92 04/16/19 00:00 37.4 C 114 H 33 H 146/83 H 93 04/15/19 23:00 37.8 C H 108 H 32 H 127/75 95 Laboratory Results Laboratory Results - last 24 hr 04/13/19 04/15/19 04/15/19 02:15 12:05 15:44 WBC RBC Hgb Hct MCV MCH MCHC RDW Std Deviation RDW Coeff of Julissa Plt Count MPV Immature Gran % (Auto) Neut % (Auto) Lymph % (Auto) Barren % (Auto) Eos % (Auto) Baso % (Auto) Immature Gran # (Auto) Neut # (Auto) Lymph # (Auto) Barren # (Auto) Eos # (Auto) Baso # (Auto) RBC Morphology Ovalocytes PT INR APTT PTT Ratio Fibrinogen Sodium Potassium Chloride Carbon Dioxide Anion Gap BUN Creatinine Est Cr Clr Drug Dosing Est GFR ( Amer) Est GFR (Non-Af Amer) BUN/Creatinine Ratio Glucose POC Glucose 100 H 105 H Calcium Phosphorus Magnesium Total Bilirubin Direct Bilirubin AST ALT Alkaline Phosphatase Total Protein Albumin Blood Type A Positive Blood Type Recheck Antibody Screen NEGATIVE Crossmatch 04/15/19 04/15/19 04/15/19 16:03 16:03 16:03 WBC 19.60 H RBC 2.54 L Hgb 7.8 L Hct 22.7 L MCV 89.4 MCH 30.7 MCHC 34.4 RDW Std Deviation 51.5 H RDW Coeff of Julissa 16.1 H Plt Count 115 L MPV 11.0 H Immature Gran % (Auto) 0.4 Neut % (Auto) 87.1 Lymph % (Auto) 6.0 Barren % (Auto) 6.3 Eos % (Auto) 0.1 Baso % (Auto) 0.1 Immature Gran # (Auto) 0.08 H Neut # (Auto) 17.09 H Lymph # (Auto) 1.17 L Barren # (Auto) 1.23 H Eos # (Auto) 0.02 Baso # (Auto) 0.01 RBC Morphology Ovalocytes 1+ PT Cancelled INR Cancelled APTT Cancelled PTT Ratio Cancelled Fibrinogen Cancelled Sodium 139 Potassium 3.8 Chloride 104 Carbon Dioxide 23 Anion Gap 12.0 H BUN 28 H D Creatinine 3.08 H D Est Cr Clr Drug Dosing 19.2 Est GFR ( Amer) 20.3 Est GFR (Non-Af Amer) 17.5 BUN/Creatinine Ratio 9.0 L Glucose 109 H POC Glucose Calcium 7.4 L Phosphorus Magnesium 1.9 Total Bilirubin 0.5 Direct Bilirubin 0.2 AST 32 ALT 40 Alkaline Phosphatase 72 Total Protein 6.3 L Albumin 2.4 L Blood Type Blood Type Recheck Antibody Screen Crossmatch 04/15/19 04/15/19 04/15/19 16:03 17:47 18:26 WBC RBC Hgb Hct MCV MCH MCHC RDW Std Deviation RDW Coeff of Julissa Plt Count MPV Immature Gran % (Auto) Neut % (Auto) Lymph % (Auto) Barren % (Auto) Eos % (Auto) Baso % (Auto) Immature Gran # (Auto) Neut # (Auto) Lymph # (Auto) Barren # (Auto) Eos # (Auto) Baso # (Auto) RBC Morphology Ovalocytes PT 11.7 INR 1.2 H APTT > 139.0 H* PTT Ratio > 5.1 Fibrinogen 587 H Sodium Potassium Chloride Carbon Dioxide Anion Gap BUN Creatinine Est Cr Clr Drug Dosing Est GFR ( Amer) Est GFR (Non-Af Amer) BUN/Creatinine Ratio Glucose POC Glucose Calcium Phosphorus Magnesium Total Bilirubin Direct Bilirubin AST ALT Alkaline Phosphatase Total Protein Albumin Blood Type Cancelled Blood Type Recheck A Positive Antibody Screen Cancelled Crossmatch 04/15/19 04/15/19 04/16/19 18:26 20:21 00:24 WBC RBC Hgb Hct MCV MCH MCHC RDW Std Deviation RDW Coeff of Julissa Plt Count MPV Immature Gran % (Auto) Neut % (Auto) Lymph % (Auto) Barren % (Auto) Eos % (Auto) Baso % (Auto) Immature Gran # (Auto) Neut # (Auto) Lymph # (Auto) Barren # (Auto) Eos # (Auto) Baso # (Auto) RBC Morphology Ovalocytes PT INR APTT PTT Ratio Fibrinogen Sodium Potassium Chloride Carbon Dioxide Anion Gap BUN Creatinine Est Cr Clr Drug Dosing Est GFR ( Amer) Est GFR (Non-Af Amer) BUN/Creatinine Ratio Glucose POC Glucose 112 H 105 H Calcium Phosphorus Magnesium Total Bilirubin Direct Bilirubin AST ALT Alkaline Phosphatase Total Protein Albumin Blood Type A Positive Blood Type Recheck Antibody Screen NEGATIVE Crossmatch See Detail 04/16/19 04/16/19 04/16/19 04:01 04:01 04:02 WBC 15.72 H RBC 2.20 L Hgb 6.8 L* Hct 20.1 L* MCV 91.4 MCH 30.9 MCHC 33.8 RDW Std Deviation 53.6 H RDW Coeff of Julissa 16.1 H Plt Count 107 L MPV 10.8 H Immature Gran % (Auto) 0.3 Neut % (Auto) 88.2 Lymph % (Auto) 6.6 Barren % (Auto) 4.8 Eos % (Auto) 0.0 Baso % (Auto) 0.1 Immature Gran # (Auto) 0.05 H Neut # (Auto) 13.88 H Lymph # (Auto) 1.03 L Barren # (Auto) 0.75 H Eos # (Auto) 0.00 Baso # (Auto) 0.01 RBC Morphology Unremarkable Ovalocytes PT 11.2 INR 1.1 APTT 37.2 H PTT Ratio 1.4 Fibrinogen Sodium 139 Potassium 3.7 Chloride 103 Carbon Dioxide 24 Anion Gap 12.0 H BUN 35 H Creatinine 4.10 H D Est Cr Clr Drug Dosing 14.5 Est GFR ( Amer) 14.4 Est GFR (Non-Af Amer) 12.4 BUN/Creatinine Ratio 8.6 L Glucose 112 H POC Glucose Calcium 7.1 L Phosphorus 5.1 H Magnesium 2.0 Total Bilirubin Direct Bilirubin AST ALT Alkaline Phosphatase Total Protein Albumin Blood Type Blood Type Recheck Antibody Screen Crossmatch (1) Acute renal failure Acute renal failure type: unspecified Qualified Code(s): N17.9 - Acute kidney failure, unspecified
--- NOTE | 2019-04-16 13:23 | Hospitalist Progress Note ---
Date of Service April 16, 2019 Assessment & Plan (1) Acute respiratory failure: Severe metabolic acidosis ABG on admission with pH 6.9 PCO2 12 and HCO3 5 Intubated on vent support being managed by shoe packer in the ICU Received bicarb drip and emergent hemodialysis Clinically better and has been fighting on vent Discussed with the shoe packer Status post extubation on 04/15 Has been having a lot of secretions causing shortness of breath and desaturation Will need recurrent suction and has been on vibration to encourage expectoration Anemia Multifactorial including UTI and SIRS and is complicated by chronic renal disease PTT was noted to be high but that has been improving Doubt any DIC Hemoglobin dropped down to 6.8 Has been getting blood transfusion (2) Acute renal failure: 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 Anuric since admission Nephrology on board recommended urgent HD to correct the acidosis Has had more dialysis yesterday and going to have second session today (3) SIRS (systemic inflammatory response syndrome): UTI Urine culture grew Pseudomonas and sensitive to current antibiotic Blood cx no growth so far Continue IV zosyn Clinically better, without any fever and white count is improving (4) Metabolic acidosis: ABG on admission with pH 6.9 PCO2 12 and HCO3 5 Repeat ABG after HD showed pH 7.5 PCO2 26 and HCO3 20 Adjustment RR setting on the vent Continue monitor (5) Hypovolemia: Off Levophed BP stable (6) Metabolic encephalopathy: Due to severe acidosis and acute respiratory failure CT head showed no acute intracranial abnormality Continue monitor (7) Elevated lactic acid level: Mostly related to severe metabolic acidosis in the setting of acute respiratory failure Follow up blood cx urine cx positive for gram negative bacilli-Pseudomonas and sensitive to current antibiotic Continue IV zosyn for now (8) Elevated troponin: Demand ischemia due to elevated creatinine and acidosis Denies any chest pain EKG showed no acute ischemic changes Continue monitor DVT px on heparin subq Disposition Continue monitor in the ICU Subjective 04/15 The patient was seen and examined in ICU in presence of the daughter He is still intubated but seems to be restless Denies any other significant symptoms 04/16 The patient was seen and examined in ICU He was extubated yesterday and has been complaining of loss of respiratory secretions which he is unable to expectorate Denies any significant pain Review of Systems Review of Systems: Remains intubated with distress due to the endotracheal tube Respiratory: + dyspnea Physical Exam Physical Exam: Lying in bed with acute distress secondary to shortness of breath Constitutional: well developed, + acute distress (Secondary to shortness of breath with wheezing) and + ill appearing Eyes: Close ENMT: external ear and nose normal, oropharynx normal Neck: trachea midline, no thyromegaly Respiratory: + respiratory distress and + labored breathing Auscultation: + diminished lung sounds, + crackles, + rales and + rhonchi Transmitted sounds from trachea Cardiovascular: Rate/Rhythm: regular rate and regular rhythm Gastrointestinal (Abdomen): Inspection/Auscultation: abdomen normal to inspection and normal bowel sounds Percussion/Palpation: abdomen soft Neurologic: moves all extremities Remains very lethargic and drowsy Lymphatic: no cervical or axillary lymphadenopathy Results & Data Vital Signs (Past 12 Hours) Vital Signs Temp Pulse Resp BP Pulse Ox 04/16/19 12:00 105 H 16 101/69 95 04/16/19 11:45 37.0 C 95 H 24 126/67 96 04/16/19 11:30 95 H 26 H 133/75 98 04/16/19 11:00 100 H 27 H 124/67 95 04/16/19 10:45 96 H 25 H 128/71 97 04/16/19 10:30 98 H 27 H 130/71 94 04/16/19 10:15 101 H 29 H 127/72 97 04/16/19 10:00 96 H 27 H 116/73 97 04/16/19 09:45 93 H 23 123/64 97 04/16/19 09:30 100 H 24 126/69 96 04/16/19 09:15 94 H 21 112/66 93 04/16/19 09:00 97 H 25 H 96 04/16/19 08:45 95 H 24 129/68 97 04/16/19 08:10 37.3 C 99 H 24 115/71 96 04/16/19 08:00 98 H 04/16/19 07:55 37.3 C 99 H 28 H 90/51 L 95 04/16/19 07:35 37.0 C 98 H 25 H 122/74 96 04/16/19 07:00 37.0 C 97 H 26 H 124/63 96 04/16/19 06:00 95 H 24 138/67 96 04/16/19 05:00 100 H 31 H 97 04/16/19 04:00 37.5 C 100 H 28 H 122/62 93 04/16/19 03:00 104 H 28 H 124/69 94 04/16/19 02:00 107 H 31 H 117/72 93 Laboratory Results Short CBC 04/15/19 04/16/19 Range/Units 16:03 04:01 WBC 19.60 H 15.72 H (4.8-10.8) K/uL Hgb 7.8 L 6.8 L* (14.0-18.0) g/dL Hct 22.7 L 20.1 L* (42-52) % Plt Count 115 L 107 L (130-400) K/uL BMP 04/15/19 04/16/19 16:03 04:01 Sodium 139 139 Potassium 3.8 3.7 Chloride 104 103 Carbon Dioxide 23 24 BUN 28 H D 35 H Creatinine 3.08 H D 4.10 H D Glucose 109 H 112 H Calcium 7.4 L 7.1 L Liver Function 04/15/19 Range/Units 16:03 Total Bilirubin 0.5 (0.2-1) mg/dl Direct Bilirubin 0.2 (0-0.2) mg/dl AST 32 (15-37) U/L ALT 40 (12-78) U/L Alkaline Phosphatase 72 (45-117) U/L Albumin 2.4 L (3.4-5.0) gm/dl Medications Administered Current Inpatient Medications Dextrose (Dextrose 50%) 25 - 50 ml IV UD PRN; Protocol PRN Reason: Hypoglycemia Protocol Stop: 05/13/19 04:42 Fentanyl Citrate (Fentanyl Citrate) 25 mcg IV Q1H PRN PRN Reason: Pain Stop: 04/27/19 04:42 Last Admin: 04/13/19 16:12 Dose: 25 mcg Documented by: Glucagon (Glucagen) 1 mg SQ UD PRN; Protocol PRN Reason: Hypoglycemia Protocol Stop: 05/13/19 04:42 Glucose (Dex4 Glucose) 4 - 8 tabs PO UD PRN; Protocol PRN Reason: Hypoglycemia Protocol Stop: 05/13/19 04:42 Glucose (Glucose 40%) 15 - 30 gm PO UD PRN; Protocol PRN Reason: Hypoglycemia Protocol Stop: 05/13/19 04:42 Levothyroxine Sodium 12.5 mcg/ (Syringe) 0.625 mls @ 2 mls/min IV DAILY@0900 KEVIN Stop: 05/13/19 08:59 Last Admin: 04/16/19 08:50 Dose: 2 mls/min Documented by: Acetaminophen (Ofirmev) 65 mls @ 200 mls/hr IV Q6H PRN PRN Reason: Fever Stop: 05/13/19 04:42 Promethazine HCl 12.5 mg/ (Sodium Chloride) 50.5 mls @ 202 mls/hr IV Q6H PRN PRN Reason: Nausea And Vomiting Stop: 05/13/19 04:42 Last Infusion: 04/15/19 15:36 Dose: Infused Documented by: Famotidine 20 mg/ Syringe 5 mls @ 2.5 mls/min IV DAILY [facility] Stop: 05/13/19 08:59 Last Admin: 04/16/19 08:50 Dose: 2.5 mls/min Documented by: Piperacillin Sod/Tazobactam (Sod 3.375 gm/ Dextrose) 115 mls @ 28.75 mls/hr IV Q12H [facility]; Protocol Stop: 04/20/19 11:59 Last Infusion: 04/16/19 05:46 Dose: Infused Documented by: Sodium Chloride (Nss) 250 mls @ 15 mls/hr IV .[id number] PRN PRN Reason: For Transfusion Stop: 05/16/19 04:51 Sodium Chloride (Nss) 250 mls @ 15 mls/hr IV .[id number] PRN PRN Reason: For Transfusion Stop: 05/16/19 07:12 Insulin Aspart (Novolog Flexpen) 0 units SC Q4 [facility] Stop: 05/15/19 11:59 Last Admin: 04/16/19 12:27 Dose: Not Given Documented by: Miscellaneous (Carbohydrates For Hypoglycemia) 15 - 30 gm PO UD PRN PRN Reason: Hypoglycemia Treatment Stop: 05/13/19 04:42 Miscellaneous (Pending Order) 1 ea N/A Q4 [facility]EVIN Stop: 05/15/19 11:59 Last Admin: 04/16/19 12:28 Dose: Not Given Documented by: Miscellaneous Information (Consult) 1 ea N/A UD PRN PRN Reason: Consult Stop: 05/13/19 04:02 Miscellaneous Information (Consult Glycemic Management Pharmacy) 1 ea N/A UD PRN PRN Reason: Consult Stop: 05/13/19 08:37 (1) Acute renal failure Acute renal failure type: unspecified Qualified Code(s): N17.9 - Acute kidney failure, unspecified
[2019-04-17] MEDS: INSULIN ASPART 100 UNITS/ML 3 ML PEN SC SCH ×6 (00:11→20:09)
[2019-04-17] MEDS: PIPERACILLIN/TAZOBACTAM 3.375 GM in DEXTROSE 5% 100 ML IV SCH ×2 (02:27→13:47)
[2019-04-17 04:37] LABS: Eosinophils # (auto) 0.01 K/uL (0-0.5); Eosinophils % (auto) 0.1 %; Hematocrit (blood only) 21.9 % (42-52); Hemoglobin 7.3 g/dL (14.0-18.0); Immature Granulocytes # (auto) 0.05 K/uL (0.00-0.02); Immature Granulocytes % (auto) 0.3 %; Lymphocytes # (auto) 0.84 K/uL (1.2-3.4); Lymphocytes % (auto) 5.6 %; Mean Corpuscular Hgb Conc 33.3 g/dL (32-36); Mean Corpuscular Volume 92.4 fL (80-100); Mean Platelet Volume 11.3 fL (7.4-10.4); Monocytes # (auto) 0.65 K/uL (0.11-0.59); Monocytes % (auto) 4.4 %; Neutrophils # (auto) 13.34 K/uL (1.4-6.5); Neutrophils % (auto) 89.6 %; Platelet Count 110 K/uL (130-400); RDW Coefficient of Variation 15.6 % (11.5-14.5); RDW Standard Deviation 52.4 fL (36.4-46.3); Red Blood Count 2.37 M/uL (4.7-6.1); White Blood Count 14.89 K/uL (4.8-10.8)
[2019-04-17 05:14] LABS: BUN Creatinine Ratio 9.3 (10-20); Calcium 7.6 mg/dl (8.5-10.1); Creatinine Clr Calc Pharmacy 10.4 ml/min; Est GFR (African American) 9.7; Est GFR (Non-African American) 8.4; Magnesium 2.3 mg/dl (1.8-2.4); Potassium 3.8 mmol/L (3.5-5.1)
[2019-04-17 05:15] LABS: Phosphorus 8.2 mg/dl (2.5-4.9)
[2019-04-17 05:24] LABS: Giant Platelets 1+
--- NOTE | 2019-04-17 07:56 | Critical Care Progress Note ---
Date of Service April 17, 2019 Assessment & Plan (1) Acute renal failure: Neuro- altered mental status due to metabolic encephalopathy due to renal failure, severe acidosis. improved may be at baseline CV- HD stable now off vasopressors Pulmonary- acute respiratory failure due to severe acidosis. extubated 76/ doing well except for a lot of secretions which he is handling and coughing well ID- sepsis with evidence of end organ dysfunction. due to pseudomonas UTI. continue piperacillin-tazobactam Renal- acute on chronic renal failure unclear cause. ?prerenal vs ATN. dialysis per renal GI- swallow eval Heme- leukocytosis -improved, anemia. transfuse to keep hgb >7. hold heparin with bleeding Endocrine- blood sugars controlled. levothyroxine for hypothyroidism Dispo- continue ICU care for ventilatory support but if respiratory status remains stable may be able to transfer later today DNR (2) Metabolic acidosis: (3) Respiratory failure: (4) Metabolic encephalopathy: (5) Hypovolemia: (6) SIRS (systemic inflammatory response syndrome): Subjective "I want to get out of here" still wit some bleeding at [facility] dialysis catheter site Physical Exam Physical Exam: Constitutional: Comfortable NAD HEENT: normocephalic atraumatic. MMM. blood at site of RIJ dialysis catheter CV: RRR nl s1,s2 no murmurs rubs or gallops Lungs: clear to auscultation bilaterally. no accessory muscle use. upper airway sounds Abd: soft nontender nondistended. normal bowel sounds Ext: no edema. no cyanosis, no clubbing Skin: warm dry Neuro: awake but confused moving all ext Psych: Results & Data Vital Signs (Past 12 Hours) Vital Signs Temp Pulse Resp BP Pulse Ox 04/17/19 06:00 36.9 C 81 19 132/78 97 04/17/19 05:00 88 23 135/77 97 04/17/19 04:00 79 22 129/75 97 04/17/19 03:00 82 18 123/70 96 04/17/19 02:00 93 H 22 125/72 97 04/17/19 01:00 93 H 25 H 125/77 95 04/17/19 00:00 87 22 127/71 95 04/16/19 23:00 107 H 24 135/75 96 04/16/19 22:00 37.3 C 108 H 25 H 136/80 96 04/16/19 21:00 100 H 27 H 132/72 92 04/16/19 20:00 37.1 C 98 H 23 137/72 96 Laboratory Results Laboratory Results - last 24 hr 04/15/19 04/16/19 04/16/19 18:26 08:52 11:51 WBC RBC Hgb Hct MCV MCH MCHC RDW Std Deviation RDW Coeff of Julissa Plt Count MPV Immature Gran % (Auto) Neut % (Auto) Lymph % (Auto) Scott % (Auto) Eos % (Auto) Baso % (Auto) Immature Gran # (Auto) Neut # (Auto) Lymph # (Auto) Scott # (Auto) Eos # (Auto) Baso # (Auto) Giant Platelets Sodium Potassium Chloride Carbon Dioxide Anion Gap BUN Creatinine Est Cr Clr Drug Dosing Est GFR ( Amer) Est GFR (Non-Af Amer) BUN/Creatinine Ratio Glucose POC Glucose 115 H 121 H Calcium Phosphorus Magnesium Stool Occult Bld Scrn Crossmatch See Detail 04/16/19 04/16/19 04/16/19 14:20 15:46 21:05 WBC RBC Hgb Hct MCV MCH MCHC RDW Std Deviation RDW Coeff of Julissa Plt Count MPV Immature Gran % (Auto) Neut % (Auto) Lymph % (Auto) Scott % (Auto) Eos % (Auto) Baso % (Auto) Immature Gran # (Auto) Neut # (Auto) Lymph # (Auto) Scott # (Auto) Eos # (Auto) Baso # (Auto) Giant Platelets Sodium Potassium Chloride Carbon Dioxide Anion Gap BUN Creatinine Est Cr Clr Drug Dosing Est GFR ( Amer) Est GFR (Non-Af Amer) BUN/Creatinine Ratio Glucose POC Glucose 129 H 132 H Calcium Phosphorus Magnesium Stool Occult Bld Scrn Positive A Crossmatch 04/17/19 04/17/19 04/17/19 00:07 04:07 04:07 WBC 14.89 H RBC 2.37 L Hgb 7.3 L Hct 21.9 L MCV 92.4 MCH 30.8 MCHC 33.3 RDW Std Deviation 52.4 H RDW Coeff of Julissa 15.6 H Plt Count 110 L MPV 11.3 H Immature Gran % (Auto) 0.3 Neut % (Auto) 89.6 Lymph % (Auto) 5.6 Scott % (Auto) 4.4 Eos % (Auto) 0.1 Baso % (Auto) 0.0 Immature Gran # (Auto) 0.05 H Neut # (Auto) 13.34 H Lymph # (Auto) 0.84 L Scott # (Auto) 0.65 H Eos # (Auto) 0.01 Baso # (Auto) 0.00 Giant Platelets 1+ Sodium 139 Potassium 3.8 Chloride 103 Carbon Dioxide 22 Anion Gap 14.0 H BUN 53 H D Creatinine 5.68 H* D Est Cr Clr Drug Dosing 10.4 Est GFR ( Amer) 9.7 Est GFR (Non-Af Amer) 8.4 BUN/Creatinine Ratio 9.3 L Glucose 142 H POC Glucose 151 H Calcium 7.6 L Phosphorus 8.2 H D Magnesium 2.3 Stool Occult Bld Scrn Crossmatch (1) Acute renal failure Acute renal failure type: unspecified Qualified Code(s): N17.9 - Acute kidney failure, unspecified (2) Respiratory failure Chronicity: unspecified Respiratory failure complication: unspecified whether with hypoxia or hypercapnia Qualified Code(s): J96.90 - Respiratory failure, unspecified, unspecified whether with hypoxia or hypercapnia
[2019-04-17] MEDS ORDERED: SODIUM CHLORIDE 0.9% 1000ML 1,000 ML IV PRN (08:31)
[2019-04-17] MEDS ORDERED: EPOETIN ALFA 10,000 UNITS/ML VIAL IV ONE (09:00)
[2019-04-17] MEDS: FAMOTIDINE 20 MG in SYRINGE 3 ML IV SCH (09:15)
[2019-04-17] MEDS: LEVOTHYROXINE SODIUM 12.5 MCG in SYRINGE 0 ML IV SCH (09:16)
--- NOTE | 2019-04-17 11:25 | Consultation ---
Date of Consultation April 17, 2019 Assessment & Plan (1) Acute renal failure: Pt for permcath insertion tomorrow in OR by Dr Sanchez. He will need to have temporary catheter removed today after HD. Discussed with pt and daughter. Will obtain consent from prior to procedure. Acute renal failure type: unspecified Qualified Code(s): N17.9 - Acute kidney failure, unspecified Present on Admission?: Yes History of Present Illness Reason for Consultation: permcath insertion, ESRD Attending Physician: Dariana Mckinney MD History of Present Illness 84 yo m with multiple medical problems, including CAD, CKD stage IV, cardiomyopathy, anemia, ND, admitted after acute respiratory failure and acute renal failure and sepsis, seen today for insertion of permcath for HD. Pt unable to relate hx d/t current cognitive status, so hx obtained from chart. He was intubate d/t resp failure, then extubated on 04/15, now on oxygen via [place]. He has been undergoing HD through R IJ temp HD catheter. No HD for past 1-2 days, and is now off vasopressors. Pt denies pain presently. Further HPI unobtainable d/t cognitive status. Asked to see pt for permcath placement. Daughter present today, states the is POA. Allergies Allergy/AdvReac Type Severity Reaction Status Date / Time lisinopril Allergy Mild Unknown Verified 04/13/19 01:31 Home Medications Home Medications Medication Instructions Recorded Confirmed Type acetaminophen 650 mg PO Q6H PRN 04/13/19 04/13/19 History albuterol sulfate 2 puff INHALATION Q6H PRN 04/13/19 04/13/19 History allopurinol 100 mg PO DAILY 04/13/19 04/13/19 History aspirin [Aspir-81] 81 mg PO DAILY 04/13/19 04/13/19 History atorvastatin 40 mg PO DAILY 04/13/19 04/13/19 History calcium polycarbophil [FiberCon] 1,250 mg PO QAM 04/13/19 04/13/19 History cholecalciferol (vitamin D3) 1,000 unit PO DAILY 04/13/19 04/13/19 History cyanocobalamin (vitamin B-12) 500 mcg PO BID 04/13/19 04/13/19 History [Vitamin B-12] furosemide 20 mg PO 3XWK 04/13/19 04/13/19 History insulin glargine [Lantus Solostar 20 unit SUBCUT QAM 04/13/19 04/13/19 History U-100 Insulin] metoprolol succinate 25 mg PO DAILY 04/13/19 04/13/19 History qsklzmqr-ujh-ZQ-lycopen-lutein 1 tab PO DAILY 04/13/19 04/13/19 History [Centrum Silver Ultra Men's] nitroglycerin [Nitrostat] 0.4 mg SUBLINGUAL UD PRN MDD 3 04/13/19 04/13/19 History doses ondansetron HCl 4 mg PO Q8 PRN 04/13/19 04/13/19 History polyethylene glycol 3350 [Miralax] 17 g PO DAILY PRN 04/13/19 04/13/19 History pyridoxine (vitamin B6) [Vitamin 100 mg PO DAILY 04/13/19 04/13/19 History B-6] repaglinide 2 mg PO TIDM 04/13/19 04/13/19 History Patient History Medical History Diabetes (Acute) CHF (congestive heart failure) (Chronic) Cholelithiasis Chronic ITP (idiopathic thrombocytopenia) Chronic kidney disease Heart attack Interstitial lung disease Surgical History Cardiac defibrillator in place (Chronic) Social History Preferred Language: Welsh Communication Ability: Unable Animal Warden Required: No Beliefs That Will Affect Care: None Current Living Situation: Spouse Other Information That Helps Us Care for You: No Feels Safe at Home: Yes Safety Concerns: Feels Safe At This Time Smoking Status: Never smoker Do You Dip or Chew Tobacco: No Second Hand Exposure: No Tobacco Cessation Education Requested by Patient: No Hx Alcohol Use: No Hx Substance Use: No Review of Systems Review of Systems: Unobtainable due to cognitive status Physical Exam Constitutional: WD/WN, vitals as above well developed, well nourished, + ill appearing, + morbidly obese, + disheveled, cooperative, comfortable and + lethargic; not in distress and not combative Eyes: PERRL, conjunctivae normal, anicteric sclerae EOM intact bilaterally ENMT: external ear and nose normal, oropharynx normal Ears: + hearing impairment Nose: no nasal discharge Neck: trachea midline, no thyromegaly no tracheal deviation, no neck crepitus and neck nontender Respiratory: + cough and able to speak in complete sentences; does not use accessory muscles and no audible wheezes Auscultation: + diminished lung sounds and + crackles Cardiovascular: Rate/Rhythm: regular rate and regular rhythm Heart Sounds: no gallop Vessels: femoral pulses present, posterior tibial pulses present (nonpalpable), dorsalis pedis pulses present (nonpalpable), brachial pulses present and radial pulses present; no carotid bruit, no femoral bruit and + abnormal peripheral pulses Extremities: normal capillary refill, + edema and + vascular access device Gastrointestinal (Abdomen): Inspection/Auscultation: abdomen normal to inspection and normal bowel sounds; abdomen not distended and no abdominal edema Percussion/Palpation: abdomen soft; abdomen nontender, no guarding and abdomen not rigid Musculoskeletal: Head/Neck/Chest: normocephalic, head atraumatic and neck supple; no chest tenderness Extremities: extremities normal to inspection; full ROM of extremities, + abnormal strength (4/5), no chronic stasis changes, no clubbing, no lower leg abnormality and no foot abnormality Skin: normal turgor; no rashes, no lesions, no ulcers, no induration, no erythema, no eschar, no excoriations, no mottling and no pallor Neurologic: moves all extremities, awake (falls asleep while assessing pt) and + confused; no focal motor deficits Speech / Cognition: no expressive aphasia and no receptive aphasia Motor/Sensory: no tremor and no sensory deficit Cranial Nerves: EOM intact bilaterally, normal facial strength and tongue midline Psychiatric: Orientation: alert, oriented to person and cooperative; + not oriented x 3 Apperance: appropriately dressed and appeared stated age Affect: + flat affect Cognition: attention grossly intact and language grossly intact Estimated Intelligence: average estimated intelligence Results & Data Vital Signs (Past 12 Hours) Vital Signs Temp Pulse Resp BP Pulse Ox 04/17/19 10:00 88 22 124/76 97 04/17/19 09:00 75 13 121/62 97 04/17/19 08:00 36.8 C 84 19 137/76 96 07/08/19 07:00 89 22 123/72 96 04/17/19 06:00 36.9 C 81 19 132/78 97 04/17/19 05:00 88 23 135/77 97 04/17/19 04:00 79 22 129/75 97 04/17/19 03:00 82 18 123/70 96 04/17/19 02:00 93 H 22 125/72 97 04/17/19 01:00 93 H 25 H 125/77 95 04/17/19 00:00 87 22 127/71 95
--- NOTE | 2019-04-17 13:06 | Pharmacy Report ---
Glycemic Control Progress Note - Date of Service April 17, 2019 - Scope Glycemic Pharmacist consulted for glycemic control to write orders per [facility] inpatient glycemic control protocol. - Objective Accuchecks BSG(last 24 hours):: 04/16/19 04/16/19 04/17/19 15:46 21:05 00:07 Glucose POC Glucose 129 H 132 H 151 H 04/17/19 04:07 Glucose 142 H POC Glucose HbA1c:: Hemoglobin A1c 6.5 % (4.5-5.6) H 04/12/19 23:11 - Recent Pertinent Medications The patient is currently receiving: * Basal insulin: Lantus -- units every -- hours * Correctional Insulin: Novolog Correction per scale ACHS Goal Range: Low 120 mg/dL - High 160 mg/dL Correction Factor: 25 mg/dL/unit * Prandial insulin: Per carb ratio of 1 unit per 9 grams CHO consumed - Outpatient Anti-Diabetic Meds Lantus 20 units QD plus repaglinide 2 mg TIDM - Assessment & Plan ASSESSMENT: * See progress note from 04/13/19 for more background info, in short: * Pt receiving SQ basal bolus insulin regimen for hyperglycemia secondary to baseline DM (outpatient regimen on hold), on Zosyn for an infection, and currently NPO. Is going for a PermCath placement tomorrow * Patient is currently receiving an average of 0 units of insulin per day * 0 units of basal insulin * 0 units of prandial/correctional insulin * BSGs ranging 112 - 151 mg/dl over the past 24hrs * Changes needed to insulin regimen: * AM Fasting BSG = 142 mg/dl. This is within goal range for patient based on inpatient targets and co-morbidities. Continue to hold basal insulin. Pending order for insulin infusion when blood sugars increase. * Post-prandial BSGs are really unable to evaluated since patient has not received insulin. * Total daily dose = 0 units when not eating. Expect patient to need insulin when eating PLAN FOR INPATIENT GLYCEMIC CONTROL: * Continuing correction factor of 25 mg/dl/unit * Continuing carb ratio of 1 unit per 9 grams CHO consumed * Continuing goal range of Low 120 mg/dL - High 160 mg/dL RECOMMENDATIONS FOR DISCHARGE: * TBD once patient is no longer critical. * Please note that the plan above was derived based on current level of insulin resistance and hospital stress. These recommendations are appropriate for inpatient admission only. Plan of care upon discharge will need to be reassessed to avoid potential outpatient hypo/hyperglycemia. Thank you.
--- NOTE | 2019-04-17 15:46 | Procedure Note ---
Procedure Note Date of Service April 17, 2019 Note Time of procedure: 15:25 Procedure name: Removal of right IJ dialysis catheter Consent: Not required Assistants: None Narrative: This is an 84-year-old male that had a temporary dialysis catheter placed for dialysis in the intensive care unit. The patient is scheduled to have a permacath placed tomorrow morning at 11:[address] Sanchez. The vascular team requested that this dialysis catheter to be removed in order to prepare for permacath tomorrow. Nephrology indicated that dialysis would not be needed until tomorrow after permacath placement. After discussing with the patient's family it was determined that the temporary catheter will be removed today. Risk of bleeding was discussed including complications of airway compromise. Family agreed to proceed with the procedure. Using clean technique the patient's dressing was taken down. He was found to have clot around the insertion site of the catheter as well as Surgicel which was hardened. Area was easily cleaned and 2 sutures holding the catheter in place were easily removed. Direct pressure was applied for a total of 9 minutes with no evidence of bleeding. The area surrounding the insertion site was cleaned with sterile saline and a prepackaged pad. A 4 x 4 was then folded and placed at the insertion site and held in place with tape with no evidence of bleeding or hematoma. Patient tolerated the procedure well. There were no complications. Patient's granddaughter was in the room for the entire procedure. Dr. Basilio was informed that the catheter was removed without bleeding or other complication. Coding
--- NOTE | 2019-04-17 18:05 | Nephrology Progress Note ---
Date of Service April 17, 2019 Assessment & Plan (1) Acute renal failure: Patient with acute renal failure likely due to ischemic ATN. 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 He is completely anuric now. CT abdomen does not show obstructive uropathy. He also has low EF. started emergent dialysis for acute renal failure and severe metabolic acidosis on 04/13. Chest x- ray today showing pulmonary vascular congestion. He also has significant amount of secretions. Oxygenation is stable. We will hold off on dialysis today. Recommend removal of temporary dialysis catheter. I have requested vascular surgery to place a tunneled dialysis catheter and the patient is planned for tomorrow. We will plan to dialyze him in the afternoon after placement of PermCath. (2) Acute respiratory failure: Multifactorial etiology including volume overload and possibly pneumonia. He is receiving broad-spectrum antibiotics per ICU team. Low threshold for ultrafiltration if worsening respiratory status. I discussed the plan with the ICU attending (3) Metabolic acidosis: Due to acute renal failure and high lactate. Improving with HD (4) SIRS (systemic inflammatory response syndrome): Sepsis due to Pseudomonas UTI. Blood pressure currently stable. Continue broad-spectrum antibiotics renally dosed for GFR less than 25 mL/min. Subjective Patient seen in follow-up for acute kidney injury on dialysis. No shortness of breath or pain. Still anuric. Still bleeding from the dialysis catheter site. Review of Systems Review of Systems: All systems reviewed & are unremarkable except as noted in HPI & below Physical Exam Physical Exam: General exam: Appears comfortable, no acute distress HEENT: Pupils are equal and reactive to light Neck: No JVD, neck is supple trachea is midline Respiratory system: Crackles bilaterally. Gastrointestinal: Abdomen is soft, non distended, non tender, bowel sounds are present CVS: Regular rate and rhythm. No murmurs, rubs or gallops Musculoskeletal: No joint or muscle tenderness Extremities: Non tender, no edema, peripheral pulses are present Neuro: Oriented, no tremors, no focal neurological deficits Skin: No rashes Access: Right IJ catheter with hematoma around the Results & Data Vital Signs (Past 12 Hours) Vital Signs Temp Pulse Resp BP Pulse Ox 04/17/19 16:15 83 23 92/48 L 93 04/17/19 16:08 62 22 99/42 L 04/17/19 16:00 36.9 C 58 L 21 98/56 L 89 L 04/17/19 15:00 94 H 24 141/82 H 96 04/17/19 13:00 78 15 136/73 96 04/17/19 12:00 36.7 C 83 24 133/67 91 04/17/19 11:00 78 21 133/77 97 04/17/19 10:00 88 22 124/76 97 04/17/19 09:00 75 13 121/62 97 04/17/19 08:00 36.8 C 84 19 137/76 96 04/17/19 07:00 89 22 123/72 96 Laboratory Results Laboratory Results - last 24 hr 04/16/19 04/17/19 04/17/19 21:05 00:07 04:07 WBC 14.89 H RBC 2.37 L Hgb 7.3 L Hct 21.9 L MCV 92.4 MCH 30.8 MCHC 33.3 RDW Std Deviation 52.4 H RDW Coeff of Julissa 15.6 H Plt Count 110 L MPV 11.3 H Immature Gran % (Auto) 0.3 Neut % (Auto) 89.6 Lymph % (Auto) 5.6 Dougherty % (Auto) 4.4 Eos % (Auto) 0.1 Baso % (Auto) 0.0 Immature Gran # (Auto) 0.05 H Neut # (Auto) 13.34 H Lymph # (Auto) 0.84 L Dougherty # (Auto) 0.65 H Eos # (Auto) 0.01 Baso # (Auto) 0.00 Giant Platelets 1+ Sodium Potassium Chloride Carbon Dioxide Anion Gap BUN Creatinine Est Cr Clr Drug Dosing Est GFR ( Amer) Est GFR (Non-Af Amer) BUN/Creatinine Ratio Glucose POC Glucose 132 H 151 H Calcium Phosphorus Magnesium 04/17/19 04:07 WBC RBC Hgb Hct MCV MCH MCHC RDW Std Deviation RDW Coeff of Julissa Plt Count MPV Immature Gran % (Auto) Neut % (Auto) Lymph % (Auto) Dougherty % (Auto) Eos % (Auto) Baso % (Auto) Immature Gran # (Auto) Neut # (Auto) Lymph # (Auto) Dougherty # (Auto) Eos # (Auto) Baso # (Auto) Giant Platelets Sodium 139 Potassium 3.8 Chloride 103 Carbon Dioxide 22 Anion Gap 14.0 H BUN 53 H D Creatinine 5.68 H* D Est Cr Clr Drug Dosing 10.4 Est GFR ( Amer) 9.7 Est GFR (Non-Af Amer) 8.4 BUN/Creatinine Ratio 9.3 L Glucose 142 H POC Glucose Calcium 7.6 L Phosphorus 8.2 H D Magnesium 2.3 (1) Acute renal failure Acute renal failure type: unspecified Qualified Code(s): N17.9 - Acute kidney failure, unspecified
--- NOTE | 2019-04-17 20:28 | Hospitalist Progress Note ---
Date of Service April 17, 2019 Assessment & Plan (1) Acute respiratory failure: Severe metabolic acidosis ABG on admission with pH 6.9 PCO2 12 and HCO3 5 Intubated on vent support being managed by simulation engineer in the ICU Was starting on bicarb drip and had emergent HD S/P extubated on 04/15 Has been required suctioning due to oral secretion failed swallow eval- very high risk for aspiration Palliative consult for goal of care (2) Acute renal failure: 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 creatinine on admission above 9, dropped to 5 today Anuric since admission Nephrology on board recommended urgent HD to correct the acidosis Vascular on board and plan for placement of PermCath in am nephrology on board and plan to HD tomorrow after after permcath placement Continue monitor BMP (3) SIRS (systemic inflammatory response syndrome): UTI Present on admission with elevated HR, RR, lactic acid and WBC Blood cx no growth so far Urine cx positive for gram negative bacilli (Pseudomonas) Continue IV Zosyn WBC trending down (4) Metabolic acidosis: ABG on admission with pH 6.9 PCO2 12 and HCO3 5 Repeat ABG after HD showed pH 7.5 PCO2 26 and HCO3 20 Has been require HD Continue monitor Stable (5) Hypovolemia: Off Levophed BP stable (6) Metabolic encephalopathy: Due to severe acidosis and acute respiratory failure CT head showed no acute intracranial abnormality Resolved (7) Elevated lactic acid level: Mostly related to severe metabolic acidosis in the setting of acute respiratory failure Follow up blood cx urine cx positive for gram negative bacilli Continue IV zosyn for now (8) Elevated troponin: Demand ischemia due to elevated creatinine and acidosis Denies any chest pain EKG showed no acute ischemic changes Continue monitor DVT px on heparin subq Disposition Continue monitor in the ICU Subjective Pt was seen and examined Lying in bed with mild respiratory distress Continue to have a lot of oral secretion Failed swallow eval Pt said that he feels very thirsty Denies any chest pain, palpitation and fever Physical Exam Physical Exam: General- respiratory distress Head- atraumatic Eyes- PERRL, EOMI, Neck- supple, no JVD Lungs- B/L Crackles Heart- +tachycardia, no murmur Abdomen- normal bowel sounds, soft, nontender Extremities- no calf tenderness Neuro- move extremities, follow commands Skin- warm & dry Results & Data Vital Signs (Past 12 Hours) Vital Signs Temp Pulse Resp BP Pulse Ox 04/17/19 18:00 79 21 123/76 98 04/17/19 17:00 82 23 115/60 99 04/17/19 16:15 83 23 92/48 L 93 04/17/19 16:08 62 22 99/42 L 04/17/19 16:00 36.9 C 58 L 21 98/56 L 89 L 04/17/19 15:00 94 H 24 141/82 H 96 04/17/19 13:00 78 15 136/73 96 04/17/19 12:00 36.7 C 83 24 133/67 91 04/17/19 11:00 78 21 133/77 97 04/17/19 10:00 88 22 124/76 97 04/17/19 09:00 75 13 121/62 97 (1) Acute renal failure Acute renal failure type: unspecified Qualified Code(s): N17.9 - Acute kidney failure, unspecified
[2019-04-18] MEDS: INSULIN ASPART 100 UNITS/ML 3 ML PEN SC SCH ×6 (00:52→22:12)
[2019-04-18] MEDS: PIPERACILLIN/TAZOBACTAM 3.375 GM in DEXTROSE 5% 100 ML IV SCH ×2 (02:00→14:12)
[2019-04-18 04:37] LABS: Basophils # (auto) 0.01 K/uL (0-0.2); Basophils % (auto) 0.1 %; Eosinophils # (auto) 0.08 K/uL (0-0.5); Eosinophils % (auto) 0.5 %; Hematocrit (blood only) 21.3 % (42-52); Hemoglobin 7.2 g/dL (14.0-18.0); Immature Granulocytes % (auto) 0.7 %; Lymphocytes # (auto) 0.73 K/uL (1.2-3.4); Lymphocytes % (auto) 4.9 %; Mean Corpuscular Hgb Conc 33.8 g/dL (32-36); Mean Corpuscular Volume 90.6 fL (80-100); Mean Platelet Volume 10.9 fL (7.4-10.4); Monocytes # (auto) 0.68 K/uL (0.11-0.59); Monocytes % (auto) 4.6 %; Neutrophils # (auto) 13.22 K/uL (1.4-6.5); Neutrophils % (auto) 89.2 %; Platelet Count 130 K/uL (130-400); RDW Coefficient of Variation 15.3 % (11.5-14.5); RDW Standard Deviation 50.2 fL (36.4-46.3); Red Blood Count 2.35 M/uL (4.7-6.1); White Blood Count 14.82 K/uL (4.8-10.8)
[2019-04-18 05:03] LABS: RBC Morphology Unremarkable
[2019-04-18 05:12] LABS: Calcium 7.8 mg/dl (8.5-10.1); Creatinine Clr Calc Pharmacy 8.5 ml/min; Est GFR (African American) 7.6; Est GFR (Non-African American) 6.6; Magnesium 2.5 mg/dl (1.8-2.4); Potassium 3.8 mmol/L (3.5-5.1)
[2019-04-18 05:34] LABS: Phosphorus 9.5 mg/dl (2.5-4.9)
--- NOTE | 2019-04-18 07:55 | Critical Care Progress Note ---
Date of Service April 18, 2019 Assessment & Plan (1) Admitted to intensive care unit: Reason Critically Ill: Renal Failure PLAN NEURO -confused, oriented to name only -AMS due to metabolic encephalopathy due to renal failure, severe acidosis. ?At baseline. -Elevated ammonia, will repeat in AM CARDIO -HD stable now off vasopressors -CAD- questionable home med regimen, Will need to f/u to see if on ASA, Statin, BB -s/p AICD PULM -extubated 04/15, doing well except for a lot of secretions, but coughing well, needs suction at times -sating well on 6L Oxymask, titrate to maintain O2 >92% -failed swallow eval, high risk for aspiration -no other acute concerns or complaints GI -failed swallow eval as above -Will need to assess nutritional access PEG vs allowing to aspirate, discussion to be had with family -no other acute concerns or complaints RENAL/ -Normosol at 70 -Acute on CKD with unclear cause, scheduled for permcath today with dialysis to follow ID -Pseudomonas UTI, will complete 7 day course of zosyn tomorrow -cont trend fever curve. Afebrile at present -no other acute concerns ENDO -Hyperglycemia ICU protocol -Hypothyroidism- cont levothyroxine HEME -Anemia likely from CKD -1 unit pRBC during dialysis today -h/o ITP LINES- Permcath, PIV x1 DVT Prophylaxis: SCD's Conditional Code- DNR DISPO: Stable for downgrade out of ICU. Pal care consult placed. Supervising Physician Co-Signing Physician Notes Dr. Lindo was resident physician during care of patient. I separately evaluated patient for wiseman portions of the history and the exam. I was present during the critical portion of medical decision making, and I discussed the case with the resident. I generally agree with the findings and plan. Patient was discussed in multidisciplinary rounds PLAN: Neuro: Disoriented to place and time Encephalopathy: Suspect metabolic -Patient unable to consent for self -Patient's providing consent Hyperammonemia -Repeat ammonia tomorrow morning Resp: Aspiration history - at high risk for aspiration CV: Status post AICD Known coronary artery disease -No noted home cardiac medications Fluids/Renal: Normosol at 70 Acute on chronic kidney disease -Plan for permacath today ID: Pseudomonas UTI -Day 7 of 7 will complete tomorrow GI/Nutrition: Frequent aspiration -Question nutritional access PEG versus allowing to aspirate Heme: Anemia: Likely of chronic disease and renal disease -Stools guaiac positive -1 unit packed red blood cells to be given during dialysis Chronic ITP DVT prophylaxis: SCDs Endocrine: ICU hyperglycemia protocol Sliding scale insulin Hypothyroidism Vascular access: Peripheral IVs Code Status: Conditional, okay with advanced airway techniques and mechanical ventilation. power of ip technology transactions attorney -Positive care consult Had extensive discussion with the patient's daughter, will follow up with and additional family members today. They are appropriately questioning whether the patient would want long-term dialysis and are making decisions more based in the acute setting. They understand his risk of and concern for intubation, he would not want long-term mechanical ventilation will follow up this discussion later today. Patient is medically complex, stable for downgrade out of the ICU. Would transfer to regular nursing floor as patient is DO NOT RESUSCITATE in event of cardiac arrest, has pacemaker. I had an extensive discussion with family and palliative care at the bedside which included additional 2 daughters and the patient's . All were in agreement that the patient is not having an adequate quality of life at this time. They are unsure whether he would want long-term dialysis, he was intubated in the acute setting and would definitely not want long-term intubation. In discussion goals of care and overall prognosis feel it is in the patient's best interest to be complete DNR/DNI in event of respiratory insufficiency. We are starting to focus more on comfort measures. I discussed the risks and benefits of continuing systemic anticoagulation and feel the short-term bleeding risk likely is outweighed by the long-term stroke risk given that he is now in end-stage dialysis patient. They were all in agreement that the patient would not want a feeding tube in event of aspiration was confirmed yesterday. His critical care needs have largely resolved and is stable for downgrade out of the ICU. Subjective 84 y/o M found in bed this AM in NAD. No reported acute overnight events. Pt states that he feels ok. Still NPO status. Does not appear to be in any sort of respiratory distress. Ok with plan for permcath placement today. No other acute concerns or complaints. Review of Systems Review of Systems: All systems reviewed & are unremarkable except as noted in HPI & below Physical Exam Constitutional: WD/WN, vitals as above Eyes: PERRL, conjunctivae normal, anicteric sclerae ENMT: external ear and nose normal, oropharynx normal Neck: R sided bandage C/D/I. Possible seroma palpated underneath Respiratory: normal respiratory effort, lungs clear to auscultation Audible upper airway sounds Cardiovascular: RRR, no murmur, no edema Gastrointestinal (Abdomen): normal bowel sounds, soft, nontender, no hepatosplenomegaly Skin: no rashes, warm and dry Psychiatric: awake, but confused Results & Data Vital Signs (Past 12 Hours) Vital Signs Temp Pulse Resp BP Pulse Ox 04/18/19 06:00 76 22 127/72 95 04/18/19 05:00 79 15 135/77 96 04/18/19 04:00 36.7 C 79 19 138/89 96 04/18/19 03:00 79 17 131/73 93 04/18/19 02:00 79 23 122/67 93 04/18/19 01:00 82 26 H 124/67 93 04/18/19 00:00 36.5 C 83 24 115/64 95 04/17/19 23:00 91 H 24 119/63 92 04/17/19 21:00 83 24 120/72 95 04/17/19 20:00 36.7 C 81 23 127/68 95 Laboratory Results Laboratory Results - last 24 hr 04/17/19 04/17/19 04/17/19 08:13 11:33 16:06 WBC RBC Hgb Hct MCV MCH MCHC RDW Std Deviation RDW Coeff of Julissa Plt Count MPV Immature Gran % (Auto) Neut % (Auto) Lymph % (Auto) [place] % (Auto) Eos % (Auto) Baso % (Auto) Immature Gran # (Auto) Neut # (Auto) Lymph # (Auto) [place] # (Auto) Eos # (Auto) Baso # (Auto) RBC Morphology Sodium Potassium Chloride Carbon Dioxide Anion Gap BUN Creatinine Est Cr Clr Drug Dosing Est GFR ( Amer) Est GFR (Non-Af Amer) BUN/Creatinine Ratio Glucose POC Glucose 138 H 135 H 155 H Calcium Phosphorus Magnesium 04/17/19 04/18/19 04/18/19 20:07 00:42 04:19 WBC 14.82 H RBC 2.35 L Hgb 7.2 L Hct 21.3 L MCV 90.6 MCH 30.6 MCHC 33.8 RDW Std Deviation 50.2 H RDW Coeff of Julissa 15.3 H Plt Count 130 MPV 10.9 H Immature Gran % (Auto) 0.7 Neut % (Auto) 89.2 Lymph % (Auto) 4.9 [place] % (Auto) 4.6 Eos % (Auto) 0.5 Baso % (Auto) 0.1 Immature Gran # (Auto) 0.10 H Neut # (Auto) 13.22 H Lymph # (Auto) 0.73 L [place] # (Auto) 0.68 H Eos # (Auto) 0.08 Baso # (Auto) 0.01 RBC Morphology Unremarkable Sodium Potassium Chloride Carbon Dioxide Anion Gap BUN Creatinine Est Cr Clr Drug Dosing Est GFR ( Amer) Est GFR (Non-Af Amer) BUN/Creatinine Ratio Glucose POC Glucose 149 H 139 H Calcium Phosphorus Magnesium 04/18/19 04/18/19 04/18/19 04:19 04:34 08:30 WBC RBC Hgb Hct MCV MCH MCHC RDW Std Deviation RDW Coeff of Julissa Plt Count MPV Immature Gran % (Auto) Neut % (Auto) Lymph % (Auto) [place] % (Auto) Eos % (Auto) Baso % (Auto) Immature Gran # (Auto) Neut # (Auto) Lymph # (Auto) [place] # (Auto) Eos # (Auto) Baso # (Auto) RBC Morphology Sodium 143 Potassium 3.8 Chloride 105 Carbon Dioxide 22 Anion Gap 16.0 H BUN 70 H Creatinine 6.95 H* D Est Cr Clr Drug Dosing 8.5 Est GFR ( Amer) 7.6 Est GFR (Non-Af Amer) 6.6 BUN/Creatinine Ratio 10.0 Glucose 143 H POC Glucose 146 H 149 H Calcium 7.8 L Phosphorus 9.5 H Magnesium 2.5 H 04/18/19 11:41 WBC RBC Hgb Hct MCV MCH MCHC RDW Std Deviation RDW Coeff of Julissa Plt Count MPV Immature Gran % (Auto) Neut % (Auto) Lymph % (Auto) [place] % (Auto) Eos % (Auto) Baso % (Auto) Immature Gran # (Auto) Neut # (Auto) Lymph # (Auto) [place] # (Auto) Eos # (Auto) Baso # (Auto) RBC Morphology Sodium Potassium Chloride Carbon Dioxide Anion Gap BUN Creatinine Est Cr Clr Drug Dosing Est GFR ( Amer) Est GFR (Non-Af Amer) BUN/Creatinine Ratio Glucose POC Glucose 146 H Calcium Phosphorus Magnesium Medications Administered Current Inpatient Medications Dextrose (Dextrose 50%) 25 - 50 ml IV UD PRN; Protocol PRN Reason: Hypoglycemia Protocol Stop: 05/13/19 04:42 Glucagon (Glucagen) 1 mg SQ UD PRN; Protocol PRN Reason: Hypoglycemia Protocol Stop: 05/13/19 04:42 Glucose (Dex4 Glucose) 4 - 8 tabs PO UD PRN; Protocol PRN Reason: Hypoglycemia Protocol Stop: 05/13/19 04:42 Glucose (Glucose 40%) 15 - 30 gm PO UD PRN; Protocol PRN Reason: Hypoglycemia Protocol Stop: 05/13/19 04:42 Levothyroxine Sodium 12.5 mcg/ (Syringe) 0.625 mls @ 2 mls/min IV DAILY@0900 KEVIN Stop: 05/13/19 08:59 Last Admin: 04/18/19 09:11 Dose: 2 mls/min Documented by: Acetaminophen (Ofirmev) 65 mls @ 200 mls/hr IV Q6H PRN PRN Reason: Fever Stop: 05/13/19 04:42 Promethazine HCl 12.5 mg/ (Sodium Chloride) 50.5 mls @ 202 mls/hr IV Q6H PRN PRN Reason: Nausea And Vomiting Stop: 05/13/19 04:42 Last Infusion: 04/15/19 15:36 Dose: Infused Documented by: Famotidine 20 mg/ Syringe 5 mls @ 2.5 mls/min IV DAILY KEVIN Stop: 05/13/19 08:59 Last Admin: 04/18/19 09:13 Dose: 2.5 mls/min Documented by: Piperacillin Sod/Tazobactam (Sod 3.375 gm/ Dextrose) 115 mls @ 28.75 mls/hr IV Q12H KEVIN; Protocol Stop: 04/20/19 11:59 Last Admin: 04/18/19 14:12 Dose: 29.8 mls/hr Documented by: Sodium Chloride (Nss) 250 mls @ 15 mls/hr IV .[id number] PRN PRN Reason: For Transfusion Stop: 05/16/19 04:51 Sodium Chloride (Nss) 250 mls @ 15 mls/hr IV .[id number] PRN PRN Reason: For Transfusion Stop: 05/16/19 07:12 Parenteral Electrolytes (Normosol-R) 1,000 mls @ 70 mls/hr IV .[id number] [facility] Stop: 05/18/19 10:14 Last Admin: 04/18/19 11:36 Dose: 70 mls/hr Documented by: Insulin Aspart (Novolog Flexpen) 0 units SC Q4 KEVIN Stop: 05/15/19 11:59 Last Admin: 04/18/19 11:56 Dose: Not Given Documented by: Miscellaneous (Carbohydrates For Hypoglycemia) 15 - 30 gm PO UD PRN PRN Reason: Hypoglycemia Treatment Stop: 05/13/19 04:42 Miscellaneous (Pending Order) 1 ea N/A Q4 [facility] Stop: 05/15/19 11:59 Last Admin: 04/18/19 11:57 Dose: Not Given Documented by: Miscellaneous Information (Consult) 1 ea N/A UD PRN PRN Reason: Consult Stop: 05/13/19 04:02 Miscellaneous Information (Consult Glycemic Management Pharmacy) 1 ea N/A UD PRN PRN Reason: Consult Stop: 05/13/19 08:37 Resident Activity Tracking Resident Involvement: Resident Care Provided Care Provided: Adult Hospital Medicine
[2019-04-18] MEDS: LEVOTHYROXINE SODIUM 12.5 MCG in SYRINGE 0 ML IV SCH (09:11)
[2019-04-18] MEDS: FAMOTIDINE 20 MG in SYRINGE 3 ML IV SCH (09:13)
[2019-04-18] MEDS ORDERED: SODIUM CHLORIDE 0.9% 250 ML IV PRN (10:02)
[2019-04-18] MEDS ORDERED: NORMOSOL-R 1,000 ML IV SCH (10:15)
[2019-04-18] MEDS ORDERED: GLYCOPYRROLATE 0.2 MG/ML VIAL IV PRN (10:38)
--- NOTE | 2019-04-18 11:09 | Hospitalist Progress Note ---
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 creatinine on admission above 9, dropped to 5 today Anuric since admission Nephrology on board recommended urgent HD to correct the acidosis Vascular on board and plan for placement of PermCath this morning nephrology on board and plan to HD tomorrow after after permcath placement today Continue monitor BMP (3) SIRS (systemic inflammatory response syndrome): UTI Present on admission with elevated HR, RR, lactic acid and WBC Blood cx no growth so far Urine cx positive for gram negative bacilli (Pseudomonas) Will complete IV Zosyn tomorrow WBC continue trending down (4) Metabolic acidosis: ABG on admission with pH 6.9 PCO2 12 and HCO3 5 Repeat ABG after HD showed pH 7.5 PCO2 26 and HCO3 20 Has been require HD Continue monitor Stable (5) Hypovolemia: Off Levophed BP stable (6) Metabolic encephalopathy: Due to severe acidosis and acute respiratory failure CT head showed no acute intracranial abnormality Resolved (7) Anemia in chronic renal disease: Hgb 7.2 today S/p 1 unit PRBC on 04/16 Will do type and cross Will transfuse 1 unit PRBC during HD Continue monitor CBC (8) Elevated lactic acid level: Mostly related to severe metabolic acidosis in the setting of acute respiratory failure Follow up blood cx urine cx positive for gram negative bacilli Will complete IV zosyn tomorrow (9) Elevated troponin: Demand ischemia due to elevated creatinine and acidosis Denies any chest pain EKG showed no acute ischemic changes Continue monitor DVT px on heparin subq Disposition Will transfuse to telemetry after permcath placement Subjective Pt was seen and examined Lying in bed with no acute respiratory distress Pt continues to say that he is thirsty He has been NPO due to very high risk for aspiration He is scheduled today to get a permcath done Denies any chest pain, palpitation, dizziness and fever Physical Exam Physical Exam: General- No acute respiratory distress Head- atraumatic Eyes- PERRL, EOMI, Neck- supple, no JVD Lungs- B/L Crackles Heart- regular, no murmur Abdomen- normal bowel sounds, soft, nontender Extremities- no calf tenderness Neuro- alert, awake move extremities, follow commands Skin- warm & dry Results & Data Vital Signs (Past 12 Hours) Vital Signs Temp Pulse Resp BP Pulse Ox 04/18/19 10:00 80 22 140/76 97 04/18/19 09:00 83 23 145/79 H 97 04/18/19 08:00 100 H 22 128/73 90 04/18/19 07:00 79 19 130/75 97 04/18/19 06:00 76 22 127/72 95 04/18/19 05:00 79 15 135/77 96 04/18/19 04:00 36.7 C 79 19 138/89 96 04/18/19 03:00 79 17 131/73 93 04/18/19 02:00 79 23 122/67 93 04/18/19 01:00 82 26 H 124/67 93 04/18/19 00:00 36.5 C 83 24 115/64 95 (1) Acute renal failure Acute renal failure type: unspecified Qualified Code(s): N17.9 - Acute kidney failure, unspecified
[2019-04-18] MEDS ORDERED: SODIUM BICARB 8.4% INJ 50 MEQ/50 ML SYR ONE (11:28)
[2019-04-18] MEDS ORDERED: HEPARIN SOD (PORCINE) 5,000 UNITS/ML VIAL ONE (12:09)
[2019-04-18] MEDS ORDERED: LIDOCAINE HCL 1% 20 ML VIAL ONE (12:09)
--- NOTE | 2019-04-18 12:30 | History & Physical Bridge Note ---
Date of Service April 18, 2019 History & Physical Bridge Note Patient for insertion of permcath. I have discussed the risks options and benefits of the procedure with the patient's . The patient's understands the risks options and benefits and agrees to the procedure. I have examined the patient, reviewed the History & Physical and in the interval since the performance of the History & Physical I have noted the following changes of clinical significance: no changes noted
--- NOTE | 2019-04-18 12:30 | Pre Anesthesia Assessment ---
Date of Service April 18, 2019 Pre Sedation Assessment Vital Signs Temp Pulse Pulse Resp BP BP Pulse Ox 04/18/19 12:00 81 25 H 152/82 H 94 04/18/19 11:52 37 C 78 22 130/79 95 04/18/19 11:01 84 22 138/79 96 04/18/19 10:00 80 22 140/76 97 04/18/19 09:00 83 23 145/79 H 97 04/18/19 08:00 100 H 22 128/73 90 04/18/19 07:00 79 19 130/75 97 04/18/19 06:00 76 22 127/72 95 04/18/19 05:00 79 15 135/77 96 04/18/19 04:00 36.7 C 79 19 138/89 96 04/18/19 03:00 79 17 131/73 93 04/18/19 02:00 79 23 122/67 93 04/18/19 01:00 82 26 H 124/67 93 04/18/19 00:00 36.5 C 83 24 115/64 95 04/17/19 23:00 91 H 24 119/63 92 04/17/19 21:00 83 24 120/72 95 04/17/19 20:00 36.7 C 81 23 127/68 95 04/17/19 19:00 85 24 123/65 94 04/17/19 18:00 79 21 123/76 98 04/17/19 17:00 82 23 115/60 99 04/17/19 16:15 83 23 92/48 L 93 04/17/19 16:08 62 22 99/42 L 04/17/19 16:00 36.9 C 58 L 21 98/56 L 89 L 04/17/19 15:00 94 H 24 141/82 H 96 04/17/19 13:00 78 15 136/73 96 Cardiovascular RRR, no murmur, no edema Respiratory normal respiratory effort, lungs clear to auscultation Pre-Sedation Airway Assessment Smoking Status: Never smoker Hx Sleep Apnea: No Short, Thick Neck: No Thyromental Distance: > or= 3.5 Finger Breadths Oral Cavity: + Dental Abnormalities Mallampati Class: I ASA: ASA3 NPO Status Date of Last Intake of Fluids: 04/18/19 Time of Last Intake of Fluids: 00:01 Date of Last Intake of Solid Food: 04/18/19 Time of Last Intake of Solid Foods: 00:01 Procedure Planning Contraindications for Sedation: none Current Medications Reviewed: Yes Notes The planned sedation has been discussed with the patient. Informed Consent was obtained. I have identified the patient, determined the appropriateness of sedation and have assessed the patient immediately prior to the procedure. All medicine(s) and interventions are by my order.
[2019-04-18] MEDS ORDERED: MIDAZOLAM HCL 1 MG/ML 2ML VIAL ONE (12:57)
[2019-04-18] MEDS ORDERED: fentaNYL citrate 100 MCG/2 ML VIAL ONE (12:57)
--- NOTE | 2019-04-18 13:24 | Post Operative Brief Note ---
Immediate Post Op Note v1 Date of Surgery April 18, 2019 Pre & Post Diagnosis Operation Date: 04/18/19 11:10 Pre-Op Diagnosis: Acute Renal Failure Post-Op Diagnosis: Acute Renal Failure Procedure Operation Date: 04/18/19 11:10 Actual Procedures p Insertion Of Perm Catheter. Right Internal Jugular Approach, Ultrasound Localization Of Right Internal Jugular Vein, Fluoroscopy For Positioning(Right) - Delbert Sanchez MD Surgeon Delbert Sanchez MD Bulk Fluids Handler Sintia Steele MD Estimated Blood Loss 5 Findings Consistent with Post-Op Diagnosis Anesthesia Type Local Complications none Disposition Accompanied Patient To Recovery: No Disposition: Surgical ICU
--- NOTE | 2019-04-18 13:29 | Operative Report ---
Post Operative Report Pre & Post Diagnosis Operation Date: 04/18/19 11:10 Pre-Op Diagnosis: Acute Renal Failure Post-Op Diagnosis: Acute Renal Failure Procedure Operation Date: 04/18/19 11:10 Actual Procedures p Insertion Of Perm Catheter. Right Internal Jugular Approach, Ultrasound Localization Of Right Internal Jugular Vein, Fluoroscopy For Positioning(Right) - Delbert Sanchez MD Surgeon Dr. Delbert Sanchez Fusing Machine Operator Dr. Crescencio Steele Estimated Blood Loss 5 Findings Consistent with Post-Op Diagnosis Fluids 50ml Specimens None Drains None Anesthesia Type Local Complications none Disposition Accompanied Patient To Recovery: No Disposition: Recovery Room Indications 84-year-old male in end-stage renal disease requiring hemodialysis previously had a temporary dialysis catheter removed and now is permanent dialysis access. I have discussed the risks options and benefits of the procedure with the patient's (POA). The patient's leather goods sales representative understands the risks options and benefits and agrees to the procedure. Description of Procedure Patient was taken to the angio suite and placed in the supine position. The right side of the neck and chest wall were prepped and draped in a sterile manner. So preoperative even prior to skin incision. 20ml of local anesthesia was then administered to the appropriate areas of the neck and chest wall. Ultrasound was then used to locate the right internal jugular vein. The vein compressed easily, had no filing defects, and was patent. The vein was then punctured under direct ultrasound imaging. A guidewire was then passed centrally under fluoroscopic imaging. A stab wound was then made in the anterior chest wall and 19 cm permcath was passed from the stab wound on the chest wall to the puncture site on the neck. The puncture site was then dilated till the 14Fr peel away sheath was inserted. The permcath was then inserted through the sheath to a central position in the distal superior vena cava. The peel away sheath was then removed. The catheter was then sutured in place using nylon sutures. The puncture was then closed using a 4-0 Vicryl subcuticular suture. Dermabond was used for a dressing on the puncture site. Both ports aspirated and flushed easily and were then packed with heparin. A sterile dressing was applied to the catheter. The patient left the angio suite in good condition and tolerated the procedure well. I, Dr. Sanchez was present and scrubbed for the entire procedure. I attest to the content of the Intraoperative Record and any orders documented therein. Any exceptions are noted below.
[2019-04-18] MEDS ORDERED: HEPARIN SOD (PORCINE) 1000 UNIT/ML 10 ML VIAL IV ONE (15:12)
[2019-04-18] MEDS ORDERED: SODIUM CHLORIDE 0.9% 1000ML 1,000 ML IV PRN (15:12)
--- NOTE | 2019-04-18 15:24 | Palliative Care Consultation ---
Date of Consultation April 18, 2019 Assessment & Plan (1) Goals of care, counseling/discussion: -84 year old male patient with PMH interstitial lung disease, CHF (EF 31% in 2014) s/p AICD placement, CKD, DM, and others, presented to the hospital five days ago from home with abnormal blood work that was done at his PCP's. Per his , he had been having altered mental status for a few days prior, as well as increase in his usual moist cough. His PCP ordered blood work and a CXR. He was started on abx and prednisone. When his blood work returned with creatinine of 9.1 and hgb of 9, patient was instructed to go to the ED. In the ED, patient was found to be in renal failure with metabolic acidosis and altered mental status. He was intubated for respiratory failure and admitted to the ICU on a bicarb infusion. He had a temporary dialysis catheter placed and was started on hemodialysis. His creatinine is down to 5 today. Patient was successfully extubated a couple days ago. Patient continues to be confused and somewhat drowsy. Of note, his ammonia was elevated on 04/13 at 100. His airway is compromised with increased oropharyngeal secretions and inability to clear them. Patient failed a swallow study and is very high risk of aspiration. Overall, patient's condition is deteriorated and deconditioned, prognosis could be poor at this point. Palliative care is consulted to discuss goals of care. -Met with patient, his Kathe, two daughters and a granddaughter along with Drs. Soto and Jose, in room 106. Patient is awake at times but confused and drowsy. Unable to participate in conversation. Dr. Soto gave detailed medical update to patient's family. -Patient remains on dialysis and is currently a "conditional code"-- no CPR in event of cardiac arrest but okay with intubation. Patient had a perma cath placed for dialysis today. His VS are stable and he is being transferred out of ICU, however he is still NPO due to inability to safely swallow and mental status not improving. All of family's questions answered. -At this point, we will continue with current care but NO ESCALATION IN CARE. Family's main focus is on comfort, but they are hopeful that he will improve somewhat-- at least enough to participate in conversation about his wishes. -Patient would not want a feeding tube. For now, allow moistened sponges for comfort. Wait and see if mental status improves enough to try and comfort feed. -Discussed CODE STATUS, patient's and daughters all agreed he will be DNR and DNI. If he goes into respiratory failure again, do not intubate and allow natural/comfortable . -If patient does not improve in next 24-48 hours, or if he worsens, family will consider transitioning to comfort measures only. -Palliative care will continue to follow and assist with medical decision making. (2) Acute renal failure: Acute renal failure type: unspecified Qualified Code(s): N17.9 - Acute kidney failure, unspecified (3) Metabolic acidosis: (4) Metabolic encephalopathy: Supervising Physician Co-Signing Physician Notes Chart reviewed, patient seen and examined. I was personally present during the visit as documented above by JOSE John Discussed with family at length treatment options and assisted with decision making based on family and patient's goals of care PE: Patient lying in bed, would arouse occasionally-was confused, not able to participate in discussion HEENT: EOMI, excess oral secretions audible Respirations: Unlabored, on O2 via nasal cannula CV: Regular rate, no edema Abdomen: Not distended Neuro: Decreased responsiveness, confused Agree with above note, assessment and plan as per JOSE Johnston- will continue to follow and provide support and assist family with medical decision making History of Present Illness Reason for Consultation: Goals of care Requesting Physician: Dr. Soto Attending Physician: Dariana Mckinney MD History of Present Illness This 84 year old male patient with PMH interstitial lung disease, CHF (EF 31% in 2013) s/p AICD placement, CKD, DM, and others, presented to the hospital five d ays ago from home with abnormal blood work that was done at his PCP's. Per his , he had been having altered mental status for a few days prior, as well as increase in his usual moist cough. His PCP ordered blood work and a CXR. He was started on abx and prednisone. When his blood work returned with creatinine of 9.1 and hgb of 9, patient was instructed to go to the ED. In the ED, patient was found to be in renal failure with metabolic acidosis and altered mental status. He was intubated for respiratory failure and admitted to the ICU on a bicarb infusion. He had a temporary dialysis catheter placed and was started on hemodialysis. His creatinine is down to 5 today. Patient was successfully extubated a couple days ago. Patient continues to be confused and somewhat drowsy. Of note, his ammonia was elevated on 04/13 at 100. His airway is compromised with increased oropharyngeal secretions and inability to clear them. Patient failed a swallow study and is very high risk of aspiration. Overall, patient's condition is deteriorated and deconditioned, prognosis could be poor at this point. Palliative care is consulted to discuss goals of care. Thank you kindly for this consult. I will follow as needed. Allergies Allergy/AdvReac Type Severity Reaction Status Date / Time lisinopril Allergy Mild Unknown Verified 04/13/19 01:31 Home Medications Home Medications Medication Instructions Recorded Confirmed Type acetaminophen 650 mg PO Q6H PRN 04/13/19 04/13/19 History albuterol sulfate 2 puff INHALATION Q6H PRN 04/13/19 04/13/19 History allopurinol 100 mg PO DAILY 04/13/19 04/13/19 History aspirin [Aspir-81] 81 mg PO DAILY 04/13/19 04/13/19 History atorvastatin 40 mg PO DAILY 04/13/19 04/13/19 History calcium polycarbophil [FiberCon] 1,250 mg PO QAM 04/13/19 04/13/19 History cholecalciferol (vitamin D3) 1,000 unit PO DAILY 04/13/19 04/13/19 History cyanocobalamin (vitamin B-12) 500 mcg PO BID 04/13/19 04/13/19 History [Vitamin B-12] furosemide 20 mg PO 3XWK 04/13/19 04/13/19 History insulin glargine [Lantus Solostar 20 unit SUBCUT QAM 04/13/19 04/13/19 History U-100 Insulin] metoprolol succinate 25 mg PO DAILY 04/13/19 04/13/19 History xmocxurs-xvd-QY-lycopen-lutein 1 tab PO DAILY 04/13/19 04/13/19 History [Centrum Silver Ultra Men's] nitroglycerin [Nitrostat] 0.4 mg SUBLINGUAL UD PRN MDD 3 04/13/19 04/13/19 History doses ondansetron HCl 4 mg PO Q8 PRN 04/13/19 04/13/19 History polyethylene glycol 3350 [Miralax] 17 g PO DAILY PRN 04/13/19 04/13/19 History pyridoxine (vitamin B6) [Vitamin 100 mg PO DAILY 04/13/19 04/13/19 History B-6] repaglinide 2 mg PO TIDM 04/13/19 04/13/19 History Patient History Medical History Diabetes (Acute) CHF (congestive heart failure) (Chronic) Cholelithiasis Chronic ITP (idiopathic thrombocytopenia) Chronic kidney disease Heart attack Interstitial lung disease Surgical History Cardiac defibrillator in place (Chronic) Social History Preferred Language: Armenian Communication Ability: Unable Copy Holder Required: No Beliefs That Will Affect Care: None Current Living Situation: Spouse Other Information That Helps Us Care for You: No Feels Safe at Home: Yes Safety Concerns: Feels Safe At This Time Smoking Status: Never smoker Do You Dip or Chew Tobacco: No Second Hand Exposure: No Tobacco Cessation Education Requested by Patient: No Hx Alcohol Use: No Hx Substance Use: No Review of Systems Review of Systems: Unobtainable due to cognitive status Physical Exam Constitutional: + ill appearing and + frail appearing ENMT: Mouth: + poor dentition Respiratory: no respiratory distress Auscultation: + rhonchi loud, moist cough, audible oropharyngeal secretions Cardiovascular: RRR, no murmur, no edema Gastrointestinal (Abdomen): Inspection/Auscultation: abdomen normal to inspection and normal bowel sounds Percussion/Palpation: abdomen soft Neurologic: awake and + confused Psychiatric: Orientation: oriented to person; + not oriented to place and + not oriented to time Results & Data Vital Signs (Past 12 Hours) Vital Signs Temp Pulse Pulse Resp BP BP BP 04/18/19 14:35 82 22 157/99 H 04/18/19 14:00 82 23 161/91 H 04/18/19 13:44 83 25 H 156/87 H 04/18/19 13:14 83 16 138/80 04/18/19 13:09 84 16 128/79 04/18/19 13:04 79 16 128/79 04/18/19 13:02 82 16 126/71 04/18/19 12:00 36.8 C 81 25 H 152/82 H 04/18/19 11:52 37 C 78 22 130/79 04/18/19 11:01 84 22 138/79 04/18/19 10:00 80 22 140/76 04/18/19 09:00 83 23 145/79 H 04/18/19 08:00 100 H 22 128/73 04/18/19 07:00 79 19 130/75 04/18/19 06:00 76 22 127/72 04/18/19 05:00 79 15 135/77 04/18/19 04:00 36.7 C 79 19 138/89 Pulse Ox 04/18/19 14:35 97 04/18/19 14:00 97 04/18/19 13:44 96 04/18/19 13:14 96 04/18/19 13:09 100 04/18/19 13:04 100 04/18/19 13:02 100 04/18/19 12:00 94 04/18/19 11:52 95 04/18/19 11:01 96 04/18/19 10:00 97 04/18/19 09:00 97 04/18/19 08:00 90 04/18/19 07:00 97 04/18/19 06:00 95 04/18/19 05:00 96 04/18/19 04:00 96 PG Care Time/CCT Total # of Minutes Spent Total Time Spent with Patient: Total time spent is greater than 50% in coordination of care (as documented) at patient's floor/unit and/or counseling patient: Time Spent Midlevel 70 minutes with >50% of the time spent at bedside with patient and family discussing condition and GOC.
--- NOTE | 2019-04-18 16:20 | Nephrology Progress Note ---
Date of Service April 18, 2019 Assessment & Plan (1) Acute renal failure: Patient with acute renal failure likely due to ischemic ATN. 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 He is completely anuric now. CT abdomen does not show obstructive uropathy. He also has low EF. started emergent dialysis for acute renal failure and severe metabolic acidosis on 04/13. Chest x- ray today showing pulmonary vascular congestion. He also has significant amount of secretions. Oxygenation is stable. He got PermCath this morning. We are dialyzing him for 3-1/2 hours with target UF of 2.5 L. He is tolerating dialysis well so far. (2) Acute respiratory failure: Multifactorial etiology including volume overload and possibly pneumonia. He is receiving broad-spectrum antibiotics per ICU team. We will optimize volume status with dialysis. (3) SIRS (systemic inflammatory response syndrome): Sepsis due to Pseudomonas UTI. Blood pressure currently stable. Continue broad-spectrum antibiotics renally dosed for GFR less than 25 mL/min. (4) Anemia in chronic renal disease: Due to multifactorial etiology. Hemoglobin of 7.2 today. Patient is receiving a unit of blood with dialysis. Subjective Patient seen in follow-up for acute kidney injury. Patient seen and examined while on dialysis. He is tolerating dialysis well this afternoon. He is also receiving a unit of blood. No shortness of breath. He remains anuric. Review of Systems Review of Systems: All systems reviewed & are unremarkable except as noted in HPI & below Physical Exam Physical Exam: General exam: Appears comfortable, no acute distress HEENT: Pupils are equal and reactive to light Neck: No JVD, neck is supple trachea is midline Respiratory system: Reduced breath sounds bilaterally. Gastrointestinal: Abdomen is soft, non distended, non tender, bowel sounds are present CVS: Regular rate and rhythm. No murmurs, rubs or gallops Musculoskeletal: No joint or muscle tenderness Extremities: Non tender, no edema, peripheral pulses are present Neuro: Oriented, no tremors, no focal neurological deficits Skin: No rashes Results & Data Vital Signs (Past 12 Hours) Vital Signs Temp Pulse Pulse Resp BP BP BP 04/18/19 14:35 82 22 157/99 H 04/18/19 14:00 82 23 161/91 H 04/18/19 13:44 83 25 H 156/87 H 04/18/19 13:14 83 16 138/80 04/18/19 13:09 84 16 128/79 04/18/19 13:04 79 16 128/79 04/18/19 13:02 82 16 126/71 04/18/19 12:00 36.8 C 81 25 H 152/82 H 04/18/19 11:52 37 C 78 22 130/79 04/18/19 11:01 84 22 138/79 04/18/19 10:00 80 22 140/76 04/18/19 09:00 83 23 145/79 H 04/18/19 08:00 100 H 22 128/73 04/18/19 07:00 79 19 130/75 04/18/19 06:00 76 22 127/72 04/18/19 05:00 79 15 135/77 Pulse Ox 04/18/19 14:35 97 04/18/19 14:00 97 04/18/19 13:44 96 04/18/19 13:14 96 04/18/19 13:09 100 04/18/19 13:04 100 04/18/19 13:02 100 04/18/19 12:00 94 04/18/19 11:52 95 04/18/19 11:01 96 04/18/19 10:00 97 04/18/19 09:00 97 04/18/19 08:00 90 04/18/19 07:00 97 04/18/19 06:00 95 04/18/19 05:00 96 Laboratory Results Laboratory Results - last 24 hr 04/15/19 04/17/19 04/17/19 18:26 08:13 11:33 WBC RBC Hgb Hct MCV MCH MCHC RDW Std Deviation RDW Coeff of Julissa Plt Count MPV Immature Gran % (Auto) Neut % (Auto) Lymph % (Auto) Karnes % (Auto) Eos % (Auto) Baso % (Auto) Immature Gran # (Auto) Neut # (Auto) Lymph # (Auto) Karnes # (Auto) Eos # (Auto) Baso # (Auto) RBC Morphology Sodium Potassium Chloride Carbon Dioxide Anion Gap BUN Creatinine Est Cr Clr Drug Dosing Est GFR ( Amer) Est GFR (Non-Af Amer) BUN/Creatinine Ratio Glucose POC Glucose 138 H 135 H Calcium Phosphorus Magnesium Blood Type A Positive Antibody Screen NEGATIVE Crossmatch See Detail 04/17/19 04/17/19 04/18/19 16:06 20:07 00:42 WBC RBC Hgb Hct MCV MCH MCHC RDW Std Deviation RDW Coeff of Julissa Plt Count MPV Immature Gran % (Auto) Neut % (Auto) Lymph % (Auto) Karnes % (Auto) Eos % (Auto) Baso % (Auto) Immature Gran # (Auto) Neut # (Auto) Lymph # (Auto) Karnes # (Auto) Eos # (Auto) Baso # (Auto) RBC Morphology Sodium Potassium Chloride Carbon Dioxide Anion Gap BUN Creatinine Est Cr Clr Drug Dosing Est GFR ( Amer) Est GFR (Non-Af Amer) BUN/Creatinine Ratio Glucose POC Glucose 155 H 149 H 139 H Calcium Phosphorus Magnesium Blood Type Antibody Screen Crossmatch 04/18/19 04/18/19 04/18/19 04:19 04:19 04:34 WBC 14.82 H RBC 2.35 L Hgb 7.2 L Hct 21.3 L MCV 90.6 MCH 30.6 MCHC 33.8 RDW Std Deviation 50.2 H RDW Coeff of Julissa 15.3 H Plt Count 130 MPV 10.9 H Immature Gran % (Auto) 0.7 Neut % (Auto) 89.2 Lymph % (Auto) 4.9 Karnes % (Auto) 4.6 Eos % (Auto) 0.5 Baso % (Auto) 0.1 Immature Gran # (Auto) 0.10 H Neut # (Auto) 13.22 H Lymph # (Auto) 0.73 L Karnes # (Auto) 0.68 H Eos # (Auto) 0.08 Baso # (Auto) 0.01 RBC Morphology Unremarkable Sodium 143 Potassium 3.8 Chloride 105 Carbon Dioxide 22 Anion Gap 16.0 H BUN 70 H Creatinine 6.95 H* D Est Cr Clr Drug Dosing 8.5 Est GFR ( Amer) 7.6 Est GFR (Non-Af Amer) 6.6 BUN/Creatinine Ratio 10.0 Glucose 143 H POC Glucose 146 H Calcium 7.8 L Phosphorus 9.5 H Magnesium 2.5 H Blood Type Antibody Screen Crossmatch 04/18/19 04/18/19 08:30 11:41 WBC RBC Hgb Hct MCV MCH MCHC RDW Std Deviation RDW Coeff of Julissa Plt Count MPV Immature Gran % (Auto) Neut % (Auto) Lymph % (Auto) Karnes % (Auto) Eos % (Auto) Baso % (Auto) Immature Gran # (Auto) Neut # (Auto) Lymph # (Auto) Karnes # (Auto) Eos # (Auto) Baso # (Auto) RBC Morphology Sodium Potassium Chloride Carbon Dioxide Anion Gap BUN Creatinine Est Cr Clr Drug Dosing Est GFR ( Amer) Est GFR (Non-Af Amer) BUN/Creatinine Ratio Glucose POC Glucose 149 H 146 H Calcium Phosphorus Magnesium Blood Type Antibody Screen Crossmatch (1) Acute renal failure Acute renal failure type: unspecified Qualified Code(s): N17.9 - Acute kidney failure, unspecified
[2019-04-18] MEDS: HEPARIN SOD (PORCINE) 1000 UNIT/ML 10 ML VIAL IV SCH ×2 (20:40→20:41)
[2019-04-19] MEDS: INSULIN ASPART 100 UNITS/ML 3 ML PEN SC SCH ×5 (00:18→17:18)
[2019-04-19] MEDS: PIPERACILLIN/TAZOBACTAM 3.375 GM in DEXTROSE 5% 100 ML IV SCH ×2 (01:50→14:30)
[2019-04-19 06:59] LABS: Basophils # (auto) 0.04 K/uL (0-0.2); Basophils % (auto) 0.3 %; Eosinophils # (auto) 0.25 K/uL (0-0.5); Eosinophils % (auto) 1.6 %; Hemoglobin 9.1 g/dL (14.0-18.0); Immature Granulocytes # (auto) 0.21 K/uL (0.00-0.02); Immature Granulocytes % (auto) 1.3 %; Lymphocytes # (auto) 0.99 K/uL (1.2-3.4); Lymphocytes % (auto) 6.3 %; Mean Corpuscular Hgb Conc 33.7 g/dL (32-36); Mean Corpuscular Volume 88.8 fL (80-100); Mean Platelet Volume 10.5 fL (7.4-10.4); Monocytes % (auto) 5.7 %; Neutrophils # (auto) 13.32 K/uL (1.4-6.5); Neutrophils % (auto) 84.8 %; Platelet Count 147 K/uL (130-400); RDW Coefficient of Variation 18.2 % (11.5-14.5); RDW Standard Deviation 59.4 fL (36.4-46.3); Red Blood Count 3.04 M/uL (4.7-6.1); White Blood Count 15.71 K/uL (4.8-10.8)
[2019-04-19 07:48] LABS: BUN Creatinine Ratio 8.6 (10-20); Creatinine Clr Calc Pharmacy 12.9 ml/min; Est GFR (African American) 12.6; Est GFR (Non-African American) 10.9; Magnesium 2.3 mg/dl (1.8-2.4); Phosphorus 5.7 mg/dl (2.5-4.9); Potassium 4.1 mmol/L (3.5-5.1); Troponin I 0.872 ng/ml (0-0.045)
[2019-04-19] MEDS: LEVOTHYROXINE SODIUM 12.5 MCG in SYRINGE 0 ML IV SCH (08:42)
[2019-04-19] MEDS: FAMOTIDINE 20 MG in SYRINGE 3 ML IV SCH (08:42)
--- NOTE | 2019-04-19 11:42 | Palliative Care Progress Note ---
Date of Service April 19, 2019 Assessment & Plan (1) Goals of care, counseling/discussion: -Patient is now in room 278. He is more awake and alert today, but remains oriented to person only. Could not participate in meaningful conversation about GOC. -Planning to meet with his family this afternoon around 1400 to reevaluate how he is doing. -Patient continues to tolerate dialysis. Uncertain of discharge plan at this time. Update: Met with patient, his Kathe, daughters Dary and Cheryle, step son and his . Corinne from speech therapy was present and gave update on patient's overt aspiration and strict NPO status. Family verbalized understanding. We continued to talk after. Patient's family states that he has been coughing and "choking" during meals for years. In fact, during family dinners the patient sits on one end of the table and the family leaves him space because he coughs so hard sometimes that food and drink spews from his mouth. They understand that feeding the patient at this point could result in choking and . They state that they want to proceed with comfort feeding anyway. Spoke with Dr. Mckinney and he will order a diet. I spoke with patient's nurse about having suction in the room set up and ready to go, as well as being present when he has his first meal. patient is a DNR/DNI which was confirmed with family. THey would like to continue dialysis and all other treatment at this time as patient is looking better today. Palliative care will continue to follow. (2) Acute renal failure: (3) Metabolic acidosis: (4) Metabolic encephalopathy: Subjective Patient looks more awake and alert today. Oriented to person only. Tracheal secretions are less today Review of Systems Review of Systems: Denies any pain, SOB, chest pain or N/V. Physical Exam Constitutional: + ill appearing and + frail appearing ENMT: Mouth: + poor dentition Respiratory: no respiratory distress Auscultation: + rhonchi Cardiovascular: RRR, no murmur, no edema Gastrointestinal (Abdomen): Inspection/Auscultation: abdomen normal to inspection and normal bowel sounds Percussion/Palpation: abdomen soft Neurologic: awake and + confused Psychiatric: Orientation: oriented to person; + not oriented to place and + not oriented to time Results & Data Vital Signs (Past 12 Hours) Vital Signs Temp Pulse Pulse Resp BP Pulse Ox 04/19/19 07:18 36.9 C 81 16 165/77 H 98 04/19/19 04:00 36.8 C 80 22 112/69 97 04/19/19 00:00 89 PG Care Time/CCT Prolonged Care Time Prolonged Care Time: Yes Total Prolonged Care Time: 65 Time Spent Midlevel 65 minutes with >50% of time spent at bedside with patient and family discussing condition and GOC. (1) Acute renal failure Acute renal failure type: unspecified Qualified Code(s): N17.9 - Acute kidney failure, unspecified
--- NOTE | 2019-04-19 12:34 | Nephrology Progress Note ---
Date of Service April 19, 2019 Assessment & Plan (1) Acute renal failure: Patient with acute renal failure likely due to ischemic ATN. 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 Patient is oliguric. He had straight cath yesterday for [address] abdomen does not show obstructive uropathy. He also has low EF. started emergent dialysis for acute renal failure and severe metabolic acidosis on 04/13. Chest x-ray today showing pulmonary vascular congestion. He also has significant amount of secretions. Oxygenation is stable. He got PermCath 04/18/2019. He tolerated dialysis on 04/18/2019. Next dialysis will be tomorrow. Recommend Gutierrez catheter insertion to monitor urine output (2) Acute respiratory failure: Multifactorial etiology including volume overload and possibly pneumonia. He is receiving broad-spectrum antibiotics per primary team. We will optimize volume status with dialysis. (3) SIRS (systemic inflammatory response syndrome): Sepsis due to Pseudomonas UTI. Blood pressure currently stable. Continue broad-spectrum antibiotics renally dosed for GFR less than 25 mL/min. (4) Anemia in chronic renal disease: Due to multifactorial etiology. Hemoglobin of 9.1 today after blood transfusion. We will give Epogen with dialysis tomorrow. Subjective Patient seen in follow-up for acute kidney injury and dialysis dependence. He feels better today denies any shortness of breath or pain. He tolerated dialysis well yesterday. He does not give much history. Review of Systems Review of Systems: All systems reviewed & are unremarkable except as noted in HPI & below Physical Exam Physical Exam: General exam: Appears comfortable, no acute distress HEENT: Pupils are equal and reactive to light Neck: No JVD, neck is supple trachea is midline Respiratory system: Clear breath sounds bilaterally. Gastrointestinal: Abdomen is soft, non distended, non tender, bowel sounds are present CVS: Regular rate and rhythm. No murmurs, rubs or gallops Musculoskeletal: No joint or muscle tenderness Extremities: Non tender, no edema, peripheral pulses are present Neuro: Oriented, no tremors, no focal neurological deficits Skin: No rashes Results & Data Vital Signs (Past 12 Hours) Vital Signs Temp Pulse Resp BP Pulse Ox 04/19/19 11:50 36.5 C 76 18 138/72 97 04/19/19 07:18 36.9 C 81 16 165/77 H 98 04/19/19 04:00 36.8 C 80 22 112/69 97 Laboratory Results Laboratory Results - last 24 hr 04/15/19 04/18/19 04/19/19 18:26 20:48 00:10 WBC RBC Hgb Hct MCV MCH MCHC RDW Std Deviation RDW Coeff of Julissa Plt Count MPV Immature Gran % (Auto) Neut % (Auto) Lymph % (Auto) Armstrong % (Auto) Eos % (Auto) Baso % (Auto) Immature Gran # (Auto) Neut # (Auto) Lymph # (Auto) Armstrong # (Auto) Eos # (Auto) Baso # (Auto) Sodium Potassium Chloride Carbon Dioxide Anion Gap BUN Creatinine Est Cr Clr Drug Dosing Est GFR ( Amer) Est GFR (Non-Af Amer) BUN/Creatinine Ratio Glucose POC Glucose 99 102 H Calcium Phosphorus Magnesium Ammonia Troponin I Blood Type A Positive Antibody Screen NEGATIVE Crossmatch See Detail 04/19/19 04/19/19 04/19/19 04:11 06:43 06:43 WBC 15.71 H RBC 3.04 L Hgb 9.1 L Hct 27.0 L MCV 88.8 MCH 29.9 MCHC 33.7 RDW Std Deviation 59.4 H RDW Coeff of Julissa 18.2 H Plt Count 147 MPV 10.5 H Immature Gran % (Auto) 1.3 Neut % (Auto) 84.8 Lymph % (Auto) 6.3 Armstrong % (Auto) 5.7 Eos % (Auto) 1.6 Baso % (Auto) 0.3 Immature Gran # (Auto) 0.21 H Neut # (Auto) 13.32 H Lymph # (Auto) 0.99 L Armstrong # (Auto) 0.90 H Eos # (Auto) 0.25 Baso # (Auto) 0.04 Sodium 139 Potassium 4.1 Chloride 102 Carbon Dioxide 26 Anion Gap 11.0 BUN Creatinine 4.58 H* D Est Cr Clr Drug Dosing 12.9 Est GFR ( Amer) 12.6 Est GFR (Non-Af Amer) 10.9 BUN/Creatinine Ratio 8.6 L Glucose 119 H POC Glucose 136 H Calcium 8.0 L Phosphorus 5.7 H D Magnesium 2.3 Ammonia Troponin I 0.872 H* Blood Type Antibody Screen Crossmatch 04/19/19 04/19/19 04/19/19 06:43 07:41 11:37 WBC RBC Hgb Hct MCV MCH MCHC RDW Std Deviation RDW Coeff of Julissa Plt Count MPV Immature Gran % (Auto) Neut % (Auto) Lymph % (Auto) Armstrong % (Auto) Eos % (Auto) Baso % (Auto) Immature Gran # (Auto) Neut # (Auto) Lymph # (Auto) Armstrong # (Auto) Eos # (Auto) Baso # (Auto) Sodium Potassium Chloride Carbon Dioxide Anion Gap BUN Creatinine Est Cr Clr Drug Dosing Est GFR ( Amer) Est GFR (Non-Af Amer) BUN/Creatinine Ratio Glucose POC Glucose 124 H 115 H Calcium Phosphorus Magnesium Ammonia < 10.0 L Troponin I Blood Type Antibody Screen Crossmatch (1) Acute renal failure Acute renal failure type: unspecified Qualified Code(s): N17.9 - Acute kidney failure, unspecified
--- NOTE | 2019-04-19 18:00 | Hospitalist Progress Note ---
Date of Service April 19, 2019 Assessment & Plan (1) Acute respiratory failure: Severe metabolic acidosis ABG on admission with pH 6.9 PCO2 12 and HCO3 5 Intubated on vent support being managed by molded goods spot picker in the ICU Initially was starting on bicarb drip and had emergent HD S/P extubated on 04/15 Has been required suctioning due to increase oral secretion Failed swallow eval- very high risk for aspiration Palliative consult for goal of care Palliative care met with family Discussed with family about high risk for aspiration if starting on diet I explained to them that if patient aspirates that can lead to respiratory failure I also mentioned that pt is DNI/DNR if he develops respiratory failure that can lead to cardiac arrest and Family understood the risks and OK to start on a diet Will consult ENT for eval laryngeal/ vocal fold dysfunction case discussed with Speech and agreed that patient is very high risk for aspiration Will start on full liquid diet as per family request family OK with permissive dysphagia (2) Acute renal failure: 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 creatinine on admission above 9, dropped to 5 today Nephrology on board recommended urgent HD to correct the acidosis Had permcath placement yesterday Will get HD done tomorrow Continue monitor BMP (3) SIRS (systemic inflammatory response syndrome): UTI Present on admission with elevated HR, RR, lactic acid and WBC Blood cx no growth so far Urine cx positive for gram negative bacilli (Pseudomonas) Complete course of Zosyn today Monitor CBC (4) Metabolic acidosis: ABG on admission with pH 6.9 PCO2 12 and HCO3 5 Repeat ABG after HD showed pH 7.5 PCO2 26 and HCO3 20 Required HD Continue monitor Resolved (5) Hypovolemia: Off Levophed BP stable (6) Metabolic encephalopathy: Due to severe acidosis and acute respiratory failure CT head showed no acute intracranial abnormality Resolved (7) Anemia in chronic renal disease: Hgb improved to 9 today S/p 1 unit PRBC on 04/16 and 04/18 Continue monitor CBC (8) Elevated lactic acid level: Mostly related to severe metabolic acidosis in the setting of acute respiratory failure Follow up blood cx urine cx positive for gram negative bacilli (Psudomanas) Complete IV zosyn today Will d/c abx (9) Elevated troponin: Demand ischemia due to elevated creatinine and acidosis Denies any chest pain EKG showed no acute ischemic changes Continue monitor DVT px on heparin subq Disposition Will discharge once medically stable Subjective Pt was seen and examined Lying in bed with no distress with family member at bedside Pt looks more awake today He continues sound very congested Pt said that he feels very congested and would like to eat something palliative team and speech met with family today They informed family that patient is very high risk for aspiration Family understood and would like patient to get something to eat I went also to speak with /daughter about patient is very high risk to aspirate if we feed him I explained to them that if patient aspirates that can lead to respiratory failure I also mentioned that pt is DNI/DNR if he develops respiratory failure that can lead to cardiac arrest and Family understood the risks and OK to start on a diet Physical Exam Physical Exam: General- No acute respiratory distress Head- atraumatic Eyes- PERRL, EOMI, Neck- supple, no JVD Lungs- B/L Crackles Heart- regular, no murmur Abdomen- normal bowel sounds, soft, nontender Extremities- no calf tenderness Neuro- alert, awake move extremities, follow commands Skin- warm & dry Results & Data Vital Signs (Past 12 Hours) Vital Signs Temp Pulse Pulse Resp BP BP Pulse Ox 04/19/19 15:05 36.7 C 78 20 150/77 H 95 04/19/19 11:50 36.5 C 76 18 138/72 97 04/19/19 10:01 81 04/19/19 07:18 36.9 C 81 16 165/77 H 98 (1) Acute renal failure Acute renal failure type: unspecified Qualified Code(s): N17.9 - Acute kidney failure, unspecified
[2019-04-19] MEDS ORDERED: XOPENEX/ATROVENT 1.25mg/0.5MG NEB COMBO NEB STA (21:05)
[2019-04-19] MEDS ORDERED: IPRATROPIUM BROMIDE NEB SOLN 0.02% 2.5 ML VIAL INH STA (21:12)
[2019-04-19] MEDS ORDERED: LEVALBUTEROL 1.25MG/0.5ML NEB INH STA (21:13)
[2019-04-19] MEDS ORDERED: methylPREDNISolone 20 MG in SYRINGE 0 ML IV STA (21:16)
[2019-04-19] MEDS: ACETAMINOPHEN 65 ML IV PRN (21:42)
[2019-04-19] MEDS ORDERED: HYDROmorphone INJ 0.5 MG/0.5 ML SYR IV STA (22:37)
[2019-04-20] MEDS: INSULIN ASPART 100 UNITS/ML 3 ML PEN SC SCH ×5 (00:18→20:59)
[2019-04-20] MEDS: PIPERACILLIN/TAZOBACTAM 3.375 GM in DEXTROSE 5% 100 ML IV SCH (01:17)
[2019-04-20] MEDS ORDERED: INSULIN ASPART 100 UNITS/ML 3 ML PEN SC ONE (04:00)
[2019-04-20] MEDS ORDERED: HEPARIN SOD (PORCINE) 1000 UNIT/ML 10 ML VIAL IV ONE (07:00)
[2019-04-20] MEDS ORDERED: SODIUM CHLORIDE 0.9% 1000ML 1,000 ML IV PRN (07:00)
[2019-04-20] MEDS ORDERED: EPOETIN ALFA 10,000 UNITS/ML VIAL IV SCH (07:00)
[2019-04-20 07:38] LABS: Hemoglobin 9.3 g/dL (14.0-18.0); Mean Corpuscular Hgb Conc 33.2 g/dL (32-36); Mean Corpuscular Volume 89.5 fL (80-100); Mean Platelet Volume 10.4 fL (7.4-10.4); Platelet Count 151 K/uL (130-400); RDW Coefficient of Variation 17.9 % (11.5-14.5); RDW Standard Deviation 58.6 fL (36.4-46.3); Red Blood Count 3.13 M/uL (4.7-6.1); White Blood Count 25.03 K/uL (4.8-10.8)
[2019-04-20 07:39] LABS: Basophils # (auto) 0.02 K/uL (0-0.2); Basophils % (auto) 0.1 %; Echinocytes 1+; Immature Granulocytes # (auto) 0.22 K/uL (0.00-0.02); Immature Granulocytes % (auto) 0.9 %; Lymphocytes # (auto) 0.37 K/uL (1.2-3.4); Lymphocytes % (auto) 1.5 %; Monocytes # (auto) 0.75 K/uL (0.11-0.59); Neutrophils # (auto) 23.67 K/uL (1.4-6.5); Neutrophils % (auto) 94.5 %
[2019-04-20 07:47] LABS: BUN Creatinine Ratio 9.4 (10-20); Calcium 7.9 mg/dl (8.5-10.1); Creatinine Clr Calc Pharmacy 9.4 ml/min; Est GFR (African American) 8.5; Est GFR (Non-African American) 7.4; Magnesium 2.4 mg/dl (1.8-2.4); Potassium 4.4 mmol/L (3.5-5.1)
[2019-04-20] MEDS ORDERED: NovoLIN-N (NPH) PER UNIT CHARGE SQ ONE (08:00)
[2019-04-20 08:08] LABS: Phosphorus 9.1 mg/dl (2.5-4.9)
[2019-04-20] MEDS: LEVOTHYROXINE SODIUM 12.5 MCG in SYRINGE 0 ML IV SCH (08:54)
[2019-04-20] MEDS: FAMOTIDINE 20 MG in SYRINGE 3 ML IV SCH (08:54)
--- NOTE | 2019-04-20 11:41 | Pharmacy Report ---
Pharmacy Glycemic Short Note 2 - Date of Service April 20, 2019 - Glycemic Short BSG Results (Last 24 hours): 04/19/19 04/19/19 04/19/19 11:37 16:15 20:13 Glucose POC Glucose 115 H 130 H 153 H 04/20/19 04/20/19 06:41 07:58 Glucose 236 H POC Glucose 225 H OUTPATIENT ANTIDIABETIC REGIMEN: * Repaglinide 2mg TID w/ meals * Lantus 20 units SQ daily * A1c = 6.5% 04/12/19 ASSESSMENT: * Type 2 diabetic admitted for JACKIE severe metabolic acidosis, encephalopathy and possible sepsis * Patient did remains on HD * Pt required IV insulin infusion on admission for hyperglycemia. Minimal insulin needed since transitioning off of infusion. * One time dose of IV Solumedrol given last evening which deteriorated glycemic control. BSGs in the mid 200's. * Will add a one time dose of NPH to cover the steroid induced hyperglycemia from one time dose of Solumedrol. Will use reduced dosing since patient w/ minimal PO (full liquid diet) and steroid was given 12 hrs ago. PLAN FOR INPATIENT GLYCEMIC CONTROL: * Hold outpatient oral diabetes medications * Basal insulin * None at this time * Steroid induced hyperglycemia * NPH 10 units SQ x 1 dose NOW * Bolus insulin * NovoLog ACHS * Goal 120-160 mg/dl * CF = 25 mg/dl/unit * CR = 1 unit for every 9g CHO consumed PLAN FOR DISCHARGE: * to be determined
--- NOTE | 2019-04-20 15:06 | Hospitalist Progress Note ---
Date of Service April 20, 2019 Assessment & Plan (1) Acute respiratory failure: Severe metabolic acidosis ABG on admission with pH 6.9 PCO2 12 and HCO3 5 Intubated on vent support being managed by residential sales consultant in the ICU Initially was starting on bicarb drip and had emergent HD S/P extubated on 04/15 Has been required suctioning due to increase oral secretion Failed swallow eval- very high risk for aspiration Palliative consult for goal of care Palliative care/speech therapist met with family yesterday discussed about high risk for aspiration if starting on diet I explained to them that if patient aspirates that can lead to respiratory failure I also mentioned that pt is DNI/DNR if he develops respiratory failure that can lead to cardiac arrest and Family understood the risks and OK to start on a diet Waiting for ENT consult for eval laryngeal/ vocal fold dysfunction As per family request, patient was started on full liquid diet family OK with permissive dysphagia (2) Acute renal failure: 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 creatinine on admission above 9, dropped to 5 today Nephrology on board Had urgent HD done on 04/13 to correct the acidosis Had permcath placement placed 04/[address] Sanchez Will get HD today Continue monitor BMP (3) Sepsis: UTI Present on admission with elevated HR, RR, lactic acid and WBC Blood cx no growth so far Urine cx positive for gram negative bacilli (Pseudomonas) Completed course of Zosyn yesterday Monitor CBC (4) Metabolic acidosis: ABG on admission with pH 6.9 PCO2 12 and HCO3 5 Repeat ABG after HD showed pH 7.5 PCO2 26 and HCO3 20 Required HD Continue monitor Resolved (5) Hypovolemia: Off Levophed BP stable (6) Metabolic encephalopathy: Due to severe acidosis and acute respiratory failure CT head showed no acute intracranial abnormality Resolved (7) Anemia in chronic renal disease: Hgb improved to 9.3 today S/p 1 unit PRBC on 04/16 and 04/18 Continue monitor CBC (8) Elevated lactic acid level: Mostly related to severe metabolic acidosis in the setting of acute respiratory failure Follow up blood cx urine cx positive for gram negative bacilli (Pseudomanas) Completed 7 days course on IV Zosyn (9) Elevated troponin: Demand ischemia due to elevated creatinine and acidosis Denies any chest pain EKG showed no acute ischemic changes Continue monitor DVT px on heparin subq Disposition Will discharge once medically stable Subjective Pt was seen and examined Lying in bed with no distress Continue to have increase oral secretion and congested He does not want the respiratory therapy to do any suctioning Yesterday palliative team/speech therapist and I spoke with family about patient is very high risk for aspiration if we started him on diet Family understood and requested to start patient on diet Pt continue to require oxygen supplement I continue encourage him to to try to cough Physical Exam Physical Exam: General- No acute respiratory distress Head- atraumatic Eyes- PERRL, EOMI, Neck- supple, no JVD Lungs- B/L Crackles Heart- regular, no murmur Abdomen- normal bowel sounds, soft, nontender Extremities- no calf tenderness Neuro- alert, awake move extremities, follow commands Skin- warm & dry Results & Data Vital Signs (Past 12 Hours) Vital Signs Temp Pulse Pulse Pulse Resp BP BP 04/20/19 14:20 88 113/61 04/20/19 14:00 81 90/55 L 04/20/19 13:40 64 123/57 L 04/20/19 13:20 78 119/65 04/20/19 13:08 36.7 C 82 04/20/19 11:34 36.3 C L 82 18 134/79 04/20/19 09:58 108 H 04/20/19 07:40 37.1 C 83 20 146/76 H 04/20/19 04:00 36.9 C 85 20 138/74 Pulse Ox 04/20/19 14:20 04/20/19 14:00 04/20/19 13:40 04/20/19 13:20 04/20/19 13:08 04/20/19 11:34 95 04/20/19 09:58 04/20/19 07:40 95 04/20/19 04:00 98 (1) Acute renal failure Acute renal failure type: unspecified Qualified Code(s): N17.9 - Acute kidney failure, unspecified
[2019-04-20] MEDS: HEPARIN SOD (PORCINE) 1000 UNIT/ML 10 ML VIAL IV SCH (15:56)
[2019-04-20] MEDS ORDERED: METOPROLOL TARTRATE 1 MG/ML VIAL IV STA (17:16)
--- NOTE | 2019-04-20 17:18 | Nephrology Progress Note ---
Date of Service April 20, 2019 Assessment & Plan (1) Acute renal failure: Patient with acute renal failure likely due to ischemic ATN. 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 Patient is oliguric. He had straight cath yesterday for [address] abdomen does not show obstructive uropathy. He also has low EF. started emergent dialysis for acute renal failure and severe metabolic acidosis on 04/13. Chest x-ray today showing pulmonary vascular congestion. He also has significant amount of secretions. Oxygenation is stable. He got PermCath 04/18/2019. He tolerated dialysis on 04/20/2019 with net UF 2.5 litres. Next dialysis will be on Wednesday. monitor urine output (2) Acute respiratory failure: Multifactorial etiology including volume overload and possibly pneumonia. He is receiving broad-spectrum antibiotics per primary team. We will optimize volume status with dialysis. (3) SIRS (systemic inflammatory response syndrome): Sepsis due to Pseudomonas UTI. Blood pressure currently stable. Continue broad-spectrum antibiotics renally dosed for GFR less than 25 mL/min. (4) Anemia in chronic renal disease: Due to multifactorial etiology. Hemoglobin of 9.3 today after blood transfusion. We will give Epogen with dialysis. Subjective Patient with JACKIE on HD. Patient was seen this morning during rounds. No SOB or pain. Still anuric. he is for HD this afternoon. Review of Systems Review of Systems: All systems reviewed & are unremarkable except as noted in HPI & below Physical Exam Physical Exam: General exam: Appears comfortable, no acute distress HEENT: Pupils are equal and reactive to light Neck: No JVD, neck is supple trachea is midline Respiratory system: Clear breath sounds bilaterally. Gastrointestinal: Abdomen is soft, non distended, non tender, bowel sounds are present CVS: Regular rate and rhythm. No murmurs, rubs or gallops Musculoskeletal: No joint or muscle tenderness Extremities: Non tender, no edema, peripheral pulses are present Neuro: Oriented, no tremors, no focal neurological deficits Skin: No rashes Access: right CVC Results & Data Vital Signs (Past 12 Hours) Vital Signs Temp Pulse Pulse Pulse Resp BP BP 04/20/19 17:00 36.7 C 82 04/20/19 16:59 118 H 32 H 111/63 04/20/19 16:40 100 H 99/51 L 04/20/19 16:20 108 H 90/49 L 04/20/19 16:00 93 H 103/45 L 04/20/19 15:43 67 99/71 L 04/20/19 15:20 94 H 119/61 04/20/19 15:00 83 116/82 04/20/19 14:40 100 H 113/65 04/20/19 14:20 88 113/61 04/20/19 14:00 81 90/55 L 04/20/19 13:40 64 123/57 L 04/20/19 13:20 78 119/65 04/20/19 13:08 36.7 C 82 04/20/19 11:34 36.3 C L 82 18 04/20/19 09:58 108 H 04/20/19 07:40 37.1 C 83 20 BP Pulse Ox 04/20/19 17:00 120/58 L 04/20/19 16:59 94 04/20/19 16:40 04/20/19 16:20 04/20/19 16:00 04/20/19 15:43 04/20/19 15:20 04/20/19 15:00 04/20/19 14:40 04/20/19 14:20 04/20/19 14:00 04/20/19 13:40 04/20/19 13:20 04/20/19 13:08 04/20/19 11:34 134/79 95 04/20/19 09:58 04/20/19 07:40 146/76 H 95 Laboratory Results Laboratory Results - last 24 hr 04/19/19 04/20/19 04/20/19 20:13 06:41 06:41 WBC 25.03 H RBC 3.13 L Hgb 9.3 L Hct 28.0 L MCV 89.5 MCH 29.7 MCHC 33.2 RDW Std Deviation 58.6 H RDW Coeff of Julissa 17.9 H Plt Count 151 MPV 10.4 Immature Gran % (Auto) 0.9 Neut % (Auto) 94.5 Lymph % (Auto) 1.5 [place] % (Auto) 3.0 Eos % (Auto) 0.0 Baso % (Auto) 0.1 Immature Gran # (Auto) 0.22 H Neut # (Auto) 23.67 H Lymph # (Auto) 0.37 L [place] # (Auto) 0.75 H Eos # (Auto) 0.00 Baso # (Auto) 0.02 Echinocytes 1+ Sodium 135 L Potassium 4.4 Chloride 99 Carbon Dioxide 23 Anion Gap 13.0 H BUN 59 H Creatinine 6.32 H* D Est Cr Clr Drug Dosing 9.4 Est GFR ( Amer) 8.5 Est GFR (Non-Af Amer) 7.4 BUN/Creatinine Ratio 9.4 L Glucose 236 H POC Glucose 153 H Calcium 7.9 L Phosphorus 9.1 H D Magnesium 2.4 04/20/19 04/20/19 04/20/19 07:58 11:45 17:00 WBC RBC Hgb Hct MCV MCH MCHC RDW Std Deviation RDW Coeff of Julissa Plt Count MPV Immature Gran % (Auto) Neut % (Auto) Lymph % (Auto) [place] % (Auto) Eos % (Auto) Baso % (Auto) Immature Gran # (Auto) Neut # (Auto) Lymph # (Auto) [place] # (Auto) Eos # (Auto) Baso # (Auto) Echinocytes Sodium Potassium Chloride Carbon Dioxide Anion Gap BUN Creatinine Est Cr Clr Drug Dosing Est GFR ( Amer) Est GFR (Non-Af Amer) BUN/Creatinine Ratio Glucose POC Glucose 225 H 287 H 102 H Calcium Phosphorus Magnesium (1) Acute renal failure Acute renal failure type: unspecified Qualified Code(s): N17.9 - Acute kidney failure, unspecified
[2019-04-20] MEDS ORDERED: MoRPHine SULFATE 2 MG/ML CARP IV PRN (18:40)
[2019-04-21 06:30] LABS: Basophils # (auto) 0.02 K/uL (0-0.2); Basophils % (auto) 0.2 %; Eosinophils # (auto) 0.04 K/uL (0-0.5); Eosinophils % (auto) 0.3 %; Hematocrit (blood only) 25.3 % (42-52); Hemoglobin 8.3 g/dL (14.0-18.0); Immature Granulocytes # (auto) 0.16 K/uL (0.00-0.02); Immature Granulocytes % (auto) 1.2 %; Lymphocytes # (auto) 0.99 K/uL (1.2-3.4); Lymphocytes % (auto) 7.5 %; Mean Corpuscular Hgb Conc 32.8 g/dL (32-36); Mean Corpuscular Volume 89.1 fL (80-100); Monocytes # (auto) 1.21 K/uL (0.11-0.59); Monocytes % (auto) 9.2 %; Neutrophils # (auto) 10.79 K/uL (1.4-6.5); Neutrophils % (auto) 81.6 %; Platelet Count 141 K/uL (130-400); RDW Coefficient of Variation 17.9 % (11.5-14.5); RDW Standard Deviation 58.7 fL (36.4-46.3); Red Blood Count 2.84 M/uL (4.7-6.1); White Blood Count 13.21 K/uL (4.8-10.8)
[2019-04-21 07:00] LABS: BUN Creatinine Ratio 8.7 (10-20); Calcium 8.1 mg/dl (8.5-10.1); Creatinine Clr Calc Pharmacy 13.5 ml/min; Est GFR (African American) 13.4; Est GFR (Non-African American) 11.5; Magnesium 2.3 mg/dl (1.8-2.4); Phosphorus 5.4 mg/dl (2.5-4.9); Potassium 3.7 mmol/L (3.5-5.1)
[2019-04-21] MEDS: FAMOTIDINE 20 MG in SYRINGE 3 ML IV SCH (09:16)
[2019-04-21] MEDS: LEVOTHYROXINE SODIUM 12.5 MCG in SYRINGE 0 ML IV SCH (09:16)
[2019-04-21] MEDS: INSULIN ASPART 100 UNITS/ML 3 ML PEN SC SCH ×4 (09:17→21:38)
[2019-04-21] MEDS: INSULIN GLARGINE SOLOSTAR 100 UNITS/ML 3 ML PEN SC SCH (09:18)
--- NOTE | 2019-04-21 09:42 | Nephrology Progress Note ---
Date of Service April 21, 2019 Assessment & Plan (1) Acute renal failure: Patient with acute renal failure likely due to ischemic ATN. 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 Patient is oligo-anuric with urine output of 250 mL and [address] abdomen does not show obstructive uropathy. He also has low EF. started emergent dialysis for acute renal failure and severe metabolic acidosis on 04/13. He also has significant amount of secretions. Oxygenation is stable. He got PermCath 04/18/2019. He tolerated dialysis on 04/20/2019 with net UF 2.5 litres. Next dialysis will be on Wednesday. Spoke with the Kathe today. She would like the to continue dialysis. We will have the case management start looking into [facility]. Monitor urine output (2) Anemia in chronic renal disease: Due to multifactorial etiology. Hemoglobin of 8.3 today. We will give Epogen with dialysis. Check iron levels (3) Dysphagia: Patient is high risk for aspiration by assessment of speech therapy. I discussed with the today about possibility of a PEG tube. She is open to the idea but would like to talk to the daughters and get back to us. Subjective Patient seen in follow-up for acute kidney injury and dialysis dependence. He gives minimal history but able to answer yes and no to questions. Still anuric with urine output of less than 250 mL and 24 hours. Continues to aspirate feeds and not eating much. He tolerated dialysis well yesterday. He denies shortness of breath Review of Systems Review of Systems: Unobtainable due to cognitive status Physical Exam Physical Exam: General exam: Appears comfortable, no acute distress HEENT: Pupils are equal and reactive to light Neck: No JVD, neck is supple trachea is midline Respiratory system: Crackles bilaterally. Gastrointestinal: Abdomen is soft, non distended, non tender, bowel sounds are present CVS: Regular rate and rhythm. No murmurs, rubs or gallops Musculoskeletal: No joint or muscle tenderness Extremities: Non tender, no edema, peripheral pulses are present Neuro: Oriented, no tremors, no focal neurological deficits Skin: No rashes Results & Data Vital Signs (Past 12 Hours) Vital Signs Temp Pulse Pulse Pulse Resp BP Pulse Ox 04/21/19 07:47 36.8 C 81 18 134/79 98 04/21/19 04:15 36.8 C 50 L 16 124/64 96 04/21/19 00:54 86 04/21/19 00:00 36.8 C 81 18 125/58 L 94 Laboratory Results Laboratory Results - last 24 hr 04/20/19 04/20/19 04/20/19 11:45 17:00 20:37 WBC RBC Hgb Hct MCV MCH MCHC RDW Std Deviation RDW Coeff of Julissa Plt Count MPV Immature Gran % (Auto) Neut % (Auto) Lymph % (Auto) [place] % (Auto) Eos % (Auto) Baso % (Auto) Immature Gran # (Auto) Neut # (Auto) Lymph # (Auto) [place] # (Auto) Eos # (Auto) Baso # (Auto) Sodium Potassium Chloride Carbon Dioxide Anion Gap BUN Creatinine Est Cr Clr Drug Dosing Est GFR ( Amer) Est GFR (Non-Af Amer) BUN/Creatinine Ratio Glucose POC Glucose 287 H 102 H 129 H Calcium Phosphorus Magnesium 04/21/19 04/21/19 04/21/19 05:42 05:42 07:40 WBC 13.21 H D RBC 2.84 L Hgb 8.3 L Hct 25.3 L MCV 89.1 MCH 29.2 MCHC 32.8 RDW Std Deviation 58.7 H RDW Coeff of Julissa 17.9 H Plt Count 141 MPV 11.0 H Immature Gran % (Auto) 1.2 Neut % (Auto) 81.6 Lymph % (Auto) 7.5 [place] % (Auto) 9.2 Eos % (Auto) 0.3 Baso % (Auto) 0.2 Immature Gran # (Auto) 0.16 H Neut # (Auto) 10.79 H Lymph # (Auto) 0.99 L [place] # (Auto) 1.21 H Eos # (Auto) 0.04 Baso # (Auto) 0.02 Sodium 139 Potassium 3.7 D Chloride 101 Carbon Dioxide 29 Anion Gap 9.0 BUN 38 H Creatinine 4.36 H D Est Cr Clr Drug Dosing 13.5 Est GFR ( Amer) 13.4 Est GFR (Non-Af Amer) 11.5 BUN/Creatinine Ratio 8.7 L Glucose 156 H POC Glucose 156 H Calcium 8.1 L Phosphorus 5.4 H D Magnesium 2.3 (1) Acute renal failure Acute renal failure type: unspecified Qualified Code(s): N17.9 - Acute kidney failure, unspecified : Acute renal failure Qualifiers: Acute renal failure type: unspecified Qualified Code(s): N17.9 - Acute kidney failure, unspecified Respiratory failure Qualifiers: Chronicity: unspecified Respiratory failure complication: unspecified whether with hypoxia or hypercapnia Qualified Code(s): J96.90 - Respiratory failure, unspecified, unspecified whether with hypoxia or hypercapnia
[2019-04-21 10:36] LABS: Iron 31 mcg/dl (35-175); Transferrin 106 mg/dl (200-360); Transferrin Percent Saturation 21 % (20-50)
--- NOTE | 2019-04-21 10:44 | Pharmacy Report ---
Pharmacy Glycemic Short Note 2 - Date of Service April 21, 2019 - Glycemic Short BSG Results (Last 24 hours): 04/20/19 04/20/19 04/20/19 11:45 17:00 20:37 Glucose POC Glucose 287 H 102 H 129 H 04/21/19 04/21/19 05:42 07:40 Glucose 156 H POC Glucose 156 H OUTPATIENT ANTIDIABETIC REGIMEN: * Repaglinide 2mg TID w/ meals * Lantus 20 units SQ daily * A1c = 6.5% 04/12/19 ASSESSMENT: * Type 2 diabetic admitted for JACKIE severe metabolic acidosis, encephalopathy and possible sepsis * Patient remains on HD * Pt required IV insulin infusion on admission for hyperglycemia. Minimal insulin needed since transitioning off of infusion. * Diet advanced to full liquid diet * AM fasting BSG (w/o solumedrol on board) trending upwards, will add basal insulin dosing back at significantly reduced outpatient dosing * Will titrate based on BSG trends * Steroid induced hyperglycemia from Solumedrol 20mg IV x 1 on 04/19 @ 2100 resolved nicely with NPH 10 units SQ x 1 PLAN FOR INPATIENT GLYCEMIC CONTROL: * Hold outpatient oral diabetes medications * Basal insulin * Lantus 5 units SQ Q24hrs (outpatient dosing is 20 units) * Bolus insulin * NovoLog ACHS * Goal 120-160 mg/dl * CF = 25 mg/dl/unit * CR = 1 unit for every 9g CHO consumed PLAN FOR DISCHARGE: * to be determined
--- NOTE | 2019-04-21 11:48 | Palliative Care Progress Note ---
Date of Service April 21, 2019 Assessment & Plan (1) Goals of care, counseling/discussion: -Patient has been tolerating his diet to satisfaction per him and the family. He does continue to cough and likely aspirate during meals. Patient and family are happy however that he is able to eat and has been "much happier." -Patient's daughter, Dary, was at bedside. She states that the slackman spoke to her mother (patient's ) this morning about placing a feeding tube to give patient supplemental nutrition if we are going to continue with dialysis. Patient's agreed on the phone, but daughter states that she doubts this is what patient would want. She plans to have a family meeting amongst themselves to discuss goals of care. She denied needing my help for this initial discussion with patient's and other daughters, but she will let me know if another family meeting is needed or will let me know what they decide. -We discussed the option of discontinuing dialysis and allowing patient to go home on hospice if that is what they decide. She will discuss it with family. -Palliative care will continue to follow and assist with medical decision making. (2) Acute renal failure: (3) Metabolic acidosis: (4) Metabolic encephalopathy: Subjective Patient is resting comfortably. Moist cough noted, but no worse. Is tired today from dialysis yesterday and OT this morning. Review of Systems Review of Systems: Denies any pain, SOB, chest pain or N/V. Physical Exam Constitutional: + ill appearing and + frail appearing ENMT: Mouth: + poor dentition Respiratory: no respiratory distress Auscultation: + rhonchi Cardiovascular: RRR, no murmur, no edema Gastrointestinal (Abdomen): Inspection/Auscultation: abdomen normal to inspection and normal bowel sounds Percussion/Palpation: abdomen soft Neurologic: awake and + confused Psychiatric: Orientation: oriented to person; + not oriented to place and + not oriented to time Results & Data Vital Signs (Past 12 Hours) Vital Signs Temp Pulse Pulse Pulse Resp BP Pulse Ox 04/21/19 07:47 36.8 C 81 18 134/79 98 04/21/19 04:15 36.8 C 50 L 16 124/64 96 04/21/19 00:54 86 04/21/19 00:00 36.8 C 81 18 125/58 L 94 PG Care Time/CCT Total # of Minutes Spent Total Time Spent with Patient: Total time spent is greater than 50% in coor dination of care (as documented) at patient's floor/unit and/or counseling patient: Time Spent Midlevel [35] minutes with >50% of the time spent at bedside with [patient and family] discussing [condition and GOC]. (1) Acute renal failure Acute renal failure type: unspecified Qualified Code(s): N17.9 - Acute kidney failure, unspecified
--- NOTE | 2019-04-21 13:58 | Hospitalist Progress Note ---
Date of Service April 21, 2019 Assessment & Plan (1) Acute respiratory failure: Presented with severe metabolic acidosis ABG on admission with pH 6.9 PCO2 12 and HCO3 5 Intubated on vent support being managed by rn telehealth in the ICU Initially was starting on bicarb drip and had emergent HD S/P extubated on 04/15 CODE STATUS changed to DNR/DNI Has been required suctioning due to increase oral secretion Failed swallow eval- very high risk for aspiration Palliative consult for goal of care Palliative care/speech therapist met with family yesterday discussed about high risk for aspiration if starting on diet also mentioned that pt is DNI/DNR if he develops respiratory failure that can lead to cardiac arrest and Family understood the risks and OK to start on a diet Waiting for ENT consult for eval laryngeal/ vocal fold dysfunction after discussion with family members, considering feeding tube/PEG tube placement that if patient aspirates that can lead to respiratory failure wants to speak with other daughters before making final decision Continue aspiration precaution (2) Acute renal failure: 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 creatinine on admission above 9, patient remains anuric Nephrology on board Had urgent HD done on 04/13 to correct the acidosis Had permcath placement placed 04/[address] Sanchez Patient getting intermittent dialysis, appreciate input from nephrology, is willing to continue with dialysis, outpatient dialysis arrangement with [facility] will be arranged (3) Sepsis: UTI Present on admission with elevated HR, RR, lactic acid and WBC Blood cx no growth so far Urine cx positive for gram negative bacilli (Pseudomonas) Completed course of Zosyn on 04/19/2019 Monitor CBC (4) Metabolic acidosis: ABG on admission with pH 6.9 PCO2 12 and HCO3 5 Resolved Repeat ABG after HD showed pH 7.5 PCO2 26 and HCO3 20 Requiring dialysis for ongoing renal failure (5) Hypovolemia: secondary to sepsis, required pressure support while in ICU off Levophed BP stable (6) Metabolic encephalopathy: Due to severe acidosis and acute respiratory failure CT head showed no acute intracranial abnormality Resolved (7) Anemia in chronic renal disease: Hgb improved to 9.3 today S/p 1 unit PRBC on 04/16 and 04/18 Continue monitor CBC (8) Elevated lactic acid level: Mostly related to severe metabolic acidosis in the setting of acute respiratory failure Follow up blood cx urine cx positive for gram negative bacilli (Pseudomanas) Completed 7 days course on IV Zosyn (9) Elevated troponin: Demand ischemia due to elevated creatinine and acidosis Denies any chest pain EKG showed no acute ischemic changes Continue monitor DVT px on heparin subq CODE STATUS: DNR/DNI Disposition: Patient lives at home with , with supportive family members, daughters grand kids living nearby Presented with severe deconditioning with sepsis, ICU admission, at present dialysis dependent, severe dysphagia requiring possible feeding tube placement PT OT evaluation ordered Family leaning towards taking patient home when medically stable with home physical therapy/ home health visiting nurse Subjective Patient seen in room 278 2 Awake, unable to answer any questions, minimally verbal Grand daughter and grandsons are present at bedside Patient noted to have moist recurrent cough Denies of any headache, no pain around the prior scalp biopsy area Afebrile Physical Exam Constitutional: + ill appearing and + altered mental status (Baseline dementia, oriented to person only, per family members patient is approximately to his baseline); no acute distress Chronically ill appearing, no apparent distress noted Eyes: PERRL, conjunctivae normal, anicteric sclerae ENMT: external ear and nose normal, oropharynx normal Scalp: Shallow superficial biopsy wound noted, with greenish base, no apparent discharge noted, surrounding mild swelling, no erythema or tenderness Neck: trachea midline, no thyromegaly Respiratory: + cough Auscultation: + crackles, + rales, + rhonchi and + wheezes Coarse breathing sound with occasional wheeze Moist productive cough Cardiovascular: RRR, no murmur, no edema Gastrointestinal (Abdomen): normal bowel sounds, soft, nontender, no hepatos plenomegaly Musculoskeletal: Head/Neck/Chest: + head abnormal to inspection (Shallow skin biopsy wound on ulcer, with greenish base, no discharge, no surrounding erythema, surrounding) Skin: + wound Scalp wound as outlined above Neurologic: No focal neurological deficit noted, patient has baseline dementia, minimally verbal Results & Data Vital Signs (Past 12 Hours) CT head noncontrast: Impression: 1. No acute intracranial abnormality. 2. Possible scalp laceration at the left high convexity. However, this is only partially visualized on this study. Temp Pulse Pulse Pulse Resp BP BP 04/21/19 12:21 36.6 C 90 16 148/80 H 04/21/19 10:59 80 04/21/19 07:47 36.8 C 81 18 134/79 04/21/19 04:15 36.8 C 50 L 16 124/64 Pulse Ox 04/21/19 12:21 97 04/21/19 10:59 04/21/19 07:47 98 04/21/19 04:15 96 (1) Acute renal failure Acute renal failure type: unspecified Qualified Code(s): N17.9 - Acute kidney failure, unspecified
--- NOTE | 2019-04-21 14:29 | CT Scan Report ---
HEAD CT NONCONTRAST CT DOSE: 537.48 mGy.cm HISTORY: assessment for scalp wound /soft tissue swelling TECHNIQUE: Multiaxial CT images of the head were performed without the use of intravenous contrast. A utomated exposure control was utilized for this study. A dose lowering technique was utilized adheri ng to the principles of ALARA. Comparison: Head CT 04/13/2019. Findings: Mild mucosal thickening within the floor of the left maxillary sinus. The remaining paranas al sinuses and mastoid air cells are clear. The calvarium and skull base are intact. There is no mass , hematoma, midline shift, acute infarct. White matter hypodensity is nonspecific but suggestive of m icrovascular ischemic change. The ventricles and sulci demonstrate mild age-related involutional peterson ges. Possible scalp laceration at the left high convexity. However, this is only partially visualized on this study. Impression: 1. No acute intracranial abnormality. 2. Possible scalp laceration at the left high convexity. However, this is only partially visualized o n this study. Electronically signed by: Agusto Stone M.D. 04/21/2019 2:27 PM
[2019-04-21] MEDS: ACETAMINOPHEN 65 ML IV PRN (23:17)
[2019-04-22] MEDS ORDERED: SODIUM CHLORIDE 0.9% 1000ML 1,000 ML IV PRN (07:50)
[2019-04-22] MEDS ORDERED: HEPARIN SOD (PORCINE) 1000 UNIT/ML 10 ML VIAL IV ONE (07:50)
[2019-04-22] MEDS: FAMOTIDINE 20 MG in SYRINGE 3 ML IV SCH (08:45)
[2019-04-22] MEDS: LEVOTHYROXINE SODIUM 12.5 MCG in SYRINGE 0 ML IV SCH (09:33)
[2019-04-22] MEDS: INSULIN ASPART 100 UNITS/ML 3 ML PEN SC SCH ×4 (09:37→20:54)
[2019-04-22] MEDS: INSULIN GLARGINE SOLOSTAR 100 UNITS/ML 3 ML PEN SC SCH (09:47)
[2019-04-22] MEDS: HEPARIN SOD (PORCINE) 1000 UNIT/ML 10 ML VIAL IV SCH (14:59)
--- NOTE | 2019-04-22 17:34 | Hospitalist Progress Note ---
Date of Service April 22, 2019 Assessment & Plan (1) Acute respiratory failure: Patient status improved markedly still requiring 2 L oxygen via nasal cannulawas not on home O2 Will need home O2 oxygen requirement assessment prior to the Presented with severe metabolic acidosis ABG on admission with pH 6.9 PCO2 12 and HCO3 5 Intubated on vent support being managed by tire shop mechanic in the ICU Initially was starting on bicarb drip and had emergent HD S/P extubated on 04/15 CODE STATUS changed to DNR/DNI Has been required suctioning due to increase oral secretion Failed swallow eval- very high risk for aspiration Palliative consulted for goal of care-appreciate input Family does not want feeding tube or PEG tube placement Understands aspiration risk Patient will be allowed to eat with permissive aspiration (2) Acute renal failure: 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 Sanchez Patient getting intermittent dialysis, appreciate input from nephrology, And will continue scheduled dialysis as an outpatient outpatient dialysis arrangement with [facility] will be arranged (3) Sepsis: UTI Present on admission with elevated HR, RR, lactic acid and WBC Blood cx no growth so far Urine cx positive for gram negative bacilli (Pseudomonas) Completed course of Zosyn on 04/19/2019 (4) Metabolic acidosis: ABG on admission with pH 6.9 PCO2 12 and HCO3 5 Resolved Repeat ABG after HD showed pH 7.5 PCO2 26 and HCO3 20 Requiring dialysis for ongoing renal failure (5) Hypovolemia: secondary to sepsis, required pressure support while in ICU off Levophed BP stable (6) Metabolic encephalopathy: Due to severe acidosis and acute respiratory failure CT head showed no acute intracranial abnormality Resolved (7) Anemia in chronic renal disease: Hemoglobin remained stable S/p 1 unit PRBC on 04/16 and 04/18 Continue monitor CBC (8) Elevated lactic acid level: Mostly related to severe metabolic acidosis in the setting of acute respiratory failure Follow up blood cx urine cx positive for gram negative bacilli (Pseudomanas) Completed 7 days course on IV Zosyn (9) Elevated troponin: Demand ischemia due to elevated creatinine and acidosis Denies any chest pain EKG showed no acute ischemic changes Continue monitor DVT px on heparin subq CODE STATUS: DNR/DNI Disposition: Patient lives at home with , with supportive family members, daughters grand kids living nearby Presented with severe deconditioning with sepsis, ICU admission, at present dialysis dependent, severe dysphagia requiring possible feeding tube placement PT OT evaluation ordered Family leaning towards taking patient home when medically stable with home physical therapy/ home health visiting nurse Subjective Patient appears to be more awake and alert sitting up, No cough Had dialysis today and multiple family members present at bedside Per family members patient's mental status is now at approximate baseline Physical Exam Constitutional: + ill appearing and + altered mental status (Baseline dementia, oriented to person only, per family members patient is approximately to his baseline); no acute distress Eyes: PERRL, conjunctivae normal, anicteric sclerae ENMT: external ear and nose normal, oropharynx normal Neck: trachea midline, no thyromegaly Cardiovascular: RRR, no murmur, no edema Gastrointestinal (Abdomen): normal bowel sounds, soft, nontender, no hepatosplenomegaly Musculoskeletal: Head/Neck/Chest: + head abnormal to inspection (Shallow skin biopsy wound on ulcer, with greenish base, no discharge, no surrounding erythema, surrounding) Skin: + wound Results & Data Vital Signs (Past 12 Hours) Vital Signs Temp Pulse Pulse Pulse Resp BP BP 04/22/19 15:29 37 C 82 18 04/22/19 15:02 36.9 C 92 H 18 04/22/19 14:04 36.9 C 80 80 95/66 L 04/22/19 13:40 80 109/64 04/22/19 13:20 85 99/76 L 04/22/19 13:00 82 102/60 04/22/19 12:40 77 86/54 L 04/22/19 12:20 83 97/66 L 04/22/19 12:00 77 115/60 04/22/19 11:40 65 96/66 L 04/22/19 11:20 81 89/50 L 04/22/19 11:00 81 83/45 L 04/22/19 10:50 92 H 79/38 L 04/22/19 10:40 92 H 68/41 L 04/22/19 10:20 81 71/41 L 04/22/19 10:03 36.9 C 85 898 H 92/58 L 04/22/19 07:44 98 H 18 04/22/19 07:24 36.4 C L 89 16 125/65 BP Pulse Ox 04/22/19 15:29 106/64 97 04/22/19 15:02 130/66 93 04/22/19 14:04 95/66 L 04/22/19 13:40 04/22/19 13:20 04/22/19 13:00 04/22/19 12:40 04/22/19 12:20 04/22/19 12:00 04/22/19 11:40 04/22/19 11:20 04/22/19 11:00 04/22/19 10:50 04/22/19 10:40 04/22/19 10:20 04/22/19 10:03 04/22/19 07:44 92 04/22/19 07:24 97 (1) Acute renal failure Acute renal failure type: unspecified Qualified Code(s): N17.9 - Acute kidney failure, unspecified (2) Acute respiratory failure Respiratory failure complication: hypoxia Qualified Code(s): J96.01 - Acute respiratory failure with hypoxia (3) Sepsis Sepsis type: sepsis due to unspecified organism Qualified Code(s): A41.9 - Sepsis, unspecified organism
--- NOTE | 2019-04-22 18:45 | Nephrology Progress Note ---
Date of Service April 22, 2019 Assessment & Plan (1) Acute renal failure: oliguric acute renal failure likely due to ischemic ATN. 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 UOP is [address] for [address] abdomen does not show obstructive uropathy. He also has low EF. started emergent dialysis for acute renal failure and severe metabolic acidosis on 04/13. He also has significant amount of secretions. Oxygenation is stable. He got PermCath 04/18/2019. He tolerated dialysis on 04/20/2019 with net UF 2.5 litres; we did dialysis today but he tolerated no fluid removal. -labs on 04/24 -next HD tentatively on 04/25 or as clinical status dictates -OP HD planned tentatively for [facility] if he tolerates (2) Anemia in chronic renal disease: Due to multifactorial etiology. Hemoglobin of 8.3 yesterday. t stn = 21% on 04/21. (3) Dysphagia: Patient is high risk for aspiration by assessment of speech therapy. No PEG is planned Subjective seen on rounds this am at 0850; late this am he did dialysis > he did not tolerate fluid removal pt very lethargic this am; does not participate in ros Review of Systems Review of Systems: Unobtainable due to cognitive status Physical Exam Constitutional: well developed, + thin and + lethargic on 02nc, resting quietly Eyes: EOM intact bilaterally ENMT: Ears: no external ear abnormality Nose: no external nose abnormality Mouth: + dry oral mucous membranes Neck: no nuchal rigidity Respiratory: normal respiratory effort Auscultation: lungs clear to auscultation bilaterally and + diminished lung sounds Cardiovascular: Rate/Rhythm: regular rate and regular rhythm Extremities: no edema Gastrointestinal (Abdomen): Inspection/Auscultation: normal bowel sounds Percussion/Palpation: abdomen soft; abdomen nontender Musculoskeletal: Extremities: + muscle atrophy davis Skin: no rashes, warm and dry Neurologic: davis, does not speak/interact-very lethargic, no tremor Psychiatric: withdrawn; does not interact Results & Data Vital Signs (Past 12 Hours) Vital Signs Temp Pulse Pulse Pulse Resp BP BP 04/22/19 15:29 37 C 82 18 04/22/19 15:02 36.9 C 92 H 18 04/22/19 14:04 36.9 C 80 80 95/66 L 04/22/19 13:40 80 109/64 04/22/19 13:20 85 99/76 L 04/22/19 13:00 82 102/60 04/22/19 12:40 77 86/54 L 04/22/19 12:20 83 97/66 L 04/22/19 12:00 77 115/60 04/22/19 11:40 65 96/66 L 04/22/19 11:20 81 89/50 L 04/22/19 11:00 81 83/45 L 04/22/19 10:50 92 H 79/38 L 04/22/19 10:40 92 H 68/41 L 04/22/19 10:20 81 71/41 L 04/22/19 10:03 36.9 C 85 898 H 92/58 L 04/22/19 07:44 98 H 18 04/22/19 07:24 36.4 C L 89 16 125/65 BP Pulse Ox 04/22/19 15:29 106/64 97 04/22/19 15:02 130/66 93 04/22/19 14:04 95/66 L 04/22/19 13:40 04/22/19 13:20 04/22/19 13:00 04/22/19 12:40 04/22/19 12:20 04/22/19 12:00 04/22/19 11:40 04/22/19 11:20 04/22/19 11:00 04/22/19 10:50 04/22/19 10:40 04/22/19 10:20 04/22/19 10:03 04/22/19 07:44 92 04/22/19 07:24 97 Laboratory Results Abnormal lab results 04/21/19 04/22/19 04/22/19 Range/Units 20:37 07:40 15:15 POC Glucose 212 H 189 H 119 H (70-99) 04/22/19 Range/Units 16:48 POC Glucose 119 H (70-99) (1) Acute renal failure Acute renal failure type: unspecified Qualified Code(s): N17.9 - Acute kidney failure, unspecified
[2019-04-22] MEDS: ACETAMINOPHEN 65 ML IV PRN (23:57)
--- NOTE | 2019-04-23 08:50 | Pharmacy Report ---
Pharmacy Glycemic Short Note 2 - Date of Service April 23, 2019 - Glycemic Short BSG Results (Last 24 hours): 04/22/19 04/22/19 04/22/19 15:15 16:48 20:22 POC Glucose 119 H 119 H 130 H 04/23/19 07:42 POC Glucose 193 H OUTPATIENT ANTIDIABETIC REGIMEN: * Repaglinide 2mg TID w/ meals * Lantus 20 units SQ daily * A1c = 6.5% 04/12/19 ASSESSMENT: * Spoke with nursing this AM, Mr. Marie's PO intake is improving. Clear indication for increasing his metabolic coverage. See plan below. Full liquid diet continues. PLAN FOR INPATIENT GLYCEMIC CONTROL: * Hold outpatient oral diabetes medications * Basal insulin - increased * Lantus 10 units SQ Q24hrs (outpatient dosing is 20 units) * Bolus insulin - continue * NovoLog ACHS * Goal 120-160 mg/dl * CF = 25 mg/dl/unit * CR = 1 unit for every 9g CHO consumed
[2019-04-23] MEDS: INSULIN GLARGINE SOLOSTAR 100 UNITS/ML 3 ML PEN SC SCH (09:24)
[2019-04-23] MEDS: LEVOTHYROXINE SODIUM 12.5 MCG in SYRINGE 0 ML IV SCH (09:25)
[2019-04-23] MEDS: FAMOTIDINE 20 MG in SYRINGE 3 ML IV SCH (09:25)
[2019-04-23] MEDS: INSULIN ASPART 100 UNITS/ML 3 ML PEN SC SCH ×4 (09:26→20:36)
--- NOTE | 2019-04-23 17:56 | Hospitalist Progress Note ---
Date of Service April 23, 2019 Assessment & Plan (1) Acute respiratory failure: Patient status improved markedly still requiring 2 L oxygen via nasal cannulawas not on home O2 Will need home O2 oxygen requirement assessment prior to the Presented with severe metabolic acidosis /respiratory failure ABG on admission with pH 6.9 PCO2 12 and HCO3 5 Intubated on vent support being managed by architectural design professor in the ICU Initially was starting on bicarb drip and had emergent HD S/P extubated on 04/15 CODE STATUS changed to DNR/DNI Has been required suctioning due to increase oral secretion Failed swallow eval- very high risk for aspiration Palliative consulted for goal of care-appreciate input Family does not want feeding tube or PEG tube placement Understands aspiration risk Patient will be allowed to eat with permissive aspiration Continues to show evidence of aspiration with each meal-having coughing spell before and afterward Lungs continue to be very coarse, Aspiration precaution, Nebulizer treatment intermittent for wheeze respiratory distress (2) Acute renal failure: 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 Sanchez Patient getting intermittent dialysis, appreciate input from nephrology, Per nephrology, patient is doing very poorly with each dialysis sessions, Yesterday became very hypotensive during dialysis treatment required fluid bolus Overall prognosis remains very poor Long-term dialysis will cause rapid decline in health and clinical status Nephrology will continue to discussed status with family members Palliative care following Patient is a appropriate candidate for hospicewith declining status poor prognosis (3) Sepsis: UTI Present on admission with elevated HR, RR, lactic acid and WBC Blood cx no growth so far Urine cx positive for gram negative bacilli (Pseudomonas) Completed course of Zosyn on 04/19/2019 (4) Metabolic acidosis: ABG on admission with pH 6.9 PCO2 12 and HCO3 5 Resolved Repeat ABG after HD showed pH 7.5 PCO2 26 and HCO3 20 Requiring dialysis for ongoing renal failure Overall prognosis poor (5) Hypovolemia: secondary to sepsis, required pressure support while in ICU off Levophed BP stable (6) Metabolic encephalopathy: Due to severe acidosis and acute respiratory failure CT head showed no acute intracranial abnormality Resolved (7) Anemia in chronic renal disease: Hemoglobin remained stable S/p 1 unit PRBC on 04/16 and 04/18 Continue monitor CBC (8) Elevated lactic acid level: Mostly related to severe metabolic acidosis in the setting of acute respiratory failure Follow up blood cx urine cx positive for gram negative bacilli (Pseudomanas) Completed 7 days course on IV Zosyn (9) Elevated troponin: Demand ischemia due to elevated creatinine and acidosis Denies any chest pain EKG showed no acute ischemic changes Continue monitor DVT px on heparin subq CODE STATUS: DNR/DNI Disposition: Patient lives at home with , with supportive family members, daughters grand kids living nearby Presented with severe deconditioning with sepsis, ICU admission, at present dialysis dependent, severe dysphagia leading to recurrent dialysis Palliative care consulted, patient's is appropriate for hospice care for deconditioning, overall poor prognosis with life expectancy less than 3 months Family leaning towards taking patient home when medically stable with home physical therapy/ home health visiting nurse Patient has AICD/defibrillator Patient is DNR/DNI Family requested to deactivate defibrillator, will contact [employer] rep in AM to deactivate AICD Subjective Awake and alert sitting up knee remains minimally responsive Moist cough noted every time patient was having meal Physical Exam Constitutional: + ill appearing and + altered mental status (Baseline dementia, oriented to person only, per family members patient is approximately to his baseline); no acute distress Eyes: PERRL, conjunctivae normal, anicteric sclerae ENMT: external ear and nose normal, oropharynx normal Neck: trachea midline, no thyromegaly Respiratory: + cough Auscultation: + crackles, + rales, + rhonchi and + wheezes Cardiovascular: RRR, no murmur, no edema Gastrointestinal (Abdomen): normal bowel sounds, soft, nontender, no hep atosplenomegaly Musculoskeletal: Head/Neck/Chest: + head abnormal to inspection (Shallow skin biopsy wound on ulcer, with greenish base, no discharge, no surrounding erythema, surrounding) Skin: + wound Results & Data Vital Signs (Past 12 Hours) Vital Signs Temp Pulse Pulse Resp BP BP Pulse Ox 04/23/19 15:06 36.9 C 74 20 120/71 97 04/23/19 13:13 36.6 C 22 96 04/23/19 07:37 76 18 93 04/23/19 07:18 37.2 C 78 16 119/76 98 (1) Acute renal failure Acute renal failure type: unspecified Qualified Code(s): N17.9 - Acute kidney failure, unspecified (2) Acute respiratory failure Respiratory failure complication: hypoxia Qualified Code(s): J96.01 - Acute respiratory failure with hypoxia (3) Sepsis Sepsis type: sepsis due to unspecified organism Qualified Code(s): A41.9 - Sepsis, unspecified organism
[2019-04-24] MEDS: FAMOTIDINE 20 MG in SYRINGE 3 ML IV SCH (08:01)
[2019-04-24] MEDS: INSULIN ASPART 100 UNITS/ML 3 ML PEN SC SCH ×3 (08:33→20:32)
[2019-04-24] MEDS: INSULIN GLARGINE SOLOSTAR 100 UNITS/ML 3 ML PEN SC SCH (08:34)
[2019-04-24] MEDS: LEVOTHYROXINE SODIUM 12.5 MCG in SYRINGE 0 ML IV SCH (09:42)
--- NOTE | 2019-04-24 11:57 | Palliative Care Progress Note ---
Date of Service April 24, 2019 Assessment & Plan (1) Goals of care, counseling/discussion: -Patient continues to deny complaints. Is more tired today and hasn't wanted to eat/drink. -Daughter Dary at bedside. Family decided on NO feeding tube. They are undecided on whether to continue dialysis or transition to comfort measures only. -Discussed that patient is poor long-term dialysis candidate and that it is not like to improve patient's quality of life. Daughter agreed. -Planning for family meeting tomorrow around 1pm tentatively to discuss goals of care. Continue current care for now. Family ok for patient to have dialysis treatment tomorrow until they decide further. -Likely will need SNF placement. Uncertain if family could care for patient 24/ at home, even if it is with hospice. Further plans to follow. (2) Acute renal failure: (3) Metabolic acidosis: (4) Metabolic encephalopathy: Subjective Patient is awake and pleasant today. Oriented to person and place. Daughter Dary at bedside. Discussed goals of care. See A&P. Review of Systems Review of Systems: Denies any pain, SOB, chest pain or N/V. Physical Exam Constitutional: + ill appearing and + frail appearing ENMT: Mouth: + poor dentition Respiratory: no respiratory distress Cardiovascular: RRR, no murmur, no edema Gastrointestinal (Abdomen): Inspection/Auscultation: abdomen normal to inspection and normal bowel sounds Percussion/Palpation: abdomen soft Neurologic: awake Psychiatric: Orientation: oriented to person; + not oriented to time Results & Data Vital Signs (Past 12 Hours) Vital Signs Temp Pulse Resp BP Pulse Ox 04/24/19 06:45 36.7 C 78 18 131/82 92 PG Care Time/CCT Total # of Minutes Spent Total Time Spent with Patient: Total time spent is greater than 50% in coordination of care (as documented) at patient's floor/unit and/or counseling patient: Time Spent Midlevel 35 minutes with >50% of the time spent at bedside with patient and family discussing condition and GOC. (1) Acute renal failure Acute renal failure type: unspecified Qualified Code(s): N17.9 - Acute kidney failure, unspecified
--- NOTE | 2019-04-24 17:44 | Nephrology Progress Note ---
Date of Service April 24, 2019 Assessment & Plan (1) Acute renal failure: oliguric acute renal failure likely due to ischemic ATN. 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 UOP is [address] for [address] abdomen does not show obstructive uropathy. He also has low EF. started emergent dialysis for acute renal failure and severe metabolic acidosis on 04/13. He also has significant amount of secretions. back to needing oxygen. He got PermCath 04/18/2019. He tolerated dialysis on 04/20/2019 with net UF 2.5 litres; we did dialysis 04/22 but he tolerated no fluid removal. -labs on 04/24 -next HD tentatively on 04/25 or as clinical status dictates -OP HD planned tentatively for [facility] if he tolerates (2) Anemia in chronic renal disease: Due to multifactorial etiology. Hemoglobin of 8.3 on 04/21> will recheck in am and consider raul if indicated. t stn = 21% on 04/21. (3) Dysphagia: Patient is high risk for aspiration by assessment of speech therapy. No PEG is planned Subjective pt awake, tracking today. minimally interactive but will nod yes/no to a few questions. denies musculoskeletal pain, denies sob; endorses generalized weakn ess, fatigue. at bedside > plan is for hd in am and meeting as well to decide next steps about hd Review of Systems Review of Systems: All systems reviewed & are unremarkable except as noted in HPI & below (limited by cognitive status) Physical Exam Constitutional: well developed and + thin on 02nc now; thick hacking cough routinely in exam Eyes: EOM intact bilaterally ENMT: Ears: no external ear abnormality Nose: no external nose abnormality Mouth: + dry oral mucous membranes Neck: no nuchal rigidity Respiratory: normal respiratory effort Auscultation: lungs clear to auscultation bilaterally (anterior exam) and + diminished lung sounds Cardiovascular: Rate/Rhythm: regular rate and regular rhythm Extremities: no edema Gastrointestinal (Abdomen): Inspection/Auscultation: normal bowel sounds Percussion/Palpation: abdomen soft; abdomen nontender Musculoskeletal: generalized weakness; cooperates minimally w/ exam Skin: no rashes, warm and dry Neurologic: davis but lethargic; does not speak, no tremor Genitourinary: ryan present w/ scant yellow urine Results & Data Vital Signs (Past 12 Hours) Vital Signs Temp Pulse Pulse Resp BP BP Pulse Ox 04/24/19 15:27 36.9 C 76 18 128/69 100 04/24/19 06:45 36.7 C 78 18 131/82 92 Laboratory Results Abnormal lab results 04/23/19 04/24/19 04/24/19 Range/Units 20:36 07:47 12:19 POC Glucose 129 H 125 H 145 H (70-99) 04/24/19 Range/Units 16:57 POC Glucose 110 H (70-99) (1) Acute renal failure Acute renal failure type: unspecified Qualified Code(s): N17.9 - Acute kidney failure, unspecified
--- NOTE | 2019-04-24 18:01 | Hospitalist Progress Note ---
Date of Service April 24, 2019 Assessment & Plan (1) Acute respiratory failure: Patient status improved markedly still requiring 2 L oxygen via nasal cannulawas not on home O2 Will need home O2 oxygen requirement assessment prior to the Presented with severe metabolic acidosis /respiratory failure ABG on admission with pH 6.9 PCO2 12 and HCO3 5 Intubated on vent support being managed by telecommunications line mechanic in the ICU Initially was starting on bicarb drip and had emergent HD S/P extubated on 04/15 CODE STATUS changed to DNR/DNI Has been required suctioning due to increase oral secretion Failed swallow eval- very high risk for aspiration Palliative consulted for goal of care-appreciate input Family does not want feeding tube or PEG tube placement Understands aspiration risk Patient will be allowed to eat with permissive aspiration Continues to show evidence of aspiration with each meal-having coughing spell before and afterward Lungs continue to be very coarse, Aspiration precaution, Nebulizer treatment intermittent for wheeze respiratory distress Family wants patient to be comfortable only, is to make decision regarding hospice care: Family meeting with palliative care and case management tomorrow (2) Acute renal failure: 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 Sanchez Patient getting intermittent dialysis, appreciate input from nephrology, Per nephrology, patient is doing very poorly with each dialysis sessions, Yesterday became very hypotensive during dialysis treatment required fluid bolus Overall prognosis remains very poor Long-term dialysis will cause rapid decline in health and clinical status Family does not want to continue dialysis as it is causing patient will discuss comfort and declining health Wants to transition care to hospice (3) Sepsis: UTI Present on admission with elevated HR, RR, lactic acid and WBC Blood cx no growth so far Urine cx positive for gram negative bacilli (Pseudomonas) Completed course of Zosyn on 04/19/2019 (4) Metabolic acidosis: ABG on admission with pH 6.9 PCO2 12 and HCO3 5 Resolved Repeat ABG after HD showed pH 7.5 PCO2 26 and HCO3 20 Requiring dialysis for ongoing renal failure Overall prognosis poor (5) Hypovolemia: secondary to sepsis, required pressure support while in ICU off Levophed BP stable (6) Metabolic encephalopathy: Due to severe acidosis and acute respiratory failure CT head showed no acute intracranial abnormality (7) Anemia in chronic renal disease: Hemoglobin remained stable S/p 1 unit PRBC on 04/16 and 04/18 (8) Elevated lactic acid level: Mostly related to severe metabolic acidosis in the setting of acute respiratory failure Follow up blood cx urine cx positive for gram negative bacilli (Pseudomanas) Completed 7 days course on IV Zosyn (9) Elevated troponin: Demand ischemia due to elevated creatinine and acidosis Denies any chest pain EKG showed no acute ischemic changes Continue monitor DVT px on heparin subq CODE STATUS: DNR/DNI Disposition: Patient has AICD/defibrillator-deactivated by [employer]tot[employer] rep today as per family request Patient is DNR/DNI Family wants to transition care to hospice/palliative care understand the very poor prognosis, Does not want patient suffer anymore, wants to be comfortable during his last days Subjective Patient continues to have moist cough with minimum fluid intake present at bedside, does not want to continue dialysis if patient is unable to tolerate Appreciate palliative care, family meeting tomorrow to address goal of care, family is leaning towards patient to be comfortable only willing to pursue hospice Results & Data Vital Signs (Past 12 Hours) Vital Signs Temp Pulse Pulse Resp BP BP Pulse Ox 04/24/19 15:27 36.9 C 76 18 128/69 100 04/24/19 06:45 36.7 C 78 18 131/82 92 (1) Acute renal failure Acute renal failure type: unspecified Qualified Code(s): N17.9 - Acute kidney failure, unspecified (2) Acute respiratory failure Respiratory failure complication: hypoxia Qualified Code(s): J96.01 - Acute respiratory failure with hypoxia (3) Sepsis Sepsis type: sepsis due to unspecified organism Qualified Code(s): A41.9 - Sepsis, unspecified organism
[2019-04-25 07:52] LABS: BUN Creatinine Ratio 7.6 (10-20); Calcium 8.3 mg/dl (8.5-10.1); Creatinine Clr Calc Pharmacy 8.2 ml/min; Est GFR (African American) 7.3; Est GFR (Non-African American) 6.3; Potassium 4.1 mmol/L (3.5-5.1)
[2019-04-25] MEDS: INSULIN ASPART 100 UNITS/ML 3 ML PEN SC SCH ×2 (08:18→12:51)
[2019-04-25] MEDS: FAMOTIDINE 20 MG in SYRINGE 3 ML IV SCH (08:18)
[2019-04-25] MEDS ORDERED: SODIUM CHLORIDE 0.9% 1000ML 1,000 ML IV PRN (08:25)
[2019-04-25] MEDS ORDERED: HEPARIN SOD (PORCINE) 1000 UNIT/ML 10 ML VIAL IV ONE (08:45)
--- NOTE | 2019-04-25 08:50 | Nephrology Progress Note ---
Date of Service April 25, 2019 Assessment & Plan (1) Acute renal failure: oliguric acute renal failure likely due to ischemic ATN. 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 UOP is 300 for past [address] abdomen does not show obstructive uropathy. He also has low EF. started emergent dialysis for acute renal failure and severe metabolic acidosis on 04/13. He also has significant amount of secretions. back to needing oxygen. He got PermCath 04/18/2019. He tolerated dialysis on 04/20/2019 with net UF 2.5 litres; we did dialysis 04/22 but he tolerated no fluid removal. -labs today w/ acceptable chemistries -for HD today as tolerated; family meeting today as well to discuss future steps. given overall poor prognosis, do not believe this pt is good group home dialysis candidate and would not recommend further hd at this time if hospice being pursued as do not believe hd would improve quality of life at this time (2) Anemia in chronic renal disease: Due to multifactorial etiology. Hemoglobin of 8.7; defer raul for today. t stn = 21% on 04/21. (3) Dysphagia: Patient is high risk for aspiration by assessment of speech therapy. No PEG is planned Subjective tired, withdrawn this am. does not open eyes, does not track. pushes me away first time. report was swinging at MULTIPLEX OPERATOR / other staff earlier today Review of Systems Review of Systems: Unobtainable due to cognitive status Physical Exam Constitutional: well developed, + thin and + lethargic on RA eyes closed does not interact Eyes: EOM intact bilaterally ENMT: Ears: no external ear abnormality Nose: no external nose abnormality Mouth: + dry oral mucous membranes Neck: no nuchal rigidity Respiratory: normal respiratory effort Auscultation: lungs clear to auscultation bilaterally (anterior exam) and + diminished lung sounds Cardiovascular: Rate/Rhythm: regular rate and regular rhythm Extremities: no edema Gastrointestinal (Abdomen): Inspection/Auscultation: normal bowel sounds Percussion/Palpation: abdomen soft; abdomen nontender Musculoskeletal: Extremities: + muscle atrophy Skin: no rashes, warm and dry Genitourinary: ryan w/ some urine clear (1) Acute renal failure Acute renal failure type: unspecified Qualified Code(s): N17.9 - Acute kidney failure, unspecified
--- NOTE | 2019-04-25 12:23 | Pharmacy Report ---
Pharmacy Glycemic Sign Off Nt - Date of Service April 25, 2019 - Assessment & Plan ASSESSMENT: * Pharmacy was consulted by Dr Basilio on 04/13 for glycemic control and to write orders per [facility] inpatient glycemic control protocol. * Major changes made by pharmacy to antidiabetic regimen include: * Lantus decreased to 10 units daily- this was discontinued by provider * Patient has been receiving ~15 units of insulin per day for adequate glycemic control * BSGs ranging 102-145 mg/dl * Regimen has only required minor adjustments over the past 48hrs to achieve this level of control * Patient's lantus was cancelled by provider and novolog parameters loosened significantly- patient possibly to be comfort measures, therefore discussed sign off with provider, who will manage BSGs. * Pharmacy is signing off of glycemic consult and will no longer be making adjustments to inpatient regimen. Please feel free to re-consult if needed. Thank you.
--- NOTE | 2019-04-25 16:17 | Palliative Care Progress Note ---
Date of Service April 25, 2019 Assessment & Plan (1) Goals of care, counseling/discussion: -Patient remains the same today. He is awake but confused. Unable to participate in meaningful GOC conversation. -Family meeting held with myself, Dr. Swanson, three daughters, patient's , and patient present but sleeping for most of meeting. -Discussed that patient has not been tolerating dialysis well. He was unable to have any fluid removed during last treatment. Nephrology states he is not a great long-term candidate. -After discussion, patient's family has decided to transition patient to comfort measures only. Stop dialysis. Stop all lab work. Stop medications unrelated to comfort. -Roxanol 5mg PO/SL Q4h PRN pain or SOB. Patient and family counseled on the secondary side effects of morphine such as sedation and respiratory depression. Overall goal is for comfort, accepting of secondary side effects. -If patient stabilizes over next 2-3 days and is stable for transfer, family is agreeable to having hospice care at SNF. Case management updated. -Will continue to follow this haley patient and family. (2) Acute renal failure: (3) Metabolic acidosis: (4) Metabolic encephalopathy: Subjective Patient denies complaints. Remains somewhat drowsy/lethargic. Family meeting this afternoon. Review of Systems Review of Systems: Denies any pain, SOB, chest pain or N/V. Physical Exam Constitutional: + ill appearing and + frail appearing ENMT: Mouth: + poor dentition Respiratory: no respiratory distress Auscultation: + rhonchi Cardiovascular: RRR, no murmur, no edema Gastrointestinal (Abdomen): Inspection/Auscultation: abdomen normal to in spection and normal bowel sounds Percussion/Palpation: abdomen soft Neurologic: awake and + confused Psychiatric: Orientation: oriented to person; + not oriented to place and + not oriented to time PG Care Time/CCT Total # of Minutes Spent Total Time Spent with Patient: Total time spent is greater than 50% in coordination of care (as documented) at patient's floor/unit and/or counseling patient: Prolonged Care Time Prolonged Care Time: Yes Total Prolonged Care Time: 65 Time Spent Midlevel 65 minutes with >50% of the time spent at bedside with patient and family discussing GOC, EOL issues, and THREAD CUTTER. (1) Acute renal failure Acute renal failure type: unspecified Qualified Code(s): N17.9 - Acute kidney failure, unspecified
--- NOTE | 2019-04-25 18:25 | Hospitalist Progress Note ---
Date of Service April 25, 2019 Assessment & Plan (1) Palliative care status: Family understands patient's poor prognosis, once patient to be comfortable only After family meeting with and 3 daughters and palliative care nurse Care is transitioned to hospice palliative care Will be continued in hospital stay for now If without dialysis his condition deteriorates rapidly then may stay as an inpatient hospice If patient remains stabilized for 2 to 3 days family is willing to consider n ursing home transfer with hospice care Family understands the cost of room and board will transition an institution for hospice Social service is consulted for discharge planning we will update family regarding insurance coverage and services (2) Metabolic encephalopathy: Continue to be declining mental status secondary to progressive uremia, baseline dementia At present on comfort care hospice (3) Acute respiratory failure: On 2 L oxygen via nasal cannula, no acute respiratory distress noted Care transitioned to hospice palliative care Presented with severe metabolic acidosis /respiratory failure ABG on admission with pH 6.9 PCO2 12 and HCO3 5 Intubated on vent support being managed by information systems auditor in the ICU Initially was starting on bicarb drip and had emergent HD S/P extubated on 04/15 CODE STATUS changed to DNR/DNI Has been required suctioning due to increase oral secretion Failed swallow eval- very high risk for aspiration Palliative consulted for goal of care-appreciate input Family does not want feeding tube or PEG tube placement Understands aspiration risk Patient will be allowed to eat with permissive aspiration Continues to show evidence of aspiration with each meal-having coughing spell before and afterward Lungs continues to be very coarse, Aspiration precaution, Family wants patient to be comfortable only, decision made for comfort care with hospice (4) Acute renal failure: Patient could not tolerate dialysis, Family wants to stop dialysis, care transition to comfort hospice care Nephrology updated 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 Sanchez Patient getting intermittent dialysis, appreciate input from nephrology, Per nephrology, patient is doing very poorly with each dialysis sessions, Yesterday became very hypotensive during dialysis treatment required fluid bolus Overall prognosis remains very poor Long-term dialysis will cause rapid decline in health and clinical status Family does not want to continue dialysis as it is causing patient will discuss comfort and declining health At present on hospice comfort care (5) Sepsis: UTI Present on admission with elevated HR, RR, lactic acid and WBC Blood cx no growth so far Urine cx positive for gram negative bacilli (Pseudomonas) Completed course of Zosyn on 04/19/2019 (6) Metabolic acidosis: ABG on admission with pH 6.9 PCO2 12 and HCO3 5 Resolved Repeat ABG after HD showed pH 7.5 PCO2 26 and HCO3 20 Requiring dialysis for ongoing renal failure-dialysis had to be stopped as patient could not tolerated Overall prognosis poor Hospice comfort care appropriate CODE STATUS DNR/DNI Disposition Comfort care hospice Subjective After family meeting with 3 daughters , palliative care team, decision made to change/transition care to comfort measures Hospice palliative care Physical Exam Constitutional: + ill appearing and + altered mental status (Baseline dementia, oriented to person only, per family members patient is approximately to his baseline); no acute distress Eyes: PERRL, conjunctivae normal, anicteric sclerae ENMT: external ear and nose normal, oropharynx normal Neck: trachea midline, no thyromegaly Respiratory: + cough Auscultation: + crackles, + rales, + rhonchi and + wheezes Cardiovascular: RRR, no murmur, no edema Gastrointestinal (Abdomen): normal bowel sounds, soft, nontender, no hepatosplenomegaly Musculoskeletal: Head/Neck/Chest: + head abnormal to inspection (Shallow skin biopsy wound on ulcer, with greenish base, no discharge, no surrounding erythema, surrounding) Skin: + wound (1) Acute renal failure Acute renal failure type: unspecified Qualified Code(s): N17.9 - Acute kidney failure, unspecified (2) Acute respiratory failure Respiratory failure complication: hypoxia Qualified Code(s): J96.01 - Acute respiratory failure with hypoxia (3) Sepsis Sepsis type: sepsis due to unspecified organism Qualified Code(s): A41.9 - Sepsis, unspecified organism
[2019-04-26] MEDS: HEPARIN SOD (PORCINE) 1000 UNIT/ML 10 ML VIAL IV SCH ×2 (07:03→07:04)
--- NOTE | 2019-04-26 15:03 | Palliative Care Progress Note ---
Date of Service April 26, 2019 Assessment & Plan (1) Goals of care, counseling/discussion: -Patient is awake and alert, but not verbally responding. He did shake his head "no" to pain, but no other ROS obtained. -After family meeting yesterday, patient and family decided to transition to [facility]. -Patient has not required any Roxanol or lorazepam for comfort. He appears quite comfortable and peaceful today in bed. -Patient may be stable for transfer out of facility in next day or two as long as he is comfortable and not requiring medication titration. Case management is following. -No medication changes needed at this time. (2) Acute renal failure: (3) Metabolic acidosis: (4) Metabolic encephalopathy: Subjective Patient is awake and alert but not verbally responding today. He is only able to answer by nodding his head occasionally. No s/s discomfort. He was seen in the morning with no family at bedside. Review of Systems Review of Systems: Unobtainable due to cognitive status Physical Exam Constitutional: + ill appearing and + frail appearing ENMT: Mouth: + poor dentition Respiratory: no respiratory distress Cardiovascular: RRR, no murmur, no edema Gastrointestinal (Abdomen): Inspection/Auscultation: abdomen normal to inspection and normal bowel sounds Percussion/Palpation: abdomen soft Neurologic: awake PG Care Time/CCT Total # of Minutes Spent Total Time Spent with Patient: Total time spent is greater than 50% in coordination of care (as documented) at patient's floor/unit and/or counseling patient: Time Spent Midlevel 35 minutes with >50% of the time spent at bedside with patient and care team coordinating care and discussing POC. (1) Acute renal failure Acute renal failure type: unspecified Qualified Code(s): N17.9 - Acute kidney failure, unspecified
--- NOTE | 2019-04-26 21:06 | Hospitalist Progress Note ---
Date of Service April 26, 2019 Assessment & Plan (1) Acute respiratory failure: On 2 L oxygen via nasal cannula, no acute respiratory distress noted Care transitioned to hospice palliative care Presented with severe metabolic acidosis /respiratory failure ABG on admission with pH 6.9 PCO2 12 and HCO3 5 Intubated on vent support being managed by escrow secretary in the ICU Initially was starting on bicarb drip and had emergent HD S/P extubated on 04/15 CODE STATUS changed to DNR/DNI Has been required suctioning due to increase oral secretion Failed swallow eval- very high risk for aspiration Palliative consulted for goal of care-appreciate input Family does not want feeding tube or PEG tube placement Understands aspiration risk Patient will be allowed to eat with permissive aspiration Continues to show evidence of aspiration with each meal-having coughing spell before and afterward Lungs continues to be very coarse, Aspiration precaution, Family wants patient to be comfortable only, decision made for comfort care with hospice (2) Acute renal failure: Patient could not tolerate dialysis, Family wants to stop dialysis, care transition to comfort hospice care Nephrology updated 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 Sanchez Patient getting intermittent dialysis, appreciate input from nephrology, Per nephrology, patient is doing very poorly with each dialysis sessions, Yesterday became very hypotensive during dialysis treatment required fluid bolus Overall prognosis remains very poor Long-term dialysis will cause rapid decline in health and clinical status Family does not want to continue dialysis as it is causing patient will discuss comfort and declining health At present on hospice comfort care (3) Sepsis: UTI Present on admission with elevated HR, RR, lactic acid and WBC Blood cx no growth so far Urine cx positive for gram negative bacilli (Pseudomonas) Completed course of Zosyn on 04/19/2019 (4) Metabolic acidosis: ABG on admission with pH 6.9 PCO2 12 and HCO3 5 Resolved Repeat ABG after HD showed pH 7.5 PCO2 26 and HCO3 20 Requiring dialysis for ongoing renal failure-dialysis had to be stopped as patient could not tolerated Overall prognosis poor Hospice comfort care appropriate CODE STATUS DNR/DNI Disposition Comfort care hospice (5) Hypovolemia: secondary to sepsis, required pressure support while in ICU off Levophed BP stable (6) Metabolic encephalopathy: Continue to be declining mental status secondary to progressive uremia, baseline dementia At present on comfort care hospice (7) Anemia in chronic renal disease: Hemoglobin remained stable S/p 1 unit PRBC on 04/16 and 04/18 (8) Elevated lactic acid level: Mostly related to severe metabolic acidosis in the setting of acute respiratory failure Follow up blood cx urine cx positive for gram negative bacilli (Pseudomanas) Completed 7 days course on IV Zosyn (9) Elevated troponin: Demand ischemia due to elevated creatinine and acidosis Denies any chest pain EKG showed no acute ischemic changes Continue monitor DVT px on heparin subq CODE STATUS: DNR/DNI Disposition: Patient has AICD/defibrillator-deactivated by [employer] rep today as per family request Patient is DNR/DNI Family wants to transition care to hospice/palliative care understand the very poor prognosis, Does not want patient suffer anymore, wants to be comfortable during his last days Subjective Pt was seen and examined Lying in bed watching TV with daughter at bedside Seems comfortable Physical Exam Physical Exam: General- No acute respiratory distress Head- atraumatic Eyes- eyes open Neck- supple, no JVD Lungs- Diminished lung sound Heart- regular, no murmur Abdomen- normal bowel sounds, soft, nontender Extremities- no calf tenderness Neuro- alert, awake move extremities Skin- warm & dry (1) Acute renal failure Acute renal failure type: unspecified Qualified Code(s): N17.9 - Acute kidney failure, unspecified (2) Acute respiratory failure Respiratory failure complication: hypoxia Qualified Code(s): J96.01 - Acute respiratory failure with hypoxia (3) Sepsis Sepsis type: sepsis due to unspecified organism Qualified Code(s): A41.9 - Sepsis, unspecified organism
[2019-04-26] MEDS: MoRPHine SULFATE 5 MG/0.25 ML UDP PO PRN (23:57)
--- NOTE | 2019-04-27 12:30 | Palliative Care Progress Note ---
Date of Service April 27, 2019 Assessment & Plan (1) Goals of care, counseling/discussion: -Patient is awake and alert, but not verbally responding. He did shake his head "no" to pain, but no other ROS obtained. -Patient had one dose of Roxanol last night around midnight. -Patient's family is meeting with behavioral health case manager this afternoon around 3pm to discuss SNF options. -Patient seems to be stable for discharge at this point. No symptoms have arose as of yet. Do anticipate some fluid retention at some point. Urine output is lessening each day. Will add scopolamine patch if any secretions begin to accumulate. He does have atropine drops ordered as needed as well. (2) Acute renal failure: (3) Metabolic acidosis: (4) Metabolic encephalopathy: Subjective Patient is about the same today. Awake but no verbal response. NO s/s pain or discomfort at this time. Review of Systems Review of Systems: Unobtainable due to cognitive status Physical Exam Constitutional: + ill appearing and + frail appearing ENMT: Mouth: + poor dentition Respiratory: no respiratory distress Cardiovascular: RRR, no murmur, no edema Gastrointestinal (Abdomen): Inspection/Auscultation: abdomen normal to inspection and normal bowel sounds Percussion/Palpation: abdomen soft Neurologic: awake PG Care Time/CCT Total # of Minutes Spent Total Time Spent with Patient: Total time spent is greater than 50% in coordination of care (as documented) at patient's floor/unit and/or counseling patient: Time Spent Midlevel 25 minutes with >50% of the time spent at bedside with patient and IDT discussing TRACK MAN and POC. (1) Acute renal failure Acute renal failure type: unspecified Qualified Code(s): N17.9 - Acute kidney failure, unspecified
[2019-04-27] MEDS: LORazepam 1 MG TAB SL PRN ×2 (17:24→22:41)
[2019-04-27] MEDS: MoRPHine SULFATE 5 MG/0.25 ML UDP PO PRN (19:38)
--- NOTE | 2019-04-27 20:05 | Hospitalist Progress Note ---
Date of Service April 27, 2019 Assessment & Plan (1) Acute respiratory failure: On 2 L oxygen via nasal cannula, no acute respiratory distress noted Care transitioned to hospice palliative care Presented with severe metabolic acidosis /respiratory failure ABG on admission with pH 6.9 PCO2 12 and HCO3 5 Intubated on vent support being managed by funeral director's assistant in the ICU Initially was starting on bicarb drip and had emergent HD S/P extubated on 04/15 CODE STATUS changed to DNR/DNI Has been required suctioning due to increase oral secretion Failed swallow eval- very high risk for aspiration Palliative consulted for goal of care-appreciate input Family does not want feeding tube or PEG tube placement Understands aspiration risk Patient will be allowed to eat with permissive aspiration Continues to show evidence of aspiration with each meal-having coughing spell before and afterward Lungs continues to be very coarse, Aspiration precaution, Family wants patient to be comfortable only, decision made for comfort care with hospice (2) Acute renal failure: Patient could not tolerate dialysis, Family wants to stop dialysis, care transition to comfort hospice care Nephrology updated 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 Sanchez Patient getting intermittent dialysis, appreciate input from nephrology, Per nephrology, patient is doing very poorly with each dialysis sessions, Yesterday became very hypotensive during dialysis treatment required fluid bolus Overall prognosis remains very poor Long-term dialysis will cause rapid decline in health and clinical status Family does not want to continue dialysis as it is causing patient will discuss comfort and declining health At present on hospice comfort care (3) Sepsis: UTI Present on admission with elevated HR, RR, lactic acid and WBC Blood cx no growth so far Urine cx positive for gram negative bacilli (Pseudomonas) Completed course of Zosyn on 04/19/2019 (4) Metabolic acidosis: ABG on admission with pH 6.9 PCO2 12 and HCO3 5 Resolved Repeat ABG after HD showed pH 7.5 PCO2 26 and HCO3 20 Requiring dialysis for ongoing renal failure-dialysis had to be stopped as patient could not tolerated Overall prognosis poor Hospice comfort care appropriate CODE STATUS DNR/DNI Disposition Comfort care hospice (5) Hypovolemia: secondary to sepsis, required pressure support while in ICU off Levophed BP stable (6) Metabolic encephalopathy: Continue to be declining mental status secondary to progressive uremia, baseline dementia At present on comfort care hospice (7) Anemia in chronic renal disease: Hemoglobin remained stable S/p 1 unit PRBC on 04/16 and 04/18 (8) Elevated lactic acid level: Mostly related to severe metabolic acidosis in the setting of acute respiratory failure Follow up blood cx urine cx positive for gram negative bacilli (Pseudomanas) Completed 7 days course on IV Zosyn (9) Elevated troponin: Demand ischemia due to elevated creatinine and acidosis Denies any chest pain EKG showed no acute ischemic changes Continue monitor DVT px on heparin subq CODE STATUS: DNR/DNI Disposition: Patient has AICD/defibrillator-deactivated by [employer] req as per family request Patient is DNR/DNI Waiting for placement Subjective Pt was seen and examined Lying in bed with no distress Open eyes when called his name His voice very weak Denies any pain Physical Exam Physical Exam: General- Weak voice Head- atraumatic Eyes- eyes open Neck- supple, no JVD Lungs- Diminished lung sound Heart- regular, no murmur Abdomen- normal bowel sounds, soft, nontender Extremities- no calf tenderness Neuro- awake, move extremities, weak/soft voice Skin- warm & dry (1) Acute renal failure Acute renal failure type: unspecified Qualified Code(s): N17.9 - Acute kidney failure, unspecified (2) Acute respiratory failure Respiratory failure complication: hypoxia Qualified Code(s): J96.01 - Acute respiratory failure with hypoxia (3) Sepsis Sepsis type: sepsis due to unspecified organism Qualified Code(s): A41.9 - Sepsis, unspecified organism
--- NOTE | 2019-04-28 11:26 | Palliative Care Progress Note ---
Date of Service April 28, 2019 Assessment & Plan (1) Goals of care, counseling/discussion: -Patient appears more pale and withdrawn today. -His daughter is at bedside and is concerned about patient's decline. Explained that this is the expected decline with his renal failure and poor PO intake-- more somnolence, fewer periods of wakefulness, less urine output, increased secretions. -Patient's daughter appreciative and agrees that patient looks peaceful and rather comfortable. -Will add scopolamine patch today for secretions. Also has atropine drops available PRN. -Patient's daughters plan to visit [facility] and the [facility] today or over the weekend to see about transferring patient there for hospice care. They are also meeting with hospice agency today at 1530. (2) Acute renal failure: (3) Metabolic acidosis: (4) Metabolic encephalopathy: Subjective Received call from patient's daughter, Rhonda, that they had some concerns. She asked me to go to patient's room this morning where her sister, Cheryle, is waiting to speak with me. Hospice agency RN also stopped to see patient as well. Review of Systems Review of Systems: Unobtainable due to cognitive status Physical Exam Constitutional: + ill appearing and + frail appearing ENMT: Mouth: + poor dentition Respiratory: no respiratory distress Auscultation: + rhonchi Cardiovascular: RRR, no murmur, no edema Neurologic: awake Time Spent Midlevel 40 minutes with >50% of the time spent at bedside with patient and family discussing hospice and EOl issues. (1) Acute renal failure Acute renal failure type: unspecified Qualified Code(s): N17.9 - Acute kidney failure, unspecified
--- NOTE | 2019-04-28 13:15 | ENT Consultation ---
Date of Consultation April 28, 2019 Assessment & Plan (1) Palliative care status: And that the patient has been placed on DNR status no ENT intervention is needed at this time (2) Dysphagia: (3) Acute respiratory failure: History of Present Illness Reason for Consultation: Respiratory failure Attending Physician: Dariana Mckinney MD History of Present Illness This patient was in respiratory failure and consultation was requested while I was away on vacation since that time he has been placed on DNR status per family request Allergies Allergy/AdvReac Type Severity Reaction Status Date / Time lisinopril Allergy Mild Unknown Verified 04/13/19 01:31 Home Medications Home Medications Medication Instructions Recorded Confirmed Type acetaminophen 650 mg PO Q6H PRN 04/13/19 04/13/19 History albuterol sulfate 2 puff INHALATION Q6H PRN 04/13/19 04/13/19 History allopurinol 100 mg PO DAILY 04/13/19 04/13/19 History aspirin [Aspir-81] 81 mg PO DAILY 04/13/19 04/13/19 History atorvastatin 40 mg PO DAILY 04/13/19 04/13/19 History calcium polycarbophil [FiberCon] 1,250 mg PO QAM 04/13/19 04/13/19 History cholecalciferol (vitamin D3) 1,000 unit PO DAILY 04/13/19 04/13/19 History cyanocobalamin (vitamin B-12) 500 mcg PO BID 04/13/19 04/13/19 History [Vitamin B-12] furosemide 20 mg PO 3XWK 04/13/19 04/13/19 History insulin glargine [Lantus Solostar 20 unit SUBCUT QAM 04/13/19 04/13/19 History U-100 Insulin] metoprolol succinate 25 mg PO DAILY 04/13/19 04/13/19 History ijiiouyu-igx-TL-lycopen-lutein 1 tab PO DAILY 04/13/19 04/13/19 History [Centrum Silver Ultra Men's] nitroglycerin [Nitrostat] 0.4 mg SUBLINGUAL UD PRN MDD 3 04/13/19 04/13/19 History doses ondansetron HCl 4 mg PO Q8 PRN 04/13/19 04/13/19 History polyethylene glycol 3350 [Miralax] 17 g PO DAILY PRN 04/13/19 04/13/19 History pyridoxine (vitamin B6) [Vitamin 100 mg PO DAILY 04/13/19 04/13/19 History B-6] repaglinide 2 mg PO TIDM 04/13/19 04/13/19 History Patient History Medical History Diabetes (Acute) CHF (congestive heart failure) (Chronic) Cholelithiasis Chronic ITP (idiopathic thrombocytopenia) Chronic kidney disease Heart attack Interstitial lung disease Surgical History Cardiac defibrillator in place (Chronic) Social History Preferred Language: Ukrainian Communication Ability: Unable Medical Instructor Required: No Beliefs That Will Affect Care: None Current Living Situation: Spouse Other Information That Helps Us Care for You: No Feels Safe at Home: Yes Safety Concerns: Feels Safe At This Time Smoking Status: Never smoker Do You Dip or Chew Tobacco: No Second Hand Exposure: No Tobacco Cessation Education Requested by Patient: No Hx Alcohol Use: No Hx Substance Use: No Physical Exam Constitutional: + ill appearing Eyes: PERRL, conjunctivae normal, anicteric sclerae ENMT: external ear and nose normal, oropharynx normal Neck: trachea midline, no thyromegaly (1) Acute respiratory failure Respiratory failure complication: hypoxia Qualified Code(s): J96.01 - Acute respiratory failure with hypoxia
[2019-04-28] MEDS: SCOPOLAMINE 1.5 MG TDSY TD SCH (14:26)
[2019-04-28] MEDS: CHECK SCOPOLAMINE PATCH PLACEMENT SCH (16:14)
[2019-04-28] MEDS: ATROPINE SULFATE 1% OP SOLN 2 ML BTL SL PRN (19:12)
[2019-04-28] MEDS: LORazepam 1 MG TAB SL PRN (19:15)
--- NOTE | 2019-04-28 19:48 | Hospitalist Progress Note ---
Date of Service April 28, 2019 Assessment & Plan (1) Acute respiratory failure: On 2 L oxygen via nasal cannula, no acute respiratory distress noted Care transitioned to hospice palliative care Presented with severe metabolic acidosis /respiratory failure ABG on admission with pH 6.9 PCO2 12 and HCO3 5 Intubated on vent support being managed by manufacturing systems engineer in the ICU Initially was starting on bicarb drip and had emergent HD S/P extubated on 04/15 CODE STATUS changed to DNR/DNI Has been required suctioning due to increase oral secretion Failed swallow eval- very high risk for aspiration Palliative consulted for goal of care-appreciate input Family does not want feeding tube or PEG tube placement Understands aspiration risk Patient will be allowed to eat with permissive aspiration Continues to show evidence of aspiration with each meal-having coughing spell before and afterward Lungs continues to be very coarse, Aspiration precaution, Family wants patient to be comfortable only, decision made for comfort care with hospice (2) Acute renal failure: Patient could not tolerate dialysis, Family wants to stop dialysis, care transition to comfort hospice care Nephrology updated 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 Sanchez Patient getting intermittent dialysis, appreciate input from nephrology, Per nephrology, patient is doing very poorly with each dialysis sessions, Yesterday became very hypotensive during dialysis treatment required fluid bolus Overall prognosis remains very poor Long-term dialysis will cause rapid decline in health and clinical status Family does not want to continue dialysis as it is causing patient will discuss comfort and declining health At present on hospice comfort care (3) Sepsis: UTI Present on admission with elevated HR, RR, lactic acid and WBC Blood cx no growth so far Urine cx positive for gram negative bacilli (Pseudomonas) Completed course of Zosyn on 04/19/2019 (4) Metabolic acidosis: ABG on admission with pH 6.9 PCO2 12 and HCO3 5 Resolved Repeat ABG after HD showed pH 7.5 PCO2 26 and HCO3 20 Requiring dialysis for ongoing renal failure-dialysis had to be stopped as patient could not tolerated Overall prognosis poor Hospice comfort care appropriate CODE STATUS DNR/DNI Disposition Comfort care hospice (5) Hypovolemia: secondary to sepsis, required pressure support while in ICU off Levophed BP stable (6) Metabolic encephalopathy: Continue to be declining mental status secondary to progressive uremia, baseline dementia At present on comfort care hospice (7) Anemia in chronic renal disease: Hemoglobin remained stable S/p 1 unit PRBC on 04/16 and 04/18 (8) Elevated lactic acid level: Mostly related to severe metabolic acidosis in the setting of acute respiratory failure Follow up blood cx urine cx positive for gram negative bacilli (Pseudomanas) Completed 7 days course on IV Zosyn (9) Elevated troponin: Demand ischemia due to elevated creatinine and acidosis Denies any chest pain EKG showed no acute ischemic changes Continue monitor DVT px on heparin subq CODE STATUS: DNR/DNI Disposition: Patient has AICD/defibrillator-deactivated by [employer] req as per family request Patient is DNR/DNI Waiting for placement Subjective Pt was seen and examined Lying in bed comfortable When I asked her if he is hungry, he shook his head and said yes He is not having any pain currently Physical Exam Physical Exam: General- Weak/soft voice Head- atraumatic Eyes- eyes open Neck- supple, no JVD Lungs- Diminished lung sound Heart- regular, no murmur Abdomen- normal bowel sounds, soft, nontender Extremities- no calf tenderness Neuro- awake, move extremities, weak/soft voice Skin- warm & dry (1) Acute renal failure Acute renal failure type: unspecified Qualified Code(s): N17.9 - Acute kidney failure, unspecified (2) Acute respiratory failure Respiratory failure complication: hypoxia Qualified Code(s): J96.01 - Acute respiratory failure with hypoxia (3) Sepsis Sepsis type: sepsis due to unspecified organism Qualified Code(s): A41.9 - Sepsis, unspecified organism
[2019-04-29] MEDS: CHECK SCOPOLAMINE PATCH PLACEMENT SCH ×4 (01:14→23:30)
[2019-04-29] MEDS: MoRPHine SULFATE 5 MG/0.25 ML UDP PO PRN (03:44)
[2019-04-29] MEDS: ATROPINE SULFATE 1% OP SOLN 2 ML BTL SL PRN ×3 (07:58→20:09)
[2019-04-29] MEDS: LORazepam 1 MG TAB SL PRN (20:09)
--- NOTE | 2019-04-29 20:11 | Hospitalist Progress Note ---
Date of Service April 29, 2019 Assessment & Plan (1) Acute respiratory failure: On 2 L oxygen via nasal cannula, no acute respiratory distress noted Care transitioned to hospice palliative care Presented with severe metabolic acidosis /respiratory failure ABG on admission with pH 6.9 PCO2 12 and HCO3 5 Intubated on vent support being managed by operator/assistant foreman in the ICU Initially was starting on bicarb drip and had emergent HD S/P extubated on 04/15 CODE STATUS changed to DNR/DNI Has been required suctioning due to increase oral secretion Failed swallow eval- very high risk for aspiration Palliative consulted for goal of care-appreciate input Family does not want feeding tube or PEG tube placement Understands aspiration risk Patient will be allowed to eat with permissive aspiration Continues to show evidence of aspiration with each meal-having coughing spell before and afterward Lungs continues to be very coarse, Aspiration precaution, Family wants patient to be comfortable only, decision made for comfort care with hospice (2) Acute renal failure: Patient could not tolerate dialysis, Family wants to stop dialysis, care transition to comfort hospice care Nephrology updated 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 Sanchez Patient getting intermittent dialysis, appreciate input from nephrology, Per nephrology, patient is doing very poorly with each dialysis sessions, Yesterday became very hypotensive during dialysis treatment required fluid bolus Overall prognosis remains very poor Long-term dialysis will cause rapid decline in health and clinical status Family does not want to continue dialysis as it is causing patient will discuss comfort and declining health At present on hospice comfort care (3) Sepsis: UTI Present on admission with elevated HR, RR, lactic acid and WBC Blood cx no growth so far Urine cx positive for gram negative bacilli (Pseudomonas) Completed course of Zosyn on 04/19/2019 (4) Metabolic acidosis: ABG on admission with pH 6.9 PCO2 12 and HCO3 5 Resolved Repeat ABG after HD showed pH 7.5 PCO2 26 and HCO3 20 Requiring dialysis for ongoing renal failure-dialysis had to be stopped as patient could not tolerated Overall prognosis poor Hospice comfort care appropriate CODE STATUS DNR/DNI Disposition Comfort care hospice (5) Hypovolemia: secondary to sepsis, required pressure support while in ICU off Levophed BP stable (6) Metabolic encephalopathy: Continue to be declining mental status secondary to progressive uremia, baseline dementia At present on comfort care hospice (7) Anemia in chronic renal disease: Hemoglobin remained stable S/p 1 unit PRBC on 04/16 and 04/18 (8) Elevated lactic acid level: Mostly related to severe metabolic acidosis in the setting of acute respiratory failure Follow up blood cx urine cx positive for gram negative bacilli (Pseudomanas) Completed 7 days course on IV Zosyn (9) Elevated troponin: Demand ischemia due to elevated creatinine and acidosis Denies any chest pain EKG showed no acute ischemic changes Continue monitor DVT px on heparin subq CODE STATUS: DNR/DNI Disposition: Patient has AICD/defibrillator-deactivated by [employer] req as per family request Patient is DNR/DNI Waiting for placement Subjective Pt was seen and examined Lying in bed sleeping comfortable Physical Exam Physical Exam: General- sleeping comfortable Head- atraumatic Eyes- eyes closed Neck- supple, no JVD Lungs- Diminished lung sound Heart- regular, no murmur Abdomen- normal bowel sounds, soft, Neuro- sleeping Skin- warm & dry (1) Acute renal failure Acute renal failure type: unspecified Qualified Code(s): N17.9 - Acute kidney failure, unspecified (2) Acute respiratory failure Respiratory failure complication: hypoxia Qualified Code(s): J96.01 - Acute respiratory failure with hypoxia (3) Sepsis Sepsis type: sepsis due to unspecified organism Qualified Code(s): A41.9 - Sepsis, unspecified organism
[2019-04-30] MEDS: CHECK SCOPOLAMINE PATCH PLACEMENT SCH ×2 (07:57→16:50)
[2019-04-30] MEDS: MoRPHine SULFATE 5 MG/0.25 ML UDP PO PRN ×2 (09:51→12:27)
[2019-04-30] MEDS: LORazepam 1 MG TAB SL PRN ×2 (12:28→20:11)
[2019-04-30] MEDS: MoRPHine SULFATE 5 MG/0.25 ML UDP PO SCH ×5 (13:56→22:24)
--- NOTE | 2019-04-30 19:12 | Hospitalist Progress Note ---
Date of Service April 30, 2019 Assessment & Plan (1) Acute respiratory failure: On 2 L oxygen via nasal cannula, no acute respiratory distress noted Care transitioned to hospice palliative care Presented with severe metabolic acidosis /respiratory failure ABG on admission with pH 6.9 PCO2 12 and HCO3 5 Intubated on vent support being managed by ring cutter lathe operator in the ICU Initially was starting on bicarb drip and had emergent HD S/P extubated on 04/15 CODE STATUS changed to DNR/DNI Has been required suctioning due to increase oral secretion Failed swallow eval- very high risk for aspiration Palliative consulted for goal of care-appreciate input Family does not want feeding tube or PEG tube placement Understands aspiration risk Patient will be allowed to eat with permissive aspiration Continues to show evidence of aspiration with each meal-having coughing spell before and afterward Lungs continues to be very coarse, Aspiration precaution, Family wants patient to be comfortable only, decision made for comfort care with hospice (2) Acute renal failure: Patient could not tolerate dialysis, Family wants to stop dialysis, care transition to comfort hospice care Nephrology updated 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 Sanchez Patient getting intermittent dialysis, appreciate input from nephrology, Per nephrology, patient is doing very poorly with each dialysis sessions, Yesterday became very hypotensive during dialysis treatment required fluid bolus Overall prognosis remains very poor Long-term dialysis will cause rapid decline in health and clinical status Family does not want to continue dialysis as it is causing patient will discuss comfort and declining health At present on hospice comfort care (3) Sepsis: UTI Present on admission with elevated HR, RR, lactic acid and WBC Blood cx no growth so far Urine cx positive for gram negative bacilli (Pseudomonas) Completed course of Zosyn on 04/19/2019 (4) Metabolic acidosis: ABG on admission with pH 6.9 PCO2 12 and HCO3 5 Resolved Repeat ABG after HD showed pH 7.5 PCO2 26 and HCO3 20 Requiring dialysis for ongoing renal failure-dialysis had to be stopped as patient could not tolerated Overall prognosis poor Hospice comfort care appropriate CODE STATUS DNR/DNI Disposition Comfort care hospice (5) Hypovolemia: secondary to sepsis, required pressure support while in ICU off Levophed BP stable (6) Metabolic encephalopathy: Continue to be declining mental status secondary to progressive uremia, baseline dementia At present on comfort care hospice (7) Anemia in chronic renal disease: Hemoglobin remained stable S/p 1 unit PRBC on 04/16 and 04/18 (8) Elevated lactic acid level: Mostly related to severe metabolic acidosis in the setting of acute respiratory failure Follow up blood cx urine cx positive for gram negative bacilli (Pseudomanas) Completed 7 days course on IV Zosyn (9) Elevated troponin: Demand ischemia due to elevated creatinine and acidosis Denies any chest pain EKG showed no acute ischemic changes Continue monitor DVT px on heparin subq CODE STATUS: DNR/DNI Disposition: Patient has AICD/defibrillator-deactivated by [employer] req as per family request Patient is DNR/DNI Waiting for placement Subjective Pt was seen and examined Lying in bed with daughter at bedside Pt seems to be comfortable Daughters want his pain med to be given around the clock since pt is unable to ask for pain med I explained to the daughters that i could change it to be given round the clock, but that might also cause him to be very sleepy and drowsy Daughters agreed to change to around the clock and I told them that i would place an order for hold if pt becomes too sleepy Physical Exam Physical Exam: General- sleeping comfortable Head- atraumatic Eyes- eyes closed Neck- supple, no JVD Lungs- Diminished lung sound Heart- regular, no murmur Abdomen- normal bowel sounds, soft, Neuro- sleeping Skin- warm & dry (1) Acute renal failure Acute renal failure type: unspecified Qualified Code(s): N17.9 - Acute kidney failure, unspecified (2) Acute respiratory failure Respiratory failure complication: hypoxia Qualified Code(s): J96.01 - Acute respiratory failure with hypoxia (3) Sepsis Sepsis type: sepsis due to unspecified organism Qualified Code(s): A41.9 - Sepsis, unspecified organism
[2019-04-30] MEDS: ATROPINE SULFATE 1% OP SOLN 2 ML BTL SL PRN ×2 (20:13→22:00)
[2019-05-01] MEDS: CHECK SCOPOLAMINE PATCH PLACEMENT SCH ×4 (00:30→22:55)
[2019-05-01] MEDS: MoRPHine SULFATE 5 MG/0.25 ML UDP PO SCH ×8 (05:56→20:42)
--- NOTE | 2019-05-01 09:20 | Palliative Care Progress Note ---
Date of Service May 01, 2019 Assessment & Plan (1) Goals of care, counseling/discussion: -Patient condition has drastically deteriorated over the weekend. He is now nearly obtunded. More pale. Agonal breaths at times. Cold toes and feet but no mottling as of yet. -In my opinion, I would be concerned that patient could during transport if he was to be transferred to another facility. -Roxanol 5mg is ordered to be given Q2H while awake, hold if RR <12. I also ordered a PRN dose of 5mg Q4h PRN for any breakthrough pain or respiratory distress. -No family at bedside. Will continue to follow for any palliative care needs. (2) Acute renal failure: (3) Metabolic acidosis: (4) Metabolic encephalopathy: Subjective Patient is more somnolent, nearly obtunded this morning. Some agonal breathing at times. No family at bedside. Review of Systems Review of Systems: Unobtainable due to cognitive status and Unobtainable due to reduced consciousness Physical Exam Constitutional: + ill appearing and + frail appearing ENMT: Mouth: + dry oral mucous membranes Respiratory: no respiratory distress agonal breaths Cardiovascular: Rate/Rhythm: regular rate and regular rhythm Extremities: no edema Gastrointestinal (Abdomen): Inspection/Auscultation: normal bowel sounds Percussion/Palpation: abdomen soft Musculoskeletal: BL toes and feet are cold, no mottling Skin: + pallor Neurologic: + not awake (somnolent) Supervising Physician Co-Signing Physician Notes Patient seen and examined-patient's 2 daughters and granddaughter at bedside. Patient minimally responsive, did open eyes briefly. HEENT: EOMI, dry mucous membranes Neck: Hyperextended Respirations: Unlabored CV: Regular rate Neuro: Minimally responsive Agree with above note, assessment and plan as per JOSE Johnston - discussed end-of-life issues at length with family at bedside. PG Care Time/CCT Total # of Minutes Spent Total Time Spent with Patient: Total time spent is greater than 50% in coordination of care (as documented) at patient's floor/unit and/or counseling patient: Time Spent Midlevel 25 minutes with >50% of the time spent at bedside with patient and IDT discussing POC and comfort measures. Attending Spent 30 minutes in addition to 25 minutes spent by CRUSHER-for total of 55 minutes with greater than 50% of the time spent at bedside. (1) Acute renal failure Acute renal failure type: unspecified Qualified Code(s): N17.9 - Acute kidney failure, unspecified
[2019-05-01] MEDS ORDERED: MoRPHine SULFATE 5 MG/0.25 ML UDP PO PRN (09:21)
[2019-05-01] MEDS: INSULIN ASPART 100 UNITS/ML 3 ML PEN SC SCH (10:25)
[2019-05-01] MEDS: SCOPOLAMINE 1.5 MG TDSY TD SCH (13:18)
--- NOTE | 2019-05-01 17:44 | Hospitalist Progress Note ---
Date of Service May 01, 2019 Assessment & Plan (1) Acute respiratory failure: (2) Acute renal failure: (3) Sepsis: (4) Metabolic acidosis: (5) Hypovolemia: (6) Metabolic encephalopathy: (7) Anemia in chronic renal disease: (8) Elevated lactic acid level: (9) Elevated troponin: Presented with severe metabolic acidosis /respiratory failure ABG on admission with pH 6.9 PCO2 12 and HCO3 5 Intubated on vent support being managed by char conveyor tender in the ICU Initially was starting on bicarb drip and had emergent HD S/P extubated on 04/15 CODE STATUS changed to DNR/DNI Has been required suctioning due to increase oral secretion Failed swallow eval- very high risk for aspiration Very poor prognosis and HD discontinued as per family request since pt cannot tolerate it Family does not want feeding tube or PEG tube placement Family wants patient to be comfortable only, decision made for comfort care with hospice Palliative care on board appreciated input Will change oral morphine to IV due to dysphagia Continue ativan PRN and scopolamine patch Subjective Pt was seen and examined family members at bedside Pt is sleeping comfortable snoring Pt said that he has been sleeping since they arrived Family said that they rather have him sleeping comfortable instead of moaning in pain Nurse said that when tried to give him susp morphine, pt coughed We will change the morphine to IV Physical Exam Physical Exam: General- sleeping comfortable Head- atraumatic Eyes- eyes closed Neck- supple, no JVD Lungs- Diminished lung sound Heart- regular, no murmur Abdomen- normal bowel sounds Neuro- sleeping Skin- warm & dry (1) Acute renal failure Acute renal failure type: unspecified Qualified Code(s): N17.9 - Acute kidney failure, unspecified (2) Acute respiratory failure Respiratory failure complication: hypoxia Qualified Code(s): J96.01 - Acute respiratory failure with hypoxia (3) Sepsis Sepsis type: sepsis due to unspecified organism Qualified Code(s): A41.9 - Sepsis, unspecified organism
[2019-05-01] MEDS: MoRPHine SULFATE 2 MG/ML CARP IV SCH ×2 (18:58→21:05)
[2019-05-01] MEDS: LORazepam 0.5 MG/1 ML VIAL IV PRN (23:08)
[2019-05-02] MEDS: MoRPHine SULFATE 2 MG/ML CARP IV PRN ×3 (02:31→09:54)
[2019-05-02] MEDS: CHECK SCOPOLAMINE PATCH PLACEMENT SCH ×2 (07:10→16:00)
[2019-05-02] MEDS: LORazepam 0.5 MG/1 ML VIAL IV PRN (08:13)
[2019-05-02] MEDS ORDERED: MoRPHine SULFATE 2 MG/ML CARP IV PRN (11:27)
[2019-05-02] MEDS ORDERED: LORazepam 0.5 MG/1 ML VIAL IV SCH (14:00)
[2019-05-02] MEDS: MoRPHine SULFATE 2 MG/ML CARP IV SCH ×3 (14:16→18:00)
[2019-05-02] MEDS: LORazepam 0.5 MG/1 ML VIAL IV SCH ×3 (14:27→21:01)
--- NOTE | 2019-05-02 16:29 | Palliative Care Progress Note ---
Date of Service May 02, 2019 Assessment & Plan (1) Palliative care status: (1) Goals of care, counseling/discussion: -Patient nearing end-of-life, family grieving appropriately. -Patient not stable for transfer to another facility, is requiring scheduled morphine and Ativan for comfort -IV morphine at 1 mg every 2 hours scheduled, hold if RR <12, IV Ativan at 0.5 mg ordered every 3 hours scheduled-patient requires frequent dosing for comfort (2) Acute renal failure: Comfort care (3) Metabolic encephalopathy: Patient nearing end-of-life (4) acute respiratory failure-patient requires scheduled morphine and Ativan to control respiratory rate for comfort (5) dysphasia-patient unable to take p.o. or sublingual meds-requires scheduled Ativan and morphine for comfort. Discussed end-of-life issues at length with family at bedside-addressed all questions and concerns. (2) Acute renal failure: (3) Metabolic encephalopathy: (4) Acute respiratory failure: (5) Dysphagia: Subjective Patient seen and examined, family at bedside including patient's , daughter and granddaughter. Patient appears comfortable -now on scheduled Ativan and morphine for comfort. Review of Systems Review of Systems: Unobtainable due to cognitive status Physical Exam Physical Exam: PE: No acute distress HEENT: Dry mucous membranes, no excess oral secretions Neck: Hyperextended Respiratory: Unlabored, on O2 CV: Regular rate Neuro: Unresponsive to voice or touch PG Care Time/CCT Total # of Minutes Spent Total Time Spent with Patient: Total time spent is greater than 50% in coordination of care (as documented) at patient's floor/unit and/or counseling patient: Time Spent Attending Total time spent 45 minutes with greater than 50% of the time spent at bedside reviewing patient's level of comfort, assisting family with assessing patient's comfort as well as discussing end-of-life issues at length. (1) Acute renal failure Acute renal failure type: unspecified Qualified Code(s): N17.9 - Acute kidney failure, unspecified (2) Acute respiratory failure Respiratory failure complication: hypoxia Qualified Code(s): J96.01 - Acute respiratory failure with hypoxia
--- NOTE | 2019-05-02 16:30 | Palliative Care Progress Note ---
Date of Service May 02, 2019 Assessment & Plan (1) Palliative care status: (1) Goals of care, counseling/discussion: -Patient nearing end-of-life, family grieving appropriately. -Patient not stable for transfer to another facility, is requiring scheduled morphine and Ativan for comfort -IV morphine at 1 mg every 2 hours scheduled, hold if RR <12, IV Ativan at 0.5 mg ordered every 3 hours scheduled-patient requires frequent dosing for comfort (2) Acute renal failure: Comfort care (3) Metabolic encephalopathy: Patient nearing end-of-life (4) acute respiratory failure-patient requires scheduled morphine and Ativan to control respiratory rate for comfort (5) dysphasia-patient unable to take p.o. or sublingual meds-requires scheduled Ativan and morphine for comfort. Discussed end-of-life issues at length with family at bedside-addressed all questions and concerns. (2) Acute renal failure: (3) Metabolic encephalopathy: (4) Acute respiratory failure: (5) Dysphagia: Subjective Patient asleep, would arouse briefly-no family or friends at bedside. PG Care Time/CCT Total # of Minutes Spent Total Time Spent with Patient: Total time spent is greater than 50% in coordination of care (as documented) at patient's floor/unit and/or counseling patient: (1) Acute renal failure Acute renal failure type: unspecified Qualified Code(s): N17.9 - Acute kidney failure, unspecified (2) Acute respiratory failure Respiratory failure complication: hypoxia Qualified Code(s): J96.01 - Acute respiratory failure with hypoxia
--- NOTE | 2019-05-02 19:05 | Hospitalist Progress Note ---
Date of Service May 02, 2019 Assessment & Plan (1) Acute respiratory failure: (2) Acute renal failure: (3) Sepsis: (4) Metabolic acidosis: (5) Hypovolemia: (6) Metabolic encephalopathy: (7) Anemia in chronic renal disease: (8) Elevated lactic acid level: (9) Elevated troponin: Presented with severe metabolic acidosis /respiratory failure ABG on admission with pH 6.9 PCO2 12 and HCO3 5 Intubated on vent support being managed by leguillon debeader in the ICU Initially was starting on bicarb drip and had emergent HD S/P extubated on 04/15 CODE STATUS changed to DNR/DNI Has been required suctioning due to increase oral secretion Failed swallow eval- very high risk for aspiration Very poor prognosis and HD discontinued as per family request since pt cannot tolerate it Family does not want feeding tube or PEG tube placement Family wants patient to be comfortable only, decision made for comfort care with hospice Palliative care on board appreciated input oral morphine changed to IV due to dysphagia Continue IV morphine as schedule as per family request to keep patient comfortable IV morphine at 1 mg every 2 hours scheduled, hold if RR <12, IV Ativan at 0.5 mg ordered every 3 hours scheduled Continue ativan PRN and scopolamine patch Subjective Pt was seen and examined sleeping in bed with daughter at bedside Daughter request for the patient to be given the morphine more frequent Physical Exam Physical Exam: General- sleeping comfortable Head- atraumatic Eyes- eyes closed Neck- supple, no JVD Lungs- Diminished lung sound Heart- regular, no murmur Neuro- sleeping Skin- warm & dry (1) Acute renal failure Acute renal failure type: unspecified Qualified Code(s): N17.9 - Acute kidney failure, unspecified (2) Acute respiratory failure Respiratory failure complication: hypoxia Qualified Code(s): J96.01 - Acute respiratory failure with hypoxia (3) Sepsis Sepsis type: sepsis due to unspecified organism Qualified Code(s): A41.9 - Sepsis, unspecified organism
[2019-05-02] MEDS ORDERED: MoRPHine SULFATE 2 MG/ML CARP IV SCH (20:00)
--- NOTE | 2019-05-03 07:26 | Death Summary ---
Date of Service May 03, 2019 Was notified that patient at 10:10pm on May 02 2019. Seen and examined the patient. Ge Unresponsive Eyes: Pupils dilated and non reactive to light Neck No carotid pulse palpable Cvs No heart sounds heard on ascultation Rs no spontaneous breathing seen, No breath sounds heard on ascultation Patient at 10:10pm on May 02 2019. Family was notified by Nursing staff. Pronouncement Note Contributing Factors (1) Acute respiratory failure: (2) Acute renal failure: (3) Sepsis: (4) Metabolic acidosis: (5) Hypovolemia: (6) Metabolic encephalopathy: (7) Anemia in chronic renal disease: (8) Elevated lactic acid level: (9) Elevated troponin: Additional Data Attending physician: Dariana Mckinney MD
--- NOTE | 2019-05-04 07:44 | Discharge Summary ---
Date of Service May 04, 2019 Admission HPI Per Admitting Provider History obtained from patient family and records. Unable to obtain history from patient secondary to intubated state. Medical history significant for chronic systolic heart failure secondary to ischemic cardiomyopathy (EF of 31%, TTE 2013) status post ICD, CAD status post stent, hypertension, interstitial lung disease as per records, CRI (baseline creatinine 3 as of 12/2018), chronic anemia (baseline hemoglobin of 10 as of 12/2018), DM 2 insulin requiring, past tobacco abuse, BPH, history ITP as per records. Recent confinement April 2018 for right-sided ureteric stone sp spontaneous passage. Patient noted to have altered mental status the last few days as per . Unwitnessed mechanical fall after bending over last week as per records. Increase in usual junky cough, breathing a little more labored than usual. Coughing with meals/water intake is not careful as per . No chest pain as per patient . Respiratory distress noted by home nurse yesterday. Patient's preferred to have patient treated at home over ER evaluation as per outpatient note. NSS bolus, IM Solu-Medrol, IV Ceftriaxone given at home for possible respiratory infection. Outpatient chest x-ray, blood work ordered. Patient instructed to initiate doxycycline and prednisone course the following day. ER evaluation recommended with further worsening of symptoms as per note. Outpatient hemoglobin noted to be 9.1, creatinine noted 9.1. Patient family instructed to bring patient to the emergency room. At the ER, patient given Solu-Medrol, neb treatment. Subsequent intubation done for respiratory distress. Bicarbonate drip initiated at the ER for metabolic acidosis. 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[employer] , [facility] at home patient since January 2019 Principal Diagnosis ACUTE RESPIRATORY FAILURE /COMFORT CARE /HOSPICE PT WHILE ON HOSPICE CARE Discharge Exam PATIENT Discharge Data Allergies Allergy/AdvReac Type Severity Reaction Status Date / Time lisinopril Allergy Mild Unknown Verified 04/13/19 01:31 Consultations 04/13/19 00:31 ED Decision to Admit Stat 04/13/19 03:54 Consult Entry Table Operator Routine 04/13/19 04:05 Consult Nephrology Routine 04/13/19 04:43 Consult Case Management - Discharge Planning Routine Consult Case Management - Discharge Planning Routine 04/17/19 08:34 Consult Vascular Surgery Routine 04/17/19 14:17 Consult Palliative Care Routine 04/18/19 10:22 Consult Palliative Care Routine 04/19/19 14:44 Consult Otolaryngology (Head and Neck) Routine Procedures Performed Operation Date: 04/18/19 11:10 Actual Procedures p Insertion Of Perm Catheter. 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 Routine US guide vascular access Routine 04/21/19 12:13 CT head/brain wo con Routine Hospital Course (1) Acute respiratory failure: Presented with severe metabolic acidosis /respiratory failure ABG on admission with pH 6.9 PCO2 12 and HCO3 5 Intubated on vent support being managed by tentering machine feeder in the ICU Initially was starting on bicarb drip and had emergent HD S/P extubated on 04/15 CODE STATUS changed to DNR/DNI Care transitioned to hospice palliative care Pt while on Comfort care (2) Acute renal failure: Patient could not tolerate dialysis, Family wants to stop dialysis, care transition to comfort hospice care Nephrology updated 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 Presented with ischemic ATN-leading to end-stage renal failure requiring dialysis creatinine on admission above 9, patient remains anuric Family does not want to continue dialysis as it is causing patient will discuss comfort and declining health At present on hospice comfort care Pt while on Comfort care /Hospice (3) Sepsis: Total Time Total Time Spent Total Time Spent (In Minutes): pt Discharge Plan Discharge Items Patient Disposition: Admission Data Admit Date/Time: 04/13/19 03:54 Attending Provider: Dariana Mckinney Admit Provider: Mike Menon Primary Care Provider: Cruzito Liao Other Providers: Dariana Mckinney ; Conor Narayan ; Jenni Garcia ; Mike Menon ; Khanh Soto ; Cristin Mclaughlin ; Delbert Sanchez ; Yenifer Flor ; Lara Swanson. Service: Medical Other DC Date/Time DO NOT enter until pt leaves facility: 05/02/19 23:50
== END 2019-05-02 23:50 | disposition expired | DRG 871 ==
LOC: ED 22:48 → 1E 04-13 03:54 → SUATTDRO 04-13 03:54 → 1E 04-13 04:10 → 2N 04-18 14:10 → 4W 04-23 19:40